=== PATIENT | female | born 1980 | race Caucasian/White ===

== ENCOUNTER → 2020-01-29 08:50 | Outpatient (BNVA) | payer MEDICAID, SELFPAY | PROVIDERS: PCP Internal Medicine; Visit Provider Physician Assistant | DX: Z76.89 Persons encountering health services in other specified circumstances (principal) ==

== ENCOUNTER → 2020-02-22 10:05 | Outpatient (BNVA) | payer MEDICAID, SELFPAY | PROVIDERS: Visit Provider Surgery | DX: E66.01 Morbid (severe) obesity due to excess calories (principal); Z68.42 Body mass index [BMI] 45.0-49.9, adult; E50.9 Vitamin A deficiency, unspecified; E55.9 Vitamin D deficiency, unspecified; Z71.3 Dietary counseling and surveillance | CPT/HCPCS: 99214 ==

== ENCOUNTER 2020-03-09 10:37 | Outpatient (REF) | payer MEDICAID, SELFPAY | END 2020-03-09 10:38 | disposition home or self-care (01) | LOC: HO.LAB 10:37 | PROVIDERS: PCP Internal Medicine; Referring Provider Internal Medicine; Visit Provider Obstetrics & Gynecology | DX: N87.1 Moderate cervical dysplasia (principal); B37.2 Candidiasis of skin and nail | CPT/HCPCS: 88142; 88305; 99212 ==

== ENCOUNTER → 2020-04-07 08:26 | Outpatient (BNVA) | payer MEDICAID, SELFPAY | PROVIDERS: PCP Internal Medicine; Visit Provider Physician Assistant | DX: Z76.89 Persons encountering health services in other specified circumstances (principal) ==

== ENCOUNTER 2020-04-18 14:58 | Outpatient (REF) | payer MEDICAID, SELFPAY | END 2020-04-18 14:59 | disposition home or self-care (01) | LOC: HO.LAB 14:58 | PROVIDERS: Visit Provider Internal Medicine | DX: Z20.828 Contact with and (suspected) exposure to other viral communicable diseases (principal) | CPT/HCPCS: C9803; U0003 ==

== ENCOUNTER 2020-05-06 16:06 | Emergency (ER) | payer MEDICAID, SELFPAY ==
[2020-05-06 17:27] VITALS: BP 113/84; PULSE 101; RESP 18; TEMP 37.7; O2SAT 100; BMI 32.3
[2020-05-06 20:04] VITALS: BP 127/92; PULSE 108; RESP 20; TEMP 36.7; O2SAT 100
--- NOTE | 2020-05-06 22:28 | ECG_ITS ---
Test Reason : SOB Blood Pressure : / mmHG Vent. Rate : 104 BPM Atrial Rate : 104 BPM P-R Int : 120 ms QRS Dur : 082 ms QT Int : 360 ms P-R-T Axes : 047 018 007 degrees QTc Int : 473 ms Sinus tachycardia Otherwise normal ECG When compared to the previous EKG of No significant changes seen Referred By: Sergo Angel Electronically Signed By:Mendel Cervantes
--- NOTE | 2020-05-06 22:28 | XR_ITS ---
EXAMINATION: XR CHEST CLINICAL INFORMATION: Chest pain. COMPARISON: None TECHNIQUE: Frontal portable view of the chest was obtained. 10:28 PM FINDINGS: No significant abnormality is noted involving the heart, lungs, mediastinum, bony thorax or soft tissues. XR/XR chest 1V IMPRESSION: Unremarkable examination.
[2020-05-06 23:01] LABS: Basophils Absolute Auto 0.1 X10*3/uL (0.0-0.2); Basophils Percent Auto 0.6 % (0-2); Eosinophils Absolute Auto 0.7 X10*3/uL (0.0-0.4); Eosinophils Percent Auto 5.5 % (0-4); Hematocrit 33.5 % (37-47); Hemoglobin 10.3 g/dl (12.0-16.0); Imm Gran Abs Auto 0.04 X10*3/uL (0.00-0.03); Imm Gran Pct Auto 0.3 % (0.0-0.4); Lymphocytes Absolute Auto 3.2 X10*3/uL (1.2-4.9); Lymphocytes Percent Auto 24.9 % (20-40); MANUAL DIFF FLAG NO; Mean Corpuscular HGB Conc 30.7 g/dl (31.0-35.0); Mean Corpuscular Hemoglobin 23.7 pg (27.0-33.0); Mean Corpuscular Volume 77.2 fL (80-98); Mean Platelet Volume 9.4 fL (9.4-12.3); Monocytes Absolute Auto 0.6 X10*3/uL (0.1-1.2); Monocytes Percent Auto 4.8 % (2-11); Neutrophils Absolute Auto 8.1 X10*3/uL (2.0-8.3); Neutrophils Percent Auto 63.9 % (45-73); Platelet Count 407 X10*3/uL (160-400); Red Blood Count 4.34 X10*6/uL (4.20-5.50); Red Cell Distribution Width 15.8 % (11.0-16.0); White Blood Count 12.7 X10*3/uL (4.8-10.8)
[2020-05-06 23:08] LABS: INTERNATIONAL NORM RATIO 1.2 (0.9-1.1); Prothrombin Time 13.7 SEC (10.8-13.0)
[2020-05-06 23:11] LABS: Partial Thromboplastin Time 31.3 SEC (24.1-38.0)
[2020-05-06 23:12] LABS: D Dimer < 200 NG/ML
[2020-05-06 23:34] LABS: Alanine Aminotransferase 10 U/L (0-31); Albumin Level 4.1 g/dL (3.5-5.0); Alkaline Phosphatase 76 U/L (39-117); Anion Gap 13 (12-20); Aspartate Amino Transferase 9 U/L (5-31); Bilirubin Total < 0.2 mg/dL (0.0-1.0); Blood Urea Nitrogen 9 mg/dL (9-16); Calcium 8.8 mg/dL (8.4-10.2); Carbon Dioxide 23 mmol/L (22-29); Chloride 105 mmol/L (96-108); Creatinine Clr Calc Pharmacy 117.8; Estimated Glomerular Filt Rate > 60; Glucose Random 100 mg/dL (60-115); Potassium 3.8 mmol/l (3.3-5.1); Sodium 137 mmol/L (135-145); Total Protein 7.2 g/dL (6.5-8.0)
[2020-05-06 23:37] LABS: Troponin-I High Sensitivity < 3.5 ng/L (<3.5-17.0)
[2020-05-06 23:39] VITALS: BP 133/82; PULSE 90; RESP 18; O2SAT 100
--- NOTE | 2020-05-07 00:50 | ED.URI ---
HPI - URI/Sore Throat General Chief Complaint: Upper Respiratory Symptoms Stated Complaint: SOB Time Seen by Provider: 05/06/20 22:27 Source: patient Mode of arrival: ambulatory Limitations: no limitations History of Present Illness HPI Narrative: Tested positive for COVID 3 weeks ago 04/18/2020. Looks side no symptoms of myalgias has resolved now just has a cough with associated chest wall pain and pain with deep inspiration. No fever or chills. States she called her primary care doctor who could not see her so she came to emergency room. Consistency: intermittent Severity: mild Able to tolerate fluids by mouth: Yes Exacerbating factors: nothing (Cough) and deep breaths Treatments prior to arrival: none Related Data Previous Rx's Medication Instructions Recorded clotrimazole-betamethasone 1 1 applic TOPICAL BID 5 Days #45 g 03/09/20 %-0.05 % topical cream albuterol sulfate 1 inh INHALATION Q4-6H PRN #1 ea 05/07/20 azithromycin [Zithromax Z-Woody] 250 mg PO DAILY 5 Days #6 tab 05/07/20 prednisone 40 mg PO DAILY 5 Days #10 tab 05/07/20 Allergies Allergy/AdvReac Type Severity Reaction Status Date / Time NKA Allergy Unknown NKA Uncoded 03/09/20 11:03 Review of Systems Review of Systems: Constitutional: No Weight loss, No Fever, No Chills, No Night Sweats, No Fatigue, No Malaise ENT/Mouth: No Hearing loss, No Ear Pain, No Nasal Congestion, No Sinus Pain, No Hoarseness, No sore throat, No Rhinorrhea, No Swallowing Difficulty Eyes: No Eye Pain, No Swelling, No Redness, No Foreign Body, No Discharge, No Vision Changes Cardiovascular: + Chest Pain, No SOB, No Dyspnea on Exertion, No Orthopnea, No Edema, No Palpitations Respiratory: + Cough, No Sputum, no Wheezing, No Smoke Exposure, No Dyspnea Gastrointestinal: No Nausea, No Vomiting, No Diarrhea, No Constipation, No abdominal Pain, No Hematochezia, No Melena Genitourinary: no irregular bleeding, No Dysuria, No Urinary Frequency, No Hematuria, No Urinary Incontinence, No Urgency Musculoskeletal: No joint pain, No Myalgias, No Joint Swelling Skin: No Skin Lesions, No rash Neuro: No Weakness, No Numbness, No Paresthesias, No Loss of Consciousness, No Dizziness, No Headache Psych: No Social Issues Heme/Lymph: No Bruising, No Bleeding,No Lymphadenopathy Endocrine: No Polyuria, No Polydipsia, No Temperature Intolerance Yes all other systems are reviewed and are negative [facility] Past Medical History Medical History Anemia Anxiety JUDE II (cervical intraepithelial neoplasia II) Kidney stones Morbid obesity with BMI of 45.0-49.9, adult Surgical History H/O lithotripsy History of cystoscopy Hx of tubal ligation Family History Family History Father Medical history unknown Mother Asthma Hypertension Thyroid disease Brother Thyroid disease Sister No problems noted. Sister No problems noted. Son No problems noted. Daughter No problems noted. Social History Social History Alcohol intake: current Alcohol intake frequency: holidays/special occasions only Smoking Status: Current every day smoker Tobacco Type: Cigarette Cigarettes Per Day: 10 Advance Directives: No Advance Directives Information Provided: No Physical Exam Vital Signs: Vital Signs: Last Vital Signs Temp 98.1 F 05/06/20 20:04 Pulse 90 05/06/20 23:39 Resp 18 05/06/20 23:39 BP 133/82 05/06/20 23:39 Pulse Ox 100 05/06/20 23:39 Body Mass Index 32.3 Reviewed Const: General: cooperative and healthy appearing; No acute distress or intoxicated appearing Nutritional Appearance: average body habitus Orientation/consciousness: patient oriented x3 HENMT: Head: Yes normal to inspection Ears: hearing grossly normal bilaterally Eyes: General: appearance normal, both eyes and all related structures Visual Giron: normal visual giron by confrontation Neck: Neck: Yes normal visual inspection, No positive Brudzinski's sign, No positive Kernig's sign and No tender Thyroid: Thyroid normal Chest: Chest palpation & inspection: normal inspection of the chest Resp: Effort & Inspection: normal respiratory effort Auscultation: clear to auscultation bilaterally Cardio: Jugular venous distension: no JVD Rhythm: regular rhythm Heart sounds: S1 normal heart sound present and S2 normal heart sound present GI: Inspection: Yes normal to inspection Percussion: Yes normal to percussion Auscultation: normal bowel sounds : General: Yes no CVA tenderness Back/Spine/Pelvis: Back: no CVA tenderness Skin: General skin exam: no rashes or lesions noted Neuro: General: patient oriented x3 Extrem: General: Yes normal to inspection Course Course Course Narrative: Well nontoxic appearing. Hemodynamics stable. D-dimer negative. Troponin negative. EKG nondiagnostic. Chest x-ray without acute distress. Cough status post COVID will try short course azithromycin, prednisone and inhaler will discharge with CBC/date guidelines, return follow-up instructions. Ambulatory status with gait without exertional dyspnea. Stable for discharge. MDM - URI/Sore Throat Medical Records Attestation: I reviewed the patient's medical records. Lab Data Attestation: I reviewed the patient's lab results. Result diagrams: 05/06/20 22:52 05/06/20 22:52 Labs: Lab Results 05/06/20 05/06/20 05/06/20 Range/Units 22:52 22:52 22:52 WBC 12.7 H (4.8-10.8) X10*3/uL RBC 4.34 (4.20-5.50) X10*6/uL Hgb 10.3 L (12.0-16.0) g/dl Hct 33.5 L (37-47) % MCV 77.2 L (80-98) fL MCH 23.7 L (27.0-33.0) pg MCHC 30.7 L (31.0-35.0) g/dl RDW 15.8 (11.0-16.0) % Plt Count 407 H (160-400) X10*3/uL MPV 9.4 (9.4-12.3) fL Immature Gran % (Auto) 0.3 (0.0-0.4) % Neut % (Auto) 63.9 (45-73) % Lymph % (Auto) 24.9 (20-40) % [place] % (Auto) 4.8 (2-11) % Eos % (Auto) 5.5 H (0-4) % Baso % (Auto) 0.6 (0-2) % Lymph # (Auto) 3.2 (1.2-4.9) X10*3/uL [place] # (Auto) 0.6 (0.1-1.2) X10*3/uL Eos # (Auto) 0.7 H (0.0-0.4) X10*3/uL Baso # (Auto) 0.1 (0.0-0.2) X10*3/uL Abs Immat Gran (auto) 0.04 H (0.00-0.03) X10*3/uL Absolute Neuts (auto) 8.1 (2.0-8.3) X10*3/uL Absolute Nucleated RBC 0.000 (0.0-0.012) X10*3/uL Nucleated RBC % (auto) 0.0 (0.0-0.2) /100WBC PT 13.7 H (10.8-13.0) SEC INR 1.2 H (0.9-1.1) APTT 31.3 (24.1-38.0) SEC D-Dimer < 200 NG/ML Sodium 137 (135-145) mmol/L Potassium 3.8 (3.3-5.1) mmol/l Chloride 105 (96-108) mmol/L Carbon Dioxide 23 (22-29) mmol/L Anion Gap 13 (12-20) BUN 9 (9-16) mg/dL Creatinine 0.82 (0.5-1.4) mg/dL Estim Creat Clear Calc 117.8 Estimated GFR > 60 Random Glucose 100 (60-115) mg/dL Calcium 8.8 (8.4-10.2) mg/dL Total Bilirubin < 0.2 (0.0-1.0) mg/dL AST 9 (5-31) U/L ALT 10 (0-31) U/L Alkaline Phosphatase 76 (39-117) U/L Troponin I High Sens (<3.5-17.0) ng/L Total Protein 7.2 (6.5-8.0) g/dL Albumin 4.1 (3.5-5.0) g/dL 05/06/20 Range/Units 22:52 WBC (4.8-10.8) X10*3/uL RBC (4.20-5.50) X10*6/uL Hgb (12.0-16.0) g/dl Hct (37-47) % MCV (80-98) fL MCH (27.0-33.0) pg MCHC (31.0-35.0) g/dl RDW (11.0-16.0) % Plt Count (160-400) X10*3/uL MPV (9.4-12.3) fL Immature Gran % (Auto) (0.0-0.4) % Neut % (Auto) (45-73) % Lymph % (Auto) (20-40) % [place] % (Auto) (2-11) % Eos % (Auto) (0-4) % Baso % (Auto) (0-2) % Lymph # (Auto) (1.2-4.9) X10*3/uL [place] # (Auto) (0.1-1.2) X10*3/uL Eos # (Auto) (0.0-0.4) X10*3/uL Baso # (Auto) (0.0-0.2) X10*3/uL Abs Immat Gran (auto) (0.00-0.03) X10*3/uL Absolute Neuts (auto) (2.0-8.3) X10*3/uL Absolute Nucleated RBC (0.0-0.012) X10*3/uL Nucleated RBC % (auto) (0.0-0.2) /100WBC PT (10.8-13.0) SEC INR (0.9-1.1) APTT (24.1-38.0) SEC D-Dimer NG/ML Sodium (135-145) mmol/L Potassium (3.3-5.1) mmol/l Chloride (96-108) mmol/L Carbon Dioxide (22-29) mmol/L Anion Gap (12-20) BUN (9-16) mg/dL Creatinine (0.5-1.4) mg/dL Estim Creat Clear Calc Estimated GFR Random Glucose (60-115) mg/dL Calcium (8.4-10.2) mg/dL Total Bilirubin (0.0-1.0) mg/dL AST (5-31) U/L ALT (0-31) U/L Alkaline Phosphatase (39-117) U/L Troponin I High Sens < 3.5 (<3.5-17.0) ng/L Total Protein (6.5-8.0) g/dL Albumin (3.5-5.0) g/dL Imaging Data Chest x-ray: Radiologist's impression: [address] [id number] XRay Report Signed Patient: Lorrie BernalMR#: [id number] : 1980Acct:[id number] Age/Sex: 39 / FADM Date: 05/06/20 Loc: HO.ED Attending Dr: Ordering Physician: Sergo Angel NP Date of Service: 05/06/20 Procedure(s): XR chest 1V Accession Number(s): [id number] cc: Sergo Angel [employer]~ EXAMINATION: XR CHEST CLINICAL INFORMATION: Chest pain. COMPARISON: None TECHNIQUE: Frontal portable view of the chest was obtained. 10:28 PM FINDINGS: No significant abnormality is noted involving the heart, lungs, mediastinum, bony thorax or soft tissues. XR/XR chest 1V IMPRESSION: Unremarkable examination. Dictated By:DAMIEN CERON MD Signed By:<Electronically signed by DAMIEN CERON MD in OV>05/06/202250 DD/ 27 ECG Data Interpretation: normal sinus rhythm Rate [address] segment changes No previous Discharge Plan Discharge Clinical Impression: Bronchitis, Chest pain Patient Disposition: Home, Self-Care Instructions: Chest Pain (ED), Acute Bronchitis (ED) Additional Instructions: Drink plenty of fluids Taking medications prescribed Supportive care discussed Return if any concerns worsening symptoms Self-isolation/social distancing at least until 3 days symptom-free Thank you Prescriptions: New azithromycin [Zithromax Z-Woody] 250 mg tablet 250 mg PO DAILY 5 Days Qty: 6 RF: 0 prednisone 20 mg tablet 40 mg PO DAILY 5 Days Qty: 10 RF: 0 albuterol sulfate 90 mcg/actuation aerosol powdr breath activated 1 inh inhalation Q4-6H PRN (Reason: shortness of breath or wheezing) Qty: 1 RF: 0 No Action clotrimazole-betamethasone 1-0.05 % cream 1 applic topical BID 5 Days Qty: 45 RF: 0 Referrals: Physician,Unknown [Primary Care Provider] - 1 week (Phone visit with her primary care doctor in 1 week)
== END 2020-05-07 01:18 | disposition home or self-care (01) ==
PROVIDERS: Nurse Practitioner Primary Care; Emergency Provider Emergency Medicine
DX: J40 Bronchitis, not specified as acute or chronic (principal); M79.10 Myalgia, unspecified site; R07.89 Other chest pain; Z79.899 Other long term (current) drug therapy; F17.210 Nicotine dependence, cigarettes, uncomplicated; Z71.6 Tobacco abuse counseling; Z20.828 Contact with and (suspected) exposure to other viral communicable diseases
CPT/HCPCS: 36415; 71045; 80053; 84484; 85025; 85379; 85610; 85730; 93005; 99283

== ENCOUNTER → 2020-05-11 12:51 | Outpatient (BNVA) | payer MEDICAID, SELFPAY | PROVIDERS: Visit Provider Obstetrics & Gynecology | DX: Z76.89 Persons encountering health services in other specified circumstances (principal) ==

== ENCOUNTER → 2020-05-27 08:17 | Outpatient (BNVA) | payer MEDICAID, SELFPAY | PROVIDERS: Visit Provider Dietitian, Registered ==

== ENCOUNTER → 2020-06-16 12:41 | Outpatient (BNVA) | payer MEDICAID, SELFPAY | PROVIDERS: Visit Provider Physician Assistant | DX: E66.01 Morbid (severe) obesity due to excess calories (principal) | CPT/HCPCS: 99212 ==

== ENCOUNTER → 2020-07-04 08:09 | Outpatient (BNVA) | payer MEDICAID, SELFPAY | PROVIDERS: Visit Provider Dietitian, Registered ==

== ENCOUNTER 2020-07-14 08:53 | Outpatient (REF) | payer MEDICAID, SELFPAY ==
[2020-07-14 11:36] LABS: Vitamin D 25-OH Total 13.1 ng/mL (>30)
[2020-07-18 13:21] LABS: Vitamin A 35 mcg/dL (38-98)
== END 2020-07-14 08:54 | disposition home or self-care (01) ==
LOC: HO.LAB 08:53
PROVIDERS: PCP Internal Medicine; Visit Provider Surgery
DX: Z01.818 Encounter for other preprocedural examination (principal); E66.01 Morbid (severe) obesity due to excess calories; E55.9 Vitamin D deficiency, unspecified; E50.9 Vitamin A deficiency, unspecified; F17.210 Nicotine dependence, cigarettes, uncomplicated; Z71.3 Dietary counseling and surveillance; Z68.42 Body mass index [BMI] 45.0-49.9, adult
CPT/HCPCS: 36415; 82306; 84590; 99212

== ENCOUNTER 2020-07-20 10:28 | Outpatient (REF) | payer MEDICAID, SELFPAY ==
--- NOTE | ~2020-07-20 | US_ITS ---
EXAMINATION: US THYROID CLINICAL INFORMATION: Nontoxic single thyroid nodule. COMPARISON: Ultrasound soft tissue head/neck thyroid dated 03/24/2019. TECHNIQUE: Linear transducer grayscale and color Doppler examination with attention to the region of the thyroid. FINDINGS: SIZE: Measurements of the thyroid lobes and nodules are given in sagittal, anteroposterior and transverse dimensions respectively. Right Thyroid Lobe: 4.3 x 1.5 x 1.5 cm, volume 5.3 mL. Previously 4.1 x 1.5 x 1.7 cm, volume 5.4 mL. Parenchyma: The gland echotexture is homogeneous. Thyroid vascularity is normal. Left Thyroid Lobe: 4.8 x 1.5 x 1.8 cm, volume 7.0 mL. Previously 3.9 x 1.5 x 1.9 cm, volume 5.8 mL. Parenchyma: The gland echotexture is homogeneous. Thyroid vascularity is normal. Isthmus: 0.5 cm in maximum AP dimension. Previously 0.5 cm. There was a solitary nodule seen on the previous exam in the right midpole. It is not visualized on the present exam. NODES: No lymphadenopathy is seen in the tissue surrounding the thyroid gland. US/US thyroid IMPRESSION: Unremarkable thyroid ultrasound. No nodules visualized at this time. ACR TI-RADS RECOMMENDATION REFERENCE: Ultrasound-guided fine-needle aspiration, followup ultrasound, no further follow up. * TR1 (0 point) and TR 2 (2 points): No FNA or follow up * TR3 (3 points): FNA if more than or equal to 2.5 cm in maximum dimension, followup ultrasound in 1, 3 and 5 years if 1.5 to 2.4 cm in maximum dimension. * TR4 (4-6 points): FNA if more than or equal to 1.5 cm in maximum dimension, followup ultrasound in 1, 2, 3 and 5 years if 1 to 1.4 cm in maximum dimension. * TR5 (more than or equal to 7 points): FNA if more than or equal to 1 cm in maximum dimension, followup ultrasound every year for 5 years if 0.5 to 0.9 cm in maximum dimension. * TR3, TR4 or TR5 nodules that are below the size threshold for follow up receive no follow up.
== END 2020-07-20 10:29 | disposition home or self-care (01) ==
LOC: HO.US 10:28
PROVIDERS: Visit Provider Internal Medicine
DX: E04.1 Nontoxic single thyroid nodule (principal)
CPT/HCPCS: 76536

== ENCOUNTER → 2020-09-02 08:39 | Outpatient (BNVA) | payer MEDICAID, SELFPAY | PROVIDERS: PCP Internal Medicine; Visit Provider Dietitian, Registered ==

== ENCOUNTER → 2020-09-05 08:27 | Outpatient (BNVA) | payer MEDICAID, SELFPAY | PROVIDERS: PCP Internal Medicine; Visit Provider Physician Assistant ==

== ENCOUNTER → 2020-09-06 10:17 | Outpatient (BNVA) | payer MEDICAID, SELFPAY | PROVIDERS: PCP Internal Medicine; Referring Provider Internal Medicine; Visit Provider Physician Assistant | DX: E66.01 Morbid (severe) obesity due to excess calories (principal); Z68.42 Body mass index [BMI] 45.0-49.9, adult | CPT/HCPCS: 99212 ==

== ENCOUNTER 2020-09-15 13:33 | Outpatient (REF) | payer MEDICAID, SELFPAY ==
--- NOTE | ~2020-09-15 | XR_ITS ---
EXAMINATION: XR LUMBAR SPINE XR KNEE, BILATERAL CLINICAL INFORMATION: Pain. COMPARISON: None TECHNIQUE: Lumbar spine 3 views. 3 views each knee. FINDINGS: LUMBAR SPINE: There is mild straightening of the lumbar lordosis. The vertebral heights, alignment and disc heights are normal. There is no visible acute fracture, dislocation or subluxation. There is no lytic or sclerotic process seen. The soft tissues are normal. RIGHT KNEE: The tricompartment joint space is maintained. No bony erosive changes, loose bodies or joint effusion seen. LEFT KNEE: There is no visible acute fracture, dislocation or subluxation. There is no abnormal joint effusion. The soft tissues are normal. XR/XR knee RT 3V IMPRESSION: Unremarkable lumbar spine exam. Unremarkable bilateral knee exam.
--- NOTE | ~2020-09-15 | XR_ITS ---
EXAMINATION: XR LUMBAR SPINE XR KNEE, BILATERAL CLINICAL INFORMATION: Pain. COMPARISON: None TECHNIQUE: Lumbar spine 3 views. 3 views each knee. FINDINGS: LUMBAR SPINE: There is mild straightening of the lumbar lordosis. The vertebral heights, alignment and disc heights are normal. There is no visible acute fracture, dislocation or subluxation. There is no lytic or sclerotic process seen. The soft tissues are normal. RIGHT KNEE: The tricompartment joint space is maintained. No bony erosive changes, loose bodies or joint effusion seen. LEFT KNEE: There is no visible acute fracture, dislocation or subluxation. There is no abnormal joint effusion. The soft tissues are normal. XR/XR knee LT 3V IMPRESSION: Unremarkable lumbar spine exam. Unremarkable bilateral knee exam.
--- NOTE | ~2020-09-15 | XR_ITS ---
EXAMINATION: XR LUMBAR SPINE XR KNEE, BILATERAL CLINICAL INFORMATION: Pain. COMPARISON: None TECHNIQUE: Lumbar spine 3 views. 3 views each knee. FINDINGS: LUMBAR SPINE: There is mild straightening of the lumbar lordosis. The vertebral heights, alignment and disc heights are normal. There is no visible acute fracture, dislocation or subluxation. There is no lytic or sclerotic process seen. The soft tissues are normal. RIGHT KNEE: The tricompartment joint space is maintained. No bony erosive changes, loose bodies or joint effusion seen. LEFT KNEE: There is no visible acute fracture, dislocation or subluxation. There is no abnormal joint effusion. The soft tissues are normal. XR/XR lumbar spine 2-3V IMPRESSION: Unremarkable lumbar spine exam. Unremarkable bilateral knee exam.
[2020-09-15 15:41] LABS: MANUAL DIFF FLAG NO
[2020-09-15 15:51] LABS: Basophils Absolute Auto 0.1 X10*3/uL (0.0-0.2); Basophils Percent Auto 0.5 % (0-2); Eosinophils Absolute Auto 0.3 X10*3/uL (0.0-0.4); Eosinophils Percent Auto 2.7 % (0-4); Hematocrit 31.4 % (37-47); Hemoglobin 9.7 g/dl (12.0-16.0); Imm Gran Abs Auto 0.04 X10*3/uL (0.00-0.03); Imm Gran Pct Auto 0.4 % (0.0-0.4); Lymphocytes Percent Auto 20.4 % (20-40); Mean Corpuscular HGB Conc 30.9 g/dl (31.0-35.0); Mean Corpuscular Hemoglobin 23.7 pg (27.0-33.0); Mean Corpuscular Volume 76.6 fL (80-98); Mean Platelet Volume 9.9 fL (9.4-12.3); Monocytes Absolute Auto 0.5 X10*3/uL (0.1-1.2); Monocytes Percent Auto 5.1 % (2-11); Neutrophils Absolute Auto 7.1 X10*3/uL (2.0-8.3); Neutrophils Percent Auto 70.9 % (45-73); Platelet Count 384 X10*3/uL (160-400); Red Cell Distribution Width 15.6 % (11.0-16.0)
[2020-09-15 15:57] LABS: Alanine Aminotransferase 10 U/L (0-31); Albumin Level 3.9 g/dL (3.5-5.0); Alkaline Phosphatase 61 U/L (39-117); Anion Gap 11 (12-20); Aspartate Amino Transferase 11 U/L (5-31); Bilirubin Total < 0.2 mg/dL (0.0-1.0); Blood Urea Nitrogen 13 mg/dL (9-16); C Reactive Protein 0.85 mg/dL (< or = 0.50); Calcium 9.6 mg/dL (8.4-10.2); Carbon Dioxide 24 mmol/L (22-29); Chloride 106 mmol/L (96-108); Estimated Glomerular Filt Rate > 60; Glucose Random 97 mg/dL (60-115); Potassium 4.4 mmol/L (3.3-5.1); Rheumatoid Factor < 15.0 IU/mL (<15.0); Sodium 137 mmol/L (135-145); Total Protein 6.7 g/dL (6.5-8.0)
[2020-09-15 17:29] LABS: Erythrocyte Sedimentation Rate 28 MM/HR (0-20)
[2020-09-19 15:11] LABS: Vitamin D 25-OH, D2 <4 ng/mL; Vitamin D 25-OH, D3 15 ng/mL; Vitamin D 25-OH, Total 15 ng/mL (30-100)
[2020-09-19 15:37] LABS: Anti Nuclear Antibody Pattern Nuclear, Homogeneous; Anti Nuclear Antibody Screen POSITIVE (NEGATIVE); Anti Nuclear Antibody Titer 1:40 titer
[2020-09-19 18:26] LABS: Cyclic Citrullinated Peptide <16 UNITS
== END 2020-09-15 13:34 | disposition home or self-care (01) ==
LOC: HO.XRAY 13:33
PROVIDERS: PCP Internal Medicine; Visit Provider Student in an Organized Health Care Education/Training Program
DX: M25.50 Pain in unspecified joint (principal)
CPT/HCPCS: 36415; 72100; 73562; 80053; 82306; 84443; 85025; 85652; 86038; 86039; 86140; 86200; 86431; 99202

== ENCOUNTER 2020-10-12 07:53 | Outpatient (REF) | payer MEDICAID, SELFPAY ==
[2020-10-12 10:02] LABS: Glucose Urine UA NEG (NEG); Leukocyte Esterase Urine NEG (NEG); Nitrite Urine NEG (NEG); Urine Blood 2+ (NEG); Urine Ketones NEG (NEG); Urine Protein NEG (NEG-TRACE)
[2020-10-12 10:08] LABS: Appearance Urine HAZY; Color Urine YELLOW
[2020-10-12 11:03] LABS: RBC Urine 0-2 /HPF (0); WBC Urine 0-2 /HPF (0-4)
[2020-10-12 11:04] LABS: Mucus Urine 2+ /LPF; Squamous Epithelial Cell Urine 2+ /LPF
[2020-10-13 10:36] LABS: Thyroglobulin Antibodies <1 IU/mL (< or = 1); Thyroid Peroxidase Antibodies 1 IU/mL (<9)
[2020-10-13 11:22] LABS: Complement C3 130 mg/dL (83-193)
[2020-10-14 14:36] LABS: Anti DNA DS Antibody 1 IU/mL; Antibody to SS-A Antigen <1.0 NEG AI (<1.0 NEG); Antibody to SS-B Antigen <1.0 NEG AI (<1.0 NEG); SM/Ribonucleoprotein Ab <1.0 NEG AI (<1.0 NEG); Smith Protein <1.0 NEG AI (<1.0 NEG)
== END 2020-10-12 07:54 | disposition home or self-care (01) ==
LOC: HO.LAB 07:53
PROVIDERS: PCP Internal Medicine; Visit Provider Student in an Organized Health Care Education/Training Program
DX: R76.8 Other specified abnormal immunological findings in serum (principal); M25.50 Pain in unspecified joint; D50.9 Iron deficiency anemia, unspecified; E55.9 Vitamin D deficiency, unspecified; Z79.899 Other long term (current) drug therapy
CPT/HCPCS: 36415; 81001; 86160; 86225; 86235; 86376; 86800; 99212

== ENCOUNTER → 2020-12-23 15:15 | Outpatient (BNVA) | payer MEDICAID, SELFPAY | PROVIDERS: PCP Internal Medicine; Visit Provider Physician Assistant | DX: E66.01 Morbid (severe) obesity due to excess calories (principal); M25.50 Pain in unspecified joint | CPT/HCPCS: 99212 ==

== ENCOUNTER → 2021-02-01 09:46 | Outpatient (BNVA) | payer MEDICAID, SELFPAY | PROVIDERS: PCP Internal Medicine; Referring Provider Internal Medicine; Visit Provider Physician Assistant | DX: E66.01 Morbid (severe) obesity due to excess calories (principal); Z68.43 Body mass index [BMI] 50.0-59.9, adult | CPT/HCPCS: 99212 ==

== ENCOUNTER → 2021-02-21 08:01 | Outpatient (BNVA) | payer MEDICAID, SELFPAY | PROVIDERS: PCP Internal Medicine; Visit Provider Dietitian, Registered | DX: E66.01 Morbid (severe) obesity due to excess calories (principal) | CPT/HCPCS: 97802 ==

== ENCOUNTER → 2021-03-28 08:08 | Outpatient (BNVA) | payer MEDICAID, SELFPAY | PROVIDERS: PCP Internal Medicine; Referring Provider Physician Assistant; Visit Provider Dietitian, Registered | DX: E66.01 Morbid (severe) obesity due to excess calories (principal); F41.9 Anxiety disorder, unspecified; F17.210 Nicotine dependence, cigarettes, uncomplicated; Z68.43 Body mass index [BMI] 50.0-59.9, adult; Z83.49 Family history of other endocrine, nutritional and metabolic diseases; Z82.5 Family history of asthma and other chronic lower respiratory diseases; Z82.49 Family history of ischemic heart disease and other diseases of the circulatory system; Z71.3 Dietary counseling and surveillance | CPT/HCPCS: 97803 ==

== ENCOUNTER 2021-06-27 09:00 | Outpatient (REF) | payer MEDICAID, SELFPAY ==
[2021-06-28 05:43] LABS: CT PCR NOT DETECTED (Not Detect.); NG PCR NOT DETECTED (Not Detect.)
[2021-06-28 09:26] LABS: BV Int Neg Control Negative (Negative); BV Int Pos Control Positive (Positive)
[2021-06-29 20:56] LABS: HPV mRNA E6/E7 rflx Not Detected (Not Detected)
== END 2021-06-27 09:01 | disposition home or self-care (01) ==
LOC: HO.LAB 09:00
PROVIDERS: Visit Provider Advanced Practice Midwife
DX: Z01.419 Encounter for gynecological examination (general) (routine) without abnormal findings (principal); Z11.51 Encounter for screening for human papillomavirus (HPV); Z20.2 Contact with and (suspected) exposure to infections with a predominantly sexual mode of transmission; E66.01 Morbid (severe) obesity due to excess calories; Z87.42 Personal history of other diseases of the female genital tract
CPT/HCPCS: 87480; 87491; 87510; 87591; 87624; 87660; 88142

== ENCOUNTER 2021-07-28 08:06 | Outpatient (REF) | payer MEDICAID, SELFPAY ==
--- NOTE | 2021-07-28 | PFT_ITS ---
Forced vital capacity 102%, FEV1 80%. FEV1/FVC ratio is 66, which is decreased. ACV80-15 is 38% and MVV 88%. Post bronchodilator therapy, there is small but significant improvement in FEV1 and rather marked improvement in LEA64-35. Total lung capacity 109%. Residual volume 129% indicating some air trapping. Diffusion capacity 71%. CONCLUSION: Mild obstructive airway disorder. Good response to bronchodilator therapy. This finding is consistent with bronchial asthma. Clinical correlation recommended. Compared to the results of 03/11/2018, the response to bronchodilator therapy is new. No other significant change. MD LEVI Demarco/RJAAN / [id number]
== END 2021-07-28 08:07 | disposition home or self-care (01) ==
LOC: HO.RESP 08:06
PROVIDERS: PCP Internal Medicine; Visit Provider Internal Medicine
DX: R05.3 Chronic cough (principal)
CPT/HCPCS: 94060; 94727; 94729

== ENCOUNTER → 2021-12-04 20:30 | Outpatient (REF) | payer MEDICAID, SELFPAY | LOC: HO.SL 20:30 | PROVIDERS: PCP Internal Medicine; Visit Provider Internal Medicine | DX: G47.33 Obstructive sleep apnea (adult) (pediatric) (principal); G47.61 Periodic limb movement disorder; R06.83 Snoring | CPT/HCPCS: 95810 ==

== ENCOUNTER 2023-01-23 11:31 | Outpatient (REF) | payer MEDICAID, SELFPAY ==
[2023-01-23 13:08] LABS: Anion Gap 12 (12-20); Blood Urea Nitrogen 8 mg/dL (9-16); Calcium 9.6 mg/dL (8.4-10.2); Carbon Dioxide 22 mmol/L (22-29); Chloride 109 mmol/L (96-108); Estimated Glomerular Filt Rate > 60; Glucose Random 118 mg/dL (60-115); Lactate Dehydrogenase 135 U/L (122-220); Potassium 3.8 mmol/L (3.3-5.1); Sodium 139 mmol/L (135-145)
[2023-01-24 20:58] LABS: Lutenizing Hormone 8.3 mIU/mL; Prolactin 30.7 ng/mL
== END 2023-01-23 11:32 | disposition home or self-care (01) ==
LOC: HO.LAB 11:31
PROVIDERS: PCP Internal Medicine; Visit Provider Psychiatry & Neurology Neurology
DX: G93.9 Disorder of brain, unspecified (principal)
CPT/HCPCS: 36415; 80048; 83002; 83615; 84146; 84307

== ENCOUNTER 2023-04-15 19:12 | Emergency (ER) | payer MEDICAID, SELFPAY ==
--- NOTE | ~2023-04-15 | CT_ITS ---
EXAMINATION: CT HEAD WITHOUT CONTRAST CLINICAL INFORMATION: Intractable headache COMPARISON: 01/26/2020 TECHNIQUE: Contiguous axial imaging was performed from the skull base to vertex without intravenous administration of contrast. This CT examination was performed using dose optimization techniques as appropriate, variously including the following: *Automated exposure control *Adjustment of mA and/or kV according to patient size (this includes techniques or standardized protocols for targeted exams where dose is matched to indication/reason for exam; i.e. extremities or head) *Use of iterative reconstruction technique DLP: 828 mGy-cm FINDINGS: There is no evidence of acute intracranial hemorrhage or territorial infarction. No abnormal mass effect or midline shift is seen. Nolen to white matter differentiation is well preserved. No extra-axial fluid collections are identified. No hydrocephalus. No significant volume loss. There is no abnormal attenuation within the brain parenchyma. There is a stable oval 1.3 cm CSF density structure in the sella turcica appears to splay the pituitary gland. No acute osseous or soft tissue abnormality. The mastoid air cells and visualized portions of the paranasal sinuses are well aerated. CT/CT head/brain wo IV con IMPRESSION: * No acute intracranial pathology. * Unchanged 1.3 cm CSF density structure in the sella turcica splaying the pituitary gland, incompletely assessed on the basis of CT. A Rathke cleft cyst could have this appearance.
--- NOTE | ~2023-04-15 | XR_ITS ---
EXAMINATION: XR CHEST CLINICAL INFORMATION: Chest pain. Shortness of breath. COMPARISON: 05/06/2020 TECHNIQUE: 2 views of the chest were obtained. FINDINGS: No significant abnormality is noted involving the heart, lungs, mediastinum, bony thorax or soft tissues. XR/XR chest 2V IMPRESSION: Unremarkable examination.
--- NOTE | ~2023-04-15 | CT_ITS ---
EXAMINATION: CT ANGIOGRAM OF THE CHEST WITH AND WITHOUT CONTRAST (CT PULMONARY ANGIOGRAM FOR PE) CLINICAL INFORMATION: Reason for Exam CP, SOB, elevated d-dimer COMPARISON: None available. TECHNIQUE: Prior to contrast administration, noncontrast localization images were obtained. Subsequently, multidetector volumetric imaging was performed from the thoracic inlet to below the diaphragms following the administration of 75 mL Omnipaque 350 intravenous contrast. No contrast reaction reported Sagittal, coronal, and MIP oblique sagittal reformatted images were obtained on the CT workstation, uploaded to PACS, and reviewed. This CT examination was performed using dose optimization techniques as appropriate, variously including the following: *Automated exposure control *Adjustment of mA and/or kV according to patient size (this includes techniques or standardized protocols for targeted exams where dose is matched to indication/reason for exam; i.e. extremities or head) *Use of iterative reconstruction technique Total exam dose-length product 554 mGy-cm FINDINGS: QUALITY OF STUDY/CONTRAST BOLUS: Satisfactory. PULMONARY ARTERIES: No pulmonary emboli. THORACIC AORTA: No aneurysm. LUNG: No focal consolidation, nodules or masses. PLEURA: No pleural effusion or pneumothorax. MEDIASTINUM: Normal heart size. No pericardial effusion. No hilar or mediastinal lymphadenopathy. No evidence of septal bowing or right heart strain. CORONARY ARTERY CALCIFICATION: None visualized on this study. CHEST WALL/AXILLA: No axillary or internal mammary lymphadenopathy. OSSEOUS STRUCTURES: No acute or suspicious osseous abnormality. UPPER ABDOMEN: Cholelithiasis. CT/CT angio chest PE protocol IMPRESSION: No pulmonary embolism. No acute pneumonic process. Cholelithiasis. VTE: negative
[2023-04-15 19:20] VITALS: BP 119/78; PULSE 110; O2SAT 97
[2023-04-15 19:24] VITALS: BP 106/56; PULSE 111; RESP 16; TEMP 36.6; O2SAT 98; BMI 56.0
--- NOTE | 2023-04-15 19:25 | ECG_ITS ---
Test Reason : CHEST PAIN Blood Pressure : / mmHG Vent. Rate : 100 BPM Atrial Rate : 100 BPM P-R Int : 128 ms QRS Dur : 068 ms QT Int : 342 ms P-R-T Axes : 052 012 -02 degrees QTc Int : 441 ms Normal sinus rhythm Nonspecific ST abnormality Abnormal ECG When compared with ECG of 06-MAY-2020 22:58, No significant change was found Referred By: Generic ED Physician Electronically Signed By:LISETH CAST MD
[2023-04-15 19:26] VITALS: BP 106/56; PULSE 111; RESP 20; TEMP 36.7; O2SAT 99
[2023-04-15 19:32] VITALS: PULSE 111
[2023-04-15 19:51] LABS: MANUAL DIFF FLAG NO
[2023-04-15 19:52] LABS: Basophils Absolute Auto 0.1 X10*3/uL (0.0-0.2); Basophils Percent Auto 0.8 % (0-2); Eosinophils Percent Auto 0.3 % (0-4); Hematocrit 26.1 % (37.0-47.0); Hemoglobin 7.4 g/dl (12.0-16.0); Imm Gran Abs Auto 0.05 X10*3/uL (0.00-0.03); Imm Gran Pct Auto 0.4 % (0.0-0.4); Lymphocytes Absolute Auto 2.3 X10*3/uL (1.2-4.9); Lymphocytes Percent Auto 18.8 % (20-40); Mean Corpuscular HGB Conc 28.4 g/dl (31.0-35.0); Mean Corpuscular Hemoglobin 18.9 pg (27.0-33.0); Mean Corpuscular Volume 66.6 fL (80.0-98.0); Mean Platelet Volume 9.4 fL (9.4-12.3); Monocytes Absolute Auto 0.4 X10*3/uL (0.1-1.2); Monocytes Percent Auto 3.6 % (2-11); Neutrophils Absolute Auto 9.1 x10*3/uL (2.0-8.3); Neutrophils Percent Auto 76.1 % (45-73); Platelet Count 439 X10*3/uL (160-400); Red Blood Count 3.92 X10*6/uL (4.20-5.50); Red Cell Distribution Width 18.6 % (11.0-16.0)
[2023-04-15 19:59] LABS: INTERNATIONAL NORM RATIO 1.1 (0.9-1.1); Prothrombin Time 12.8 SEC (11.1-13.3)
[2023-04-15 20:13] LABS: COVID-19 Test Negative (Negative); IDNOW Serial# 08D9AD1C; IDNOW Serial# BCCEAD1C; Influenza A Negative (Negative); Influenza B2 Negative (Negative)
[2023-04-15 20:18] LABS: HCG Quantitative < 2 mIU/mL
[2023-04-15 20:19] LABS: Troponin-I High Sensitivity < 2.7 ng/L (<3.5-17.0)
[2023-04-15 20:24] VITALS: BP 107/67; PULSE 96; RESP 15; TEMP 37.3; O2SAT 99
[2023-04-15 20:25] LABS: D Dimer High Sensitivity 231 NG/ML
[2023-04-15 20:28] LABS: Anion Gap 12 (12-20); Calcium 9.3 mg/dL (8.4-10.2); Chloride 109 mmol/L (96-108); Creatinine Clr Calc Pharmacy 170.7; Estimated Glomerular Filt Rate > 60; Glucose Random 93 mg/dL (60-115); Magnesium 1.9 mg/dL (1.6-2.6); Potassium 3.8 mmol/L (3.3-5.1); Sodium 135 mmol/L (135-145)
[2023-04-15 20:29] LABS: Alanine Aminotransferase 5 U/L (0-31); Albumin Level 3.8 g/dL (3.5-5.0); Alkaline Phosphatase 68 U/L (39-117); Aspartate Amino Transferase 14 U/L (5-31); Bilirubin Total 0.2 mg/dL (0.0-1.0); Blood Urea Nitrogen 7 mg/dL (9-16); Total Protein 7.3 g/dL (6.5-8.0)
[2023-04-15 20:31] LABS: Carbon Dioxide 18 mmol/L (22-29)
--- NOTE | 2023-04-15 20:34 | ED_ITS ---
HPI - Chest Pain General Chief Complaint: Chest Pain Stated Complaint: CHEST PAIN Time Seen by Provider: 04/15/23 19:26 Source: patient Mode of arrival: ambulatory Limitations: language barrier (Senegalese-speaking medical claims representative utilized) History of Present Illness HPI narrative: Patient is a 42-year-old female presents emergency department for evaluation of chest pain coming from walk-in clinic in [place]. Patient reports she is experiencing pain Localized the left upper anterior chest, she is able to point to the area with 4 fingers. It is described as stabbing pain with onset at 12:00 today suddenly, while at rest. It is intermittent in nature and lasting approximately 1-2 minutes before self-resolving. She also reports associated shortness of breath, dizziness, and a weird sensation to the left shoulder. Of note she also reports that this year she was diagnosed with a pituitary adenoma in January, advised that this is likely the etiology for her migraine headaches for which she is followed by Neurology, Dr. Mahoney. She typically takes topiramate for her migraines. However she has been experiencing a migraine for the past 5 days that has been unrelieved, she contacted her neurologist today who prescribed her sumatriptan which she has not yet taken, she does express that she was feeling anxious regarding taking this medication. EMS administered 324 mg of aspirin. Related Data Home Medications Medication Instructions Recorded Confirmed ibuprofen 200 mg tablet (Advil) 400 mg PO Q8H PRN 09/15/20 06/27/21 Previous Rx's Medication Instructions Recorded albuterol sulfate 90 mcg/actuation 1 inh inhalation Q4-6H PRN 05/07/20 breath activated powder inhaler shortness of breath or wheezing #1 ea cholecalciferol (vitamin D3) 1,250 1,250 mcg PO QWEEK #4 caps 07/15/20 mcg (50,000 unit) capsule vitamin A palmitate 3,000 mcg 20,000 unit PO DAILY 30 days #60 07/18/20 (10,000 unit) tablet tabs clotrimazole-betamethasone 1 1 appl topical BID 2 weeks #45 06/27/21 %-0.05 % topical cream grams metronidazole 500 mg tablet 500 mg PO BID 7 days #14 tabs 07/04/21 ferrous sulfate 325 mg (65 mg 325 mg PO DAILY #30 tabs 04/15/23 iron) tablet Allergies Allergy/AdvReac Type Severity Reaction Status Date / Time NKA Allergy Unknown NKA Uncoded 06/27/21 09:07 Review of Systems 2 Review of Systems: Yes all other systems are reviewed and are negative [facility] Past Medical History Attestation statement: The following information was validated with the patient. Source: old records reviewed Medical History JUDE II (cervical intraepithelial neoplasia II) Morbid obesity with BMI of 45.0-49.9, adult Kidney stones Anxiety Anemia Surgical History History of cystoscopy H/O lithotripsy Hx of tubal ligation Family History Family History Father Medical history unknown Mother Asthma Hypertension Thyroid disease Brother Thyroid disease Sister No problems noted. Sister No problems noted. Son No problems noted. Daughter No problems noted. Social History Social History Alcohol intake: never Patient Tobacco Use Status: Current everyday Tobacco user Tobacco use type: Cigarette Cigarettes Per Day: 20 Smoked in Last 30 Days: No e-Cigarette/Vaping Use: Never Used Use of substances other than those prescribed or required for medical reasons: No Advance Directives: No Advance Directives Information Provided: No Physical Exam 2 Vital Signs: Vital Signs: Last Vital Signs Temp 99.1 F 04/15/23 20:24 Pulse 94 04/15/23 22:58 Resp 16 04/15/23 22:58 BP 111/58 L 04/15/23 22:58 Pulse Ox 98 04/15/23 22:58 O2 Del Method Room Air 04/15/23 22:58 BMI result Body Mass Index 56.0 Course Reevaluation(s) Reevaluation #1: At this time do not have access to MRI imaging or neurology notes. Given intractable headache and reported intermittent blurred vision over the past [address] of the head for further evaluation. She is noted to have microcytic anemia with hemoglobin 7.4 hematocrit 26.1 which is decreased when compared to previous levels in August 2020 (9.7/31.4). She reports ending her menses 2 weeks ago, does state that it was heavy flow. Denies bloody or black stools. Currently without any concerns for active bleeding. Viewed with patient it is possible that her symptoms of dizziness, shortness of breath, pain may be attributed to her anemia, discussed with patient taking iron supplementation. At this time she does not meet transfusion criteria. D-dimer just barely elevated; 231, Wells score with low risk for VTE; with tachycardia. Will obtain CT angio of the chest to exclude pulmonary embolism. High sensitive troponin is below detectable limits, will obtain delta troponin , EKG reveals normal sinus rhythm with nonspecific ST abnormality, not consistent with STEMI, ventricular rate of 100, QTC 441. Chest x-ray is without acute cardiopulmonary process. CT of the head is pending. Time: 21:12 Reevaluation #2: Delta troponin flat, unlikely ACS. CT of the head revealing an unchanged 1.3 cm structure within pituitary gland, no acute intracranial pathology. CTA is without evidence of pulmonary embolism or acute pulmonary process. Time: 23:45 Medications Administered Discontinued Medications Generic Name Dose Route Start Last Admin Trade Name Freq PRN Reason Stop Dose Admin Iohexol 100 ml 04/15/23 22:58 04/15/23 22:58 Iohexol 350 Mg/Ml 100 Ml Infus..Btl IV 04/15/23 22:59 75 ml ONCE ONE Administration Medical Decision Making Medical Decision Making MDM Narrative: Patient is a 42-year-old female with past medical history of morbid obesity, anxiety, depression, microcytic anemia, polyarthralgia, asthma, Pituitary Adenoma, who presents emergency department for evaluation of chest pain, shortness of breath, and an intractable migraine for the past 5 days as per HPI. At the time of my examination she appears overall well, mildly tachycardic, she does become quite tearful during examination, expressing that she feels very anxious and concerned about her health status at this time. Will obtain CBC to evaluate for leukocytosis/ anemia, CMP to evaluate for abnormal electrolytes /abnormal renal function/ abnormal hepatic function, EKG and troponin to evaluate for ischemia/ACS. Chest x-ray to evaluate for consolidation/ infiltrate/ mass/ pulmonary congestion. Differential Diagnosis Differential Diagnoses: The differential diagnosis associated with the presentation includes (Pituitary mass, possibly migraine headache, less likely ICH. ACS, pulmonary embolism, muscular strain, anxiety) Admission/Observation Consideration of admission/observation: Escalation of care including admission/observation considered (See narrative above and course narrative for further detail) Lab Data MDM Lab Attestation statement: I reviewed the patient's lab results. (See course narrative for further detail) 04/15/23 19:46 04/15/23 19:46 Labs: Lab Results 04/15/23 04/15/23 04/15/23 Range/Units 19:46 20:13 22:56 WBC 12.0 H (4.8-10.8) X10*3/uL RBC 3.92 L (4.20-5.50) X10*6/uL Hgb 7.4 L (12.0-16.0) g/dl Hct 26.1 L (37.0-47.0) % MCV 66.6 L (80.0-98.0) fL MCH 18.9 L (27.0-33.0) pg MCHC 28.4 L (31.0-35.0) g/dl RDW 18.6 H (11.0-16.0) % Plt Count 439 H (160-400) X10*3/uL MPV 9.4 (9.4-12.3) fL Immature Gran % (Auto) 0.4 (0.0-0.4) % Neut % (Auto) 76.1 H (45-73) % Lymph % (Auto) 18.8 L (20-40) % Knox % (Auto) 3.6 (2-11) % Eos % (Auto) 0.3 (0-4) % Baso % (Auto) 0.8 (0-2) % Lymph # (Auto) 2.3 (1.2-4.9) X10*3/uL Knox # (Auto) 0.4 (0.1-1.2) X10*3/uL Eos # (Auto) 0.0 (0.0-0.4) X10*3/uL Baso # (Auto) 0.1 (0.0-0.2) X10*3/uL Abs Immat Gran (auto) 0.05 H (0.00-0.03) X10*3/uL Absolute Neuts (auto) 9.1 H (2.0-8.3) x10*3/uL Absolute Nucleated RBC 0.000 (0.0-0.012) X10*3/uL Nucleated RBC % (auto) 0.0 (0.0-0.2) /100WBC PT 12.8 (11.1-13.3) SEC INR 1.1 (0.9-1.1) D-Dimer High Sensitivty 231 NG/ML Sodium 135 (135-145) mmol/L Potassium 3.8 (3.3-5.1) mmol/L Chloride 109 H (96-108) mmol/L Carbon Dioxide 18 L (22-29) mmol/L Anion Gap 12 (12-20) BUN 7 L (9-16) mg/dL Creatinine 0.75 (0.5-1.4) mg/dL Estim Creat Clear Calc 170.7 Estimated GFR > 60 Random Glucose 93 (60-115) mg/dL Calcium 9.3 (8.4-10.2) mg/dL Magnesium 1.9 (1.6-2.6) mg/dL Total Bilirubin 0.2 (0.0-1.0) mg/dL AST 14 (5-31) U/L ALT 5 (0-31) U/L Alkaline Phosphatase 68 (39-117) U/L Troponin I High Sens < 2.7 < 2.7 (<3.5-17.0) ng/L Total Protein 7.3 (6.5-8.0) g/dL Albumin 3.8 (3.5-5.0) g/dL Lipase 11 (8-78) U/L Beta HCG, Quant < 2 mIU/mL COVID-19 (BARB) Negative (Negative) COVID-19 Clin Com See Note Influenza Type A (JAVAN) Negative (Negative) Influenza Type B (JAVAN) Negative (Negative) Influenza A & B Note See Note Independent Interpretation I performed an independent interpretation of an: EKG (See course narrative), Plain X-Ray (I personally interpreted chest x-ray and agree with radiologist impression.) and CT Scan Radiology Impression Discussion of test interpretation with radiology: I have reviewed the radiologist's reading. Radiologist Impression: XR/XR chest 2V IMPRESSION: Unremarkable examination. Independent Historian Clinical information obtained from an independent historian. History obtained from or confirmed by: Friend (Present who confirms history) External Record Review External record reviewed: Outpatient record Discharge Plan Discharge Clinical Impression: Atypical chest pain Patient Disposition: Home, Self-Care Instructions: Chest Pain (ED), Noncardiac Chest Pain (ED) Additional Instructions: Please contact your primary care provider and arrange for a follow-up visit within 1-3 days. Take all your medications as prescribed. You can take ibuprofen 200 mg, 3 tablets (600mg) every 6-8 hours as needed for pain, in addition to Tylenol 500 mg, 2 tablets (1,000mg) every 4-6 hours as needed for pain, but not to exceed 3 doses daily (3,000mg).? Iron supplementation with sent to your pharmacy for your anemia, please take this as prescribed and follow-up with your primary care provider for further evaluation. You may return back to emergency department any new or worsening symptoms or concerns. Prescriptions: New ferrous sulfate 325 mg (65 mg iron) tablet 325 mg PO DAILY Qty: 30 0RF No Action cholecalciferol (vitamin D3) 1,250 mcg (50,000 unit) capsule 1,250 mcg PO QWEEK Qty: 4 1RF vitamin A palmitate 10,000 unit tablet 20,000 unit PO DAILY 30 Days Qty: 60 0RF metronidazole 500 mg tablet 500 mg PO BID 7 Days Qty: 14 0RF albuterol sulfate 90 mcg/actuation aerosol powdr breath activated 1 inh inhalation Q4-6H PRN (Reason: shortness of breath or wheezing) Qty: 1 0RF ibuprofen [Advil] 200 mg tablet 400 mg PO Q8H PRN clotrimazole-betamethasone 1-0.05 % cream 1 appl topical BID 14 Days Qty: 45 1RF Referrals: Matheus Breen MD [Primary Care Provider] -
[2023-04-15 22:18] LABS: Lipase 11 U/L (8-78)
--- NOTE | 2023-04-15 22:31 | PC.NURSE ---
pt to ct scan at this time. nad speaking full clear sentences. nsr on monitor. resp even and unlabored.
--- NOTE | 2023-04-15 22:56 | PC.NURSE ---
pt return from ct scan. repeat trop drawn. nsr on monitor. pt reports cp resolved. family at bedside. call galindo within reach.
[2023-04-15 22:58] VITALS: BP 111/58; PULSE 94; RESP 16; O2SAT 98
[2023-04-15] MEDS: iohexoL 350 MG/ML 100 ML INFUS..BTL IV (22:58)
[2023-04-15 23:24] LABS: Troponin-I High Sensitivity < 2.7 ng/L (<3.5-17.0)
[2023-04-16 00:16] VITALS: PULSE 99; RESP 16; O2SAT 97
== END 2023-04-16 00:18 | disposition home or self-care (01) ==
PROVIDERS: Nurse Practitioner Family; Emergency Provider Internal Medicine; PCP Internal Medicine
DX: R07.89 Other chest pain (principal); R06.02 Shortness of breath; R51.9 Headache, unspecified; Z11.52 Encounter for screening for COVID-19; Z20.822 Contact with and (suspected) exposure to COVID-19; Z79.899 Other long term (current) drug therapy
CPT/HCPCS: 36415; 70450; 71046; 71275; 80053; 83690; 83735; 84484; 84702; 85025; 85379; 85610; 87502; 87635; 93005; 99284; 99285; Q9967

== ENCOUNTER → 2023-04-15 19:25 | Outpatient (BNV) | payer MEDICAID, SELFPAY | PROVIDERS: Emergency Provider Internal Medicine; PCP Internal Medicine; Visit Provider Internal Medicine Cardiovascular Disease | DX: R94.31 Abnormal electrocardiogram [ECG] [EKG] (principal) | CPT/HCPCS: 93010 ==

== ENCOUNTER 2023-04-26 13:17 | Emergency (ER) | payer MEDICAID, SELFPAY ==
--- NOTE | ~2023-04-26 | XR_ITS ---
EXAMINATION: XR CHEST CLINICAL INFORMATION: Ongoing symptoms COMPARISON: TECHNIQUE: 2 views of the chest were obtained. FINDINGS: No significant abnormality is noted involving the heart, lungs, mediastinum, bony thorax or soft tissues. XR/XR chest 2V IMPRESSION: Unremarkable examination.
[2023-04-26 13:23] VITALS: BP 141/74; PULSE 106; O2SAT 100
[2023-04-26 15:01] VITALS: BP 114/78; PULSE 98; RESP 18; TEMP 36.6; O2SAT 97; BMI 56.0
--- NOTE | 2023-04-26 15:10 | ECG_ITS ---
Test Reason : chest pain Blood Pressure : / mmHG Vent. Rate : 082 BPM Atrial Rate : 082 BPM P-R Int : 138 ms QRS Dur : 086 ms QT Int : 380 ms P-R-T Axes : 042 018 002 degrees QTc Int : 443 ms Normal sinus rhythm Normal ECG When compared with ECG of 15-APR-2023 19:28, No significant change was found Referred By: Generic ED Physician Electronically Signed By:JIMI HERNANDES
--- NOTE | 2023-04-26 15:20 | ED.GENADULT ---
HPI - General Adult General Chief complaint: General Medical Stated complaint: COVID+,COUGH,HEADACHE Time Seen by Provider: 04/26/23 17:20 Source: patient Mode of arrival: ambulatory Limitations: no limitations History of Present Illness HPI narrative: 42-year-old female positive microcytic anemia, CHEN, for COVID since 22 of April presents to ED for chest pressure headache, and dizziness. Patient states having symptoms even before COVID. Patient denies any vaginal bleeding or vaginal discharge. Patient denies any coughing, leg swelling, calf pain, or pleurisy. Patient denies any shortness of breath. Related Data Home Medications Medication Instructions Recorded Confirmed ibuprofen 200 mg tablet (Advil) 400 mg PO Q8H PRN 09/15/20 06/27/21 Previous Rx's Medication Instructions Recorded albuterol sulfate 90 mcg/actuation 1 inh inhalation Q4-6H PRN 05/07/20 breath activated powder inhaler shortness of breath or wheezing #1 ea cholecalciferol (vitamin D3) 1,250 1,250 mcg PO QWEEK #4 caps 07/15/20 mcg (50,000 unit) capsule vitamin A palmitate 3,000 mcg 20,000 unit PO DAILY 30 days #60 07/18/20 (10,000 unit) tablet tabs clotrimazole-betamethasone 1 1 appl topical BID 2 weeks #45 06/27/21 %-0.05 % topical cream grams metronidazole 500 mg tablet 500 mg PO BID 7 days #14 tabs 07/04/21 ferrous sulfate 325 mg (65 mg 325 mg PO DAILY #30 tabs 04/15/23 iron) tablet Allergies Allergy/AdvReac Type Severity Reaction Status Date / Time NKA Allergy Unknown NKA Uncoded 04/26/23 15:01 Review of Systems Review of Systems: chest pressure for weeks Yes all other systems are reviewed and are negative PMFSH Past Medical History Medical History JUDE II (cervical intraepithelial neoplasia II) Morbid obesity with BMI of 45.0-49.9, adult Kidney stones Anxiety Anemia Surgical History History of cystoscopy H/O lithotripsy Hx of tubal ligation Family History Family History Father Medical history unknown Mother Asthma Hypertension Thyroid disease Brother Thyroid disease Sister No problems noted. Sister No problems noted. Son No problems noted. Daughter No problems noted. Social History Social History Alcohol intake: never Patient Tobacco Use Status: Current everyday Tobacco user Tobacco use type: Cigarette Cigarettes Per Day: 20 e-Cigarette/Vaping Use: Never Used Advance Directives: No Advance Directives Information Provided: No Physical Exam ED Vital Signs: Vital Signs - 24 hr 04/26/23 15:01 04/26/23 16:44 Temperature 97.8 F 98.2 F Pulse Rate 98 96 Respiratory Rate 18 20 Blood Pressure 114/78 128/78 Pulse Oximetry 97 98 Oxygen Delivery Method Room Air Room Air BMI result Body Mass Index 56.0 Const General: cooperative, healthy appearing, comfortable, no acute distress, well developed, alert, awake and Physically active Orientation/consciousness: oriented to person, oriented to place, oriented to time and patient oriented x3 HENMT Head: Yes normal to inspection, Yes No palpable skull fracture present, Yes normocephalic and Yes atraumatic Ears: hearing grossly normal bilaterally, external ears normal, TM's normal bilaterally, TM normal on the right, TM normal on the left, EAC's normal, mastoids normal and no periauricular adenopathy Throat: Yes posterior oropharynx normal, Yes tonsils normal and Yes uvula midline Eyes General: appearance normal, both eyes and all related structures Neck Neck: Yes normal visual inspection, Yes full ROM, Yes no lymphadenopathy, Yes no meningeal signs, Yes trachea midline, Yes supple, No anterior neck swelling and No tender Chest Chest palpation & inspection: normal inspection of the chest and normal palpation of entire chest wall Resp Effort & Inspection: normal respiratory effort and able to speak in complete sentences Auscultation: clear to auscultation bilaterally Cardio Jugular venous distension: no JVD Heart sounds: S1 normal heart sound present and S2 normal heart sound present GI Inspection: Yes normal to inspection Palpation (GI): Soft to palpation, not firm, nontender, no guarding and not rigid General: Yes no CVA tenderness Back/Spine/Pelvis Back: no CVA tenderness and No back tenderness Skin General skin exam: no rashes or lesions noted, elasticity normal and turgor normal Neuro General: oriented to person, oriented to place, oriented to time, patient oriented x3, gait normal, tone normal, moves all extremities, Normal light touch and pain sensation, no meningeal signs, no focal motor deficits, CN's II-XI intact bilaterally and normal sensation to monofilament Extrem Other: Bilateral lower extremities negative for swelling, pitting edema, or calf tenderness. General: Yes normal to inspection, Yes full ROM and Yes capillary refill normal Psych Appearance: grossly normal, well kempt and not disheveled Course Course Course Narrative: This is a rapid medical exam: Additional HPI, ROS, PE not included below will be deferred to primary provider. Patient is a 42-year-old female who tested positive for Covid on 04/22 presenting to the ED with complaint of headache, body aches, chest pressure and dizziness. Has not taken and OTC Tylenol or ibuprofen at home for symptoms. Tolerating PO food and fluids. Plan: EKG, CXR Medical Decision Making Medical Decision Making [facility] Narrative: 42-year-old female positive COVID with past medical history of morbid obesity, microcytic anemia presents to ED for chest pressure dizziness, and headache for about 4 weeks. Patient denies any leg swelling, calf pain, coughing up blood, pleurisy, shortness of breath, recent long travel, recent surgery, or hormonal estrogen pills. 7:08pm troponin negative. Not suspecting PE. No need for D-dimer. Patient had normal CTA on the 15 of April and presented with similiar symptoms. Not suspecting CHF, pericariditis, or myocariditis. Cbc microcytic anemia chronic. No need for blood transfusion. negative for head CT scan. NIH 0. Negative for signs of stroke. Patient presently asymptomatic. Patient has no chest pain, dizziness, or any other concerning symptoms. Differential Diagnosis Differential Diagnoses: The differential diagnosis associated with the presentation includes Admission/Observation Consideration of admission/observation: Escalation of care including admission/observation considered Lab Data [facility] Lab Attestation statement: I reviewed the patient's lab results. 04/26/23 18:29 04/26/23 18:29 Labs: Lab Results 04/26/23 Range/Units 18:29 WBC 8.4 (4.8-10.8) X10*3/uL RBC 4.01 L (4.20-5.50) X10*6/uL Hgb 7.6 L (12.0-16.0) g/dl Hct 27.6 L (37.0-47.0) % MCV 68.8 L (80.0-98.0) fL MCH 19.0 L (27.0-33.0) pg MCHC 27.5 L (31.0-35.0) g/dl RDW 20.1 H (11.0-16.0) % Plt Count 421 H (160-400) X10*3/uL MPV 9.3 L (9.4-12.3) fL Immature Gran % (Auto) 0.4 (0.0-0.4) % Neut % (Auto) 70.5 (45-73) % Lymph % (Auto) 24.7 (20-40) % [place] % (Auto) 3.7 (2-11) % Eos % (Auto) 0.1 (0-4) % Baso % (Auto) 0.6 (0-2) % Lymph # (Auto) 2.1 (1.2-4.9) X10*3/uL [place] # (Auto) 0.3 (0.1-1.2) X10*3/uL Eos # (Auto) 0.0 (0.0-0.4) X10*3/uL Baso # (Auto) 0.1 (0.0-0.2) X10*3/uL Abs Immat Gran (auto) 0.03 (0.00-0.03) X10*3/uL Absolute Neuts (auto) 5.9 (2.0-8.3) x10*3/uL Absolute Nucleated RBC 0.000 (0.0-0.012) X10*3/uL Nucleated RBC % (auto) 0.0 (0.0-0.2) /100WBC PT 13.0 (11.1-13.3) SEC INR 1.1 (0.9-1.1) APTT 27.6 (26.0-36.4) SEC Hold Blue Top SEE NOTE Sodium 140 (135-145) mmol/L Potassium 3.6 (3.3-5.1) mmol/L Chloride 110 H (96-108) mmol/L Carbon Dioxide 22 (22-29) mmol/L Anion Gap 12 (12-20) BUN 5 L (9-16) mg/dL Creatinine 0.80 (0.5-1.4) mg/dL Estim Creat Clear Calc 160.1 Estimated GFR > 60 Random Glucose 95 (60-115) mg/dL Calcium 9.2 (8.4-10.2) mg/dL Total Bilirubin 0.2 (0.0-1.0) mg/dL AST 11 (5-31) U/L ALT 6 (0-31) U/L Alkaline Phosphatase 68 (39-117) U/L Troponin I High Sens < 2.7 (<3.5-17.0) ng/L B-Natriuretic Peptide 25 (<100) pg/mL Total Protein 7.2 (6.5-8.0) g/dL Albumin 3.9 (3.5-5.0) g/dL Independent Interpretation I performed an independent interpretation of an: EKG ( normal sinus rhythm. Normal EKG. Negative STEMI) External Record Review External record reviewed: Other ( prior visit) Prescription Management I considered prescription management with: Pain Medication Discharge Plan Discharge Clinical Impression: Chest pain, Anemia Patient Disposition: Home, Self-Care Instructions: Chest Pain (ED), Anemia (ED), COVID-19 (Coronavirus Disease 2019) (ED) Additional Instructions: Regrese al servicio de urgencias inmediatamente si presenta dolor en el pecho, dificultad para respirar, dolor en el pecho al inspirar, tos con ronit, hinchaz?n de las piernas, dolor en la pantorrilla, fotofobia, rigidez del filipe, desmayo, sangrado rectal, sangrado vaginal, mareos, dificultad para hablar, ca?da facial, par?lisis de las extremidades, p?rdida de visi?n o cualquier otro s?ntoma preocupante. Martina un seguimiento con el proveedor de atenci?n primaria. Return to the ED immediately for any chest pain, shortness of breath, chest pain inspiration, coughing up blood, leg swelling, calf pain, photophobia, neck stiffness, passing out, rectal bleeding, vaginal bleeding, dizziness, slurred speech, facial droop, paralysis of extremities, loss of vision, or any other concerning symptoms. Please follow-up with primary care provider. Prescriptions: No Action cholecalciferol (vitamin D3) 1,250 mcg (50,000 unit) capsule 1,250 mcg PO QWEEK Qty: 4 1RF vitamin A palmitate 10,000 unit tablet 20,000 unit PO DAILY 30 Days Qty: 60 0RF metronidazole 500 mg tablet 500 mg PO BID 7 Days Qty: 14 0RF albuterol sulfate 90 mcg/actuation aerosol powdr breath activated 1 inh inhalation Q4-6H PRN (Reason: shortness of breath or wheezing) Qty: 1 0RF ferrous sulfate 325 mg (65 mg iron) tablet 325 mg PO DAILY Qty: 30 0RF ibuprofen [Advil] 200 mg tablet 400 mg PO Q8H PRN clotrimazole-betamethasone 1-0.05 % cream 1 appl topical BID 14 Days Qty: 45 1RF Stand Alone Forms: Work/School Release Interventions: ED Discharge Assessment Last Done: 04/26/23 19:46 Discharge Date/Time: 04/26/23 19:49 Print Language: Frisian
[2023-04-26 16:44] VITALS: BP 128/78; PULSE 96; RESP 20; TEMP 36.8; O2SAT 98
[2023-04-26 18:34] LABS: MANUAL DIFF FLAG NO
[2023-04-26 18:38] LABS: Basophils Absolute Auto 0.1 X10*3/uL (0.0-0.2); Basophils Percent Auto 0.6 % (0-2); Eosinophils Percent Auto 0.1 % (0-4); Hematocrit 27.6 % (37.0-47.0); Hemoglobin 7.6 g/dl (12.0-16.0); Imm Gran Abs Auto 0.03 X10*3/uL (0.00-0.03); Imm Gran Pct Auto 0.4 % (0.0-0.4); Lymphocytes Absolute Auto 2.1 X10*3/uL (1.2-4.9); Lymphocytes Percent Auto 24.7 % (20-40); Mean Corpuscular HGB Conc 27.5 g/dl (31.0-35.0); Mean Corpuscular Volume 68.8 fL (80.0-98.0); Mean Platelet Volume 9.3 fL (9.4-12.3); Monocytes Absolute Auto 0.3 X10*3/uL (0.1-1.2); Monocytes Percent Auto 3.7 % (2-11); Neutrophils Absolute Auto 5.9 x10*3/uL (2.0-8.3); Neutrophils Percent Auto 70.5 % (45-73); Platelet Count 421 X10*3/uL (160-400); Red Blood Count 4.01 X10*6/uL (4.20-5.50); Red Cell Distribution Width 20.1 % (11.0-16.0); White Blood Count 8.4 X10*3/uL (4.8-10.8)
[2023-04-26 18:42] LABS: INTERNATIONAL NORM RATIO 1.1 (0.9-1.1)
[2023-04-26 18:45] LABS: Partial Thromboplastin Time 27.6 SEC (26.0-36.4)
[2023-04-26 18:57] LABS: Troponin-I High Sensitivity < 2.7 ng/L (<3.5-17.0)
[2023-04-26 19:15] LABS: Alanine Aminotransferase 6 U/L (0-31); Albumin Level 3.9 g/dL (3.5-5.0); Alkaline Phosphatase 68 U/L (39-117); Anion Gap 12 (12-20); Aspartate Amino Transferase 11 U/L (5-31); Bilirubin Total 0.2 mg/dL (0.0-1.0); Blood Urea Nitrogen 5 mg/dL (9-16); Calcium 9.2 mg/dL (8.4-10.2); Carbon Dioxide 22 mmol/L (22-29); Chloride 110 mmol/L (96-108); Creatinine Clr Calc Pharmacy 160.1; Estimated Glomerular Filt Rate > 60; Glucose Random 95 mg/dL (60-115); Potassium 3.6 mmol/L (3.3-5.1); Sodium 140 mmol/L (135-145); Total Protein 7.2 g/dL (6.5-8.0)
[2023-04-26 19:36] LABS: B Type Natriuretic Peptide 25 pg/mL (<100)
== END 2023-04-26 19:49 | disposition home or self-care (01) ==
PROVIDERS: Physician Assistant; Emergency Provider Emergency Medicine
DX: R07.9 Chest pain, unspecified (principal); D53.9 Nutritional anemia, unspecified; R51.9 Headache, unspecified; R42 Dizziness and giddiness
CPT/HCPCS: 36415; 71046; 80053; 83880; 84484; 85025; 85610; 85730; 93005; 99283

== ENCOUNTER → 2023-04-26 15:10 | Outpatient (BNV) | payer MEDICAID, SELFPAY | PROVIDERS: Emergency Provider Emergency Medicine; Visit Provider Internal Medicine | DX: R07.9 Chest pain, unspecified (principal) | CPT/HCPCS: 93010 ==

== ENCOUNTER 2023-05-03 18:57 | Emergency (ER) | payer MEDICAID, SELFPAY ==
[2023-05-03 19:02] VITALS: BP 135/80; PULSE 100; O2SAT 100
--- NOTE | 2023-05-03 19:21 | ED_ITS ---
HPI - General Adult General Chief complaint: Chest Pain Stated complaint: ANEMIC, CHECK HGB, CHEST DISCOMFORT Time Seen by Provider: 05/03/23 21:49 Source: patient Mode of arrival: ambulatory Limitations: no limitations History of Present Illness HPI narrative: patient comes to the emergency room complaining of several days of palpitations, chest discomfort, no pain. patient also complaining that she feels that she can not get a full breath of air. Fatigue, lightheadedness. The patient states that she is known to be anemic, patient had her menstrual period about 2 weeks ago and she tends to have very heavy menstrual periods. Patient has not been seen by a project management analyst but has an appointment pending to discuss The menorrhagia problem. patient denies any syncope or near syncopal episodes. Patient states that she takes iron for anemia, has never had a blood transfusion. Patient states that this is her 3rd visit in less than a month with similar symptoms. Related Data Home Medications Medication Instructions Recorded Confirmed ibuprofen 200 mg tablet (Advil) 400 mg PO Q8H PRN 09/15/20 06/27/21 Previous Rx's Medication Instructions Recorded albuterol sulfate 90 mcg/actuation 1 inh inhalation Q4-6H PRN 05/07/20 breath activated powder inhaler shortness of breath or wheezing #1 ea cholecalciferol (vitamin D3) 1,250 1,250 mcg PO QWEEK #4 caps 07/15/20 mcg (50,000 unit) capsule vitamin A palmitate 3,000 mcg 20,000 unit PO DAILY 30 days #60 07/18/20 (10,000 unit) tablet tabs clotrimazole-betamethasone 1 1 appl topical BID 2 weeks #45 06/27/21 %-0.05 % topical cream grams metronidazole 500 mg tablet 500 mg PO BID 7 days #14 tabs 07/04/21 ferrous sulfate 325 mg (65 mg 325 mg PO DAILY #30 tabs 04/15/23 iron) tablet Allergies Allergy/AdvReac Type Severity Reaction Status Date / Time NKA Allergy Unknown NKA Uncoded 04/26/23 15:01 Review of Systems 2 Review of Systems: Constitutional : No Weight loss, No Fever, No Chills, No Night Sweats, Complaining of fatigue, denies generalized malaise ENT/Mouth : No Hearing loss, No Ear Pain, No Nasal Congestion, No Sinus Pain, No Hoarseness, No sore throat, No Rhinorrhea, No Swallowing Difficulty Eyes: No Eye Pain, No Swelling, No Redness, No Foreign Body, No Discharge, No Vision Changes Cardiovascular : complaining of chest discomfortNo Chest Pain, No SOB, mild Dyspnea on Exertion, No Orthopnea, No Edema, , complaining of Palpitations, shortness of breath Respiratory : No Cough, No Sputum, No Wheezing, No Smoke Exposure, No Dyspnea Gastrointestinal : No Nausea, No Vomiting, No Diarrhea, No Constipation, No abdominal Pain, No Hematochezia, No Melena Genitourinary : no irregular bleeding, No Dysuria, No Urinary Frequency, No Hematuria, No Urinary Incontinence, No Urgency, No Flank Pain, No Urinary Flow Changes, No Hesitancy Musculoskeletal : No joint pain, No Myalgias, No Joint Swelling Skin : No Skin Lesions, No rash Neuro : No Weakness, No Numbness, No Paresthesias, No Loss of Consciousness, No Dizziness, No Headache Psych : No Anxiety/Panic, No Depression, No SI/HI/AH/VH, No Social Issues, Heme/Lymph: No Bruising, No Bleeding,No Lymphadenopathy Endocrine : No Polyuria, No Polydipsia, No Temperature Intolerance PMFSH Past Medical History Onset Date is defined in the Problem List Problems that require an onset date and time if occurred within 24 hrs of arrival to the ED Aortic Dissection and Rupture; Neurologic impairment; Cardiopulmonary Arrest; Endotracheal Intubation; Insertion or Replacement of Mechanical Circulatory Assist Device Medical History JUDE II (cervical intraepithelial neoplasia II) Morbid obesity with BMI of 45.0-49.9, adult Kidney stones Anxiety Anemia Surgical History History of cystoscopy H/O lithotripsy Hx of tubal ligation Family History Family History Father Medical history unknown Mother Asthma Hypertension Thyroid disease Brother Thyroid disease Sister No problems noted. Sister No problems noted. Son No problems noted. Daughter No problems noted. Social History Social History Alcohol intake: current Alcohol intake frequency: holidays/special occasions only Patient Tobacco Use Status: Current everyday Tobacco user Tobacco use type: Cigarette Cigarettes Per Day: 20 Smoked in Last 30 Days: Yes e-Cigarette/Vaping Use: Never Used Use of substances other than those prescribed or required for medical reasons: No Advance Directives: No Advance Directives Information Provided: No Patient : No Physical Exam ED Vital Signs: Vital Signs - 24 hr 05/03/23 19:37 05/03/23 22:30 05/03/23 22:56 Temperature 97.6 F 98.1 F Pulse Rate 91 85 83 Respiratory Rate 18 14 16 Blood Pressure 126/76 119/69 110/59 L Pulse Oximetry 96 98 Oxygen Delivery Method Room Air Room Air 05/03/23 23:11 05/04/23 01:45 05/04/23 02:22 Temperature 98.2 F 98.1 F 98.1 F Pulse Rate 82 81 79 Respiratory Rate 16 19 20 Blood Pressure 106/51 L 109/56 L 108/54 L Pulse Oximetry 98 Oxygen Delivery Method Room Air 05/04/23 02:40 05/04/23 02:57 Temperature 98.1 F 98.0 F Pulse Rate 82 77 Respiratory Rate 20 18 Blood Pressure 111/63 114/63 Pulse Oximetry Oxygen Delivery Method BMI result Body Mass Index 41.2 Const Other: Appearance: Alert. Oriented X3. No acute distress. Eyes: Pupils equal, round and reactive to light. ENT: Pharynx normal. Neck: Normal inspection. Neck supple. No lymph nodes noted. No crepitus CVS: Normal heart rate and rhythm. Pulses normal. Normal S1 and S2 Respiratory: No respiratory distress. Breath sounds normal. No Wheezing. No rales Abdomen: Soft and nontender. No rigidity. No distention. Skin: Skin warm and dry. Pale skin color. Normal skin turgor. Extremities: No lower extremity edema. No Lacerations. No Rash Neuro: Oriented X 3. No motor deficit. No sensory deficit. Moving all extremities. No slurred speech. CN 2 through 12 grossly intact Psych: calm, cooperative, normal affect Course Course Course Narrative: This is an RME: Additional HPI, ROS, PE not included below will be deferred to primary provider. 42-year-old female presents with substernal chest discomfort started after receiving a call that her hemoglobin was low, PCP, reports her hemoglobins in the 6 range. She is very nervous about this. Her menses ended last week. Other than that denies no bleeding. She reports very heavy periods. She reports fatigue and malaise. Plan labs, EKG, flu/COVID/RSV, troponin, type and screen. Medications Administered Discontinued Medications Generic Name Dose Route Start Last Admin Trade Name Donita PRN Reason Stop Dose Admin Sodium Chloride 100 mls @ 100 mls/hr 05/03/23 22:01 05/04/23 02:22 Ns IV 05/03/23 23:00 Infused ONCE ONE Infusion Sodium Chloride 100 mls @ 100 mls/hr 05/03/23 22:15 05/04/23 02:51 Ns IV 05/03/23 23:14 100 mls/hr ONCE ONE Administration Medical Decision Making Medical Decision Making [facility] Narrative: - my interpretation of labs: Hematology 8.2. Baseline 10.2. Troponin negative, LFT negative. - My interpretation of EKG: Normal sinus rhythm, heart rate 93, no ST segment depression or elevation, nonspecific T-wave inversion in lead 3, QTC 450 - patient complaining of lightheadedness, fatigue, chest discomfort, shortness of breath - I discussed with the patient that given her set of symptoms and her hemoglobin being low, she would likely benefit from a blood transfusion. Patient has never had blood transfusion, only takes iron. After reviewing the benefits versus risks of a blood transfusion, patient and her family at bedside agree that this is a best next step for her. - 2 units of blood have been ordered. Consent For blood transfusion has been signed. - I discussed with the patient that this is not the care for her, this is symptomatic treatment, to address the problem, she needs to follow-up with her project management analyst, she may need an IUD or other options to help control the metrorhagia -patient received 2 units of blood, patient feeling much better. Patient tolerated the transfusion well. Differential Diagnosis Differential Diagnoses: The differential diagnosis associated with the presentation includes (Menorrhagia, menometrorrhagia, iron deficiency, anemia) Admission/Observation Consideration of admission/observation: Escalation of care including admission/observation considered (Given patient's symptoms admission was considered) Lab Data [facility] Lab Attestation statement: I reviewed the patient's lab results. 05/03/23 19:35 05/03/23 19:35 Labs: Lab Results 05/03/23 05/03/23 Range/Units 19:35 19:45 WBC 7.7 (4.8-10.8) X10*3/uL RBC 4.24 (4.20-5.50) X10*6/uL Hgb 8.2 L (12.0-16.0) g/dl Hct 29.2 L (37.0-47.0) % MCV 68.9 L (80.0-98.0) fL MCH 19.3 L (27.0-33.0) pg MCHC 28.1 L (31.0-35.0) g/dl RDW 21.3 H (11.0-16.0) % Plt Count 435 H (160-400) X10*3/uL MPV 8.8 L (9.4-12.3) fL Immature Gran % (Auto) 0.5 H (0.0-0.4) % Neut % (Auto) 65.5 (45-73) % Lymph % (Auto) 28.0 (20-40) % [place] % (Auto) 4.8 (2-11) % Eos % (Auto) 0.5 (0-4) % Baso % (Auto) 0.7 (0-2) % Lymph # (Auto) 2.2 (1.2-4.9) X10*3/uL [place] # (Auto) 0.4 (0.1-1.2) X10*3/uL Eos # (Auto) 0.0 (0.0-0.4) X10*3/uL Baso # (Auto) 0.1 (0.0-0.2) X10*3/uL Abs Immat Gran (auto) 0.04 H (0.00-0.03) X10*3/uL Absolute Neuts (auto) 5.0 (2.0-8.3) x10*3/uL Absolute Nucleated RBC 0.000 (0.0-0.012) X10*3/uL Nucleated RBC % (auto) 0.0 (0.0-0.2) /100WBC Sodium 141 (135-145) mmol/L Potassium 3.5 (3.3-5.1) mmol/L Chloride 108 (96-108) mmol/L Carbon Dioxide 24 (22-29) mmol/L Anion Gap 13 (12-20) BUN 7 L (9-16) mg/dL Creatinine 0.82 (0.5-1.4) mg/dL Estim Creat Clear Calc 130.1 Estimated GFR > 60 Random Glucose 97 (60-115) mg/dL Calcium 9.4 (8.4-10.2) mg/dL Total Bilirubin 0.2 (0.0-1.0) mg/dL AST 10 (5-31) U/L ALT 7 (0-31) U/L Alkaline Phosphatase 65 (39-117) U/L Troponin I High Sens < 2.7 (<3.5-17.0) ng/L Total Protein 7.2 (6.5-8.0) g/dL Albumin 4.0 (3.5-5.0) g/dL Influenza Type A (PCR) NEGATIVE (Negative) Influenza Type B (PCR) NEGATIVE (Negative) RSV RNA Qual (PCR) NEGATIVE (Negative) SARS-CoV-2 RNA (RT-PCR) NEGATIVE (Negative) Blood Type O Positive Antibody Screen NEGATIVE Crossmatch See Detail Independent Interpretation I performed an independent interpretation of an: EKG Interpretation: My interpretation of EKG: Normal sinus rhythm, heart rate 93, no ST segment depression or elevation, nonspecific T-wave inversion in lead 3, QTC 450 Critical Care Time Critical Care Time Critical Care Time: Yes Total Critical Care Time: 75 Attestation: I have personally provided critical care time. Time includes review of lab data, radiology results, discussion with consultants, and monitoring for potential decompensation. Intervention performed as documented. Discharge Plan Discharge Clinical Impression: Symptomatic anemia Patient Disposition: Home, Self-Care Instructions: Anemia (ED) Additional Instructions: Please follow-up with your primary care physician or project management analyst to discuss options to control all the heavy menstrual bleeding since such as an IUD. Please follow-up with your primary care physician tomorrow. If you have any worsening or new symptoms, please return to the emergency room or call 911 Prescriptions: No Action cholecalciferol (vitamin D3) 1,250 mcg (50,000 unit) capsule 1,250 mcg PO QWEEK Qty: 4 1RF vitamin A palmitate 10,000 unit tablet 20,000 unit PO DAILY 30 Days Qty: 60 0RF metronidazole 500 mg tablet 500 mg PO BID 7 Days Qty: 14 0RF albuterol sulfate 90 mcg/actuation aerosol powdr breath activated 1 inh inhalation Q4-6H PRN (Reason: shortness of breath or wheezing) Qty: 1 0RF ferrous sulfate 325 mg (65 mg iron) tablet 325 mg PO DAILY Qty: 30 0RF ibuprofen [Advil] 200 mg tablet 400 mg PO Q8H PRN clotrimazole-betamethasone 1-0.05 % cream 1 appl topical BID 14 Days Qty: 45 1RF
[2023-05-03 19:37] VITALS: BP 126/76; PULSE 91; RESP 18; TEMP 36.4; O2SAT 96; BMI 41.2
[2023-05-03 19:55] LABS: Alanine Aminotransferase 7 U/L (0-31); Alkaline Phosphatase 65 U/L (39-117); Anion Gap 13 (12-20); Aspartate Amino Transferase 10 U/L (5-31); Bilirubin Total 0.2 mg/dL (0.0-1.0); Blood Urea Nitrogen 7 mg/dL (9-16); Calcium 9.4 mg/dL (8.4-10.2); Carbon Dioxide 24 mmol/L (22-29); Chloride 108 mmol/L (96-108); Creatinine Clr Calc Pharmacy 130.1; Estimated Glomerular Filt Rate > 60; Glucose Random 97 mg/dL (60-115); Potassium 3.5 mmol/L (3.3-5.1); Sodium 141 mmol/L (135-145); Total Protein 7.2 g/dL (6.5-8.0)
[2023-05-03 22:30] VITALS: BP 119/69; PULSE 85; RESP 14; O2SAT 98
[2023-05-03 22:56] VITALS: BP 110/59; PULSE 83; RESP 16; TEMP 36.7
--- NOTE | 2023-05-03 23:09 | PC.NURSE ---
Pt ambulated independently with steady gait to stretcher. Pt A&Ox3, reports 6/10 intermittent left sided CP starting this morning, Pt reports some dizziness earlier with SOB. SpO2 98% on RA, RR WNL, lung sounds clear. IV line established, first unit of blood started per TAR. Pt tolerating well, no adverse reaction reported. Pt updated with plan of care.
[2023-05-03 23:11] VITALS: BP 106/51; PULSE 82; RESP 16; TEMP 36.8
[2023-05-04 01:45] VITALS: BP 109/56; PULSE 81; RESP 19; TEMP 36.7; O2SAT 98
[2023-05-04 02:22] VITALS: BP 108/54; PULSE 79; RESP 20; TEMP 36.7
[2023-05-04 02:40] VITALS: BP 111/63; PULSE 82; RESP 20; TEMP 36.7
[2023-05-04 02:57] VITALS: BP 114/63; PULSE 77; RESP 18; TEMP 36.7
[2023-05-04 05:02] VITALS: BP 119/62; PULSE 87; RESP 17; TEMP 36.7
== END 2023-05-04 05:20 | disposition home or self-care (01) ==
PROVIDERS: Emergency Provider Emergency Medicine
DX: D64.9 Anemia, unspecified (principal); R00.2 Palpitations; R07.89 Other chest pain; R11.2 Nausea with vomiting, unspecified; Z20.828 Contact with and (suspected) exposure to other viral communicable diseases; Z20.822 Contact with and (suspected) exposure to COVID-19; Z79.899 Other long term (current) drug therapy
CPT/HCPCS: 0241U; 36430; 80053; 84484; 85025; 86850; 86900; 86901; 86923; 93005; 96360; 96361; 99285; P9016

== ENCOUNTER → 2023-05-03 19:28 | Outpatient (BNV) | payer MEDICAID, SELFPAY | PROVIDERS: Emergency Provider Emergency Medicine; Visit Provider Internal Medicine Cardiovascular Disease | DX: R07.9 Chest pain, unspecified (principal) | CPT/HCPCS: 93010 ==

== ENCOUNTER 2023-05-09 09:34 | Outpatient (AMB) | payer MEDICAID, SELFPAY ==
--- NOTE | 2023-05-09 09:34 | A.OFFVIS_ITS ---
Intake Intake Visit Reasons: amenic follow up Allergies NKA Allergy (Unknown, Uncoded 05/09/23 09:34) NKA Is last menstrual period known: Yes Last menstrual period: 04/22/23 Do you need a note to return to daycare/school/sports/work: No HPI amenic follow up HPI Details This is a tele visit that was apparently set up after patient's emergency room visit where she was found to be severely anemic and was transfused 2 units of blood. 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 Connelly for whom she received care for JUDE 2 and had a LEEP in 2019 and 2020. She was seen by me for an annual exam in 2021 and had a Pap smear that was deemed inadequate but for some reason was not seen again for the repeat Pap smear and it is unclear what happened with that appointment. The patient told me at that visit that her periods were normal and regular and she tells me today that for her they were normal because they have always been heavy and they were just as heavy as usual for her. She did not have any abrupt change in her menstrual flow in recent ti me. She is taking iron and she has an appointment with her primary care provider at the [facility] in the week or 2 that is coming up. Her last period was April 22 and it lasted its usual about 5 days. She is feeling somewhat better after the transfusion but continues to take her iron. So it during this visit we discussed what could be done to help alleviate her heavy periods which is what she believes is the cause of the heavy bleeding and her anemia. She has not had any ultrasounds and I discussed with her that as part of the workup evaluation it will probably would be best to have a pelvic ultrasound and also that she would need an endometrial biopsy and if there were no abnormalities found on biopsy that it may be recommended that she have a Mirena IU S to help lessen the blood flow of her periods I did explain whether the Mirena is and how it works and the more common side effects that women mention including loss of libido or lessening of it and she shared that that was okay because she experience that anyway. Because I am currently working in [facility] and systems are still being set up for full evaluations and function it probably would be the most expeditious for her to be seen and evaluated and have her repeat Pap smear and endometrial biopsy with Dr. Connelly with a plan for follow-up after that at the [facility] office I will place an ultrasoun d order for her and an appointment will be made for her when possible at the [facility] office with Dr. Connelly for Pap smear and endometrial biopsy and plan for menorrhagia. [facility] Medical History (Updated 05/09/23 @ 11:02 by Neena Sargent CNM) JUDE II (cervical intraepithelial neoplasia II) Morbid obesity with BMI of 45.0-49.9, adult Kidney stones Anxiety Anemia Surgical History History of cystoscopy H/O lithotripsy Hx of tubal ligation Family History Father Medical history unknown Mother Asthma Hypertension Thyroid disease Brother Thyroid disease Sister No problems noted. Sister No problems noted. Son No problems noted. Daughter No problems noted. Social History Alcohol intake: current Alcohol intake frequency: holidays/special occasions only Patient Tobacco Use Status: Current everyday Tobacco user Tobacco use type: Cigarette Cigarettes Per Day: 20 e-Cigarette/Vaping Use: Never Used Female Reproductive History Menstrual Age of Menarche: 14 Duration of menses: 3-5 days Date of last menstrual period: 04/22/23 control method: permanent sterilization Total pregnancies: 2 Date of last pap smear: 06/28/21 (unsatisfactory) History of abnormal pap smear: Yes (12/2018,abnormal, JUDE II ) Assessment & Plan Assessment & Plan (1) Morbid obesity: Code(s): E66.01 - Morbid (severe) obesity due to excess calories (2) Menorrhagia with regular cycle: Code(s): N92.0 - Excessive and frequent menstruation with regular cycle (3) Anemia: Code(s): D64.9 - Anemia, unspecified (4) JUDE II (cervical intraepithelial neoplasia II): Comment: s/p LEEP in 10/16 path JUDE I2 + margins, 4 months Pap/ECC= neg/neg. 06/27/2021 Pap equals unsatisfactory-scant cellularity-- to be repeated.; note appointment for repeat Pap apparently did not occur needs repeat Pap- 05/09/22.! Code(s): N87.1 - Moderate cervical dysplasia Plan This is a tele visit that was apparently set up after patient's emergency room visit where she was found to be severely anemic and was transfused 2 units of blood. 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 Connelly for whom she received care for JUDE 2 and had a LEEP in 2019 and 2020. She was seen by me for an annual exam in 2021 and had a Pap smear that was deemed inadequate but for some reason was not seen again for the repeat Pap smear and it is unclear what happened with that appointment. The patient told me at that visit that her periods were normal and regular and she tells me today that for her they were normal because they have always been heavy and they were just as heavy as usual for her. She did not have any abrupt change in her menstrual flow in recent time. She is taking iron and she has an appointment with her primary care provider at the [facility] in the week or 2 that is coming up. Her last period was April 22 and it lasted its usual about 5 days. She is feeling somewhat better after the transfusion but continues to take her iron. So it during this visit we discussed what could be done to help alleviate her heavy periods which is what she believes is the cause of the heavy bleeding and her anemia. She has not had any ultrasounds and I discussed with her that as part of the workup evaluation it will probably would be best to have a pelvic ultrasound and also that she would need an endometrial biopsy and if there were no abnormalities found on biopsy that it may be recommended that she have a Mirena IU S to help lessen the blood flow of her periods I did explain whether the Mirena is and how it works and the more common side effects that women mention including loss of libido or lessening of it and she shared that that was okay because she experience that anyway. Because I am currently working in [facility] office and systems are still being set up for full evaluations and function it probably would be the most expeditious for her to be seen and evaluated and have her repeat Pap smear and endometrial biopsy with Dr. Connelly with a plan for follow-up after that at the [facility] office I will place an ultrasound order for her and an appointment will be made for her when possible at the [facility] office with Dr. Connelly for Pap smear and endometrial biopsy and plan for menorrhagia. Orders: Orders 2 US pelvic and transvaginal Today D64.9 - Anemia, unspecified, E66.01 - Morbid (severe) obesity due to excess calories, N87.1 - Moderate cervical dysplasia, N92.0 - Excessive and frequent menstruation with regular cycle Coding Level of Care Code Tele Est Pt Level 3 (39839) Diagnoses Morbid obesity E66.01 Menorrhagia with regular cycle N92.0 Anemia D64.9 JUDE II (cervical intraepithelial neoplasia II) N87.1 Time Spent (min) 30 Comment 5 cr/19 video visit w pt, 6 charting=30
== END 2023-05-09 10:23 | disposition home or self-care (01) ==
LOC: HO.HWSM 09:34
PROVIDERS: Visit Provider Advanced Practice Midwife
DX: E66.01 Morbid (severe) obesity due to excess calories (principal); N92.0 Excessive and frequent menstruation with regular cycle; D64.9 Anemia, unspecified; N87.1 Moderate cervical dysplasia
CPT/HCPCS: 99213

== ENCOUNTER → 2023-05-09 09:34 | Outpatient (BNVA) | payer MEDICAID, SELFPAY | PROVIDERS: Visit Provider Advanced Practice Midwife ==

== ENCOUNTER 2023-05-15 08:05 | Outpatient (REF) | payer MEDICAID, SELFPAY ==
[2023-05-17 04:59] LABS: HPV mRNA E6/E7 rflx Not Detected (Not Detected)
== END 2023-05-15 08:06 | disposition home or self-care (01) ==
LOC: HO.LNP 08:05
PROVIDERS: Visit Provider Obstetrics & Gynecology
DX: N93.9 Abnormal uterine and vaginal bleeding, unspecified (principal); N87.1 Moderate cervical dysplasia; Z32.00 Encounter for pregnancy test, result unknown
CPT/HCPCS: 81025; 87624; 88142; 88305; 99212

== ENCOUNTER 2023-05-15 08:05 | Outpatient (AMB) | payer MEDICAID, SELFPAY ==
--- NOTE | 2023-05-15 08:10 | A.OFFVIS_ITS ---
Intake Vital Signs 05/15/23 08:15 Height 5 ft 9 in Weight 360 lb BMI 53.2 BP 110/80 Intake Visit Reasons: AUB Intake Note: c/o of heavy menses Gill Box Fixer Required: Yes Gill Box Fixer Language: Control Systems Designer Name: Nallely SO Information Interpreted: non-clinical & clinical It Program Engagement Director: It Program Engagement Director Present (Nallely SO) Accompanied by: Self / Same As Patient Allergies NKA Allergy (Unknown, Uncoded 05/15/23 08:16) NKA Is last menstrual period known: Yes Last menstrual period: 04/22/23 HPI HPI Comments History of Present Illness Details Presenting complaining of heavy vaginal bleeding associated with passage of blood clots and pelvic cramping. The patient developed symptomatic anemia 1 to the emergency room received 2 units of blood transfusion few weeks ago Last H&H done on 05/03 was 29.2/8.2. The patient had JUDE 2 status post LEEP with positive margins followed by 4 months colpo Pap which were negative in 08/16 Repeat Pap smear in 07/18 was unsatisfactory due to scant cellularity/HPV negative, the patient was lost to be followed up for repeat Pap test since then [facility] Medical History (Updated 05/15/23 @ 08:43 by Azam Connelly MD) KINGS positive JUDE II (cervical intraepithelial neoplasia II) Morbid obesity with BMI of 45.0-49.9, adult Kidney stones Anxiety Anemia Surgical History History of cystoscopy H/O lithotripsy Hx of tubal ligation Family History Father Medical history unknown Mother Asthma Hypertension Thyroid disease Brother Thyroid disease Sister No problems noted. Sister No problems noted. Son No problems noted. Daughter No problems noted. Social History Household Members: Children Housing: Apartment Alcohol intake: current Alcohol intake frequency: holidays/special occasions only Patient Tobacco Use Status: Current everyday Tobacco user Tobacco use type: Cigarette Cigarettes Per Day: 10 Years Smoked: 7 e-Cigarette/Vaping Use: Never Used Current occupational status: unemployed Sexual orientation: Straight/Heterosexual Gender identity: Female Female Reproductive History Menstrual Age of Menarche: 14 Date of last menstrual period: 04/22/23 control method: permanent sterilization Physical Exam Chest Chest palpation & inspection: normal inspection of the chest Breast/axilla inspection: normal inspection of the breasts, normal inspection of the axillae and abnormal inspection of the axilla External Female Exam: normal external appearance Speculum Exam - Vagina: normal appearance of the vagina and normal palpation Speculum Exam - Cervix: normal appearance of the cervix and normal palpation Bimanual exam- vagina & uterus: normal bimanual exam, normal palpation, normal palpation, non-tender and soft Bimanual Exam- Adnexa, other: normal adnexae Assessment & Plan Assessment & Plan (1) JUDE II (cervical intraepithelial neoplasia II): Comment: s/p LEEP in 10/16 path JUDE 2 + margins, 4 months Pap/ECC= neg/neg. 06/27/2021 Pap equals unsatisfactory-scant cellularity/HPV Code(s): N87.1 - Moderate cervical dysplasia Plan: Co testing done , explained to the patient the importance of co testing follow through and the risk of recurrence with previous JUDE 2, recommended co testing Q 1 year for 3 years then q 3 year for 25 years. All questions answered, the patient verbalized understanding (2) Abnormal uterine bleeding: Comment: With anemia status post 2 units of blood transfusion Code(s): N93.9 - Abnormal uterine and vaginal bleeding, unspecified Plan: Iron sulfate 325 mg p.o. t.i.d. Screening mammogram order, Co testing done, GC and chlamydia taken CBC, TSH, prolactin, HCG, and pelvic ultrasound ordered. Discussed with the patient the different causes of abnormal bleeding including thyroid disorders, uterine and ovarian pathology, endometrial hyperplasia, carcinoma and other potential causes. Discussed with the patient the work up including CBC (to r/o anemia), prolactin TSH, hCG, screening mammogram and pelvic Ultrasound, endometrial biopsy to r/o endometrial pathology. EMB done, see procedure note. All questions answered and the patient verbalized understanding. Instructed the patient to schedule a follow-up appointment within a few days to discuss the results of the workup and options of treatment. Orders: Orders TSH reflex Free T4 Today N93.9 - Abnormal uterine and vaginal bleeding, unspecified HCG Quantitative Today N93.9 - Abnormal uterine and vaginal bleeding, unspecified Prolactin Today N93.9 - Abnormal uterine and vaginal bleeding, unspecified Complete Blood Count no Diff Today N93.9 - Abnormal uterine and vaginal bleedi ng, unspecified US pelvic and transvaginal Today N93.9 - Abnormal uterine and vaginal bleeding, unspecified MM screening mammo BI Today Z12.31 - Encounter for screening mammogram for malignant neoplasm of breast Coding Level of Care Code Est Pt Level 3 (91192) Diagnoses JUDE II (cervical intraepithelial neoplasia II) N87.1 Abnormal uterine bleeding N93.9
[2023-05-15 08:15] VITALS: BP 110/80; BMI 53.2
== END 2023-05-15 09:08 | disposition home or self-care (01) ==
PROVIDERS: PCP Internal Medicine; Referring Provider Internal Medicine; Visit Provider Obstetrics & Gynecology
DX: N87.1 Moderate cervical dysplasia (principal); N93.9 Abnormal uterine and vaginal bleeding, unspecified; Z32.02 Encounter for pregnancy test, result negative
CPT/HCPCS: 99213

== ENCOUNTER 2023-05-15 09:29 | Outpatient (REF) | payer MEDICAID, SELFPAY ==
--- NOTE | ~2023-05-15 | US_ITS ---
EXAMINATION: US PELVIS CLINICAL INFORMATION: Abnormal uterine and vaginal bleeding COMPARISON: None available. TECHNIQUE: Ultrasound of the pelvis is performed using both transabdominal and transvaginal transducers along with Doppler. Transvaginal imaging is performed due to inadequate visualization transabdominally. FINDINGS: Uterus: The uterus is anteverted, anteflexed and measures 8.1 x 4.7 x 4.9 cm The double wall endometrial thickness is 7.0 mm. There are small hypoechoic areas within endometrial wall likely small cysts. They measure 0.5 cm The uterus is smooth in contour and has normal myometrial echogenicity. There is so well-visualized hypoechoic lesion in the fundus measuring 1.0 x 0.8 x 0.7 cm. It is likely small fibroid. Previously it measured 1.7 x 1.3 x 1.6 cm. Adnexa: Both ovaries are visualized. There is normal color flow to the adnexa. There is no ovarian torsion. There is no pelvic ascites or fluid collection. Right ovary measures 3.1 x 2.1 x 2.5 cm. 8.5 mL. There is anechoic cyst measuring 2.0 x 1.0 x 1.2 cm. Previously right ovary measured 2.9 x 2.4 x 2.9 cm. Left ovary measures 2.2 x 1.3 x 2.1 cm and volume 3.14 mL. Previously left ovary measured 1.9 x 2.0 x 2.0 cm. There is no free fluid in the pelvis. US/US pelvic and transvaginal IMPRESSION: 1. Simple cyst right ovary. 2. The left ovary is unremarkable. 3. There is no free fluid in the cul-de-sac. 4. There are small endometrial cyst suspected. Suboptimally visualized small uterine fibroid is suspected. It is smaller than previous study.
[2023-05-15 10:20] LABS: Hematocrit 36.7 % (37.0-47.0); Hemoglobin 10.7 g/dl (12.0-16.0); Mean Corpuscular HGB Conc 29.2 g/dl (31.0-35.0); Mean Corpuscular Hemoglobin 21.6 pg (27.0-33.0); Mean Corpuscular Volume 74.1 fL (80.0-98.0); Mean Platelet Volume 9.5 fL (9.4-12.3); Platelet Count 409 X10*3/uL (160-400); Red Blood Count 4.95 X10*6/uL (4.20-5.50); Red Cell Distribution Width 24.7 % (11.0-16.0); White Blood Count 8.6 X10*3/uL (4.8-10.8)
[2023-05-15 11:51] LABS: CT PCR NOT DETECTED (Not Detect.); NG PCR NOT DETECTED (Not Detect.)
[2023-05-15 11:52] LABS: HCG Quantitative < 2 mIU/mL; TSH reflex Free T4 0.84 uIU/mL (0.32-4.0)
[2023-05-16 06:54] LABS: Prolactin 31.7 ng/mL
== END 2023-05-15 09:30 | disposition home or self-care (01) ==
LOC: HO.US 09:29
PROVIDERS: Obstetrics & Gynecology; Psychiatry & Neurology Neurology; Visit Provider Advanced Practice Midwife
DX: N93.9 Abnormal uterine and vaginal bleeding, unspecified (principal); D35.2 Benign neoplasm of pituitary gland; E66.01 Morbid (severe) obesity due to excess calories; N92.0 Excessive and frequent menstruation with regular cycle; D64.9 Anemia, unspecified
CPT/HCPCS: 0353U; 36415; 76830; 76856; 84146; 84443; 84702; 85027

== ENCOUNTER 2023-05-20 10:40 | Outpatient (AMB) | payer MEDICAID, SELFPAY ==
--- NOTE | 2023-05-20 10:53 | A.OFFVIS_ITS ---
Intake Vital Signs 05/20/23 11:04 Height 5 ft 9 in Weight 359 lb 5.655 oz BMI 53.1 BP 110/74 Intake Visit Reasons: u/s results ? preop Curtain Feller Blindstitch Required: Yes Curtain Feller Blindstitch Language: Procurement Engineer Name: Nallely SO Information Interpreted: non-clinical & clinical Hog Confinement System Manager: Hog Confinement System Manager Present (Nallely SO) Accompanied by: Sister Allergies NKA Allergy (Unknown, Uncoded 05/20/23 11:03) NKA Is last menstrual period known: Yes Last menstrual period: 02/25/20 Post menopausal: No Patient : No Do you need a note to return to daycare/school/sports/work: Yes (for surgery on saturday) HPI HPI Comments History of Present Illness Details The patient is presenting for follow-up to discuss the results of her abnormal uterine bleeding workup and options of treatment. The following workup was done.: H&H= 10.7/36.7 Prolactin mind elevated at 31.7 TSH, hCG, GC and chlamydia were negative. Endometrial biopsy pathology showed the following: Benign dyssynchronous endometrium with proliferative and secretory features, and fragments of benign endometrial polyp; no atypia or carcinoma Co testing pending Mammogram not done in Pelvic ultrasound showed the following: Uterus: The uterus is anteverted, anteflexed and measures 8.1 x 4.7 x 4.9 cm The double wall endometrial thickness is 7.0 mm. There are small hypoechoic areas within endometrial wall likely small cysts. They measure 0.5 cm The uterus is smooth in contour and has normal myometrial echogenicity. There is so well-visualized hypoechoic lesion in the fundus measuring 1.0 x 0.8 x 0.7 cm. It is likely small fibroid. Previously it measured 1.7 x 1.3 x 1.6 cm. Adnexa: Both ovaries are visualized. There is normal color flow to the adnexa. There is no ovarian torsion. There is no pelvic ascites or fluid collection. Right ovary measures 3.1 x 2.1 x 2.5 cm. 8.5 mL. There is anechoic cyst measuring 2.0 x 1.0 x 1.2 cm. Previously right ovary measured 2.9 x 2.4 x 2.9 cm. Left ovary measures 2.2 x 1.3 x 2.1 cm and volume 3.14 mL. Previously left ovary measured 1.9 x 2.0 x 2.0 cm. There is no free fluid in the pelvis [facility] Medical History KINGS positive JUDE II (cervical intraepithelial neoplasia II) Morbid obesity with BMI of 45.0-49.9, adult Kidney stones Anxiety Anemia Surgical History History of cystoscopy H/O lithotripsy Hx of tubal ligation Family History Father Medical history unknown Mother Asthma Hypertension Thyroid disease Brother Thyroid disease Sister No problems noted. Sister No problems noted. Son No problems noted. Daughter No problems noted. Social History Household Members: Children Housing: Apartment Alcohol intake: current Alcohol intake frequency: holidays/special occasions only Patient Tobacco Use Status: Current everyday Tobacco user Tobacco use type: Cigarette Cigarettes Per Day: 10 Years Smoked: 7 e-Cigarette/Vaping Use: Never Used Current occupational status: unemployed Sexual orientation: Straight/Heterosexual Gender identity: Female Female Reproductive History Menstrual Age of Menarche: 14 Date of last menstrual period: 02/25/20 Total pregnancies: 2 Full term: 2 Review of Systems Card Reports as per HPI and Reports no additional complaints Resp Reports as per HPI and Reports no additional complaints GI Reports as per HPI and Reports no additional complaints Reports as per HPI Physical Exam Const General: cooperative, healthy appearing and comfortable Chest Chest palpation & inspection: normal inspection of the chest and normal palpation of entire chest wall Breast/axilla inspection: normal inspection of the breasts and normal inspection of the axillae Breast/axilla palpation: normal palpation of the breasts, normal palpation of the axillae and no axillary lymphadenopathy Resp Effort & Inspection: normal respiratory effort Auscultation: clear to auscultation bilaterally Percussion: percussion normal Cardio Palpation: normal PMI Rate: regular rate Rhythm: regular rhythm Heart sounds: no murmurs and no rubs Peripheral pulses: Peripheral pulses 2+ throughout GI Inspection: Yes normal to inspection Palpation (GI): Soft to palpation, nontender, no guarding, not rigid and No hepatosplenomegaly present Percussion: Yes normal to percussion Auscultation: normal bowel sounds Rectal Exam - Female: deferred Assessment & Plan Assessment & Plan (1) Abnormal uterine bleeding: Comment: With anemia status post 2 units of blood transfusion Code(s): N93.9 - Abnormal uterine and vaginal bleeding, unspecified Plan: Discussed with the patient the results of the work up done and options of treat ment including Lysteda, BCP's (both contraindicated with KINGS positive patient because of the risk of thrombosis), Mirena IUD, endometrial ablation and hysterectomy. All pros, cons, risks and benefits if each option was discussed with the patient and the patient decided to go ahead with endometrial ablation. so a more detailed discussion about the procedure was conducted including mechanism of action, effectiveness and its potential failure rate in the coming 3-5 years, its risks (initial or future failure of AUB control, uterine perforation, infection, injury to bladder, bowel, ureter, and blood vessels, possible need for blood transfusion, inability to access the uterine cavity in order to sample the endometrial cavity to rule out endometrial pathology including endometrial cancer and others), benefits ( hypomenorrhea, amenorrhea, ...) . The patient verbalized understanding and signed the consent. The patient was instructed to call day 1 of next cycle for scheduling Novasure endometrial ablation on day 1-10 of next cycle. In addition, the patient understands that although the endometrial ablation is not a method of control it will decrease markedly her chance of getting . The patient verbalized understanding and agreed with the plan. (2) Endometrial polyp: Comment: On EMB pathology Code(s): N84.0 - Polyp of corpus uteri Plan: Discussed with the patient the results the pathology showing fragments of endometrial polyp, recommended hysteroscopy D&C possible polypectomy. Discussed with the patient the procedure , all benefits and risks including but not limited to inability to complete the procedure , insufficient endometrial tissue for a complete evaluation of the endometrial cavity , bleeding, infection, possible need for blood transfusion with all its risk ( HIV,syphilis, Hepatitis, anaphylaxis shock, others..), injury to bladder, rectum, possible need for laparoscopy/laparotomy or hysterectomy. The patient verbalized understanding and signed the consent. Instructions given the patient to schedule a 2 week postoperative appointment (3) Uterine myoma: Code(s): D25.9 - Leiomyoma of uterus, unspecified Plan: Discussed with the patient the findings on pelvic ultrasound & the risk of myosarcoma; discussed with the patient the options of treatment including expectant management versus hysterectomy; the pros and cons, risks benefits of each approach were discussed with the patient including the fact that in cases of myosarcoma, surgical treatment can lead to early diagnosis and positively affects the prognosis; after further discussion, the patient decided to proceed with expectant management. Will repeat pelvic ultrasound periodically. Instructions given to patient to call in case any of the following occurs: pressure symptoms, abnormal uterine bleeding, pelvic pain; and to schedule a future office follow-up appointment for reassessment and to order a repeat ultrasound . All questions answered, the patient verbalized understanding and agreed with the plan . (4) Elevated prolactin level: Code(s): R79.89 - Other specified abnormal findings of blood chemistry Plan: Discussed with the patient the results the prolactin, instructions given the pa tient to repeat prolactin, fasting with 3 days of no breast manipulation Orders: Orders Prolactin Today R79.89 - Other specified abnormal findings of blood chemistry Coding Level of Care Code Est Pt Level 3 (50695) Diagnoses Abnormal uterine bleeding N93.9 Endometrial polyp N84.0 Uterine myoma D25.9 Elevated prolactin level R79.89
[2023-05-20 11:04] VITALS: BP 110/74; BMI 53.1
== END 2023-05-20 11:48 | disposition home or self-care (01) ==
LOC: HO.HWS 10:40
PROVIDERS: PCP Internal Medicine; Visit Provider Obstetrics & Gynecology
DX: N93.9 Abnormal uterine and vaginal bleeding, unspecified (principal); N84.0 Polyp of corpus uteri; D25.9 Leiomyoma of uterus, unspecified; R79.89 Other specified abnormal findings of blood chemistry
CPT/HCPCS: 99213

== ENCOUNTER → 2023-05-20 10:40 | Outpatient (BNVA) | payer MEDICAID, SELFPAY | PROVIDERS: Visit Provider Obstetrics & Gynecology | DX: N93.9 Abnormal uterine and vaginal bleeding, unspecified (principal); N84.0 Polyp of corpus uteri; D25.9 Leiomyoma of uterus, unspecified; R79.89 Other specified abnormal findings of blood chemistry | CPT/HCPCS: 99212 ==

== ENCOUNTER 2023-05-21 11:43 | Day surgery (SDC) | payer MEDICAID, SELFPAY ==
--- NOTE | 2023-05-20 09:42 | HO.ANESPROP2 ---
Documented by User: Billie Wan NP 05/20/23 09:43 HPI - Anesthesia Eval Consult details Narrative: 42yo F for Uterine Ablation s/p tubal PMFSH Active Problems Active Problems: All Active Problems (Updated 05/15/23 @ 08:43 by Azam Connelly MD) KINGS positive (Acute) Abnormal uterine bleeding (Acute) Anemia (Acute) Menorrhagia with regular cycle (Acute) Obesity, morbid, BMI 50 or higher (Acute) Well woman exam with routine gynecological exam (Acute) Potential exposure to STD (Acute) Binge eating disorder (Acute) CHEN (generalized anxiety disorder) (Acute) Severe episode of recurrent major depressive disorder (Acute) Microcytic anemia (Acute) Polyarthralgia (Acute) Morbid obesity (Acute) Body mass index (BMI) of 45.0-49.9 in adult (Acute) JUDE II (cervical intraepithelial neoplasia II) (Acute) Skin candidiasis (Acute) Vitamin D deficiency (Acute) Vitamin A deficiency (Acute) Morbid obesity with BMI of 45.0-49.9, adult (Acute) Past Medical History Medical History KINGS positive JUDE II (cervical intraepithelial neoplasia II) Morbid obesity with BMI of 45.0-49.9, adult Kidney stones Anxiety Anemia Family History Family History Father Medical history unknown Mother Asthma Hypertension Thyroid disease Brother Thyroid disease Sister No problems noted. Sister No problems noted. Son No problems noted. Daughter No problems noted. Surgical History Surgical History History of cystoscopy H/O lithotripsy Hx of tubal ligation Social History Social History Household Members: Children Housing: Apartment Alcohol intake: current Alcohol intake frequency: holidays/special occasions only Patient Tobacco Use Status: Current everyday Tobacco user Tobacco use type: Cigarette Cigarettes Per Day: 5 Years Smoked: 7 e-Cigarette/Vaping Use: Never Used Use of substances other than those prescribed or required for medical reasons: No Are you DNR?: No Advance Directives: No Advance Directives Information Provided: Yes Current occupational status: unemployed Sexual orientation: Straight/Heterosexual Gender identity: Female Meds Allergies Allergy/AdvReac Type Severity Reaction Status Date / Time NKA Allergy Unknown NKA Uncoded 05/20/23 11:03 Home Medications Medication Instructions Recorded Confirmed Last Taken Type ibuprofen 200 mg tablet (Advil) 400 mg PO Q8H PRN Pain 09/15/20 05/21/23 Unknown History Exam Pertinent Lab Results Pertinent Lab Results: Laboratory Tests 05/03/23 05/03/23 05/15/23 19:35 19:35 10:01 WBC 8.6 Hgb 10.7 L D Hct 36.7 L D Plt Count 409 H Sodium 141 Potassium 3.5 Chloride 108 Carbon Dioxide 24 BUN 7 L Creatinine 0.82 Assessment and Plan Assessment Anesthesia Assessment: Chart Reviewed Documented by User: Mare Pacheco MD 05/21/23 13:07 [facility] Past Medical History Medical History KINGS positive JUDE II (cervical intraepithelial neoplasia II) Morbid obesity with BMI of 45.0-49.9, adult Kidney stones Anxiety Anemia Family History Family History Father Medical history unknown Mother Asthma Hypertension Thyroid disease Brother Thyroid disease Sister No problems noted. Sister No problems noted. Son No problems noted. Daughter No problems noted. Family history of problems with anesthesia: No Surgical History Surgical History History of cystoscopy H/O lithotripsy Hx of tubal ligation History of Problems with Anesthesia: No Social History Social History Household Members: Children Housing: Apartment Alcohol intake: current Alcohol intake frequency: holidays/special occasions only Patient Tobacco Use Status: Current everyday Tobacco user Tobacco use type: Cigarette Cigarettes Per Day: 5 Years Smoked: 7 e-Cigarette/Vaping Use: Never Used Use of substances other than those prescribed or required for medical reasons: No Are you DNR?: No Advance Directives: No Advance Directives Information Provided: Yes Current occupational status: unemployed Sexual orientation: Straight/Heterosexual Gender identity: Female Meds Allergies Allergy/AdvReac Type Severity Reaction Status Date / Time NKA Allergy Unknown NKA Uncoded 05/20/23 11:03 Home Medications Medication Instructions Recorded Confirmed Last Taken Type ibuprofen 200 mg tablet (Advil) 400 mg PO Q8H PRN Pain 09/15/20 05/21/23 Unknown History Exam Airway Mallampati Class: II TM Dist: >3cm Neck ROM: Full Heart: rrr Lungs: cta Assessment and Plan Assessment Anesthesia Assessment: Anesthesia Plan Discussed Final Anesthetic Review Family History of Problems with Anesthesia: No History of Problems with Anesthesia: No NPO: Yes ASA Class: III (morbid obesity ) Final Preanesthetic Review: No Changes in Pt Med Stat, Meds/Allgs Chart Reviewed, Consent Obtained/Reviewed and Anes Risks/Benef Reviewed Patient Risk: Intermediate Procedure Risk: Low Anesthetic Plan Anesthetic Plan: GA Disposition: Standard PACU
[2023-05-21 12:43] VITALS: BMI 52.7
[2023-05-21 13:04] VITALS: BP 122/76; PULSE 97; RESP 16; TEMP 36; O2SAT 98
[2023-05-21] MEDS: Lactated Ringers 1,000 ML 100 ML IVCONT (13:05)
[2023-05-21 13:11] LABS: UPreg QC Valid YES; Urine Pregnancy NEGATIVE (NEGATIVE)
--- NOTE | 2023-05-21 13:19 | MHC.SHP ---
Pre-Procedural Eval Section A Date of Service: 05/21/23 The patient is an INPATIENT: No Changes since office visit: No Cold of Flu in the past 2 weeks, No New Medical Problems, No Changes in Medication and No Patient answered all questions The History & Physical has been completed within 30 days and I have reviewed it.: Yes Section B Chief Complaint: Abnormal uterine and vaginal bleeding, unspecified Allergies: Allergies Allergy/AdvReac Type Severity Reaction Status Date / Time NKA Allergy Unknown NKA Uncoded 05/20/23 11:03 Plan Diagnosis/Plan: Unchanged I have reviewed the history and physical and performed a pertinent physical examination on my patient. No changes have occurred unless specified. Time Spent With Patient Time: Total time managing care of this patient today ____ minutes.
--- NOTE | 2023-05-21 14:37 | P.BOP_ITS ---
Brief Operative Note Date of Service: 05/21/23 Pre-op diagnosis: Abnormal uterine bleeding, endometrial polyp on EMB pathology Post-op diagnosis: same (No evidence of endometrial polyp) Procedure: Hysteroscopy D&C NovaSure Endometrial Ablation Surgeon: Azam Connelly MD Anesthesia: GLMA Was an Insurance Risk Analyst used for this Procedure?: No Estimated blood loss (mL): 0 Pathology: none sent (Endometrial scraping) Condition: stable Disposition: PACU
--- NOTE | 2023-05-21 14:38 | P.OP_ITS ---
Operative Note Operative Note Date of Service: 05/21/23 Narrative: Preop Diagnosis: Abnormal uterine bleeding,?Endometrial polyp by EMB pathology Operation: Diagnostic Hysteroscopy, Dilataion & Curettage and Novasure Endometrial Ablation Post Op Diagnosis:? Normal endometrial cavity with No evidence of Endometrial pathology QBL: Minimal Anesthesia: GLMA Surgeon: Azam Connelly MD Tuckpointer: None Complication: None Pathology: Endometrial Scrapings Procedure: The patient was put in the dorsal lithotomy position, scrubbed, and draped in the usual manner. A sterile speculum was inserted in the patient's vagina. The anterior lip of the cervix was grasped with a single tooth tenaculum . The cervix was dilated up to 5 mm, then the scope was inserted in the patient's uterus. Inspection revealed normal endometrial cavity with no evidence of endometrial pathology. The scope was then taken out from the uterine cavity, sharp curetting was carried on with minimal to moderate amount of tissues retrieved. Taking care not to enter deep into the uterus, a sound was passed inside to shahbaz ure the length of the uterus and cervix. This length was found to be 8 cm. Next, Hegar dilator was inserted into the cervical os to measure the cervical length which was 3 cm. This yielded an endometrial cavity length of 6.5 cm. A series of Hegar dilators were then inserted sequentially into the cervical os up to a size of 5 mm. The Novasure device was then opened and tested; the fan deployed easi ly. The instrument was set to the correct cavity length and introduced into the uterine cavity. The fan was slowly deployed with gentle movements to ensure a snug fit within the cavity. The cavity width read 4.5 cm. The measurements were imported and a cavity check was done. The trumpet was then slid down to the cervix and the device was activated. The total burn time was 91 seconds. The fan was retracted and device removed. The fan was examined and revealed charred tissue. The tenaculum was removed and the cervix examined for hemostasis which was achieved using pressure. Finally the speculum was removed. The patient tolerated the procedure well and was brought to the recovery room in a stable condition. At the end of the procedure all sponges and instruments were counted and correct. The blood loss was minimal and there were no complications.
[2023-05-21 14:51] VITALS: BP 109/70; PULSE 76; RESP 14; TEMP 36.1; O2SAT 100
[2023-05-21 14:55] VITALS: BP 115/83; PULSE 82; RESP 18; O2SAT 99
[2023-05-21 15:00] VITALS: BP 115/86; PULSE 86; RESP 18; O2SAT 100
[2023-05-21 15:05] VITALS: BP 129/68; PULSE 77; RESP 18; O2SAT 98
[2023-05-21 15:20] VITALS: BP 103/63; PULSE 80; RESP 18; TEMP 36.1; O2SAT 98
== END 2023-05-21 15:50 | disposition home or self-care (01) ==
PROVIDERS: Visit Provider Obstetrics & Gynecology
PROC: (CPT 58563; principal; 2023-05-21 13:30)
PROC: 0UDB8ZZ Extraction of Endometrium, Via Natural or Artificial Opening Endoscopic (ICD-10-PCS; CPT 58558; 2023-05-21 13:30)
DX: N93.9 Abnormal uterine and vaginal bleeding, unspecified (principal); N84.0 Polyp of corpus uteri; D25.9 Leiomyoma of uterus, unspecified; R79.89 Other specified abnormal findings of blood chemistry; E66.01 Morbid (severe) obesity due to excess calories; Z68.43 Body mass index [BMI] 50.0-59.9, adult; Z98.51 Tubal ligation status; Z87.442 Personal history of urinary calculi; F17.210 Nicotine dependence, cigarettes, uncomplicated
CPT/HCPCS: 58563; 81025; 88305; J1100; J1885; J2405; J2704; J2765; J3010

== ENCOUNTER → 2023-05-21 11:43 | Outpatient (BNV) | payer MEDICAID, SELFPAY | PROVIDERS: Visit Provider Obstetrics & Gynecology | DX: N93.9 Abnormal uterine and vaginal bleeding, unspecified (principal) | CPT/HCPCS: 58563 ==

== ENCOUNTER 2023-06-20 08:54 | Outpatient (REF) | payer MEDICAID, SELFPAY ==
--- NOTE | ~2023-06-20 | MM_ITS ---
EXAMINATION: MM SCREENING DIGITAL BREAST TOMOSYNTHESIS, BILATERAL CLINICAL INFORMATION: Screening. Asymptomatic. COMPARISON: Mammography: This is a baseline mammogram. TECHNIQUE: Digital breast tomosynthesis is performed in both the craniocaudal and mediolateral oblique views along with computer-aided detection (CAD). Synthesized 2D images are generated from the tomosynthesis. FINDINGS: There are scattered areas of fibroglandular density (ACR BI-RADS breast composition Category b). There is a focal asymmetry in the upper outer quadrant of the left breast for which additional mammographic and targeted sonographic imaging is advised. In the right breast, there no are no significant masses, abnormal calcifications, or other abnormalities. MM/MM tomosynthesis screening BI IMPRESSION: Focal asymmetry of the left breast warrants additional mammographic and targeted sonographic imaging. No mammographic signs of malignancy right breast. ASSESSMENT: BI-RADS BI-RADS 0 - Incomplete: Needs additional Imaging. RECOMMENDATION: 1. Additional views of the left breast 2. Targeted ultrasound if warranted after review of the additional views. 3. Radiology department staff will contact the patient for additional imaging. Additional Imaging required This examination should not preclude the clinical evaluation of a suspicious palpable abnormality. This patient's information was entered into a reminder system with a target due date for their next mammogram.
== END 2023-06-20 08:55 | disposition home or self-care (01) ==
LOC: HO.MAMMO 08:54
PROVIDERS: Visit Provider Obstetrics & Gynecology
DX: Z12.31 Encounter for screening mammogram for malignant neoplasm of breast (principal)
CPT/HCPCS: 77063; 77067; 99212

== ENCOUNTER → 2023-06-20 09:15 | Outpatient (BNV) | payer MEDICAID, SELFPAY | PROVIDERS: Visit Provider Radiology Diagnostic Radiology | DX: Z12.31 Encounter for screening mammogram for malignant neoplasm of breast (principal) | CPT/HCPCS: 77063; 77067 ==

== ENCOUNTER 2023-06-20 09:32 | Outpatient (AMB) | payer MEDICAID, SELFPAY ==
--- NOTE | 2023-06-20 09:36 | MHC.OFFVIS ---
Intake Vital Signs 06/20/23 09:43 Height 5 ft 9 in Weight 344 lb BMI 50.8 BP 120/74 Intake Visit Reasons: post op Policy Loan Calculator Required: Yes Policy Loan Calculator Language: Diesel Dragline Operator Name: Nallely SO Allergies NKA Allergy (Unknown, Uncoded 05/20/23 11:03) NKA HPI HPI Comments History of Present Illness Details The patient is presenting post hysteroscopy D&C with NovaSure ablation no complaints minimal vaginal bleeding no feverishness chills or abdominal pain. The pathology showed the following: Endometrium, curettage: Fragments with features of polyp; mixed secretory and inactive endometrium with lytic changes; no atypia identified The following workup for AUB was done.: H&H= 10.7/36.7 TSH, hCG, GC and chlamydia were negative. Prolactin elevated at 31.7 Office Endometrial biopsy pathology showed no evidence of hyperplasia and/or malignancy. Co testing was done was negative. Mammogram recently done results still pending Pelvic ultrasound showed the following: IMPRESSION: 1. Simple cyst right ovary. 2. The left ovary is unremarkable. 3. There is no free fluid in the cul-de-sac. 4. There are small endometrial cyst suspected. Suboptimally visualized small uterine fibroid is suspected. It is smaller than previous study. [facility] Medical History KINGS positive JUDE II (cervical intraepithelial neoplasia II) Morbid obesity with BMI of 45.0-49.9, adult Kidney stones Anxiety Anemia Surgical History History of cystoscopy H/O lithotripsy Hx of tubal ligation Family History Father Medical history unknown Mother Asthma Hypertension Thyroid disease Brother Thyroid disease Sister No problems noted. Sister No problems noted. Son No problems noted. Daughter No problems noted. Social History Household Members: Children Housing: Apartment Alcohol intake: current Alcohol intake frequency: holidays/special occasions only Patient Tobacco Use Status: Current everyday Tobacco user Tobacco use type: Cigarette Cigarettes Per Day: 5 Years Smoked: 7 e-Cigarette/Vaping Use: Never Used Current occupational status: unemployed Sexual orientation: Straight/Heterosexual Gender identity: Female Female Reproductive History Menstrual Age of Menarche: 14 Review of Systems Const All systems reviewed & are unremarkable except as noted in HPI and below Reports as per HPI and Reports no additional complaints GI Reports no additional complaints Reports no additional complaints Physical Exam Vital Signs: Last Vital Signs BP 120/74 06/20/23 09:43 BMI result Body Mass Index 50.8 Assessment & Plan Assessment & Plan (1) Elevated prolactin level: Code(s): R79.89 - Other specified abnormal findings of blood chemistry Plan: Discussed with the patient the elevated prolactin refer to endocrinology for further management (2) Abnormal uterine bleeding: Comment: status post endometrial ablation Code(s): N93.9 - Abnormal uterine and vaginal bleeding, unspecified Plan: Discussed with the patient Novasure endometrial ablation intraoperative findings. In addition, discussed with the patient the expectations in the post operative period. Instruction given to patient to wait 2- 3 months and call if her menses are not satisfactory. All questions answered, the patient verbalized understanding and all questions answered . Orders: Referrals Endocrinology Referral R79.89 - Other specified abnormal findings of blood chemistry Coding Level of Care Code Est Pt Level 3 (33471) Diagnoses Elevated prolactin level R79.89 Abnormal uterine bleeding N93.9
[2023-06-20 09:43] VITALS: BP 120/74; BMI 50.8
== END 2023-06-20 09:58 | disposition home or self-care (01) ==
LOC: HO.HWS 09:32
PROVIDERS: Visit Provider Obstetrics & Gynecology
DX: R79.89 Other specified abnormal findings of blood chemistry (principal); N93.9 Abnormal uterine and vaginal bleeding, unspecified
CPT/HCPCS: 99213

== ENCOUNTER 2023-08-09 13:00 | Outpatient (REF) | payer MEDICAID, SELFPAY ==
--- NOTE | ~2023-08-09 | MM_ITS ---
EXAMINATION: MM DIAGNOSTIC DIGITAL BREAST TOMOSYNTHESIS, LEFT US BREAST LIMITED, LEFT MAMMOGRAPHY: CLINICAL INFORMATION: Diagnostic for evaluation of focal asymmetry on screening mammogram central slightly outer left breast. COMPARISON: Mammography: 06/20/2023 Baseline exam. TECHNIQUE: Digital breast tomosynthesis is performed in the following views: Full-field left 3-D mediolateral view, as well as 3-D spot compression left CC and MLO views. This was followed by targeted left breast ultrasound. FINDINGS: There are scattered areas of fibroglandular density (ACR BI-RADS breast composition Category b). Diagnostic views demonstrate essential dissipation of the focal asymmetry on the spot compression views within the upper slightly outer left breast, middle depth, findings consistent with superimposition artifact of normal overlapping breast tissues. On the full-field left ML view, the asymmetric density mildly persists, hence we will evaluate this with ultrasound for full characterization. No new suspicious findings in the left breast. ULTRASOUND: CLINICAL INFORMATION: Diagnostic for evaluation of focal asymmetry on screening mammogram central slightly outer left breast. COMPARISON: None TECHNIQUE: Targeted sonographic evaluation was performed using a high frequency linear transducer. Attention was focused on the central slightly lateral left breast in the region of mammographic concern. Selected archived documentation. FINDINGS: LEFT BREAST: There is a mixture of fatty and fibroglandular tissue. No suspicious mass is seen. There is no pathologic acoustic shadowing. There is no cystic abnormality. No correlate to the focal asymmetry in the central slightly lateral left breast. MM/MM tomosynthesis added views L IMPRESSION: -Diagnostic views demonstrate no persistent findings suspicious for malignancy. -Focal asymmetry in the central slightly lateral left breast shows no ultrasonographic correlate and effaces on diagnostic views, consistent with superimposition artifact of normal overlapping breast tissue. -Recommend the patient return to routine annual screening. OVERALL ASSESSMENT: Mammography: BI-RADS 1 - Negative Ultrasound: BI-RADS 1 - Negative RECOMMENDATION: 1 year F/U This patient's information was entered into a reminder system with a target due date for their next mammogram.
== END 2023-08-09 13:01 | disposition home or self-care (01) ==
LOC: HO.MAMMO 13:00
PROVIDERS: PCP Internal Medicine; Visit Provider Obstetrics & Gynecology
DX: N64.89 Other specified disorders of breast (principal)
CPT/HCPCS: 76642; 77061; 77065

== ENCOUNTER → 2023-08-09 13:00 | Outpatient (BNV) | payer MEDICAID, SELFPAY | PROVIDERS: PCP Internal Medicine; Visit Provider Radiology Diagnostic Radiology | DX: R92.8 Other abnormal and inconclusive findings on diagnostic imaging of breast (principal) | CPT/HCPCS: 76642; 77061; 77065 ==

== ENCOUNTER 2023-08-15 12:37 | Outpatient (AMB) | payer MEDICAID, SELFPAY ==
--- NOTE | 2023-08-15 12:51 | MHC.OFFVIS ---
Vital Signs 08/15/23 12:52 Height 5 ft 9 in Weight 343 lb 14.738 oz BMI 50.8 BP 124/86 Intake Visit Reasons: EMB/pap Automotive Glass Installer Required: Yes Automotive Glass Installer Language: Help Desk Engineer Name: Nallely SO Information Interpreted: non-clinical & clinical Electromedical Service Engineer: Electromedical Service Engineer Present (Nallely SO) Accompanied by: Self / Same As Patient Allergies NKA Allergy (Unknown, Uncoded 08/15/23 13:01) NKA Is last menstrual period known: No HPI Comments Details: Presenting for 3 month follow-up post endometrial ablation, doing well with no bleeding and no other concerns Last co testing in 05/22 was negative Last mammogram done in 07/20 was BI-RADS 1 The patient was refer to endocrinology for a with prolactin and was not called yet [facility] Medical History KINGS positive JUDE II (cervical intraepithelial neoplasia II) Morbid obesity with BMI of 45.0-49.9, adult Kidney stones Anxiety Anemia Surgical History History of cystoscopy H/O lithotripsy Hx of tubal ligation Family History Father Medical history unknown Mother Asthma Hypertension Thyroid disease Brother Thyroid disease Sister No problems noted. Sister No problems noted. Son No problems noted. Daughter No problems noted. Social History Household Members: Children Housing: Apartment Alcohol intake: current Alcohol intake frequency: holidays/special occasions only Patient Tobacco Use Status: Current everyday Tobacco user Tobacco use type: Cigarette Cigarettes Per Day: 5 Years Smoked: 7 e-Cigarette/Vaping Use: Never Used Current occupational status: unemployed Sexual orientation: Straight/Heterosexual Gender identity: Female Female Reproductive History Menstrual Age of Menarche: 14 Review of Systems Const All systems reviewed & are unremarkable except as noted in HPI and below Reports as per HPI and Reports no additional complaints GI Reports no additional complaints Reports no additional complaints Physical Exam Vital Signs: Last Vital Signs BP 124/86 08/15/23 12:52 BMI result Body Mass Index 50.8 Assessment & Plan Assessment & Plan (1) Abnormal uterine bleeding: Comment: status post endometrial ablation Code(s): N93.9 - Abnormal uterine and vaginal bleeding, unspecified Category: Medical Plan: Instructions given the patient to call in case of recurrence of vaginal bleeding otherwise follow-up in a year for repeat co testing given history of JUDE 3 status post LEEP. All questions answered, the patient verbalized understanding (2) Elevated prolactin level: Code(s): R79.89 - Other specified abnormal findings of blood chemistry Category: Medical Plan: Will refer back the patient endocrinology for further management Instructed the patient to call our office back in case a referral appointment is not scheduled, missed or canceled so that we will assist on rescheduling another appointment, the patient verbalized understanding agreed with the plan. Orders: Referrals Endocrinology Referral R79.89 - Other specified abnormal findings of blood chemistry
[2023-08-15 12:52] VITALS: BP 124/86; BMI 50.8
== END 2023-08-15 14:00 | disposition home or self-care (01) ==
PROVIDERS: PCP Internal Medicine; Visit Provider Obstetrics & Gynecology
DX: N93.9 Abnormal uterine and vaginal bleeding, unspecified (principal); R79.89 Other specified abnormal findings of blood chemistry
CPT/HCPCS: 99213

== ENCOUNTER 2023-08-15 12:37 | Outpatient (REF) | payer MEDICAID, SELFPAY ==
[2023-08-15 14:15] LABS: MANUAL DIFF FLAG NO
[2023-08-15 14:54] LABS: Basophils Absolute Auto 0.1 X10*3/uL (0.0-0.2); Basophils Percent Auto 0.8 % (0-2); Eosinophils Absolute Auto 0.1 X10*3/uL (0.0-0.4); Eosinophils Percent Auto 1.3 % (0-4); Hematocrit 38.2 % (37.0-47.0); Hemoglobin 12.1 g/dl (12.0-16.0); Imm Gran Abs Auto 0.02 X10*3/uL (0.00-0.03); Imm Gran Pct Auto 0.3 % (0.0-0.4); Lymphocytes Absolute Auto 1.9 X10*3/uL (1.2-4.9); Lymphocytes Percent Auto 23.4 % (20-40); Mean Corpuscular HGB Conc 31.7 g/dl (31.0-35.0); Mean Corpuscular Volume 78.9 fL (80.0-98.0); Mean Platelet Volume 9.8 fL (9.4-12.3); Monocytes Absolute Auto 0.4 X10*3/uL (0.1-1.2); Monocytes Percent Auto 4.6 % (2-11); Neutrophils Absolute Auto 5.6 x10*3/uL (2.0-8.3); Neutrophils Percent Auto 69.6 % (45-73); Platelet Count 340 X10*3/uL (160-400); Red Blood Count 4.84 X10*6/uL (4.20-5.50); Red Cell Distribution Width 15.5 % (11.0-16.0)
[2023-08-16 08:39] LABS: Prolactin 19.9 ng/mL
== END 2023-08-15 12:38 | disposition home or self-care (01) ==
LOC: HO.LAB 12:37
PROVIDERS: Absent Provider Psychiatry & Neurology Neurology; PCP Internal Medicine; Visit Provider Obstetrics & Gynecology
DX: D50.0 Iron deficiency anemia secondary to blood loss (chronic) (principal); D35.2 Benign neoplasm of pituitary gland; N93.9 Abnormal uterine and vaginal bleeding, unspecified; R79.89 Other specified abnormal findings of blood chemistry
CPT/HCPCS: 36415; 84146; 85025; 99212

== ENCOUNTER 2024-01-09 12:01 | Outpatient (AMB) | payer MEDICAID, SELFPAY ==
[2024-01-09 13:41] VITALS: BP 110/60; PULSE 76; BMI 46.0
--- NOTE | 2024-01-09 13:41 | MHC.OFFVIS ---
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 She is morbidly obese and weighs more than 300 lb. She is extremely tearful in the office. No previous cardiac history including coronary disease or myocardial infarction or cardiomyopathy. Essentially she describes a random sensation of abnormal feeling/possible discomfort in the chest. This is random and nonexertional. In fact, she states she lives on the 4th floor and she can go up that many flights of stairs and does not get any chest pains. Hence clearly nonexertional. More so at rest. Sometimes, she may feel as though her heart is skipping beats and that could be just ectopic beats. Some shortness of breath with activity, probably related to weight. [facility] Medical History KINGS positive JUDE II (cervical intraepithelial neoplasia II) Morbid obesity with BMI of 45.0-49.9, adult Kidney stones Anxiety Anemia Surgical History History of cystoscopy H/O lithotripsy Hx of tubal ligation Family History Father Medical history unknown Mother Asthma Hypertension Thyroid disease Brother Thyroid disease Sister No problems noted. Sister No problems noted. Son No problems noted. Daughter No problems noted. Social History Household Members: Children Housing: Apartment Alcohol intake: current Alcohol intake frequency: holidays/special occasions only Patient Tobacco Use Status: Current everyday Tobacco user Tobacco use type: Cigarette Cigarettes Per Day: 5 Years Smoked: 7 e-Cigarette/Vaping Use: Never Used Current occupational status: unemployed Sexual orientation: Straight/Heterosexual Gender identity: Female Female Reproductive History Menstrual Age of Menarche: 14 Review of Systems Const Denies chills, Denies daytime sleepiness, Denies fatigue, Denies fever(s), Denies poor appetite, Denies snoring, Denies stops breathing during sleep, Denies weakness, Denies weight gain and Denies weight loss Eyes Denies loss of vision ENT Denies dizziness and Denies hearing loss Card Reports chest pain, Denies irregular heart rhythm, Denies claudication, Denies leg edema, Denies lightheadedness, Reports palpitations, Reports dyspnea, Denies dyspnea on exertion and Denies orthopnea Resp Denies cough, Denies excessive phlegm production, Reports dyspnea, Denies dyspnea on exertion, Denies snoring and Denies wheezing GI Denies abdominal pain, Denies hematochezia, Denies change in bowel habits, Denies nausea and Denies vomiting Denies urinary frequency and Denies dysuria Musc Denies arthralgias, Denies muscle weakness, Denies numbness and Denies other Skin/Breast Denies nail changes and Denies rash Neuro Denies Abnormal speech present, Denies dizziness, Denies loss of vision, Denies memory loss, Denies numbness and Denies weakness Psych Denies depression and Denies memory loss Endo Denies fatigue and Reports palpitations Florentino/Lymph Denies easy bruising Aller/Immun Denies wheezing Physical Exam Vital Signs: Last Vital Signs Pulse 76 01/09/24 13:41 BP 110/60 01/09/24 13:41 BMI result Body Mass Index 46.0 Const General: comfortable and no acute distress Orientation/consciousness: patient oriented x3 HEENT Other: Unremarkable Head: Yes normal to inspection Neck Neck: Yes normal visual inspection Chest Chest palpation & inspection: normal inspection of the chest Resp Auscultation: clear to auscultation bilaterally Cardio Palpation: normal PMI Heart sounds: S1 normal heart sound present, S2 normal heart sound present, no gallops, no murmurs and no rubs GI Palpation (GI): Soft to palpation Back/Spine/Pelvis Other: unremarkable Skin General skin exam: no rashes or lesions noted Neuro General: patient oriented x3 Speech: No Abnormal speech present Extrem General: Yes normal to inspection Psych Mental Status: mental status grossly normal Assessment & Plan Assessment & Plan (1) Precordial chest pain: Code(s): R07.2 - Precordial pain Category: Medical Plan Baseline EKG with underlying sinus rhythm at 93/Min; no significant ST-T changes and otherwise unremarkable. Normal OR and corrected QT. Random chest pains but not happening during climbing 4 flights of stairs regularly and hence do not suspect angina. Skipping beats could be just ectopy. Doubt any other significant arrhythmias. Overall, symptoms probably all related to her obesity. We can check an echocardiogram. If any significant structural findings, then will need further assessment. Otherwise, mainly reassurance. She was very tearful in the clinic and tried to reassure her as much. Orders: Orders CA echo transthoracic complete Today R07.2 - Precordial pain Coding Level of Care Code New Pt Level 3 (68720) Diagnoses Precordial chest pain R07.2
== END 2024-01-09 14:10 | disposition home or self-care (01) ==
PROVIDERS: PCP Internal Medicine; Visit Provider Internal Medicine
DX: R07.2 Precordial pain (principal)
CPT/HCPCS: 99213

== ENCOUNTER → 2024-01-09 12:01 | Outpatient (BNVA) | payer MEDICAID, SELFPAY | PROVIDERS: PCP Internal Medicine; Visit Provider Internal Medicine | DX: R07.2 Precordial pain (principal) | CPT/HCPCS: 99212 ==

== ENCOUNTER → 2024-02-04 08:43 | Outpatient (REF) | payer MEDICAID, SELFPAY ==
--- NOTE | 2024-02-04 08:47 | CA_ITS ---
Transthoracic Echocardiogram Patient (Last, First, Middle): Lorrie Bernal, Gender: Female Date of : 1980 Age: 43 Procedure Date: 02/04/2024 Procedure Type: Transthoracic Echocardiogram Location: OP Height: 175.26 cm Weight: 158.76 kg BSA: 2.62 m2 Heart Rate: bpm BP: 110 / 80 mmHg Top Waddy: TO Referring MD: Elmer Holcomb MD Intranet Support: Angus Hunter MD Symptoms: R07.2 - Precordial pain Study Quality: Adequate w contrast ECG Rhythm: Sinus Conclusions: - 1. Mildly reduced LV ejection fraction 45-50% 2. Normal cardiac valvular Doppler 3. Normal RV systolic pressure 4. No gross pericardial effusion Findings Procedure Information Contrast agent, definity, is being given per protocol without apparent complications. Left Ventricle Normal left ventricular cavity size. There is normal left ventricular wall thickness. The left ventricular systolic function is mildly decreased. The visually estimated ejection fraction is between 45-50%. There is mild global hypokinesis. Spectral Doppler is indicative of a normal filling pattern. Right Ventricle Normal right ventricular cavity size and systolic function. Atria The left atrium is normal in size. There is no evidence of interatrial shunt. The right atrium is normal in size. Aortic Valve Normal aortic valve structure and function. There is no aortic valve stenosis. There is no aortic valve regurgitation. Mitral Valve Normal mitral valve structure and function. There is trace mitral valve regurgitation. There is no mitral valve stenosis. Pulmonic Valve The pulmonic valve is likely normal. Tricuspid Valve Normal tricuspid valve structure. There is trace tricuspid valve regurgitation. The right ventricular systolic pressure is normal. The right ventricular systolic pressure is 28 mmHg. Normal right atrial pressure. There is no evidence of pulmonary hypertension. Great Vessels All visible segments of the aorta are normal in size. The pulmonary artery was not well visualized. Venous The inferior vena cava is normal in size and collapses greater than 50% with inspiration. Pericardium/Pleural There is no evidence of pericardial effusion. Prior Study Comparison No prior study available for comparison. Measurements 2D Linear Measurements IVSd: 0.89 0.6-0.9/0.6-1.0 cm LVIDd: 5.43 3.9-5.3/4.2-5.9 cm LVIDd Index: 2.07 2.4-3.2/2.2-3.1 cm/m2 LVIDs: 3.68 2.0-3.6 cm LVPWd: 0.78 0.7-1.1 cm LA Diam: 3.80 2.7-3.8/3.0-4.0 cm LAIDs Index: 1.45 1.5-2.3 cm/m2 LV Mass: 205.88 67-162/88-224 g LV Mass Index: 78.58 43-95/49-115 g/m2 LVOT Diam: 2.40 3.0+(-)1.3 cm 2D Systolic Function EF 4C: 49.10 >55% EF 2C: 49.00 >55% EF BiP: 48.90 >55% Mitral Valve MV Pk E: 0.80 MV PK A: 0.34 MV Decel Time: 205.00 E/A: 2.40 E'Lateral: 11.30 E'Medial: 9.25 E/E' Med: 8.70 E/E' Lat: 7.10 PHT: 60.00 MVA PHT: 3.67 Decel [place]: 3.91 Aortic Valve AoV Pk Masood: 1.42 AoV Mn Masood: 0.95 AoV VTI: 0.31 AoV Pk Grad: 8.00 Aov Mn Grad: 4.00 RK Cont.VTI: 2.66 LVOT LVOT Pk Masood: 0.86 LVOT Mn Masood: 0.58 LVOT VTI: 0.18 LVOT Pk Grad: 3.00 LVOT Mn Grad: 2.00 LVOT Diam: 2.40 LVOT Area: 4.52 Diastolic Function MV Pk E: 0.80 MV Pk A: 0.34 E/A: 2.40 E'Medial: 9.25 E/E' Med: 8.70 E' Laterial: 11.30 E/E' Lat: 7.10 Right Ventricle TAPSE (mm): 23.00 TVS' Masood: 10.60 Tricuspid Valve TR Pk Masood: 2.22 TR Pk Grad: 20.00 RA Press: 8.00 RVSP: 28.00 Great Vessels Aorta Sinus of Valsalva: 3.25 2.0-3.[address] Ridge: 2.50 1.7-3.4 cm Ao Asc: 2.70 2.1-3.4 cm Updated in Other Vendor System with Status of Final Angus Hunter MD electronically signed on 02/05/2024 1:37:58 PM with status of Final
== END ==
LOC: HO.CARD 08:43
PROVIDERS: PCP Internal Medicine; Visit Provider Internal Medicine
DX: R07.2 Precordial pain (principal)
CPT/HCPCS: 93306; Q9957

== ENCOUNTER → 2024-02-04 08:47 | Outpatient (BNV) | payer MEDICAID, SELFPAY | PROVIDERS: PCP Internal Medicine; Visit Provider Internal Medicine Cardiovascular Disease | DX: R07.2 Precordial pain (principal) | CPT/HCPCS: 93306 ==

== ENCOUNTER 2024-02-27 11:22 | Outpatient (REF) | payer MEDICAID, SELFPAY ==
[2024-02-27 14:18] LABS: Cholesterol 179 mg/dL (<200); HDL Cholesterol 40 mg/dL (>40); LDL Cholesterol Calculated 122 mg/dL (<100); Triglycerides 85 mg/dL (<150)
== END 2024-02-27 11:23 | disposition home or self-care (01) ==
LOC: HO.HHCL 11:22
PROVIDERS: Visit Provider Internal Medicine
DX: E66.01 Morbid (severe) obesity due to excess calories (principal); Z68.43 Body mass index [BMI] 50.0-59.9, adult
CPT/HCPCS: 36415; 80061

== ENCOUNTER 2024-04-14 11:02 | Outpatient (REF) | payer MEDICAID, SELFPAY ==
[2024-04-14 13:16] LABS: MANUAL DIFF FLAG NO
[2024-04-14 13:27] LABS: Basophils Absolute Auto 0.1 X10*3/uL (0.0-0.2); Eosinophils Absolute Auto 0.1 X10*3/uL (0.0-0.4); Eosinophils Percent Auto 1.2 % (0-4); Hematocrit 37.1 % (37.0-47.0); Imm Gran Abs Auto 0.03 X10*3/uL (0.00-0.03); Imm Gran Pct Auto 0.4 % (0.0-0.4); Lymphocytes Absolute Auto 2.3 X10*3/uL (1.2-4.9); Mean Corpuscular HGB Conc 32.3 g/dl (31.0-35.0); Mean Corpuscular Volume 80.5 fL (80.0-98.0); Mean Platelet Volume 10.2 fL (9.4-12.3); Monocytes Absolute Auto 0.3 X10*3/uL (0.1-1.2); Neutrophils Absolute Auto 5.4 x10*3/uL (2.0-8.3); Neutrophils Percent Auto 65.4 % (45-73); Platelet Count 350 X10*3/uL (160-400); Red Blood Count 4.61 X10*6/uL (4.20-5.50); Red Cell Distribution Width 13.9 % (11.0-16.0); White Blood Count 8.2 X10*3/uL (4.8-10.8)
[2024-04-14 13:59] LABS: Albumin Level 3.9 g/dL (3.5-5.0); Alkaline Phosphatase 63 U/L (39-117); Anion Gap 10 (12-20); Aspartate Amino Transferase 18 U/L (5-31); Bilirubin Total 0.3 mg/dL (0.0-1.0); Blood Urea Nitrogen 6 mg/dL (9-16); Calcium 9.1 mg/dL (8.4-10.2); Carbon Dioxide 26 mmol/L (22-29); Chloride 105 mmol/L (96-108); Estimated Glomerular Filt Rate > 60; Glucose Random 88 mg/dL (60-115); Potassium 4.2 mmol/L (3.3-5.1); Sodium 137 mmol/L (135-145); Total Protein 7.2 g/dL (6.5-8.0)
[2024-04-14 14:20] LABS: Alanine Aminotransferase 7 U/L (0-31)
[2024-04-15 08:29] LABS: Prolactin 19.9 ng/mL
== END 2024-04-14 11:03 | disposition home or self-care (01) ==
LOC: HO.HHCL 11:02
PROVIDERS: Obstetrics & Gynecology; Visit Provider Internal Medicine
DX: E23.6 Other disorders of pituitary gland (principal); R79.89 Other specified abnormal findings of blood chemistry
CPT/HCPCS: 36415; 80053; 84146; 85025

== ENCOUNTER → 2024-06-19 08:03 | Outpatient (REF) | payer MEDICAID, SELFPAY ==
--- OUTSIDE RECORDS SUMMARY | 2024-06-19 08:06 | XMS_ITS | Encounter Summary ---
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 Name Role Phone Matheus Quijano MD Primary Care Provide r Encounter Details Date Type Department Care Team (Late Contact Info) Description 01/22/2023 Orders Only [facility] MED[facility]INE [address] [place] [id number] ProviderBimal MD Social History Tobacco Use Types Packs/Day Years Used Date Smoking Tobacco: Every Day Cigarettes Passive Smoke Exposure: Current Smokeless Tobacco: Never Depression Answer Date Recorded Patient Health Questionnaire-9 Score 16 08/23/2022 Depression Answer Date Recorded Patient Health Questionnaire-2 Score 4 08/23/2022 Comments Unknown Sex and Gender Information Value Date Recorded Sex Assigned at Female 02/26/2022 10:32 AM EDT Legal Sex Female 10:32 AM EDT Gender Identity Female 02/26/2022 10:32 AM EDT Sexual Orientation Straight 05/23/2022 8: 45 AM EST documented as of this encounter Plan of Treatment Upcoming Encounters Date Type Department Care Team (Late Contact Info) Description 08/18/2024 10:00 AM EDT Office Visit [facility] [address] [place] [phone] Matheus Quijano MD [address] [place] [address] 09/24/2024 10:00 AM EDT Office Visit [facility] ADULT DENTAL [address] [place], [place] [phone] Corrine Neri 11/06/2024 10:00 AM EDT Office Visit [facility] OPTOMETRY [address] [place] [address] Darcie Zuñiga, ARAIDNE [address] [place] [address] documented as of this encounter Procedures Procedure Name Priority Date/Time Associated Diagnosis Comments PAP/HPV Routine 06/27/2021 PAP/HPV Routine 03/09/2020 documented in this encounter Results * Pap Smear (06/27/2021) Historical Provider HEALTH MAINTENANCE Final Result * Pap Smear (03/09/2020) Historical Provider HEALTH MAINTENANCE Final Result documented in this encounter Visit Diagnoses Not on filedocumented in this encounter Additional Health Concerns Assessment Noted Time PHQ-9 Depression Total Score: 16 08/23/ 023 10:18 AM EDT documented as of this encounter Care Teams Acoustical Tile Drill Press Operator Relationship Specialty Start Date End Date Matheus Quijano MD [address] [place] [address] PCP - General Internal Medicine 11/24/18 documented as of this encounter
--- OUTSIDE RECORDS SUMMARY | 2024-06-19 08:06 | XMS_ITS | Clinical Summary ---
Author Organization [employer] Address [address] [place] [address] Care Team Providers Care Pharmacy Aide Name Role Phone Matheus Quijano MD Primary Care Provide r Allergies No known active allergies Medications Albuterol Sulfate (ProAir RespiClick) 108 (90 Base) MCG/ACT aerosol powder Inhale 2 puffs. 2 Active ferrous sulfate 325 (65 Fe) MG tablet Take 1 tablet by mouth every 12 (twelve) hours. 0 Active Cyanocobalamin ER 1000 MCG tablet controlled-releas e Take 1 tablet by mouth in the morning. 0 Active cholecalciferol (Vitamin D-3) 50 MCG (2000 UT) capsule Take 1 capsule by mouth in the morning. 0 Active ascorbic acid (Vitamin C) 250 MG chewable tablet Take with ferrous sulfate tablet 3 times a week 8 Active docusate sodium (Colace) 100 MG capsule Take 1 capsule by mouth every 12 (twelve) hours. 9 Active ketoconazole (Nizoral) 2 % shampooIndication s:Seborrheic dermatitis Apply topically 2 (two) times a week. 120 mL 1 3 Active desonide (DesOwen) 0.05 % creamIndications: Seborrheic dermatitis Apply topically at bedtime. 15 g 2 3 Active cetirizine (ZyrTEC) 10 MG tabletIndications :Seasonal allergies Take 1 tablet (10 mg) by mouth Once per day. 90 tablet 3 4 Active nabumetone (Relafen) 500 MG tabletIndications :Fibromyalgia TAKE 1 TABLET BY MOUTH TWICE DAILY 60 tablet 3 4 Active topiramate 50 MG tablet Take 1 tablet by mouth 2 times daily. 4 Active SUMAtriptan (Imitrex) 50 MG tablet TAKE 1 TABLET BY MOUTH ONCE DAILY DIRECTED 3 Active bromocriptine (Parlodel) 2.5 MG tablet Take 2.5 mg by mouth Once per day. 4 Active Sodium Fluoride (PreviDent 5000 Plus) 1.1 % cream Apply 1 mg to teeth 3 times daily. 1 g 3 4 Active Ventolin HFA 108 (90 Base) MCG/ACT inhaler INHALE 2 PUFFS BY MOUTH EVERY 6 HOURS NEEDED FOR WHEEZING 18 g 3 4 Active pregabalin (Lyrica) 150 MG capsuleIndication s:Fibromyalgia TAKE 1 CAPSULE BY MOUTH EVERY TWELVE HOURS 60 capsule 5 4 Active Arnuity Ellipta 100 MCG/ACT inhalerIndication s:Mild intermittent asthma without complication INHALE 1 PUFF BY MOUTH EVERY DAY AT THE SAME TIME 30 each 5 4 Active Active Problems Problem Noted Date Diagnosed Date Chest pressure 06/21/2023 Assessment & Plan (04/14/2024 10:41 AM EST): Patient with previous c/o of on and off chest pressure associated with palpitations EKG back then showed, NSR, HR [address] t changes Given risk factors last visit she was referred to cardiology for outpatient stress test and Holter monitor. She was finally seen 01/09/2024. He recommended an ECHO and only if any structural abnormalities, he would then recommend anything else. Pt tells me she was contacted and asked to have a repeat in May, records requested Of note she had a CTA back 04/15/2023 for c/o chest pain that showed: No pulmonary embolism. No acute pneumonic process. Cholelithiasis. Assessment & Plan (09/24/2023 1:30 PM EDT): Patient with previous c/o of on and off chest pressure associated with palpitations EKG today shows, NSR, HR [address] t changes Given risk factors last visit she was referred to cardiology for outpatient stress test and Holter monitor. Appointment scheduled for 10/09/2023 Assessment & Plan (06/21/2023 2:03 PM EST): Patient with c/o of on and off chest pressure associated with palpitations EKG today shows, NSR, HR [address] t changes Given risk factors will refer to cardiology for outpatient stress test and Holter monitor Cyst of pituitary gland 04/30/2023 Assessment & Plan (04/14/2024 10:44 AM EST): Pt under the care of Neurology, last seen by Dr Mahoney 07/2023, has a follow up with him for a repeat MRI As part of her work up for headaches she underwent an MRI Brain 01/07/2023 11 mm cystic intrasellar lesion. Radiologist recommended pituitary protocol with and without contrast and endocrine assessment MRI of brain with contrast done 01/31/2023 showed a 1.2 x 1.0 x 0.9 cyst in the right pituitary gland. Diferential include a cystic pituitary adenoma or a Rathke? s cleft cyst . endocrine work up recommended and continued surveillance. Pt tells me she was seen 09/12/2023, and once again more recently, records requested. Also has an appointment with [facility] Endocrinology Assessment & Plan (09/24/2023 1:35 PM EDT): Pt under the care of Neurology, last seen by Dr Mahoney 07/2023 As part of her work up for headaches she underwent an MRI Brain 01/07/2023 11 mm cystic intrasellar lesion. Radiologist recommended pituitary protocol with and without contrast and endocrine assessment MRI of brain with contrast done 01/31/2023 showed a 1.2 x 1.0 x 0.9 cyst in the right pituitary gland. Diferential include a cystic pituitary adenoma or a Rathke? s cleft cyst . endocrine work up recommended and continued surveillance. Pt tells me she was seen 09/12/2023 Also has an appointment with [facility] Endocrinology Assessment & Plan (06/21/2023 1:54 PM EST): Pt under the care of Neurology As part of her work up for headaches she underwent an MRI Brain 01/07/2023 11 mm cystic intrasellar lesion. Radiologist recommended pituitary protocol with and without contrast and endocrine assessment MRI of brain with contrast done 01/31/2023 showed a 1.2 x 1.0 x 0.9 cyst in the right pituitary gland. Diferential include a cystic pituitary adenoma or a Rathke? s cleft cyst . endocrine work up recommended and continued surveillance. Pt tells me he had a follow up on 05/06/2023 Assessment & Plan (04/30/2023 9:15 AM EST): Pt under the care of Neurology As part of her work up for headaches she underwent an MRI Brain 01/07/2023 11 mm cystic intrasellar lesion. Radiologist recommended pituitary protocol with and without contrast and endocrine assessment MRI of brain with contrast done 01/31/2023 showed a 1.2 x 1.0 x 0.9 cyst in the right pituitary gland. Diferential include a cystic pituitary adenoma or a Rathke? s cleft cyst . endocrine work up recommended and continued surveillance. Pt tells me he has a follow up on 05/06/2023 Dermatitis of face 08/23/2022 Assessment & Plan (08/23/2022 10:29 AM EDT): Pt with c/o new onset of persistent dermatitis nasolabial folds Etiology ? Seborrheic dermatosis Plan: Derm clinic Fibromyalgia 06/03/2022 Assessment & Plan (08/22/2022 2:39 PM EDT): Patient is here for a follow up Her symptoms include feeling fatigued, anxious, having generalized pain, mainly on all of her joints but also on her back and chest, intermittent headaches as well. No fever or any other symptoms Initial diagnostic work up included a CBC, ESR, CRP, KINGS, Lyme titers, RPR. Pts CRP was elevated thought to be due to her obesity , and her ESR was mildly elevated which Rheumatology thought it was secondary to her anemia the rest of the work up was unremarkable She has multiple tender points on her back, chest, wrists and knees Pt evaluated by Rheumatology, last note on record from 10/12/2020, Patient Financial Specialist work up showed a positive KINGS but further labs were not indicative on any autoimmune inflamatory disorder. Patient Financial Specialist thought her symptoms are suggestive of Fibromyalgia and recommended she followed with us. Did not tolerate Gabapentin. pt reported that after she started taking the Gabapentin started feeling disoriented and when she stopped it the symptoms went away, so she discontinued taking it Pt was also referred to Acupuncture. She is on a regimen of Lyrica to 150 mg po BID and Nabumetone 500 mg po BID She was also referred to PT f/u 4 months Assessment & Plan (06/05/2022 1:13 PM EST): Televisit Pt's Fibromyalgia acting up Previously she reported improvement with the higher dose of Lyrica Her symptoms include feeling fatigued, anxious, having generalized pain, mainly on all of her joints but also on her back and chest, intermittent headaches as well. No fever or any other symptoms Initial diagnostic work up included a CBC, ESR, CRP, KINGS, Lyme titers, RPR. Pts CRP was elevated thought to be due to her obesity , and her ESR was mildly elevated which Rheumatology thought it was secondary to her anemia the rest of the work up was unremarkable She has multiple tender points on her back, chest, wrists and knees Pt evaluated by Rheumatology, last note on record from 10/12/2020, Patient Financial Specialist work up showed a positive KINGS but further labs were not indicative on any autoimmune inflamatory disorder. Patient Financial Specialist thought her symptoms are suggestive of Fibromyalgia and recommended she followed with us. Did not tolerate Gabapentin. pt reported that after she started taking the Gabapentin started feeling disoriented and when she stopped it the symptoms went away, so she discontinued taking it Pt was also referred to Acupuncture. Today will refer to PT She is on a regimen of Lyrica to 150 mg po BID Today I have added Nabumetone 500 mg po BID f/u 3 months Mild intermittent asthma 06/03/2022 Assessment & Plan (06/03/2022 4:47 PM EST): Pt with previous c/o persistent dry cough ever since she had Covid-19 PFTS 07/28/2021 showed Mild obstructive airway disorder with good response with bronchodilator therapy, compared with results from 03/11/2018 the response to bronchodilator therapy was new counseled and educated about tobacco cessation as well She is on Flovent BID and Pro-Air prn Kidney stone 06/03/2022 Assessment & Plan (06/03/2022 4:55 PM EST): Pt with previous c/o back pain, UA positive for blood CT of abdomen and pelvis indicative of Nephrolithiasis Referred to Urology s/p Lithotripsy, last renal U/S 12/01/2019 showed 5 mm non obstructing calculus Tinnitus of right ear 06/03/2022 Assessment & Plan (04/30/2023 9:18 AM EST): Pt with c/o this on her right ear, thinks causes her to experience headaches as a result previously she was referred to ENT but she missed the appointment once again. Pt today she tells me is gone. Assessment & Plan (09/18/2022 9:06 AM EDT): Pt with c/o this on her right ear, thinks causes her to experience headaches as a result previously she was referred to ENT but she missed the appointment , Last visit she was referred back, She tells me she was contacted to let her know that we need to place another referral Assessment & Plan (06/03/2022 4:46 PM EST): Pt with c/o this on her right ear, thinks causes her to experience headaches as a result previously she was referred to ENT but she missed the appointment , Last visit she was referred back AMINTA (obstructive sleep apnea) 06/03/2022 Assessment & Plan (04/30/2023 9:19 AM EST): Pt had sleep study 11/2021 that showed mild AMINTA, recommendation was to have an In facility test since the previous one was at home. Pt missed the appointment. Assessment & Plan (06/03/2022 4:50 PM EST): Pt had sleep study 11/2021 that showed mild AMINTA, recommendation was to have an In facility test since the previous one was at home Depressive disorder 06/03/2022 Assessment & Plan (04/14/2024 10:38 AM EST): Patient under the care of [facility] Deloris Rabago . She has been assigned a preliminary diagnosis of depression and anxiety Assessment & Plan (06/03/2022 4:51 PM EST): Patient under the care of [facility] Deloris Rabago . She has been assigned a preliminary diagnosis of depression and anxiety Class 3 severe obesity due t o excess calories with serious comorbidity and body mass index (BMI) of 50.0 to 59.9 in adult 06/03/2022 Assessment & Plan (06/21/2023 2:06 PM EST): Pt lost 30 lbs Patient has been counseled and educated about diet and exercise by the Weight management Program Patient has comorbidity of: Asthma Previously she wanted to be referred to [facility] Bariatric surgery program. She is now at [facility] with Dr. Michael She was interested in trying Semaglutide. This was denied by her insurance Assessment & Plan (09/18/2022 9:09 AM EDT): No longer under the care of the Weight management program. Patient has been counseled and educated about diet and exercise by the Weight management Program Patient has comorbidity of: Asthma She would like to be referred to [facility] Bariatric surgery program. Referral placed She is also interested in trying Semaglutide. Given her BMI of 59 I think this is reasonable in addition to diet and exercise as well as guidance from the Bariatric Program. Will likely need a PA Assessment & Plan (08/23/2022 10:24 AM EDT): No longer under the care of the Weight management program. Patient has been counseled and educated about diet and exercise by the Weight management Program Patient has comorbidity of: Asthma Assessment & Plan (06/05/2022 1:16 PM EST): Under the care of the Weight management program. Patient has been counseled and educated about diet and exercise by the Weight management Program Patient has comorbidity of: Asthma Pap smear abnormality of cervix with ASCUS favor ing benign 06/03/2022 Assessment & Plan (06/03/2022 4:59 PM EST): Pt is under the care of [facility] Hx ASCUS HPV + PAP from 01/14/19. Pt had LEEP 10/22/2019 results were JUDE 2. Note from Dr Ahuja from 04/2020 states Pap was normal and recommended 1 year f/u for testing again She had a repeat Pap done by Neena Sargent 06/2021 that was read as unsatisfactory but HPV neg Continuous dependence on cigarette smoking 02/20 Assessment & Plan (04/14/2024 10:36 AM EST): Still smoking Assessment & Plan (06/05/2022 1:14 PM EST): Still smoking Menometrorrhagia 02/20/2018 Assessment & Plan (06/21/2023 2:04 PM EST): S/p Novasure endometrial ablation Unilateral headache 09/27/2017 Assessment & Plan (06/05/2022 1:08 PM EST): Back in 01/2022 pt with c/o persistent hemicrania, previous work up included a CT of her brain 2020 that was unremarkable Pt was referred to Neurology, Pt missed the appointment ( February 2022 ). Pt tells me she will call to re-schedule Vitamin D deficiency 09/27/2017 Assessment & Plan (06/05/2022 1:14 PM EST): Very low level On supplementation Iron deficiency anemia 09/27/2017 Assessment & Plan (04/30/2023 9:22 AM EST): She has a Hx of anemia due to menometrorrhagia Hgb 7.6 in the ER Down from 9.7 ( 09/15/2020) Pt c/o of Heavy periods likely the cause. She is on Iron FeSO4 325 mg with vitamin C Under the care of COUPLES THERAPIST CBC ordered today Assessment & Plan (06/05/2022 1:14 PM EST): She has a Hx of anemia due to menometrorrhagia Hgb 9.7 ( 09/15/2020) Pt c/o of Heavy periods likely the cause. She is on iron. Plan: Continue FeSO4 325 mg with vitamin C Under the care of COUPLES THERAPIST CBC ordered Cobalamin deficiency 09/27/2017 Assessment & Plan (06/05/2022 1:15 PM EST): IF negative. On vitamin b12 daily Backache 03/08/2017 Encounters Date Type Department Care Team Description 06/08/2024 Telephone [facility] MEDICINE [address] [place] [address] Matheus Quijano MD Nurse Triage 04/16/2024 Refill [facility] MEDICINE [address] [place] [address] Matheus Quijano MD Fibromyalgia; Mild intermittent asthma without complication 04/14/2024 10:15 AM EST Office Visit [facility] MEDICINE [address] [place] [address] Matheus Quijano MD Chest pressure (Primary Dx); Continuous dependence on cigarette smoking; Depressive disorder; Cyst of pituitary gland ([facility]) 04/14/2024 Orders Only GENERIC EXTERNAL DATA DEPARTMENT Provider, Generic External Data 04/14/2024 Travel 04/08/2024 Telephone [facility] MEDICINE [address] [place] [address] Matheus Quijano MD Chart Prep 03/24/2024 10:00 AM EST Office Visit [facility] ADULT DENTAL [address] [place] [address] Tona Mojica Dental plaque (Primary Dx); Dental calculus from Last 3 Months Immunizations Name Administration Dates Next Due Influenza injectable quadriv alent IIV4 with preservative 02/20/2018 Influenza injectable quadrivalent preservative f ree 03/17/2019,02/15/2017 Tdap 03/17/2019 Social History Tobacco Use Types Packs/Day Years Used Date Smoking Tobacco: Some Days Cigarettes Passive Smoke Exposure: Current Smokeless Tobacco: Never Tobacco Cessation:Ready to Q uit: Not Asked; Counseling Given: Not Answered Alcohol Use Standard Drinks/Week Comments Never 0 (1 standard drink = 0.6 oz pur e alcohol) Depression Answer Date Recorded Patient Health Questionnaire-9 Score 7 04/14/2024 Patient Health Questionnaire-9 Score 7 04/14/2024 Last PHQ-9: Questionnaire Data Not on file 1 06/15/2023 Housing Stability Answer Date Recorded What is your housing situation today? I have shahnaz garcia 09/24/[address] you li ve. Do you have problems with any of the following? None of the above 09/24/2023 Food Insecurity Answer Date Recorded Within the past 12 months, y ou worried that your food would run out before you got money to buy more: Never True 09/24/2023 Within the past 12 months,th e food you bought just didn't last and you didn't have enough money to get more: Never True Transportation Answer Date Recorded In the past 12 months, has l ack of transportation kept you from medical appts, meetings, work or from getting things needed for daily living? No 09/24/2023 Utilities Answer Date Recorded In the past 12 months, has t he electric, gas, oil or water company threatened to shut off services in your home? No 09/24/2023 Depression Answer Date Recorded Patient Health Questionnaire-2 Score 2 04/14/2024 Comments No Sex and Gender Information Value Date Recorded Sex Assigned at Female 02/26/2022 10:32 AM EDT Legal Sex Female 10:32 AM EDT Gender Identity Female 02/26/2022 10:32 AM EDT Sexual Orientation Straight 05/23/2022 8: 45 AM EST Last Filed Vital Signs Vital Sign Reading Time Taken Comments Blood Pressure 136/83 04/14/2024 10:23 AM EST Pulse 92 04/14/2024 10:23 AM EST Temperature 36.6 ??C (97.9 ??F) 04/14/2024 10:[address] Respiratory Rate 20 04/14/2024 10:23 AM EST Oxygen Saturation 98% 04/14/2024 10:23 AM EST Inhaled Oxygen Concentration - - Weight 140 kg (308 lb) 04/14/2024 10:23 AM EST Height 175.3 cm (5' 9 ) 04/14/2024 10:23 AM EST Body Mass Index 45.48 04/14/2024 10:23 AM EST Plan of Treatment Upcoming Encounters Date Type Department Care Team (Late st Contact Info) Description 08/18/2024 10:00 AM EDT Office Visit [facility] MEDICINE [address] [place] [address] Matheus Quijano MD [address] [place] [address] 09/24/2024 10:00 AM EDT Office Visit [facility] ADULT DENTAL [address] [place], [place] [phone] Corrine Neri 11/06/2024 10:00 AM EDT Office Visit [facility] OPTOMETRY [address], [place] [phone] Yogesh, Darcie, OD [address] [place], [place] [phone] Health Maintenance Due Date Last Done Comments Dental Oral Exam 1982 HIV Screening 1982 Family Planning (PISQ) 1997 Hepatitis C Screening 2000 Hepatitis A Vaccines (1 of 2 - Risk 2-dose series) 2001 Hepatitis B Vaccines (1 of 3 - 19+ 3-dose series) 2001 Pneumococcal Vaccine: Pediatrics (0 to 5 Years) and At-Risk Patients (6 to 49) Years) (1 of 2 - PCV) 2001 Cervical Cancer Screening 12/28/2021 Pap Smear 12/28/2021 06/27/2021, 03/09/2020 COVID-19 Vaccine (3 - 2023-2 5 season) 2023 01/27/2021, 01/06/2021 Influenza Vaccine (#1) 2023 9, 02/20/2018, 02/15/2017 Dental Prophylaxis 09/22/2024 03/24/2024 SDOH Screening 09/23/2024 09/24/2023 Dental X-Ray: Bitewings 03/25/2025 03/24/20 24, 01/24/2024 Alcohol/Substance Use Screening 04/14/2025 04/14/2024 Depression Screening 04/14/2025 04/14/2024, 04/14/2024 Tobacco Screening 04/14/2025 04/14/2024 Mammogram 08/08/2025 08/09/2023 HPV/Cotest 06/27/2026 06/27/2021, 06/27/2021, 01/14/2019 Dental X-Ray: Full Mouth 03/25/2027 03/24/2024 Lipid Panel 02/26/2029 02/27/2024 DTaP/Tdap/Td Vaccines (2 - T d or Tdap) 03/17/2029 03/17/2019 Zoster Vaccines (1 of 2) 2032 RSV Patients and Patients Aged 60 years or older (1 - 1-dose 75+ series) 2057 HIB Vaccines Aged Out No longer eligi ble based on patient's age to complete this topic HPV Vaccines Aged Out No longer eligi ble based on patient's age to complete this topic IPV Vaccines Aged Out No longer eligi ble based on patient's age to complete this topic Meningococcal Vaccine Aged Out No triny delta eligible based on patient's age to complete this topic RSV under 20 months Aged Out No longe r eligible based on patient's age to complete this topic Rotavirus Vaccines Aged Out No longer eligible based on patient's age to complete this topic Procedures Procedure Name Priority Date/Time Associated Diagnosis Comments PROLACTIN Routine 04/14/2024 11:06 AM EST CBC WITH AUTO DIFFERENTIAL Routine 04/14/2024 11:06 AM EST Cyst of pituitary gland (CMS/HCC) COMPREHENSIVE METABOLIC PANEL Routine 04/14/2024 11:06 AM EST Cyst of pituitary gland (CMS/HCC) ORAL HYGIENE INSTRUCTIONS Routine 03/24/2024 10:00 AM EST Dental plaque Dental calculus INTRAORAL - COMPLETE SERIES OF RADIOGRAPHIC IMAGES Routine 03/24/2024 10:00 AM EST CASE PRESENTATION, DETAILED AND EXTENSIVE TREATMENT PLANNING Routine 03/24/2024 10:00 AM EST PROPHYLAXIS - ADULT Routine 03/24/2024 1 0:00 AM EST Dental plaque Dental calculus 15 O AMALGAM FILLING Routine 03/24/2024 12:00 AM EST 14 LO AMALGAM FILLING Routine 03/24/2024 12:00 AM EST 13 MO AMALGAM FILLING Routine 03/24/2024 12:00 AM EST 12 DO AMALGAM FILLING Routine 03/24/2024 12:00 AM EST 5 DO AMALGAM FILLING Routine 03/24/2024 12:00 AM EST 4 MO AMALGAM FILLING Routine 03/24/2024 12:00 AM EST 3 LO AMALGAM FILLING Routine 03/24/2024 12:00 AM EST 2 O AMALGAM FILLING Routine 03/24/2024 1 2:00 AM EST 31 RAKESH AMALGAM FILLING Routine 03/24/2024 12:00 AM EST 30 O AMALGAM FILLING Routine 03/24/2024 12:00 AM EST 29 O AMALGAM FILLING Routine 03/24/2024 12:00 AM EST 28 O AMALGAM FILLING Routine 03/24/2024 12:00 AM EST 21 O AMALGAM FILLING Routine 03/24/2024 12:00 AM EST 20 O AMALGAM FILLING Routine 03/24/2024 12:00 AM EST 19 O AMALGAM FILLING Routine 03/24/2024 12:00 AM EST 18 O AMALGAM FILLING Routine 03/24/2024 12:00 AM EST LIPID PANEL, STANDARD Routine 02/27/2024 11:22 AM EDT Class 3 severe obesity due to excess calories with serious comorbidity and body mass index (BMI) of 50.0 to 59.9 in adult (CMS/HCC) BI US BREAST LIMITED LEFT Routine 08/09/2023 2:06 PM EDT ZZZ HISTORICAL HPV E6/E7 RFLX HAI 16 18/45 Routine 06/27/2021 9:05 AM EST HM PAP/HPV Routine 06/27/2021 from Last 3 Months or Most Recently Relevant to Health Maintenance Results * (ABNORMAL) CBC auto differential (04/14/2024 11:06 AM EST) White Blood Count 8.2 4.8 - 10.8 X10*3/uL [facility] Red Blood Count 4.61 4.20 - 5.50 X10*6/uL [facility] Hemoglobin 12.0 12.0 - 16.0 g/dl [facility] Hematocrit 37.1 37.0 - 47.0 % [facility] Mean Corpuscular Volume 80.5 80.0 - 98.0 fL [facility] Mean Corpuscular Hemoglobin 26.0(L) 27.0 - 33.0 pg [facility] Mean Corpuscular HGB Conc 32.3 31.0 - 35.0 g/dl [facility] Red Cell Distribution Width 13.9 11.0 - 16.0 % [facility] Platelet Count 350 160 - 400 X10*3/uL [facility] Mean Platelet Volume 10.2 9.4 - 12.3 fL [facility] Neutrophils Percent Auto 65.4 45 - 73 % [facility] Imm Gran Pct Auto 0.4 0.0 - 0.4 % [facility] Lymphocytes Percent Auto 28.0 20 - 40 % [facility] Monocytes Percent Auto 4.0 2 - 11 % [facility] Eosinophils Percent Auto 1.2 0 - 4 % [facility] Basophils Percent Auto 1.0 0 - 2 % [facility] NRBC Pct Auto 0.0 0.0 - 0.2 /100WBC [facility] Neutrophils Absolute Auto 5.4 2.0 - 8.3 x10*3/uL [facility] Imm Gran Abs Auto 0.03 0.00 - 0.03 X10*3/uL [facility] Lymphocytes Absolute Auto 2.3 1.2 - 4.9 X10*3/uL [facility] Monocytes Absolute Auto 0.3 0.1 - 1.2 X10*3/uL [facility] Eosinophils Absolute Auto 0.1 0.0 - 0.4 X10*3/uL [facility] Basophils Absolute Auto 0.1 0.0 - 0.2 X10*3/uL [facility] NRBC Abs Auto 0.000 0.0 - 0.012 X10*3/uL [facility] Blood Venous blood specimen / Unknown 04/14/2024 11:06 AM EST 04/14/2024 12:59 PM EST us Matheus Pressley MD LAB BLOOD ORDERABLES Final Result Performing Organization Address [facility] Co de Phone Number [facility] [address] [place] [address] [phone] * Prolactin (04/14/2024 11:06 AM EST) Pathologist [facility] Prolactin 19.9 ng/mL [facility] Comment:Reference Range Fema les Non- 3.0-30.0 10.0-209.0 Postmenopausal 2.0-20.0THIS TEST WAS PERFORMED AT:[facility] [place] [id number] WILKINS MD 04/14/2024 11:0 6 AM EST 04/14/2024 12:59 PM EST us Generic External Data Provider LAB BLOOD ORDERAB LES Final Result Performing Organization Address [facility] de Phone Number [facility] [address] [place] [address] [phone] * (ABNORMAL) Comprehensive Metabolic Panel (04/14/2024 11:06 AM EST) Pathologist [facility] Sodium 137 135 - 145 mmol/L [facility] Potassium 4.2 3.3 - 5.1 mmol/L [facility] Chloride 105 96 - 108 mmol/L [facility] Carbon Dioxide 26 22 - 29 mmol/L [facility] Anion Gap 10(L) 12 - 20 [facility] Urea Nitrogen (BUN) 6(L) 9 - 16 mg/dL [facility] Creatinine, Serum 0.66 0.5 - 1.4 mg/dL [facility] Estimated Glomerular Filt Rate >60 [facility] Comment:Chronic Kidney Disea se: Estimated GFR < 60 mL/min/1.85q7Phvumv Kidney Disease: Estimated GFR < 15 mL/min/1.73m2 Glucose 88 60 - 115 mg/dL [facility] Calcium 9.1 8.4 - 10.2 mg/dL [facility] Bilirubin, Total 0.3 0.0 - 1.0 mg/dL [facility] Aspartate Amino Transferase 18 5 - 31 U/L [facility] Alanine Aminotransferase 7 0 - 31 U/L [facility] Total Protein 7.2 6.5 - 8.0 g/dL [facility] Albumin Level 3.9 3.5 - 5.0 g/dL [facility] Alkaline Phosphatase 63 39 - 117 U/L [facility] Blood Venous blood specimen / Unknown 04/14/2024 11:06 AM EST 04/14/2024 12:59 PM EST us Matheus Pressley MD LAB BLOOD ORDERABLES Final Result [facility] [address] [place] [address] [phone] * (ABNORMAL) Lipid Panel, Standard (02/27/2024 11:22 AM EDT) Triglycerides 85 <150 mg/dL [facility] Comment:Desirable Triglyceri de: less than 150 mg/dLBorderline High Triglyceride 150-199 mg/dLHigh Triglyceride: 200-499 mg/dLVery High Triglyceride: greater than or equal to 5OO mg/dL Cholesterol 179 <200 mg/dL [facility] Comment:Desirable Cholestero l: less than 200 mg/dLBorderline High Cholesterol: 200-239 mg/dLHigh Cholesterol: greater than 239 mg/dL LDL Cholesterol Calculated 122(H) <100 mg/dL [facility] Comment:Desirable LDL: less than 100 mg/dLNear Optimal/Above Optimal LDL: 110- 129 mg/dLBorderline High LDL: 130-159 mg/dLHigh LDL: 160-189 mg/dLVery High LDL: greater than or equal to 190 mg/dL HDL Cholesterol 40(L) >40 mg/dL [facility] Comment:Desirable HDL: great er than 40 mg/dL Note: This HDL assay may give artificially low results in patients with liver disease. Blood Venous blood specimen / Unknown 02/27/2024 11:22 AM EDT 02/27/2024 1:17 PM EDT us Matheus Pressley MD LAB BLOOD ORDERABLES Final Result [facility] [address] [place] [address] [phone] * BI US Breast Limited Left (08/09/2023 2:06 PM EDT) Anatomical Region Laterality Modality Breast Left Ultrasound 08/09/2023 2:06 PM EDT Narrative 08/09/2023 2:16 PM EDT ? [facility] [place] ? [address] ?[place] [address] ? Ultrasound Report ? Signed ? Patient: Adames Solomon,Lorrie ?MR#: ?? [id number] ? : 1980 ?Acct:[id number] ? Age/Sex: 42 / F ?ADM Date: 08/09/23 ? Loc: HO.MAMMO ? Attending Dr: Azam Connelly MD ? Ordering Physician: Azam Connelly MD ?? Date of Service: 08/09/23 ?? Procedure(s): US breast LT limited mamm only ?? Accession Number(s): [id number] ? cc: Matheus Breen MD; Azam Connelly MD ? EXAMINATION: ?? MM DIAGNOSTIC DIGITAL BREAST TOMOSYNTHESIS, LEFT ?? US BREAST LIMITED, LEFT ? MAMMOGRAPHY: ?? CLINICAL INFORMATION: ? Diagnostic for evaluation of focal asymmetry on screening mammogram ?? central slightly outer left breast. ? COMPARISON: ?? Mammography: 06/20/2023 Baseline exam. ? TECHNIQUE: ?? Digital breast tomosynthesis is performed in the following views: ?? Full-field left 3-D mediolateral view, as well as 3-D spot compression ?? left CC and MLO views. This was followed by targeted left breast ?? ultrasound. ? FINDINGS: ?? There are scattered areas of fibroglandular density (ACR BI-RADS breast ?? composition Category b). ? Diagnostic views demonstrate essential dissipation of the focal ?? asymmetry on the spot compression views within the upper slightly outer ?? left breast, middle depth, findings consistent with superimposition ?? artifact of normal overlapping breast tissues. On the full-field left ?? ML view, the asymmetric density mildly persists, hence we will evaluate ?? this with ultrasound for full characterization. ? No new suspicious findings in the left breast. ? ULTRASOUND: ?? CLINICAL INFORMATION: ?? Diagnostic for evaluation of focal asymmetry on screening mammogram ?? central slightly outer left breast. ? COMPARISON: ?? None ? TECHNIQUE: ?? Targeted sonographic evaluation was performed using a high frequency ?? linear transducer. Attention was focused on the central slightly ?? lateral left breast in the region of mammographic concern. Selected ?? archived documentation. ? FINDINGS: ? LEFT BREAST: There is a mixture of fatty and fibroglandular tissue. ??No ?? suspicious mass is seen. ??There is no pathologic acoustic shadowing. ?? There is no cystic abnormality. No correlate to the focal asymmetry in ?? the central slightly lateral left breast. ? US/US breast LT limited mamm only ?? IMPRESSION: ?? -Diagnostic views demonstrate no persistent findings suspicious for ?? malignancy. ? -Focal asymmetry in the central slightly lateral left breast shows no ?? ultrasonographic correlate and effaces on diagnostic views, consistent ?? with superimposition artifact of normal overlapping breast tissue. ? -Recommend the patient return to routine annual screening. ? OVERALL ASSESSMENT: ?? Mammography: BI-RADS 1 - Negative ?? Ultrasound: BI-RADS 1 - Negative ? RECOMMENDATION: ?? 1 year F/U ? This patient's information was entered into a reminder system with a ?? target due date for their next mammogram. ? Dictated By: ?Chang Arriaga MD ? Signed By: ?<Electronically signed by Chang Arriaga MD in OV> ?08/09/23 1412 ? DD/ 1406 ? TD/TT: ? Windows Desktop Engineer: ? Procedure Note Bridgette, Image - 08/09/2023 [facility] [address] [place] [address] Ultrasound Report Signed Patient: Rosangela SolomonLorrie#: [id number] : 1980Acct:[id number] Age/Sex: 42 / FADM Date: 08/09/23 Loc: HO.MAMMO Attending Dr: Azam Connelly MD Ordering Physician: Azam Connelly MD Date of Service: 08/09/23 Procedure(s): US breast LT limited mamm only Accession Number(s): [id number] cc: Matheus Breen MD; Azam Connelly MD EXAMINATION: MM DIAGNOSTIC DIGITAL BREAST TOMOSYNTHESIS, LEFT US BREAST LIMITED, LEFT MAMMOGRAPHY: CLINICAL INFORMATION: Diagnostic for evaluation of focal asymmetry on screening mammogram central slightly outer left breast. COMPARISON: Mammography: 06/20/2023 Baseline exam. TECHNIQUE: Digital breast tomosynthesis is performed in the following views: Full-field left 3-D mediolateral view, as well as 3-D spot compression left CC and MLO views. This was followed by targeted left breast ultrasound. FINDINGS: There are scattered areas of fibroglandular density (ACR BI-RADS breast composition Category b). Diagnostic views demonstrate essential dissipation of the focal asymmetry on the spot compression views within the upper slightly outer left breast, middle depth, findings consistent with superimposition artifact of normal overlapping breast tissues. On the full-field left ML view, the asymmetric density mildly persists, hence we will evaluate this with ultrasound for full characterization. No new suspicious findings in the left breast. ULTRASOUND: CLINICAL INFORMATION: Diagnostic for evaluation of focal asymmetry on screening mammogram central slightly outer left breast. COMPARISON: None TECHNIQUE: Targeted sonographic evaluation was performed using a high frequency linear transducer. Attention was focused on the central slightly lateral left breast in the region of mammographic concern. Selected archived documentation. FINDINGS: LEFT BREAST: There is a mixture of fatty and fibroglandular tissue. No suspicious mass is seen. There is no pathologic acoustic shadowing. There is no cystic abnormality. No correlate to the focal asymmetry in the central slightly lateral left breast. US/US breast LT limited mamm only IMPRESSION: -Diagnostic views demonstrate no persistent findings suspicious for malignancy. -Focal asymmetry in the central slightly lateral left breast shows no ultrasonographic correlate and effaces on diagnostic views, consistent with superimposition artifact of normal overlapping breast tissue. -Recommend the patient return to routine annual screening. OVERALL ASSESSMENT: Mammography: BI-RADS 1 - Negative Ultrasound: BI-RADS 1 - Negative RECOMMENDATION: 1 year F/U This patient's information was entered into a reminder system with a target due date for their next mammogram. Dictated By: Chang Arriaga MD Signed By: <Electronically signed by Chang Arriaga MD in OV> 08/09/23 1412 DD/ 1406 TD/TT: Windows Desktop Engineer: [facility] External Provider IMG US PROCEDURES Final Result * HPV E6/E7 RFLX HAI 16 18/45 (06/27/2021 9:05 AM EST) HPV 16 RNA [facility] HPV 18/45 RNA [facility] HPV E6 E7 ADD [facility] HPV mRNA E6/E7 rflx Not Detected Not Detected [facility] Comment: Methodology: Rn Outpatient Surgery-Mediated Amplification This assay detects E6/E7 viral messenger RNA (mRNA) from 14 high-risk HPV types (16,18,31,33,35,39,45,51,52,56,58,59,66,68). The analytical performance characteristics of this assay have been determined by [employer]. The modifications have not been cleared or approved by the FDA. This assay has been validated pursuant to the CLIA regulations and is used for clinical purposes. For additional information, please refer to http://education.Social & Beyond/faq/OWB459x3 (This link if provided for information/ educational purposes only.) THIS TEST WAS PERFORMED AT: [facility] [address] [place] [address] FLO[address] [place], [place] ??[phone] GALE WILKNIS MD 06/27/2021 9:05 AM EST Neena Sargent HISTORICAL/NON ORDERABLE LABS Fi nal Result [facility] [address] * Hm Pap Smear (06/27/2021) Historical Provider HEALTH MAINTENANCE Final Result from Last 3 Months or Most Recently Relevant to Health Maintenance Insurance [facility] STANDARD DENTAL-[facility] MEDICAID STAND ADULT Care Teams Pharmacy Aide Relationship Specialty Start Date End Date Matheus Quijano MD [address] [place] [address] PCP - General Internal Medicine 11/24/18
--- OUTSIDE RECORDS SUMMARY | 2024-06-19 08:06 | XMS_ITS | Encounter Summary ---
Author Organization [employer] Address [address] [facility] 7[address] [place] [address] Care Team Providers Care Supervisor Laboratory Name Role Phone Matheus Quijano MD Primary Care Provide r Reason for Visit * Reason Onset Date Comments Nurse Triage 06/08/2024 Encounter Details Date Type Department Care Team ([facility] st Contact Info) Description 06/08/2024 Telephone [facility] MEDICINE [address] [place] [address] Matheus Quijano MD [address] [place] [address] Nurse Triage Social History Tobacco Use Types Packs/Day Years Used Date Smoking Tobacco: Some Days Cigarettes Passive Smoke Exposure: Current Smokeless Tobacco: Never Alcohol Use Standard Drinks/Week Comments Never 0 [...] AM EST documented as of this encounter Miscellaneous Notes * Telephone Encounter - Nancy Cohen RN - 06/08/2024 10:16 AM EST Images from the original note were not included. Call returned to Lorrie Carbajal to triage below. No accounts manager needed as this repairer typewriter speaks Yi. Sx onset on Saturday afternoon. Pt denies any CP, SOB or wheezing. Per patient had negative home kit for COVID-19. Pt wants flu testing, pt agrees to sick on site with [facility] provider. Reviewed home care advise, ER precautions and reasons to call back. Protocol Used: COVID-19 - Diagnosed or Suspected (Adult) Protocol-Based Disposition: Discuss with PCP and Callback by Nurse Today Future Appointments Date Time Provider Department Center 06/08/2024 11:30 AM KAREN Guzmán MEDICINE [facility] 08/18/2024 10:00 AM Matheus Pressley MD MEDICINE [facility] 09/24/2024 10:00 AM Corrine ADAMS [facility] Insurance verified as active per Real Time Eligibility in [facility]. Video visit offer not recorded Positive Triage Question: * COVID-19 infection suspected and mild symptoms (cough, fever, or others) with negative COVID-19 rapid test * All higher-acuity triage questions were negative Care Advice Discussed: * Cough Medicines * Coughing Spells * Pain and Fever Medicines * Reasons To Call Back - Fever over 103 F (39.4 C) - Chest pain or difficulty breathing occurs - You become worse Setswana Translation: Good morning, is there a way I can get tested for COVID, influenza, and whatever? I have a cough, headache, mucus, chills, my temperature is between 99-102 and from coughing so much the area under my breasts hurts, I sneeze a lot, and it seems I have something sticky because mydaughter has already started coughing. But I don't want to go to the emergency room. I feel exhausted too Osmin Emile routed conversation to [place] Triage Nurse1 hour ago (8:37 AM) Lorrie Carbajal [facility] Clinical Support (supporting Matheus Pressley MD)2 hours ago (7:58 AM) Tambi??n me siento agotada Lorrie Carbajal [facility] Clinical Support (supporting Matheus Pressley MD)2 hours ago (7:58 AM) Buen lisbeth,hay manera de que me ashley prueba de COVID,influenza y lo que sea? Tengo tos,dolor de mary,mucosidad,escalofr??o,la temperatura est?? entre 99-102 y de tanto toser me duele el ??leatha de abajo de los senos ,muchos estornudos y al parecer tengo algo que se pega porque ya mi hija comenz?? a toser Delmer no quiero ir a emergencia documented in this encounter Plan of Treatment Upcoming Encounters Date Type Department Care Team (Late st Contact Info) Description 08/18/2024 10:00 AM EDT Office Visit [facility] MEDICINE [address] [facility] [place] [phone] Matheus Quijano MD [address] [place] [address] 09/24/2024 10:00 AM EDT Office Visit [facility] ADULT DENTAL [address] [place], [place] [phone] Corrine Neri 11/06/2024 10:00 AM EDT Office Visit [facility] OPTOMETRY [address] [place], [place] [phone] Darcie Zuñiga, ARIADNE [address] [place] [address] documented as of this encounter Visit Diagnoses Not on filedocumented in this encounter Additional Health Concerns Assessment Noted Time PHQ-9 Depression Total Score: 7 04/14/20 24 10:31 AM EST documented as of this encounter Care Teams Supervisor Laboratory Relationship Specialty Start Date End Date Matheus Quijano MD [address] [place] [address] PCP - General Internal Medicine 11/24/18 documented as of this encounter
--- OUTSIDE RECORDS SUMMARY | 2024-06-19 08:06 | XMS_ITS | Encounter Summary ---
Author Organization [employer] Address [address] [facility] 7 [place] [address] Care Team Providers Care Pcas Name Role Phone Matheus Quijano MD Primary Care Provide r Reason for Visit * Reason Onset Date Comments Med Refill 09/24/2023 Encounter Details Date Type Department Care Team ([facility] st Contact Info) Description 09/24/2023 Refill [facility] CHC MED & PEDS [address] [place] [address] Leana Yanez MD [address] [place] [address] Social History Tobacco Use Types Packs/Day Years Used Date Smoking Tobacco: Some Days Cigarettes Passive Smoke Exposure: Current Smokeless Tobacco: Never Depression Answer Date Recorded Patient Health Questionnaire-9 Score 19 06/21/2023 Patient Health Questionnaire-9 Score 19 06/21/2023 Last PHQ-9: Questionnaire Data Not on file 0 06/21/2023 Housing Stability Answer Date Recorded What is [...] Answer Date Recorded Patient Health Questionnaire-2 Score 3 06/21/2023 Comments No Sex and Gender Information Value [...] Description 08/18/2024 10:00 AM EDT Office Visit [facility] MEDICINE [address] [place] [address] Matheus Quijano MD [address] [place] [address] 09/24/2024 10:00 AM EDT Office Visit [facility] ADULT DENTAL [address] [place] [address] Corrine Neri 11/06/2024 10:00 AM EDT Office Visit [facility] OPTOMETRY [address] [place] [address] Yogesh, Darcie, OD [address] [place] [address] documented as of this encounter Visit Diagnoses Not on filedocumented in this encounter Additional Health Concerns Assessment Noted Time PHQ-9 Depression Total Score: 19 024 1:37 PM EST documented as of this encounter Care Teams Pcas Relationship Specialty Start Date End Date Matheus Quijano MD [address] [place] [address] PCP - General Internal Medicine 11/24/18 documented as of this encounter
--- OUTSIDE RECORDS SUMMARY | 2024-06-19 08:06 | XMS_ITS | Encounter Summary ---
Author Organization [employer] Address [address] [facility] [address] [place] [address] Care Team Providers Care Sap Hana Developer Name Role Phone Matheus Quijano MD Primary Care Provide r Reason for Visit * Reason Onset Date Comments Prior Authorization 10/09/2022 Encounter Details Date Type Department Care Team ([facility] st Contact Info) Description 10/09/2022 Telephone [facility] MEDICINE [address] [place] [address] Matheus Quijano MD [address] [place] [address] Prior Authorization Social History Tobacco Use Types Packs/Day Years [...] Patient Health Questionnaire-2 Score 2 04/14/2024 Comments Unknown Sex and Gender Information Value Date Recorded Sex Assigned at Female 02/26/2022 10:32 AM EDT Legal Sex Female 10:32 AM EDT Gender Identity Female 02/26/2022 10:32 AM EDT Sexual Orientation Straight 05/23/2022 8: 45 AM EST COVID-19 Exposure Response Date Recorded In the last 10 days, have yo u been in contact with someone who was confirmed or suspected to have Coronavirus/COVID-19? No / Unsure 09/28/2022 9:38 AM EDT documented as of this encounter Miscellaneous Notes * Telephone Encounter - Maritza Pratt LPN - 10/18/2022 3:49 PM EDT Pa WAS PREVIOUSLY generated 6. and faxed to pcp for signature . Please review * Telephone Encounter - Tom Lucio RN - 10/11/2022 3:44 PM EDT Ozempic PA denied, Pregabalin also requires a PA would you like to initiate? * Telephone Encounter - Don Malave - 10/09/2022 8:49 AM EDT Tc from pt stating needs a PA for pregabalin 150 mg & Ozepmic 0.25 . Manager Electronic confirmed with pharmacy. documented in this encounter Plan of Treatment Upcoming Encounters Date Type Department Care Team (Late st Contact Info) Description 08/18/2024 10:00 AM EDT Office Visit [facility] MEDICINE [address] [place] [address] Matheus Quijano MD [address] [place] [address] 09/24/2024 10:00 AM EDT Office Visit [facility] ADULT DENTAL [address] [place] [address] Corrine Neri 11/06/2024 10:00 AM EDT Office Visit [facility] OPTOMETRY [address] [place], [place] [phone] Yogesh, Darcie, OD [address] [place] [address] documented as of this encounter Visit Diagnoses Not on filedocumented in this encounter Additional Health Concerns Assessment Noted Time PHQ-9 Depression Total Score: 16 08/23/ 023 10:18 AM EDT documented as of this encounter Care Teams Sap Hana Developer Relationship Specialty Start Date End Date Matheus Quijano MD [address] [place], [place] [phone] PCP - General Internal Medicine 11/24/18 documented as of this encounter
--- OUTSIDE RECORDS SUMMARY | 2024-06-19 08:06 | XMS_ITS | Encounter Summary ---
Author Organization [employer] Address [address] [facility] 7 [place] [address] Care Team Providers Care Field Staff Manager Name Role Phone Matheus Quijano MD Primary Care Provide r Reason for Visit * Reason Onset Date Comments Med Refill 08/07/2023 Encounter Details Date Type Department Care Team ([facility] st Contact Info) Description 08/07/2023 Refill [facility] CHC MED & PEDS [address] [place] [address] Leana Yanez MD [address] [place] [address] Social History Tobacco Use Types Packs/Day Years Used Date Smoking Tobacco: Every Day Cigarettes Passive Smoke Exposure: Current Smokeless Tobacco: Never Depression Answer Date Recorded Patient Health Questionnaire-9 Score 19 06/21/2023 Patient Health Questionnaire-9 Score 19 06/21/2023 Last PHQ-9: Questionnaire Data Not on file 0 06/21/2023 Housing Stability Answer Date Recorded What is your housing situation today? I have shahnaz garcia 02/15/[address] you li ve. Do you have problems with any of the following? None of the above 02/15/2023 Food Insecurity Answer Date Recorded Within the past 12 months, y ou worried that your food would run out before you got money to buy more: Never True 02/15/2023 Within the past 12 months,th e food you bought just didn't last and you didn't have enough money to get more: Never True Transportation Answer Date Recorded In the past 12 months, has l ack of transportation kept you from medical appts, meetings, work or from getting things needed for daily living? No 02/15/2023 Utilities Answer Date Recorded In the past 12 months, has t he electric, gas, oil or water company threatened to shut off services in your home? No 02/15/2023 Depression Answer Date Recorded Patient Health Questionnaire-2 [...] Description 08/18/2024 10:00 AM EDT Office Visit [facility] MEDICINE [address] [place] [address] Matheus Quijano MD [address] [place] [address] 09/24/2024 10:00 AM EDT Office Visit [facility] ADULT DENTAL [address] [place] [address] Corrine Neri 11/06/2024 10:00 AM EDT Office Visit [facility] OPTOMETRY [address] [place] [address] Yogesh, Darcie, OD [address] [place] [address] documented as of this encounter Visit Diagnoses Not on filedocumented in this encounter Additional Health Concerns Assessment Noted Time PHQ-9 Depression Total Score: 19 024 1:37 PM EST documented as of this encounter Care Teams Field Staff Manager Relationship Specialty Start Date End Date Matheus Quijano MD [address] [place] [address] PCP - General Internal Medicine 11/24/18 documented as of this encounter
--- OUTSIDE RECORDS SUMMARY | 2024-06-19 08:06 | XMS_ITS | Encounter Summary ---
Author Organization [employer] Address [address] [facility] [address] [place] [address] Care Team Providers Care Resident Doctor Name Role Phone Matheus Quijano MD Primary Care Provide r Reason for Visit * Reason Onset Date Comments Med Refill 03/15/2023 Encounter Details Date Type Department Care Team ([facility] st Contact Info) Description 03/15/2023 Refill [facility] MEDICINE [address] [place] [address] Krystin Saenz MD [address] [place] [address] Class 3 severe obesity due to excess calories with serious comorbidity and body mass index (BMI) of 50.0 to 59.9 in adult (CMS/HCC) Social History Tobacco Use Types Packs/Day Years Used Date Smoking Tobacco: Every Day Cigarettes Passive Smoke Exposure: Current Smokeless Tobacco: Never Depression Answer Date Recorded Patient Health Questionnaire-9 Score 16 08/23/2022 Housing Stability Answer Date Recorded What is [...] encounter Miscellaneous Notes * Telephone Encounter - Vivien Ford RN - 03/18/2023 11:55 AM EST Images from the original note were not included. Triage call with [email or web address] Sheet Folder ID [id number] Pt contacts through Pt portal regarding exposure to Covid + person on 03/15/23. Pt has developed symptoms of headache, sore throat, cough, neg for fever. Pt has tested for Covid, last test this morning and neg result. Pt reports some shortness of breath at times and some chest tightness due to mildasthma and inhaler isn't helping that much. Pt is advised to increase liquids 6-8 glasses daily, warm liquids are best. 1-2 tsp of honey for cough, humidifier or hot steamy shower for cough. Tylenol/motrin for discomfort. Pt agrees with disposition and home care advised. Pt will test for Covid withhome test in the morning. If Pt is + will call back but, if neg Pt will come to [facility] to be seen for asthma like symptoms, declined to come to [facility] today. Protocol Used: COVID-19 - Diagnosed or Suspected (Adult) Protocol-Based Disposition: Home Care Positive Triage Question: * COVID-19 infection suspected by caller or triager and mild symptoms (cough, fever, or others) andhas not gotten tested yet * All higher-acuity triage questions were negative Care Advice Discussed: * Reassurance and Education - Suspected COVID-19 and Testing Needed * General Care Advice for COVID-19 Symptoms * Cough Medicines * Cough Syrup With Dextromethorphan * Cough Syrup With Dextromethorphan - Extra Notes and Warnings * Humidifier * Coughing Spells * Pain and Fever Medicines * Reasons To Call Back - Fever over 103 F (39.4 C) - Fever lasts over 3 days - Fever returns after being gone for 24 hours - Chest pain or difficulty breathing occurs - You become worse Pt portal request: [facility] Clinical Support (supporting Matheus Pressley MD) 3 days ago [place] Mi katy?? nella positivo y tenemos contacto diario,me gustar??a que me recete los medicamentos para COVID y me los env??e a la farmacia cvs por favor para tenerlos en simran de roxanna positivo en el fin de semana documented in this encounter Plan of Treatment Upcoming Encounters Date Type Department Care Team ([facility] st Contact Info) Description 08/18/2024 10:00 AM EDT Office Visit [facility] MEDICINE [address] [place], [place] [phone] Matheus Quijano MD [address] [place], [place] [phone] 09/24/2024 10:00 AM EDT Office Visit [facility] ADULT DENTAL [address] [place], [place] [phone] Corrine Neri 11/06/2024 10:00 AM EDT Office Visit [facility] OPTOMETRY [address] [place], [place] [phone] Darcie Zuñiga, OD [address] [place] [address] documented as of this encounter Visit Diagnoses Diagnosis Class 3 severe obesity due to excess calories with serious comorbidity and body mass index (BMI) of 50.0 to 59.9 in adult (CMS/[facility]) documented in this encounter Additional Health Concerns Assessment Noted Time PHQ-9 Depression Total Score: 16 023 10:18 AM EDT documented as of this encounter Care Teams Resident Doctor Relationship Specialty Start Date End Date Matheus Quijano MD [address] [place] [address] PCP - General Internal Medicine 11/24/18 documented as of this encounter
--- OUTSIDE RECORDS SUMMARY | 2024-06-19 08:06 | XMS_ITS | Encounter Summary ---
Author Organization [employer] Address [address] [facility] 7t [place] [address] Care Team Providers Care Complaint Coordinator Name Role Phone Matheus Quijano MD Primary Care Provide r Encounter Details Date Type Department Care Team (Late Contact Info) Description 10/17/2022 Abstract [facility] MEDICINE [address] [place] [phone] Matheus Quijano MD [address] [place] [address] Social History Tobacco Use Types Packs/Day Years [...] AM EDT documented as of this encounter Plan of Treatment Upcoming Encounters Date Type Department Care Team (Late Contact Info) Description 08/18/2024 10:00 AM EDT Office Visit [facility] MEDICINE [address] [place], [place] [phone] Matheus Quijano MD [address] [place] [address] 09/24/2024 10:00 AM EDT Office Visit [facility] ADULT DENTAL [address] [place], [place] [phone] Corrine Neri 11/06/2024 10:00 AM EDT Office Visit [facility] OPTOMETRY [address] [place], [place] [phone] YogeshKyler izquierdon, OD [address] [place] [address] documented as of this encounter Visit Diagnoses Not on filedocumented in this encounter Additional Health Concerns Assessment Noted Time PHQ-9 Depression Total Score: 16 08/23/ 023 10:18 AM EDT documented as of this encounter Care Teams Complaint Coordinator Relationship Specialty Start Date End Date Matheus Quijano MD [address] [place], [place] [phone] PCP - General Internal Medicine 11/24/18 documented as of this encounter
--- OUTSIDE RECORDS SUMMARY | 2024-06-19 08:06 | XMS_ITS | Encounter Summary ---
Author Organization [employer] Address [address] [place] [address] Care Team Providers Care Maintenance Shop Laborer Name Role Phone Matheus Quijano MD Primary Care Provide r Reason for Visit * Reason Onset Date Comments Appointment Request 01/28/2024 Encounter Details Date Type Department Care Team ([facility] Contact Info) Description 01/28/2024 Telephone [facility] MEDICINE [address] [place] [address] Matheus Quijano MD [address] [place] [address] Appointment Request Social History Tobacco Use Types Packs/Day Years [...] encounter Miscellaneous Notes * Telephone Encounter - Kike Pressley - 01/28/2024 8:33 AM EDT Tc from patient calling to cancel appt for 01/27 and underwriter mortgage loan did attempt to reschedule appt however there is nothing available at this time documented in this encounter Plan of Treatment Upcoming Encounters Date Type Department Care Team (Late st Contact Info) Description 08/18/2024 10:00 AM EDT Office Visit [facility] MEDICINE [address] [place] [address] Matheus Quijano MD [address] [place] [address] 09/24/2024 10:00 AM EDT Office Visit [facility] ADULT DENTAL [address] [place] [address] Corrine Neri 11/06/2024 10:00 AM EDT Office Visit [facility] OPTOMETRY [address] [place] [address] Darcie Zuñiga OD [address] [place] [address] documented as of this encounter Visit Diagnoses Not on filedocumented in this encounter Additional Health Concerns Assessment Noted Time PHQ-9 Depression Total Score: 19 024 1:37 PM EST documented as of this encounter Care Teams Maintenance Shop Laborer Relationship Specialty Start Date End Date Matheus Quijano MD [address] [place] [address] PCP - General Internal Medicine 11/24/18 documented as of this encounter
--- NOTE | 2024-06-19 08:07 | CA_ITS ---
Transthoracic Echocardiogram Patient (Last, First, Middle): Lorrie Bernal, Gender: Female Date of : 1980 Age: 43 Procedure Date: 06/19/2024 Procedure Type: Transthoracic Echocardiogram Location: OP Height: 175. cm Weight: 147.73 kg BSA: 2.54 m2 Heart Rate: bpm BP: 132 / 80 mmHg Set Off Press Operator: Referring MD: Elmer Holcomb MD Symptoms: I42.9 - Cardiomyopathy, unspecified Study Quality: Good ECG Rhythm: Sinus Conclusions: - The left ventricular systolic function is low normal. The visually estimated ejection fraction is between 50-55%. - In some views, possible inferior septal hypokinesis. Findings Left Ventricle Normal left ventricular cavity size. The left ventricular systolic function is low normal. The visually estimated ejection fraction is between 50-55%. In some views, possible inferior septal hypokinesis. Prior Study Comparison No significant change compared to prior study dated: 02/04/2024. Measurements 2D Linear Measurements IVSd: 1.02 0.6-0.9/0.6-1.0 cm LVIDd: 4.73 3.9-5.3/4.2-5.9 cm LVIDd Index: 1.86 2.4-3.2/2.2-3.1 cm/m2 LVIDs: 3.03 2.0-3.6 cm LVPWd: 0.95 0.7-1.1 cm LV Mass: 203.02 67-162/88-224 g LV Mass Index: 79.93 43-95/49-115 g/m2 LVOT Diam: 2.20 3.0+(-)1.3 cm 2D Systolic Function EF 4C: 47.90 >55% EF 2C: 54.10 >55% EF BiP: 50.40 >55% LVOT LVOT Pk Masood: 0.88 LVOT Mn Masood: 0.59 LVOT VTI: 0.19 LVOT Pk Grad: 3.00 LVOT Mn Grad: 2.00 LVOT Diam: 2.20 LVOT Area: 3.80 Updated in Other Vendor System with Status of Final Elmer Holcomb MD electronically signed on 06/20/2024 3:08:43 PM with status of Final
== END ==
LOC: HO.CARD 08:03
PROVIDERS: PCP Internal Medicine; Visit Provider Internal Medicine
DX: I42.9 Cardiomyopathy, unspecified (principal)
CPT/HCPCS: 93308

== ENCOUNTER → 2024-06-19 08:07 | Outpatient (BNV) | payer MEDICAID, SELFPAY | PROVIDERS: PCP Internal Medicine; Visit Provider Internal Medicine | DX: I42.8 Other cardiomyopathies (principal) | CPT/HCPCS: 93308 ==

== ENCOUNTER 2024-07-01 10:27 | Outpatient (AMB) | payer MEDICAID, SELFPAY ==
--- NOTE | 2024-07-01 10:28 | A.OFFVIS_ITS ---
Vital Signs 07/01/24 10:30 Height 5 ft 9 in Weight 311 lb BMI 45.9 Intake Visit Reasons: vaginal discharge Telegraph Service Clerk Required: Yes Telegraph Service Clerk Language: Registered Route Associate Services: Telegraph Service Clerk Present (in person) Telegraph Service Clerk Name: Nallely SO Information Interpreted: non-clinical & clinical Motorized Squad Captain: Motorized Squad Captain Present (Nallely SO) Accompanied by: Self / Same As Patient Allergies NKA Allergy (Unknown, Uncoded 07/01/24 10:31) NKA HPI Comments Details: Presenting complaining of vulvovaginal itching with no vaginal odor and other symptoms in addition the patient has been complaining of leakage of urine upon coughing sneezing or lifting heavy object and pelvic pain few days prior to menstrual cycle test improves afterwards. [facility] Medical History KINGS positive JUDE II (cervical intraepithelial neoplasia II) Morbid obesity with BMI of 45.0-49.9, adult Kidney stones Anxiety Anemia Surgical History History of cystoscopy H/O lithotripsy Hx of tubal ligation Family History Father Medical history unknown Mother Asthma Hypertension Thyroid disease Brother Thyroid disease Sister No problems noted. Sister No problems noted. Son No problems noted. Daughter No problems noted. Social History Household Members: Children Housing: Apartment Alcohol intake: current Alcohol intake frequency: holidays/special occasions only Patient Tobacco Use Status: Current everyday Tobacco user Tobacco use type: Cigarette Cigarettes Per Day: 5 Years Smoked: 7 e-Cigarette/Vaping Use: Never Used Current occupational status: unemployed Sexual orientation: Straight/Heterosexual Gender identity: Female Female Reproductive History Menstrual Age of Menarche: 14 Review of Systems Const All systems reviewed & are unremarkable except as noted in HPI and below Physical Exam Vital Signs: BMI result Body Mass Index 45.9 General: Yes no CVA tenderness External Female Exam: normal external appearance and normal appearance of the urethra Speculum Exam - Vagina: normal appearance of the vagina, normal palpation, no lesions and no masses Speculum Exam - Cervix: normal appearance of the cervix, normal palpation, no lesions, no masses and nontender Bimanual exam- vagina & uterus: normal bimanual exam, normal palpation, uterine size normal, normal palpation, uterine shape normal, No Cervical tenderness present and non-tender Bimanual Exam- Adnexa, other: normal adnexae Back/Spine/Pelvis Back: no CVA tenderness Assessment & Plan Assessment & Plan (1) Pelvic pain: Code(s): R10.2 - Pelvic and perineal pain Category: Medical Plan: Urine test done in the office was negative. GC and chlamydia taken and pelvic ultrasound ordered. Discussed with the patient the differential diagnosis of pelvic pain including but not limited to adnexal, uterine masses, pelvic infections (PID), GI the (Irritable bowel syndrome, diverticulitis, others), musculoskeletal, myofascial pain abdominal wall , adhesions, endometriosis, psychological and others causes. Will check results and treat accordingly. All questions answered, the patient verbalized understanding. Instructed the patient to schedule an ultrasound and a follow-up appointment in 2 weeks. All questions answered, the patient verbalized understanding and agreed with the plan. (2) Urine incontinence: Code(s): R32 - Unspecified urinary incontinence Category: Medical Plan: Discussed with the patient the different types of Urine incontinence, stress urinary incontinence, intrinsic sphincter deficiency, overactive bladder and its work up. We will refer to Urology. All questions answered, the patient verbalized understanding. (3) Vulvovaginitis: Code(s): N76.0 - Acute vaginitis Category: Medical Plan: GC/CT, Bacterial Vaginosis panel taken, Terazol 0.8% q.h.s. for 3 days with Lotrisone cream b.i.d. for 5 days were sent to the patient's pharmacy. The patient was instructed to call if symptoms don't improve in 48 hours. (4) Microscopic hematuria: Code(s): R31.29 - Other microscopic hematuria Category: Medical Plan: Urine dip showed microscopic hematuria, urine culture sent. Will repeat urine dip in 2 weeks. Discussed with the patient the possible causes of microscopic hematuria including but not limited to: interstitial cystitis, polyps, stones, masses, urethral inflammatory processes and others. If Urine Culture is negative and repeat urine dip in 2 weeks shows persistent microscopic hematuria, will proceed with CT abdomen/pelvis and urology referral. Instructions given the patient to schedule a 2 week urine dip follow-up appointment. All questions answered and the patient verbalized understanding. Orders: Orders US pelvic and transvaginal Today R10.2 - Pelvic and perineal pain CT NG by PCR Today R10.2 - Pelvic and perineal pain AMB Urinalysis Dipstick Today R10.2 - Pelvic and perineal pain Bacterial Vaginosis Panel Today R10.2 - Pelvic and perineal pain Referrals Urology Referral R31.29 - Other microscopic hematuria, R32 - Unspecified urinary incontinence Medications: New terconazole 0.8% 1 appful vaginal BEDTIME 3 days 20 grams 0RF clotrimazole-betamethasone 1-0.05 % 1 appl topical BID 5 days 45 grams 0RF Coding Level of Care Code Est Pt Level 3 (68598) Diagnoses Pelvic pain R10.2 Urine incontinence R32 Vulvovaginitis N76.0 Microscopic hematuria R31.29
[2024-07-01 10:30] VITALS: BMI 45.9
== END 2024-07-01 10:57 | disposition home or self-care (01) ==
LOC: HO.HWS 10:27
PROVIDERS: PCP Internal Medicine; Visit Provider Obstetrics & Gynecology
DX: R10.2 Pelvic and perineal pain (principal); R32 Unspecified urinary incontinence; N76.0 Acute vaginitis; R31.29 Other microscopic hematuria; Z32.02 Encounter for pregnancy test, result negative
CPT/HCPCS: 99213

== ENCOUNTER 2024-07-01 10:27 | Outpatient (REF) | payer MEDICAID, SELFPAY ==
--- OUTSIDE RECORDS SUMMARY | 2024-07-01 12:45 | XMS_ITS | Encounter Summary ---
Author Organization [employer] Address [address] [facility] 7 [place] [address] Care Team Providers Care Machine Packaging Technician Name Role Phone Matheus Quijano MD Primary Care Provide r Reason for Visit * Reason Onset Date Comments Med Refill 08/07/2023 Encounter Details Date Type Department Care Team ([facility] st Contact Info) Description 08/07/2023 Refill [facility] MED & PEDS [address] [place] [address] Leana Yanez MD [address] [place] [address] Social History Tobacco Use Types Packs/Day Years [...] 10:00 AM EDT Office Visit [facility] MEDICINE [address] [place] [address] Matheus Quijano MD [address] [place] [address] 09/24/2024 10:00 AM EDT Office Visit [facility] ADULT DENTAL [address] [place] [address] Corrine Neri 11/06/2024 10:00 AM EDT Office Visit [facility] OPTOMETRY [address] [place] [address] Yogesh, Darcie, OD [address] [place] [address] documented as of this encounter Visit Diagnoses Not on filedocumented in this encounter Additional Health Concerns Assessment Noted Time PHQ-9 Depression Total Score: 19 024 1:37 PM EST documented as of this encounter Care Teams Machine Packaging Technician Relationship Specialty Start Date End Date Matheus Quijano MD [address] [place] [address] PCP - General Internal Medicine 11/24/18 documented as of this encounter
--- OUTSIDE RECORDS SUMMARY | 2024-07-01 12:45 | XMS_ITS | Encounter Summary ---
Author Organization [employer] Address [address] [facility] [address] 7[address] [place] [address] Care Team Providers Care Technical System Analyst Name Role Phone Matheus Quijano MD Primary Care Provide r Reason for Visit * Reason Onset Date Comments Appointment Request 01/28/2024 Encounter Details Date Type Department Care Team ([facility] Contact Info) Description 01/28/2024 Telephone [facility] MEDICINE [address] [place] [address] Matheus Quijano MD [address] [place] [address] Appointment Request Social History Tobacco Use Types [...] calling to cancel appt for 01/27 and comic book writer did attempt to reschedule appt however there is nothing available at this time documented in this encounter Plan of Treatment Upcoming Encounters Date Type Department Care Team (Late st Contact Info) Description 08/18/2024 10:00 AM EDT Office Visit [facility] MEDICINE [address] [place] [address] Matheus Quijano MD [address] [place] [address] 09/24/2024 10:00 AM EDT Office Visit [facility] ADULT DENTAL [address] [place] [address] Corrine Neri 11/06/2024 10:00 AM EDT Office Visit [facility] OPTOMETRY [address] [place] [address] Darcie Zuñiga OD [address] [place] [address] documented as of this encounter Visit Diagnoses Not on filedocumented in this encounter Additional Health Concerns Assessment Noted Time PHQ-9 Depression Total Score: 19 024 1:37 PM EST documented as of this encounter Care Teams Technical System Analyst Relationship Specialty Start Date End Date Matheus Quijano MD [address] [place] [address] PCP - General Internal Medicine 11/24/18 documented as of this encounter
--- OUTSIDE RECORDS SUMMARY | 2024-07-01 12:45 | XMS_ITS | Encounter Summary ---
Author Organization [employer] Address [address] [facility] 7t [place] [address] Care Team Providers Care Hand Thermal Cutter Name Role Phone Matheus Quijano MD Primary Care Provide r Encounter Details Date Type Department Care Team (Late st Contact Info) Description 10/17/2022 Abstract [facility] MEDICINE [address] [place] [address] Matheus Quijano MD [address] [place] [address] Social History Tobacco Use Types Packs/Day Years [...] Description 08/18/2024 10:00 AM EDT Office Visit [facility] MEDICINE [address] [place], [place] [phone] Matheus Quijano MD [address] [place] [address] 09/24/2024 10:00 AM EDT Office Visit [facility] ADULT DENTAL [address] [place], [place] [phone] Corrine Neri 11/06/2024 10:00 AM EDT Office Visit [facility] OPTOMETRY [address] [place], [place] [phone] YogeshKyler izquierdon, OD [address] [place] [address] documented as of this encounter Visit Diagnoses Not on filedocumented in this encounter Additional Health Concerns Assessment Noted Time PHQ-9 Depression Total Score: 16 08/23/ 023 10:18 AM EDT documented as of this encounter Care Teams Hand Thermal Cutter Relationship Specialty Start Date End Date Matheus Quijano MD [address] [place], [place] [phone] PCP - General Internal Medicine 11/24/18 documented as of this encounter
--- OUTSIDE RECORDS SUMMARY | 2024-07-01 12:45 | XMS_ITS | Encounter Summary ---
Author Organization [employer] Address [address] [facility] [address] [address] [place] [address] Care Team Providers Care Land Surveying Party Chief Name Role Phone Matheus Quijano MD Primary Care Provide r Reason for Visit * Reason Onset Date Comments Med Refill 03/15/2023 Encounter Details Date Type Department Care Team ([facility] st Contact Info) Description 03/15/2023 Refill [facility] [address] [place] [address] Krystin Saenz MD [address] [place] [address] Class 3 severe obesity due to excess [...] note were not included. Triage call with [employer] Die Cast Supervisor ID [id number] Pt contacts through Pt portal regarding exposure [...] but, if neg Pt will come to [facility] to be seen for asthma like symptoms, declined to come to [facility] today. Protocol Used: COVID-19 - Diagnosed or [...] become worse Pt portal request: [facility] Clinical Support (supporting Matheus Pressley MD) 3 days ago [place] Mi katy?? nella positivo y tenemos contacto diario,me gustar??a que me recete los medicamentos para COVID y me los env??e a la farmacia [facility]vs por favor para tenerlos en simran de roxanna positivo en el fin de semana documented in this encounter Plan of Treatment Upcoming Encounters Date Type Department Care Team ([facility] st Contact Info) Description 08/18/2024 10:00 AM EDT Office Visit [facility] [address] [place], [place] [phone] Matheus Quijano MD [address] [place], [place] [phone] 09/24/2024 10:00 AM EDT Office Visit [facility] ADULT DENTAL [address] [place], [place] [phone] Corrine Neri 11/06/2024 10:00 AM EDT Office Visit [facility] OPTOMETRY [address] [place], [place] [phone] Darcie Zuñiga, OD [address] [place] [address] documented as of this encounter Visit Diagnoses Diagnosis Class 3 severe obesity due to excess calories with serious comorbidity and body mass index (BMI) of 50.0 to 59.9 in adult (CMS/[facility]) documented in this encounter Additional Health Concerns Assessment Noted Time PHQ-9 Depression Total Score: 16 023 10:18 AM EDT documented as of this encounter Care Teams Land Surveying Party Chief Relationship Specialty Start Date End Date Matheus Quijano MD [address] [place] [address] PCP - General Internal Medicine 11/24/18 documented as of this encounter
--- OUTSIDE RECORDS SUMMARY | 2024-07-01 12:45 | XMS_ITS | Encounter Summary ---
Author Organization [employer] Address [address] [facility] 7t [place] [address] Care Team Providers Care Electrical Panel Builder Name Role Phone Matheus Quijano MD Primary Care Provide r Encounter Details Date Type Department Care Team (Late Contact Info) Description 01/22/2023 Orders Only [facility] MEDICINE [address] [place] [address] ProviderBimal MD Social History Tobacco Use Types [...] 10:00 AM EDT Office Visit [facility] MEDICINE [address] [place] [address] Matheus Quijano MD [address] [place] [address] 09/24/2024 10:00 AM EDT Office Visit [facility] ADULT DENTAL [address] [place], [place] [phone] Corrine Neri 11/06/2024 10:00 AM EDT Office Visit [facility] OPTOMETRY [address] [place] [address] Darcie Zuñiga, ARIADNE [address] [place] [address] documented as of this encounter Procedures Procedure [...] documented as of this encounter Care Teams Electrical Panel Builder Relationship Specialty Start Date End Date Matheus Quijano MD [address] [place] [address] PCP - General Internal Medicine 11/24/18 documented as of this encounter
--- OUTSIDE RECORDS SUMMARY | 2024-07-01 12:45 | XMS_ITS | Encounter Summary ---
Author Organization [employer] Address [address] [facility] 7 [place] [address] Care Team Providers Care Gold Letterer Name Role Phone Matheus Quijano MD Primary Care Provide r Reason for Visit * Reason Onset Date Comments Med Refill 09/24/2023 Encounter Details Date Type Department Care Team ([facility] st Contact Info) Description 09/24/2023 Refill [facility] CHC MED & PEDS [address] [place] [address] Leana Yanez MD [address] [place] [address] Social History Tobacco Use Types Packs/Day Years [...] Description 08/18/2024 10:00 AM EDT Office Visit [facility] MEDICINE [address] [place] [address] Matheus Quijano MD [address] [place] [address] 09/24/2024 10:00 AM EDT Office Visit [facility] ADULT DENTAL [address] [place] [address] Corrine Neri 11/06/2024 10:00 AM EDT Office Visit [facility] OPTOMETRY [address] [place] [address] Yogesh, Darcie, OD [address] [place] [address] documented as of this encounter Visit Diagnoses Not on filedocumented in this encounter Additional Health Concerns Assessment Noted Time PHQ-9 Depression Total Score: 19 024 1:37 PM EST documented as of this encounter Care Teams Gold Letterer Relationship Specialty Start Date End Date Matheus Quijano MD [address] [place] [address] PCP - General Internal Medicine 11/24/18 documented as of this encounter
--- OUTSIDE RECORDS SUMMARY | 2024-07-01 12:45 | XMS_ITS | Encounter Summary ---
Author Organization [employer] Address [address] [facility] 7t [place] [address] Care Team Providers Care Chip Mixer Name Role Phone Matheus Quijano MD Primary Care Provide r Reason for Visit * Reason Onset Date Comments Nurse Triage 06/08/2024 Encounter Details Date Type Department Care Team ([facility] st Contact Info) Description 06/08/2024 Telephone [facility] MEDICINE [address] [place] [address] Matheus Quijano MD [address] [place] [address] Nurse Triage Social History Tobacco Use Types [...] to Lorrie Carbajal to triage below. No sonographer needed as this data analyst report writer speaks [place]. Sx onset on Saturday afternoon. Pt denies any CP, SOB or wheezing. Per patient had negative home kit for COVID-19. Pt wants flu testing, pt agrees to sick on site with [facility] provider. Reviewed home care advise, ER precautions and reasons to call back. Protocol Used: COVID-19 - Diagnosed or Suspected (Adult) Protocol-Based Disposition: Discuss with PCP and Callback by Nurse Today Future Appointments Date Time Provider Department Center 06/08/2024 11:30 AM KAREN Guzmán MEDICINE [facility] 08/18/2024 10:00 AM Matheus Pressley MD MEDICINE [facility] 09/24/2024 10:00 AM Corrine ADAMS [facility] Insurance verified as active per [facility]. Video visit offer not recorded Positive Triage [...] difficulty breathing occurs - You become worse Albanian Translation: Good morning, is there a way [...] exhausted too Osmin Emile routed conversation to [place] Triage Nurse1 hour ago (8:37 AM) Lorrie Carbajal [facility] Clinical Support (supporting Matheus Pressley MD)2 hours ago (7:58 AM) Tambi??n me siento agotada Lorrie Carbajal [facility] Clinical Support (supporting Matheus Pressley MD)2 hours [...] 10:00 AM EDT Office Visit [facility] MEDICINE [address] [facility] [place] [phone] Matheus Quijano MD [address] [place] [address] 09/24/2024 10:00 AM EDT Office Visit [facility] ADULT DENTAL [address] [place], [place] [phone] Corrine Neri 11/06/2024 10:00 AM EDT Office Visit [facility] OPTOMETRY [address] [place], [place] [phone] Darcie Zuñiga, ARIADNE [address] [place] [address] documented as of this encounter Visit Diagnoses Not on filedocumented in this encounter Additional Health Concerns Assessment Noted Time PHQ-9 Depression Total Score: 7 04/14/20 24 10:31 AM EST documented as of this encounter Care Teams Chip Mixer Relationship Specialty Start Date End Date Matheus Quijano MD [address] [place] [address] PCP - General Internal Medicine 11/24/18 documented as of this encounter
--- OUTSIDE RECORDS SUMMARY | 2024-07-01 12:45 | XMS_ITS | Clinical Summary ---
Author Organization [employer] Address [address] [facility] 7t [place] [address] Care Team Providers Care Plaster Form Maker Name Role Phone Matheus Quijano MD Primary [...] records requested. Also has an appointment with [facility]ocr[facility] Assessment & Plan (09/24/2023 1:35 PM [...] seen 09/12/2023 Also has an appointment with [facility] Assessment & Plan (06/21/2023 1:54 PM [...] Rheumatology, last note on record from 10/12/2020, T[employer] Printing Machine Operator work up showed a positive KINGS but further labs were not indicative on any autoimmune inflamatory disorder. T[employer] Rules Printing Machine Operator thought her symptoms are suggestive of Fibromyalgia [...] Rheumatology, last note on record from 10/12/2020, [employer] Print[employer] Machine Operator work up showed a positive KINGS but further labs were not indicative on any autoimmune inflamatory disorder. [employer] Printing Machine Operator thought her symptoms are suggestive of Fibromyalgia [...] AM EST): Patient under the care of [facility] Deloris Rabago . She has been assigned a preliminary diagnosis of depression and anxiety Assessment & Plan (06/03/2022 4:51 PM EST): Patient under the care of [facility] Deloris Rabago . She has [...] Previously she wanted to be referred to [facility] Bariatric surgery program. She is now at [facility] with Dr. Michael She was interested in trying Semaglutide. This was denied by her insurance Assessment & Plan (09/18/2022 9:09 AM EDT): No longer under the care of the Weight management program. Patient has been counseled and educated about diet and exercise by the Weight management Program Patient has comorbidity of: Asthma She would like to be referred to [facility] Bariatric surgery program. Referral placed She is [...] EST): Pt is under the care of [facility] Hx ASCUS HPV + PAP from 01/14/19. [...] with vitamin C Under the care of [facility] CBC ordered today Assessment & Plan (06/05/2022 1:14 PM EST): She has a Hx of anemia due to menometrorrhagia Hgb 9.7 ( 09/15/2020) Pt c/o of Heavy periods likely the cause. She is on iron. Plan: Continue FeSO4 325 mg with vitamin C Under the care of [facility] CBC ordered Cobalamin deficiency 09/27/2017 Assessment & Plan (06/05/2022 1:15 PM EST): IF negative. On vitamin b12 daily Backache 03/08/2017 Encounters Date Type Department Care Team Description 06/08/2024 Telephone [facility] MEDICINE [address] [place] [address] Matheus Quijano MD Nurse Triage 04/16/2024 Refill [facility] MEDICINE [address] [place] [address] Matheus Quijano MD Fibromyalgia; Mild intermittent asthma without complication 04/14/2024 10:15 AM EST Office Visit [facility] MEDICINE [address] [place] [address] Matheus Quijano MD Chest pressure (Primary Dx); Continuous dependence on cigarette smoking; Depressive disorder; Cyst of pituitary gland ([facility] 04/14/2024 Orders Only GENERIC EXTERNAL DATA DEPARTMENT Provider, Generic External Data 04/14/2024 Travel 04/08/2024 Telephone [facility] MEDICINE [address] [place] [address] Matheus Quijano MD Chart Prep from Last 3 Months Immunizations Name Administration [...] Description 08/18/2024 10:00 AM EDT Office Visit [facility] MEDICINE [address] [place], [place] [phone] Matheus Quijano MD [address] [place] [address] 09/24/2024 10:00 AM EDT Office Visit [facility] ADULT DENTAL [address] [place] [address] HalleTelmasa 11/06/2024 10:00 AM EDT Office Visit [facility] OPTOMETRY [address] [place] [address] Darcie Zuñiga, OD [address] [place] [address] Health Maintenance Due Date Last Done Comments [...] Pap Smear 12/28/2021 06/27/2021, 03/09/2020 COVID-19 Vaccine (2023-2 5 season) 2023 01/27/2021, 01/06/2021 Influenza Vaccine [...] AM EST Cyst of pituitary gland (CMS/HCC) PROPHYLAXIS - ADULT Routine 03/24/2024 1 0:00 AM EST Dental plaque Dental calculus INTRAORAL - COMPLETE SERIES OF RADIOGRAPHIC IMAGES Routine 03/24/2024 10:00 AM EST LIPID PANEL, STANDARD Routine 02/27/2024 [...] Blood Count 8.2 4.8 - 10.8 X10*3/uL [facility] Red Blood Count 4.61 4.20 - 5.50 X10*6/uL [facility] Hemoglobin 12.0 12.0 - 16.0 g/dl [facility] Hematocrit 37.1 37.0 - 47.0 % [facility] Mean Corpuscular Volume 80.5 80.0 - 98.0 fL [facility] Mean Corpuscular Hemoglobin 26.0(L) 27.0 - 33.0 pg [facility] Mean Corpuscular HGB Conc 32.3 31.0 - 35.0 g/dl [facility] Red Cell Distribution Width 13.9 11.0 - 16.0 % [facility] Platelet Count 350 160 - 400 X10*3/uL [facility] Mean Platelet Volume 10.2 9.4 - 12.3 fL [facility] Neutrophils Percent Auto 65.4 45 - 73 % [facility] Imm Gran Pct Auto 0.4 0.0 - 0.4 % [facility] Lymphocytes Percent Auto 28.0 20 - 40 % [facility] Monocytes Percent Auto 4.0 2 - 11 % [facility] Eosinophils Percent Auto 1.2 0 - 4 % [facility] Basophils Percent Auto 1.0 0 - 2 % [facility] NRBC Pct Auto 0.0 0.0 - 0.2 /100WBC [facility] Neutrophils Absolute Auto 5.4 2.0 - 8.3 x10*3/uL [facility] Imm Gran Abs Auto 0.03 0.00 - 0.03 X10*3/uL [facility] Lymphocytes Absolute Auto 2.3 1.2 - 4.9 X10*3/uL [facility] Monocytes Absolute Auto 0.3 0.1 - 1.2 X10*3/uL [facility] Eosinophils Absolute Auto 0.1 0.0 - 0.4 X10*3/uL [facility] Basophils Absolute Auto 0.1 0.0 - 0.2 X10*3/uL [facility] NRBC Abs Auto 0.000 0.0 - 0.012 X10*3/uL [facility] Blood Venous blood specimen / Unknown 04/14/2024 11:06 AM EST 04/14/2024 12:59 PM EST us Matheus Pressley MD LAB BLOOD ORDERABLES Final Result Performing Organization Address City/[facility]/ZIP Co de Phone Number [facility] [address] [place] [phone] * Prolactin (04/14/2024 11:06 AM EST) Pathologist [facility] Prolactin 19.9 ng/mL [facility] Comment:Reference Range Fema les Non- 3.0-30.0 10.0-209.0 Postmenopausal 2.0-20.0THIS TEST WAS PERFORMED AT:[facility] [place] [id number] WILKINS MD 04/14/2024 11:0 6 AM EST 04/14/2024 12:59 PM EST us Generic External Data Provider LAB BLOOD ORDERAB LES Final Result Performing Organization Address [facility]/ZIP Co de Phone Number [facility] [address] [place] [phone] * (ABNORMAL) Comprehensive Metabolic Panel (04/14/2024 11:06 AM EST) Sodium 137 135 - 145 mmol/L [facility] Potassium 4.2 3.3 - 5.1 mmol/L [facility] Chloride 105 96 - 108 mmol/L [facility] Carbon Dioxide 26 22 - 29 mmol/L [facility] Anion Gap 10(L) 12 - 20 [facility] Urea Nitrogen (BUN) 6(L) 9 - 16 mg/dL [facility] Creatinine, Serum 0.66 0.5 - 1.4 mg/dL [facility] Estimated Glomerular Filt Rate >60 [facility] Comment:Chronic Kidney Disea se: Estimated GFR < 60 mL/min/1.83x8Gjojex Kidney Disease: Estimated GFR < 15 mL/min/1.73m2 Glucose 88 60 - 115 mg/dL [facility] Calcium 9.1 8.4 - 10.2 mg/dL [facility] Bilirubin, Total 0.3 0.0 - 1.0 mg/dL [facility] Aspartate Amino Transferase 18 5 - 31 U/L [facility] Alanine Aminotransferase 7 0 - 31 U/L [facility] Total Protein 7.2 6.5 - 8.0 g/dL [facility] Albumin Level 3.9 3.5 - 5.0 g/dL [facility] Alkaline Phosphatase 63 39 - 117 U/L [facility] Blood Venous blood specimen / Unknown 04/14/2024 11:06 AM EST 04/14/2024 12:59 PM EST us Matheus Pressley MD LAB BLOOD ORDERABLES Final Result [facility] [address] [place] [phone] * (ABNORMAL) Lipid Panel, Standard (02/27/2024 11:22 AM EDT) Triglycerides 85 <150 mg/dL [facility] Comment:Desirable Triglyceri de: less than 150 mg/dLBorderline High Triglyceride 150-199 mg/dLHigh Triglyceride: 200-499 mg/dLVery High Triglyceride: greater than or equal to 5OO mg/dL Cholesterol 179 <200 mg/dL [facility] Comment:Desirable Cholestero l: less than 200 mg/dLBorderline High Cholesterol: 200-239 mg/dLHigh Cholesterol: greater than 239 mg/dL LDL Cholesterol Calculated 122(H) <100 mg/dL [facility] Comment:Desirable LDL: less than 100 mg/dLNear Optimal/Above Optimal LDL: 110- 129 mg/dLBorderline High LDL: 130-159 mg/dLHigh LDL: 160-189 mg/dLVery High LDL: greater than or equal to 190 mg/dL HDL Cholesterol 40(L) >40 mg/dL [facility] Comment:Desirable HDL: great er than 40 mg/dL Note: This HDL assay may give artificially low results in patients with liver disease. Blood Venous blood specimen / Unknown 02/27/2024 11:22 AM EDT 02/27/2024 1:17 PM EDT us Matheus Pressley MD LAB BLOOD ORDERABLES Final Result [facility] [address] [place] [phone] * BI US Breast Limited Left (08/09/2023 2:06 PM EDT) Anatomical Region Laterality Modality Breast Left Ultrasound 08/09/2023 2:06 PM EDT Narrative 08/09/2023 2:16 PM EDT ? [facility] [place] ? [address] ?[place] [address] ? Ultrasound Report ? Signed ? Patient: Lorrie Bernal ?MR#: ?? [id number] ? : 1980 ?Acct:[id number] ? Age/Sex: 42 / F ?ADM Date: 08/09/23 ? Loc: HO.MAMMO ? Attending Dr: Azam Connelly MD ? Ordering Physician: Azam Connelly MD ?? Date of Service: 08/09/23 ?? Procedure(s): US breast LT limited mamm only ?? Accession Number(s): [id number] ? cc: Matheus Breen MD; Azam Connelly [...] 1412 ? DD/ 1406 ? TD/TT: ? Surgical Lead: ? Procedure Note Donottacointerpreter, Image - 08/09/2023 J[facility] [address] [place] [address] Ultrasound Report Signed Patient: Lorrie BernalMR#: [id number] : 1980Acct:[id number] Age/Sex: 42 / FADM Date: 08/09/23 Loc: HO.MAMMO Attending Dr: Azam Connelly MD Ordering Physician: Azam Connelly MD Date of Service: 08/09/23 Procedure(s): US breast LT limited mamm only Accession Number(s): [id number] cc: Matheus Breen MD; Azam Connelly MD [...] in OV> 08/09/23 1412 DD/ 1406 TD/TT: Surgical Lead: us [facility] External Provider IMG US PROCEDURES Final Result * HPV E6/E7 RFLX HAI 16 18/45 (06/27/2021 9:05 AM EST) HPV 16 RNA [facility]NP [facility] HPV 18/45 RNA [facility] HPV E6 E7 ADD [facility]NP [facility] HPV mRNA E6/E7 rflx Not Detected Not Detected [facility] Comment: Methodology: Bread Packer-Mediated Amplification This assay detects E6/E7 viral messenger RNA (mRNA) from 14 high-risk HPV types (16,18,31,33,35,39,45,51,52,56,58,59,66,68). The analytical performance characteristics of this assay have been determined by [employer]. The modifications have not been cleared or approved by the FDA. This assay has been validated pursuant to the CLIA regulations and is used for clinical purposes. For additional information, please refer to http://education.[employer]/faq/DLD138x0 (This link if provided for information/ educational purposes only.) THIS TEST WAS PERFORMED AT: [facility] [address] [place] [address],[address] [place], [place] ??[phone] GALE WILKINS MD 06/27/2021 9:05 AM EST Neena Hooper HISTORICAL/NON ORDERABLE LABS Fi nal Result [facility] [address] * Hm Pap Smear (06/27/2021) Historical Provider HEALTH MAINTENANCE Final Result from Last 3 Months or Most Recently Relevant to Health Maintenance Insurance [facility] STANDARD DENTAL-[facility] MEDICAID STAND ADULT Care Teams Plaster Form Maker Relationship Specialty Start Date End Date Matheus Quijano MD [address] [place] [phone] PCP - General Internal Medicine 11/24/18
[2024-07-02 13:44] LABS: CT PCR NOT DETECTED (Not Detect.); NG PCR NOT DETECTED (Not Detect.)
[2024-07-02 17:19] LABS: Bacterial Vaginosis PCR NEGATIVE (Negative); Candida Group PCR NOT DETECTED (Not Detect); Candida glab krusei PCR NOT DETECTED (Not Detect); Trichomonas vaginalis PCR NOT DETECTED (Not Detect)
== END 2024-07-01 10:28 | disposition home or self-care (01) ==
LOC: HO.LAB 10:27
PROVIDERS: PCP Internal Medicine; Visit Provider Obstetrics & Gynecology
DX: R10.2 Pelvic and perineal pain (principal); R32 Unspecified urinary incontinence; N76.0 Acute vaginitis; R31.29 Other microscopic hematuria
CPT/HCPCS: 81025; 81515; 87086; 87491; 87591; 99212

== ENCOUNTER 2024-07-01 10:55 | Outpatient (REF) | payer MEDICAID, SELFPAY ==
--- OUTSIDE RECORDS SUMMARY | 2024-07-01 13:15 | XMS_ITS | Clinical Summary ---
Author Organization [employer] Address [address] [facility] 7t [place] [address] Care Team Providers Care Binder Cutter Name Role Phone Matheus Quijano MD [...] records requested. Also has an appointment with [facility] Endocrinology Assessment & Plan (09/24/2023 1:35 PM [...] seen 09/12/2023 Also has an appointment with [facility] Endocrinology Assessment & Plan (06/21/2023 1:54 PM [...] Rheumatology, last note on record from 10/12/2020, Flight Surgeon work up showed a positive KINGS but further labs were not indicative on any autoimmune inflamatory disorder. Flight Surgeon thought her symptoms are suggestive of Fibromyalgia [...] Rheumatology, last note on record from 10/12/2020, Flight Surgeon work up showed a positive KINGS but further labs were not indicative on any autoimmune inflamatory disorder. Flight Surgeon thought her symptoms are suggestive of Fibromyalgia [...] AM EST): Patient under the care of [facility] Deloris Rabago . She has been assigned a preliminary diagnosis of depression and anxiety Assessment & Plan (06/03/2022 4:51 PM EST): Patient under the care of [facility] Deloris Rabago . She has been assigned [...] Previously she wanted to be referred to [facility] Bariatric surgery program. She is now at [facility] with Dr. Michael She was interested in trying Semaglutide. This was denied by her insurance Assessment & Plan (09/18/2022 9:09 AM EDT): No longer under the care of the Weight management program. Patient has been counseled and educated about diet and exercise by the Weight management Program Patient has comorbidity of: Asthma She would like to be referred to [facility] Bariatric surgery program. Referral placed She is [...] EST): Pt is under the care of [facility] MACHINE OPERATOR Hx ASCUS HPV + PAP from 01/14/19. [...] with vitamin C Under the care of [facility]ACHINE OPERATOR CBC ordered today Assessment & Plan (06/05/2022 1:14 PM EST): She has a Hx of anemia due to menometrorrhagia Hgb 9.7 ( 09/15/2020) Pt c/o of Heavy periods likely the cause. She is on iron. Plan: Continue FeSO4 325 mg with vitamin C Under the care of [facility] MACHINE OPERATOR CBC ordered Cobalamin deficiency 09/27/2017 Assessment & Plan (06/05/2022 1:15 PM EST): IF negative. On vitamin b12 daily Backache 03/08/2017 Encounters Date Type Department Care Team Description 06/08/2024 Telephone [facility] MEDICINE [address] [place] [address] Matheus Quijano MD Nurse Triage 04/16/2024 Refill [facility] [address] [place] [address] Matheus Quijano MD Fibromyalgia; Mild intermittent asthma without complication 04/14/2024 10:15 AM EST Office Visit [facility] [address] [place] [address] Matheus Quijano MD Chest pressure (Primary Dx); Continuous dependence on cigarette smoking; Depressive disorder; Cyst of pituitary gland ([facility]) 04/14/2024 Orders Only GENERIC EXTERNAL DATA DEPARTMENT Provider, Generic External Data 04/14/2024 Travel 04/08/2024 Telephone [facility] [address] [place] [address] Matheus Quijano MD Chart Prep from Last [...] Description 08/18/2024 10:00 AM EDT Office Visit [facility] MEDICINE [address] [place], [place] [phone] Matheus Quijano MD [address] [place] [address] 09/24/2024 10:00 AM EDT Office Visit [facility] ADULT DENTAL [address] [place] [address] HalleTelmasa 11/06/2024 10:00 AM EDT Office Visit [facility] OPTOMETRY [address] [place] [address] Darcie Zuñiga, OD [address] [place] [address] Health Maintenance Due Date Last Done Comments [...] Blood Count 8.2 4.8 - 10.8 X10*3/uL [facility] Red Blood Count 4.61 4.20 - 5.50 X10*6/uL [facility] Hemoglobin 12.0 12.0 - 16.0 g/dl [facility] Hematocrit 37.1 37.0 - 47.0 % [facility] Mean Corpuscular Volume 80.5 80.0 - 98.0 fL [facility] Mean Corpuscular Hemoglobin 26.0(L) 27.0 - 33.0 pg [facility] Mean Corpuscular HGB Conc 32.3 31.0 - 35.0 g/dl [facility] Red Cell Distribution Width 13.9 11.0 - 16.0 % [facility] Platelet Count 350 160 - 400 X10*3/uL [facility] Mean Platelet Volume 10.2 9.4 - 12.3 fL [facility] Neutrophils Percent Auto 65.4 45 - 73 % [facility] Imm Gran Pct Auto 0.4 0.0 - 0.4 % [facility] Lymphocytes Percent Auto 28.0 20 - 40 % [facility] Monocytes Percent Auto 4.0 2 - 11 % [facility] Eosinophils Percent Auto 1.2 0 - 4 % [facility] Basophils Percent Auto 1.0 0 - 2 % [facility] NRBC Pct Auto 0.0 0.0 - 0.2 /100WBC [facility] Neutrophils Absolute Auto 5.4 2.0 - 8.3 x10*3/uL [facility] Imm Gran Abs Auto 0.03 0.00 - 0.03 X10*3/uL [facility] Lymphocytes Absolute Auto 2.3 1.2 - 4.9 X10*3/uL [facility] Monocytes Absolute Auto 0.3 0.1 - 1.2 X10*3/uL [facility] Eosinophils Absolute Auto 0.1 0.0 - 0.4 X10*3/uL [facility] Basophils Absolute Auto 0.1 0.0 - 0.2 X10*3/uL [facility] NRBC Abs Auto 0.000 0.0 - 0.012 X10*3/uL [facility] Blood Venous blood specimen / Unknown 04/14/2024 11:06 AM EST 04/14/2024 12:59 PM EST us Matheus Pressley MD LAB BLOOD ORDERABLES Final Result Performing Organization Address City/[facility]/ZIP Co de Phone Number [facility] [address] [place] [phone] * Prolactin (04/14/2024 11:06 AM EST) Pathologist [facility] Prolactin 19.9 ng/mL [facility] Comment:Reference Range Fema les Non- 3.0-30.0 10.0-209.0 Postmenopausal 2.0-20.0THIS TEST WAS PERFORMED AT:[facility] [place] [id number] WILKINS MD 04/14/2024 11:0 6 AM EST 04/14/2024 12:59 PM EST us Generic External Data Provider LAB BLOOD ORDERAB LES Final Result Performing Organization Address [facility]/ZIP Co de Phone Number [facility] [address] [place] [phone] * (ABNORMAL) Comprehensive Metabolic Panel (04/14/2024 11:06 AM EST) Sodium 137 135 - 145 mmol/L [facility] Potassium 4.2 3.3 - 5.1 mmol/L [facility] Chloride 105 96 - 108 mmol/L [facility] Carbon Dioxide 26 22 - 29 mmol/L [facility] Anion Gap 10(L) 12 - 20 [facility] Urea Nitrogen (BUN) 6(L) 9 - 16 mg/dL [facility] Creatinine, Serum 0.66 0.5 - 1.4 mg/dL [facility] Estimated Glomerular Filt Rate >60 [facility] Comment:Chronic Kidney Disea se: Estimated GFR < 60 mL/min/1.62m8Xesyei Kidney Disease: Estimated GFR < 15 mL/min/1.73m2 Glucose 88 60 - 115 mg/dL [facility] Calcium 9.1 8.4 - 10.2 mg/dL [facility] Bilirubin, Total 0.3 0.0 - 1.0 mg/dL [facility] Aspartate Amino Transferase 18 5 - 31 U/L [facility] Alanine Aminotransferase 7 0 - 31 U/L [facility] Total Protein 7.2 6.5 - 8.0 g/dL [facility] Albumin Level 3.9 3.5 - 5.0 g/dL [facility] Alkaline Phosphatase 63 39 - 117 U/L [facility] Blood Venous blood specimen / Unknown 04/14/2024 11:06 AM EST 04/14/2024 12:59 PM EST us Matheus Pressley MD LAB BLOOD ORDERABLES Final Result [facility] [address] [place] [phone] * (ABNORMAL) Lipid Panel, Standard (02/27/2024 11:22 AM EDT) Triglycerides 85 <150 mg/dL [facility] Comment:Desirable Triglyceri de: less than 150 mg/dLBorderline High Triglyceride 150-199 mg/dLHigh Triglyceride: 200-499 mg/dLVery High Triglyceride: greater than or equal to 5OO mg/dL Cholesterol 179 <200 mg/dL [facility] Comment:Desirable Cholestero l: less than 200 mg/dLBorderline High Cholesterol: 200-239 mg/dLHigh Cholesterol: greater than 239 mg/dL LDL Cholesterol Calculated 122(H) <100 mg/dL [facility] Comment:Desirable LDL: less than 100 mg/dLNear Optimal/Above Optimal LDL: 110- 129 mg/dLBorderline High LDL: 130-159 mg/dLHigh LDL: 160-189 mg/dLVery High LDL: greater than or equal to 190 mg/dL HDL Cholesterol 40(L) >40 mg/dL [facility] Comment:Desirable HDL: great er than 40 mg/dL Note: This HDL assay may give artificially low results in patients with liver disease. Blood Venous blood specimen / Unknown 02/27/2024 11:22 AM EDT 02/27/2024 1:17 PM EDT us Matheus Pressley MD LAB BLOOD ORDERABLES Final Result [facility] [address] [place] [phone] * BI US Breast Limited Left (08/09/2023 2:06 PM EDT) Anatomical Region Laterality Modality Breast Left Ultrasound 08/09/2023 2:06 PM EDT Narrative 08/09/2023 2:16 PM EDT ? [facility] ? [address] ?[place] [address] ? Ultrasound Report ? Signed ? Patient: Lorrie Bernal ?MR#: ?? [id number] ? : 1980 ?Acct:[id number] ? Age/Sex: 42 / F ?ADM Date: 08/09/23 ? Loc: HO.MAMMO ? Attending Dr: Azam Connelly MD ? Ordering Physician: Azam Connelly MD ?? Date of Service: 08/09/23 ?? Procedure(s): US breast LT limited mamm only ?? Accession Number(s): [id number] ? cc: Matheus Breen MD; Azam Connelly [...] 1412 ? DD/ 1406 ? TD/TT: ? Paraprofessional Aide Teacher: ? Procedure Note Donottacointerpreter, Image - 08/09/2023 J[facility] [address] [place] [address] Ultrasound Report Signed Patient: Lorrie BernalMR#: [id number] : 1980Acct:[id number] Age/Sex: 42 / FADM Date: 08/09/23 Loc: HO.MAMMO Attending Dr: Azam Connelly MD Ordering Physician: Azam Connelly MD Date of Service: 08/09/23 Procedure(s): US breast LT limited mamm only Accession Number(s): [id number] cc: Matheus Breen MD; Azam Connelly MD [...] in OV> 08/09/23 1412 DD/ 1406 TD/TT: Paraprofessional Aide Teacher: us [facility] External Provider IMG US PROCEDURES Final Result * HPV E6/E7 RFLX HAI 16 18/45 (06/27/2021 9:05 AM EST) HPV 16 RNA [facility]NP [facility] HPV 18/45 RNA [facility] HPV E6 E7 ADD [facility]NP [facility] HPV mRNA E6/E7 rflx Not Detected Not Detected [facility] Comment: Methodology: Forensic Manager-Mediated Amplification This assay detects E6/E7 viral messenger RNA (mRNA) from 14 high-risk HPV types (16,18,31,33,35,39,45,51,52,56,58,59,66,68). The analytical performance characteristics of this assay have been determined by [employer]. The modifications have not been cleared or approved by the FDA. This assay has been validated pursuant to the CLIA regulations and is used for clinical purposes. For additional information, please refer to http://education.[employer]/faq/IZP182c9 (This link if provided for information/ educational purposes only.) THIS TEST WAS PERFORMED AT: [facility] [address] [place] [address],[address] [place], [place] ??[phone] GALE WILKINS MD 06/27/2021 9:05 AM EST [place] [place] HISTORICAL/NON ORDERABLE LABS Fi nal Result [facility] [address] * Hm Pap Smear (06/27/2021) Historical Provider HEALTH MAINTENANCE Final Result from Last 3 Months or Most Recently Relevant to Health Maintenance Insurance [facility] STANDARD DENTAL-[facility] MEDICAID STAND ADULT Care Teams Binder Cutter Relationship Specialty Start Date End Date Matheus Quijano MD [address] [place] [phone] PCP - General Internal Medicine 11/24/18
--- OUTSIDE RECORDS SUMMARY | 2024-07-01 13:15 | XMS_ITS | Encounter Summary ---
Author Organization [employer] Address [address] [facility] 7 [place] [address] Care Team Providers Care Director Writing Name Role Phone Matheus Quijano MD Primary Care Provide r Reason for Visit * Reason Onset Date Comments Med Refill 09/24/2023 Encounter Details Date Type Department Care Team ([facility] st Contact Info) Description 09/24/2023 Refill [facility] MED & PEDS [address] [place] [address] Leana Yanez MD [address] [place] [address] Social History Tobacco Use Types Packs/Day Years [...] Description 08/18/2024 10:00 AM EDT Office Visit [facility] MEDICINE [address] [place] [address] Matheus Quijano MD [address] [place] [address] 09/24/2024 10:00 AM EDT Office Visit [facility] ADULT DENTAL [address] [place] [address] Corrine Neri 11/06/2024 10:00 AM EDT Office Visit [facility] OPTOMETRY [address] [place] [address] Yogesh, Darcie, OD [address] [place] [address] documented as of this encounter Visit Diagnoses Not on filedocumented in this encounter Additional Health Concerns Assessment Noted Time PHQ-9 Depression Total Score: 19 024 1:37 PM EST documented as of this encounter Care Teams Director Writing Relationship Specialty Start Date End Date Matheus Quijano MD [address] [place] [address] PCP - General Internal Medicine 11/24/18 documented as of this encounter
--- OUTSIDE RECORDS SUMMARY | 2024-07-01 13:15 | XMS_ITS | Encounter Summary ---
Author Organization [employer] Address [address] [facility] 7t [place] [address] Care Team Providers Care Marketing Communications Specialist Name Role Phone Matheus Quijano MD Primary Care Provide r Encounter Details Date Type Department Care Team (Late Contact Info) Description 01/22/2023 Orders Only [facility] MEDICINE [address] [place] [phone] ProviderBimal MD Social History Tobacco Use Types [...] Description 08/18/2024 10:00 AM EDT Office Visit [facility] MEDICINE [address] [place] [address] Matheus Quijano MD [address] [place] [address] 09/24/2024 10:00 AM EDT Office Visit [facility] ADULT DENTAL [address] [place], [place] [phone] Corrine Neri 11/06/2024 10:00 AM EDT Office Visit [facility] OPTOMETRY [address] [place] [address] Darcie Zuñiga, ARIADNE [address] [place] [address] documented as of this encounter Procedures Procedure [...] documented as of this encounter Care Teams Marketing Communications Specialist Relationship Specialty Start Date End Date Matheus Quijano MD [address] [place] [address] PCP - General Internal Medicine 11/24/18 documented as of this encounter
--- OUTSIDE RECORDS SUMMARY | 2024-07-01 13:15 | XMS_ITS | Encounter Summary ---
Author Organization [employer] Address [address] [facility] 7t [place] [address] Care Team Providers Care Manager Battery Name Role Phone Matheus Quijano MD Primary Care Provide r Reason for Visit * Reason Onset Date Comments Nurse Triage 06/08/2024 Encounter Details Date Type Department Care Team ([facility] st Contact Info) Description 06/08/[address] [facility] MEDICINE [address] [place] [address] Matheus Quijano MD [address] [place] [address] Nurse Triage Social History Tobacco Use Types [...] to Lorrie Carbajal to triage below. No dope sprayer needed as this documentation writer speaks Togolese. Sx onset on Saturday afternoon. Pt denies any CP, SOB or wheezing. Per patient had negative home kit for COVID-19. Pt wants flu testing, pt agrees to sick on site with [facility] provider. Reviewed home care advise, ER precautions and reasons to call back. Protocol Used: COVID-19 - Diagnosed or Suspected (Adult) Protocol-Based Disposition: Discuss with PCP and Callback by Nurse Today Future Appointments Date Time Provider Department Center 06/08/2024 11:30 AM KAREN Guzmán MEDICINE [facility] 08/18/2024 10:00 AM Matheus Pressley MD MEDICINE [facility] 09/24/2024 10:[address] [facility] Insurance verified as active per Real Time Eligibility in [facility]. Video visit offer not recorded Positive Triage [...] difficulty breathing occurs - You become worse South African Translation: Good morning, is there a way [...] exhausted too Osmin Emile routed conversation to [place] Triage Nurse1 hour ago (8:37 AM) Lorrie Carbajal [facility] Clinical Support (supporting Matheus Pressley MD)2 hours ago (7:58 AM) Tambi??n me siento agotada Lorrie Carbajal [facility] Clinical Support (supporting Matheus Pressley MD)2 [...] Description 08/18/2024 10:00 AM EDT Office Visit [facility] MEDICINE 230 [facility] [place] [phone] Matheus Quijano MD [address] [place] [address] 09/24/2024 10:00 AM EDT Office Visit [facility] ADULT DENTAL [address] [place], [place] [phone] Corrine Neri 11/06/2024 10:00 AM EDT Office Visit [facility] OPTOMETRY [address] [place], [place] [phone] Darcie Zuñiga, ARIADNE [address] [place] [address] documented as of this encounter Visit Diagnoses Not on filedocumented in this encounter Additional Health Concerns Assessment Noted Time PHQ-9 Depression Total Score: 7 04/14/20 24 10:31 AM EST documented as of this encounter Care Teams Manager Battery Relationship Specialty Start Date End Date Matheus Quijano MD [address] [place] [address] PCP - General Internal Medicine 11/24/18 documented as of this encounter
--- OUTSIDE RECORDS SUMMARY | 2024-07-01 13:15 | XMS_ITS | Encounter Summary ---
Author Organization [employer] Address [address] [facility] 7 [place] [address] Care Team Providers Care Contracts Officer Name Role Phone Matheus Quijano MD Primary Care Provide r Reason for Visit * Reason Onset Date Comments Med Refill 08/07/2023 Encounter Details Date Type Department Care Team ([facility] st Contact Info) Description 08/07/2023 Refill [facility] CHC MED & PEDS [address] [place] [address] Leana Yanez MD [address] [place] [address] Social History Tobacco Use Types Packs/Day Years Used Date Smoking Tobacco: Every Day Cigarettes Passive Smoke Exposure: Current Smokeless Tobacco: Never Depression Answer Date Recorded Patient Health Questionnaire-9 Score 19 06/21/2023 Patient Health Questionnaire-9 Score 19 06/21/2023 Last PHQ-9: Questionnaire Data Not on file 0 06/21/2023 Housing Stability Answer Date Recorded What is your housing situation today? I have hsahnaz garcia 02/15/[address] you [...] 10:00 AM EDT Office Visit [facility] MEDICINE [address] [place] [address] Matheus Quijano MD [address] [place] [address] 09/24/2024 10:00 AM EDT Office Visit [facility] ADULT DENTAL [address] [place] [address] Corrine Neri 11/06/2024 10:00 AM EDT Office Visit [facility] OPTOMETRY [address] [place] [address] Yogesh, Darcie, OD [address] [place] [address] documented as of this encounter Visit Diagnoses Not on filedocumented in this encounter Additional Health Concerns Assessment Noted Time PHQ-9 Depression Total Score: 19 024 1:37 PM EST documented as of this encounter Care Teams Contracts Officer Relationship Specialty Start Date End Date Matheus Quijano MD [address] [place] [address] PCP - General Internal Medicine 11/24/18 documented as of this encounter
--- OUTSIDE RECORDS SUMMARY | 2024-07-01 13:15 | XMS_ITS | Encounter Summary ---
Author Organization [employer] Address [address] [facility] [address] 7[address] [place] [address] Care Team Providers Care Parts Casting Machine Operator Name Role Phone Matheus Quijano MD Primary Care Provide r Reason for Visit * Reason Onset Date Comments Med Refill 03/15/2023 Encounter Details Date Type Department Care Team ([facility] st Contact Info) Description 03/15/2023 Refill [facility] MEDICINE [address] [place] [address] Krystin Saenz MD [address] [place] [address] Class 3 severe obesity due to excess [...] note were not included. Triage call with [employer] Teacher [place] [id number] Pt contacts through Pt portal regarding exposure [...] but, if neg Pt will come to [facility] to be seen for asthma like symptoms, declined to come to [facility] today. Protocol Used: COVID-19 - Diagnosed [...] become worse Pt portal request: Lorrie [facility] Clinical Support (supporting Matheus Pressley MD) 3 days ago [place] Mi katy?? nella positivo y tenemos contacto diario,me gustar??a que me recete los medicamentos para COVID y me los env??e a la farmacia [facility] por favor para tenerlos en simran de roxanna positivo en el fin de semana documented in this encounter Plan of Treatment Upcoming Encounters Date Type Department Care Team ([facility] st Contact Info) Description 08/18/2024 10:00 AM EDT Office Visit [facility] MEDICINE [address] [place], [place] [phone] Matheus Quijano MD [address] [place], [place] [phone] 09/24/2024 10:00 AM EDT Office Visit [facility] ADULT DENTAL [address] [place], [place] [phone] Corrine Neri 11/06/2024 10:00 AM EDT Office Visit [facility] OPTOMETRY [address] [place], [place] [phone] Darcie Zuñiga, OD [address] [place] [address] documented as of this encounter Visit Diagnoses Diagnosis Class 3 severe obesity due to excess calories with serious comorbidity and body mass index (BMI) of 50.0 to 59.9 in adult ([facility]) documented in this encounter Additional Health Concerns Assessment Noted Time PHQ-9 Depression Total Score: 16 023 10:18 AM EDT documented as of this encounter Care Teams Parts Casting Machine Operator Relationship Specialty Start Date End Date Matheus Quijano MD [address] [place] [address] PCP - General Internal Medicine 11/24/18 documented as of this encounter
--- OUTSIDE RECORDS SUMMARY | 2024-07-01 13:15 | XMS_ITS | Encounter Summary ---
Author Organization [employer] Address [address] [facility] [address] [place] [address] Care Team Providers Care Meat Soaker Name Role Phone Matheus Quijano MD Primary Care Provide r Reason for Visit * Reason Onset Date Comments Appointment Request 01/28/2024 Encounter Details Date Type Department Care Team ([facility] Contact Info) Description 01/28/2024 Telephone [facility] MEDICINE [address] [place] [address] Matheus Quijano MD [address] [place] [address] Appointment Request Social History Tobacco Use Types [...] calling to cancel appt for 01/27 and verse writer did attempt to reschedule appt however there is nothing available at this time documented in this encounter Plan of Treatment Upcoming Encounters Date Type Department Care Team (Late st Contact Info) Description 08/18/2024 10:00 AM EDT Office Visit [facility] MEDICINE [address] [place] [address] Matheus Quijano MD [address] [place] [address] 09/24/2024 10:00 AM EDT Office Visit [facility] ADULT DENTAL [address] [place] [address] Corrine Neri 11/06/2024 10:00 AM EDT Office Visit [facility] OPTOMETRY [address] [place] [address] Darcie Zuñiga OD [address] [place] [address] documented as of this encounter Visit Diagnoses Not on filedocumented in this encounter Additional Health Concerns Assessment Noted Time PHQ-9 Depression Total Score: 19 024 1:37 PM EST documented as of this encounter Care Teams Meat Soaker Relationship Specialty Start Date End Date Matheus Quijano MD [address] [place] [address] PCP - General Internal Medicine 11/24/18 documented as of this encounter
--- OUTSIDE RECORDS SUMMARY | 2024-07-01 13:15 | XMS_ITS | Encounter Summary ---
Author Organization [employer] Address [address] [facility] 7t [place] [address] Care Team Providers Care Tamping Machine Operator Name Role Phone Matheus Quijano MD Primary Care Provide r Encounter Details Date Type Department Care Team (Late st Contact Info) Description 10/17/2022 Abstract [facility] MEDICINE [address] [place] [phone] Matheus Quijano MD [address] [place] [address] Social History Tobacco Use Types Packs/Day Years [...] Description 08/18/2024 10:00 AM EDT Office Visit [facility] MEDICINE [address] [place], [place] [phone] Matheus Quijano MD [address] [place] [address] 09/24/2024 10:00 AM EDT Office Visit [facility] ADULT DENTAL [address] [place], [place] [phone] Corrine Neri 11/06/2024 10:00 AM EDT Office Visit [facility] OPTOMETRY [address] [place], [place] [phone] YogeshKyler izquierdon, OD 230 [place] [address] documented as of this encounter Visit Diagnoses Not on filedocumented in this encounter Additional Health Concerns Assessment Noted Time PHQ-9 Depression Total Score: 16 08/23/ 023 10:18 AM EDT documented as of this encounter Care Teams Tamping Machine Operator Relationship Specialty Start Date End Date Matheus Quijano MD [address] [place], [place] [phone] PCP - General Internal Medicine 11/24/18 documented as of this encounter
== END 2024-07-01 10:56 | disposition home or self-care (01) ==
LOC: HO.LNP 10:55
PROVIDERS: Visit Provider Obstetrics & Gynecology
DX: Z13.89 Encounter for screening for other disorder (principal)

== ENCOUNTER 2024-07-23 13:05 | Outpatient (REF) | payer MEDICAID, SELFPAY ==
--- NOTE | ~2024-07-23 | US_ITS ---
EXAMINATION: US PELVIS TRANSABDOMINAL AND TRANSVAGINAL HISTORY: R10.2 - Pelvic and perineal pain COMPARISON: Comparison is made with the prior examination dated 05/15/2023. TECHNIQUE: Transabdominal and endovaginal real-time 2D sawyer-scale ultrasound was performed. FINDINGS: Uterus: The uterus is normal in size, measuring 8.8 x 4.5 x 4.7 cm. Myometrium has a normal echotexture. There is a 1.1 x 0.9 x 1.6 cm calcified left fundal fibroid. There is a 0.8 x 0.6 x 1.1 cm cyst on the left. Endometrium: The endometrial stripe measures 5 mm in thickness. There is a small amount of fluid in the endometrial canal. Right ovary: The right ovary measures 1.5 x 3.3 x 1.5 cm. The right ovary is normal in size and echotexture. Left ovary: The left ovary measures 1.4 x 1.8 x 1.5 cm. The left ovary is normal in size and echotexture. Pelvic fluid: none. US/US pelvic and transvaginal IMPRESSION: 1.1 x 0.9 x 1.6 cm calcified left fundal fibroid. Small amount of fluid in the endometrial canal. Electronically signed by: Ruiz Dumont MD 07/23/2024 02:06 PM EDT
--- OUTSIDE RECORDS SUMMARY | 2024-07-23 16:11 | XMS_ITS | Encounter Summary ---
Author Organization [employer] Address [address] [facility] [address] 7t [place] [address] Care Team Providers Care Wing Commander Name Role Phone Matheus Quijano MD Primary Care Provide r Encounter Details Date Type Department Care Team ([facility] st Contact Info) Description 07/01/2024 Orders Only GENERIC EXTERNAL DATA DEPARTMENT Provider, Generic External Data Social History Tobacco Use Types Packs/Day Years [...] your housing situation today? I have shahnaz radha 09/24/[address] you li [...] t he electric, gas, oil or water [employer] threatened to shut off services in your [...] Description 08/18/2024 10:00 AM EDT Office Visit [facility] MEDICINE [address] [place] [address] Matheus Quijano MD [address] [place] [address] 09/24/2024 10:00 AM EDT Office Visit [facility] ADULT DENTAL [address] [place] [address] Corrine Neri 11/06/2024 10:00 AM EDT Office Visit [facility] OPTOMETRY [address] [place] [address] YogeshDarcie, OD [address] [place] [address] documented as of this encounter Procedures Procedure Name Priority Date/Time Associated Diagnosis Comments US PELVIS TRANSVAGINAL Routine 07/23/2024 1:28 PM EDT BACTERIAL VAGINOSIS PANEL Routine 07/01/2024 10:27 AM EST CHLAMYDIA/N. GONORRHOEAE RNA, TMA, UROGENITAL Routine 07/01/2024 10:27 AM EST CULTURE, URINE, ROUTINE Routine 07/01/2024 10:27 AM EST documented in this encounter Results * US Pelvis Transvaginal (07/23/2024 1:28 PM EDT) Anatomical Region Laterality Modality Pelvis Ultrasound 07/23/2024 1:28 PM EDT Narrative 07/23/2024 2:09 PM EDT ? [facility] ?[address] ?[place], [place] [address] ? Ultrasound Report ? Signed ? Patient: Adames Solomon,Lorrie ?MR#: ?? [id number] ? : 1980 ?Acct:[id number] ? Age/Sex: 43 / F ?ADM Date: 07/23/24 ? Loc: HO.US ? Attending Dr: Azam Connelly MD ? Ordering Physician: Azam Connelly MD ?? Date of Service: 07/23/24 ?? Procedure(s): US pelvic and transvaginal ?? Accession Number(s): [id number] ? cc: Matheus Breen MD; Azam Connelly MD ? EXAMINATION: ??US PELVIS TRANSABDOMINAL AND TRANSVAGINAL ? HISTORY: R10.2 - Pelvic and perineal pain ? COMPARISON: Comparison is made with the prior examination dated ?? 05/15/2023. ? TECHNIQUE: ? Transabdominal and endovaginal real-time 2D sawyer-scale ultrasound was ?? performed. ? FINDINGS: ? Uterus: ??The uterus is normal in size, measuring 8.8 x 4.5 x 4.7 cm. ? Myometrium has a normal echotexture. ??There is a 1.1 x 0.9 x 1.6 cm ?? calcified left fundal fibroid. There is a 0.8 x 0.6 x 1.1 cm cyst on ?? the left. ? Endometrium: ??The endometrial stripe measures 5 mm in thickness. There ?? is a small amount of fluid in the endometrial canal. ? Right ovary: ??The right ovary measures 1.5 x 3.3 x 1.5 cm. ??The right ?? ovary is normal in size and echotexture. ? Left ovary: ?? The left ovary measures 1.4 x 1.8 x 1.5 cm. ??The left ?? ovary is normal in size and echotexture. ? Pelvic fluid: none. ? US/US pelvic and transvaginal ?? IMPRESSION: ?? 1.1 x 0.9 x 1.6 cm calcified left fundal fibroid. Small amount of fluid ?? in the endometrial canal. ? Electronically signed by: ??Ruiz Dumont MD ??07/23/2024 02:06 PM EDT ?? RP ? Dictated By: ?Ruiz Dumont MD ? Signed By: ?<Electronically signed by Ruiz Dumont MD in OV> ?07/23/ 1406 ? DD/ 1328 ? TD/TT: 07/23/24 1345 ? Supervisor Intelligence Analyst: ? Procedure Note Donrenanter, Image - 07/23/2024 [place] [address] Ultrasound Report Signed Patient: Lorrie BernalMR#: [id number] : 1980Acct:[id number] Age/Sex: 43 / FADM Date: 07/23/24 Loc: HO.US Attending Dr: Azam Connelly MD Ordering Physician: Azam Connelly MD Date of Service: 07/23/24 Procedure(s): US pelvic and transvaginal Accession Number(s): [id number] cc: Matheus Breen MD; Azam Connelly MD EXAMINATION: US PELVIS TRANSABDOMINAL AND TRANSVAGINAL HISTORY: R10.2 - Pelvic and perineal pain COMPARISON: Comparison is made with the prior examination dated 05/15/2023. TECHNIQUE: Transabdominal and endovaginal real-time 2D sawyer-scale ultrasound was performed. FINDINGS: Uterus: The uterus is normal in size, measuring 8.8 x 4.5 x 4.7 cm. Myometrium has a normal echotexture. There is a 1.1 x 0.9 x 1.6 cm calcified left fundal fibroid. There is a 0.8 x 0.6 x 1.1 cm cyst on the left. Endometrium: The endometrial stripe measures 5 mm in thickness. There is a small amount of fluid in the endometrial canal. Right ovary: The right ovary measures 1.5 x 3.3 x 1.5 cm. The right ovary is normal in size and echotexture. Left ovary: The left ovary measures 1.4 x 1.8 x 1.5 cm. The left ovary is normal in size and echotexture. Pelvic fluid: none. US/US pelvic and transvaginal IMPRESSION: 1.1 x 0.9 x 1.6 cm calcified left fundal fibroid. Small amount of fluid in the endometrial canal. Electronically signed by: Ruiz Dumont MD 07/23/2024 02:06 PM EDT Dictated By: Ruiz Dumont MD Signed By: <Electronically signed by Ruiz Dumont MD in OV> 07/23/24 1406 DD/ 1328 TD/TT: 07/23/24 1345 Supervisor Intelligence Analyst: [facility] External Provider IMG US PROCEDURES Final Result * Bacterial Vaginosis (07/01/2024 10:27 AM EST) TRICHOMONAS VAGINALIS DETECTION BY PCR NOT DETECTED Not Detect [facility] BACTERIAL VAGINOSIS DETECTION BY PCR NEGATIVE Negative [facility] Comment:The BV organism targ ets of the Xpert Xpress MVP test can becommensal in women; Xpert Xpress MVP positive results forbacterial vaginosis should be considered in conjunction withother clinical and patient information to determine thedisease status. Organisms that are not detected by the XpertXpress MVP test have also been reported to be associatedwith BV and aerobic vaginitis.The Xpert Xpress MVP test performance has not been evaluatedin patients under the age of 14. XIOMARA GROUP DETECTION BY PCR NOT DETECTED Not Detect [facility] Xiomara glab krusei PCR NOT DETECTED Not Detect [facility] 07/01/2024 10:2 7 AM EST 07/01/2024 3:03 PM EST us Generic External Data Provider LAB MICROBIOLOGY - GENERAL ORDERABLES Final Result [facility] [address] [place] [phone] * Chlamydia/N. Gonorrhoeae RNA, TMA, Urogenitial (07/01/2024 10:27 AM EST) CT PCR NOT DETECTED Not Detect. [facility] Comment:A not detected test result does not exclude the possibilityof infection because test results can be affected byimproper specimen collection, concurrent antibiotic therapy,or the number of organisms in the specimen which may bebelow the sensitivity of the test. As with many diagnostictests, results from the Xpert CT/NG assay should beinterpreted in conjunction with other laboratory andclinical data available to the clinician.Xpert CT/NG performance has not been evaluated in patientsless than 14 years of age. The assay should not be used forthe evaluationof suspected sexual abuse or for other medico-legalindications. Additional testing is recommended in anycircumstance when false positive or false negative resultscould lead to adverse medical, social or psychologicalconsequences. NG PCR NOT DETECTED Not Detect. [facility] Comment:A not detected test result does not exclude the possibilityof infection because test results can be affected byimproper specimen collection, concurrent antibiotic therapy,or the number of organisms in the specimen which may bebelow the sensitivity of the test. As with many diagnostictests, results from the Xpert CT/NG assay should beinterpreted in conjunction with other laboratory andclinical data available to the clinician.Xpert CT/NG performance has not been evaluated in patientsless than 14 years of age. The assay should not be used forthe evaluationof suspected sexual abuse or for other medico-legalindications. Additional testing is recommended in anycircumstance when false positive or false negative resultscould lead to adverse medical, social or psychologicalconsequences. 07/01/2024 10:2 7 AM EST 07/01/2024 3:03 PM EST Narrative [facility] - 07/02/2024 1:44 PM EST Vaginal us Generic External Data Provider LAB MICROBIOLOGY - GENERAL ORDERABLES Final Result Performing Organization Address City/[facility]/ZIP Co de Phone Number [facility] [address] [place] [address] [phone] * Culture, Urine, Routine (07/01/2024 10:27 AM EST) Urine Urine specimen obtained by clean catch procedure / Unknown 07/01/2024 10:27 AM EST 07/01/2024 3:03 PM EST Comment:[facility] - 07/03/2024 12:08 PM EST Urine Culture No growth. Specimen Source: Urine clean catch Generic External Data Provider LAB MICROBIOLOGY - GENERAL ORDERABLES Final Result Performing Organization Address [facility] Co de Phone Number [facility] [address] [place] [phone] documented in this encounter Visit Diagnoses Not on filedocumented in this encounter Additional Health Concerns Assessment Noted Time PHQ-9 Depression Total Score: 7 04/14/20 24 10:31 AM EST documented as of this encounter Care Teams Wing Commander Relationship Specialty Start Date End Date Matheus Quijano MD [address] [place] [phone] PCP - General Internal Medicine 11/24/18 documented as of this encounter
--- OUTSIDE RECORDS SUMMARY | 2024-07-23 16:11 | XMS_ITS | Encounter Summary ---
Author Organization [employer] Address [address] [facility] 7 [place] [address] Care Team Providers Care Auto Former Machine Operator Name Role Phone Matheus Quijano MD Primary Care Provide r Reason for Visit * Reason Onset Date Comments Med Refill 08/07/2023 Encounter Details Date Type Department Care Team ([facility] st Contact Info) Description 08/07/[address] [facility] CHC MED & PEDS [address] [place] [address] Leana Yanez MD 230 [place] [address] Social History Tobacco Use Types Packs/Day Years [...] 10:00 AM EDT Office Visit [facility] MEDICINE [address] [place] [address] Matheus Quijano MD [address] [place] [address] 09/24/2024 10:00 AM EDT Office Visit [facility] ADULT DENTAL [address] [place] [address] Corrine Neri 11/06/2024 10:00 AM EDT Office Visit [facility] OPTOMETRY [address] [place] [address] Yogesh, Darcie, OD [address] [place] [address] documented as of this encounter Visit Diagnoses Not on filedocumented in this encounter Additional Health Concerns Assessment Noted Time PHQ-9 Depression Total Score: 19 024 1:37 PM EST documented as of this encounter Care Teams Auto Former Machine Operator Relationship Specialty Start Date End Date Matheus Quijano MD [address] [place] [address] PCP - General Internal Medicine 11/24/18 documented as of this encounter
--- OUTSIDE RECORDS SUMMARY | 2024-07-23 16:11 | XMS_ITS | Encounter Summary ---
Author Organization [employer] Address [address] [facility] 7 [place] [address] Care Team Providers Care Fiberglass Pipe Covering Supervisor Name Role Phone Matheus Quijano MD Primary Care Provide r Reason for Visit * Reason Onset Date Comments Med Refill 09/24/2023 Encounter Details Date Type Department Care Team ([facility] st Contact Info) Description 09/24/2023 Refill [facility] MED & PEDS [address] [place] [address] Leana Yanez MD [address] [place] [address] Social History Tobacco Use Types Packs/Day Years [...] Description 08/18/2024 10:00 AM EDT Office Visit [facility] MEDIC[facility] [address] [place] [address] Matheus Quijano MD [address] [place] [address] 09/24/2024 10:00 AM EDT Office Visit [facility] ADULT DENTAL [address] [place] [address] Corrine Neri 11/06/2024 10:00 AM EDT Office Visit [facility] OPTOMETRY [address] [place] [address] Yogesh, Darcie, OD [address] [place] [address] documented as of this encounter Visit Diagnoses Not on filedocumented in this encounter Additional Health Concerns Assessment Noted Time PHQ-9 Depression Total Score: 19 024 1:37 PM EST documented as of this encounter Care Teams Fiberglass Pipe Covering Supervisor Relationship Specialty Start Date End Date Matheus Quijano MD [address] [place] [address] PCP - General Internal Medicine 11/24/18 documented as of this encounter
--- OUTSIDE RECORDS SUMMARY | 2024-07-23 16:11 | XMS_ITS | Encounter Summary ---
Author Organization [employer] Address 75 [facility] 7t [place] [address] Care Team Providers Care Sand And Gravel Plant Operator Name Role Phone Matheus Quijano MD Primary Care Provide r Encounter Details Date Type Department Care Team (Late st Contact Info) Description 10/17/2022 Abstract [facility] MEDICINE [address] [place] [phone] Matheus Quijano MD [address] [place] [address] Social History Tobacco Use Types Packs/Day Years [...] 10:00 AM EDT Office Visit [facility] MEDICINE [address] [place], [place] [phone] Matheus Quijano MD [address] [place] [address] 09/24/2024 10:00 AM EDT Office Visit [facility] ADULT DENTAL [address] [place], [place] [phone] Corrine Neri 11/06/2024 10:00 AM EDT Office Visit [facility] OPTOMETRY [address] [place], [place] [phone] YogeshKyler izquierdon, OD [address] [place] [address] documented as of this encounter Visit Diagnoses Not on filedocumented in this encounter Additional Health Concerns Assessment Noted Time PHQ-9 Depression Total Score: 16 08/23/ 023 10:18 AM EDT documented as of this encounter Care Teams Sand And Gravel Plant Operator Relationship Specialty Start Date End Date Matheus Quijano MD [address] [place], [place] [phone] PCP - General Internal Medicine 11/24/18 documented as of this encounter
--- OUTSIDE RECORDS SUMMARY | 2024-07-23 16:11 | XMS_ITS | Encounter Summary ---
Author Organization [employer] Address [address] [facility] 7t [place] [address] Care Team Providers Care Pinion And Wheel Truer Name Role Phone Matheus Quijano MD Primary Care Provide r Encounter Details Date Type Department Care Team ([facility] st Contact Info) Description 07/10/2024 Population Health Risk Score [facility] (C[facility] Department [address] [facility] [address] [place] [phone] Provider, Population Health Generic Social History Tobacco Use Types Packs/Day Years [...] Description 08/18/2024 10:00 AM EDT Office Visit [facility] MEDICINE [address] [place] [address] Matheus Quijano MD [address] [place] [address] 09/24/2024 10:00 AM EDT Office Visit [facility] ADULT DENTAL [address] [place] [address] Corrine Neri 11/06/2024 10:00 AM EDT Office Visit [facility] OPTOMETRY [address] [place] [address] Yogesh, Darcie, OD [address] [place] [address] documented as of this encounter Visit Diagnoses Not on filedocumented in this encounter Additional Health Concerns Assessment Noted Time PHQ-9 Depression Total Score: 7 04/14/20 24 10:31 AM EST documented as of this encounter Care Teams Pinion And Wheel Truer Relationship Specialty Start Date End Date Matheus Quijano MD [address] [place] [address] PCP - General Internal Medicine 11/24/18 documented as of this encounter
--- OUTSIDE RECORDS SUMMARY | 2024-07-23 16:12 | XMS_ITS | Encounter Summary ---
Author Organization [employer] Address 75 [facility] 7t [place] [address] Care Team Providers Care Muffler Hand Name Role Phone Matheus Quijano MD Primary Care Provide r Encounter Details Date Type Department Care Team (Late Contact Info) Description 01/22/2023 Orders Only [facility] MEDICINE [address] [place] [address] ProviderBimal MD Social History Tobacco Use Types [...] 08/18/2024 10:00 AM EDT Office Visit [facility] MEDICINE [address] [place] [phone] Matheus Quijano MD [address] [place] [address] 09/24/2024 10:00 AM EDT Office Visit [facility] ADULT DENTAL [address] [place], [place] [phone] Corrine Neri 11/06/2024 10:00 AM EDT Office Visit [facility] OPTOMETRY [address] [place] [address] Darcie Zuñiga, ARIADNE [address] [place] [address] documented as of this encounter Procedures Procedure [...] documented as of this encounter Care Teams Muffler Hand Relationship Specialty Start Date End Date Matheus Quijano MD [address] [place] [address] PCP - General Internal Medicine 11/24/18 documented as of this encounter
--- OUTSIDE RECORDS SUMMARY | 2024-07-23 16:12 | XMS_ITS | Clinical Summary ---
Author Organization [employer] Address [address] [facility] 7[address] [place] [address] Care Team Providers Care Vocational Examiner Name Role Phone Matheus Quijano MD Primary [...] records requested. Also has an appointment with [facility] Endocr[facility]ology Assessment & Plan (09/24/2023 1:35 PM [...] seen 09/12/2023 Also has an appointment with [facility] Endocrinology Assessment & Plan (06/21/2023 1:54 PM [...] Rheumatology, last note on record from 10/12/2020, Waterfront Director work up showed a positive KINGS but further labs were not indicative on any autoimmune inflamatory disorder. Waterfront Director thought her symptoms are suggestive of Fibromyalgia [...] Rheumatology, last note on record from 10/12/2020, Waterfront Director work up showed a positive KINGS but further labs were not indicative on any autoimmune inflamatory disorder. Waterfront Director thought her symptoms are suggestive of Fibromyalgia [...] AM EST): Patient under the care of [facility] Deloris Rabago . She has been assigned a preliminary diagnosis of depression and anxiety Assessment & Plan (06/03/2022 4:51 PM EST): Patient under the care of [facility] Deloris Rabago . She has been [...] Previously she wanted to be referred to [facility] Bariatric surgery program. She is now at [facility] with Dr. Michael She was interested in trying Semaglutide. This was denied by her insurance Assessment & Plan (09/18/2022 9:09 AM EDT): No longer under the care of the Weight management program. Patient has been counseled and educated about diet and exercise by the Weight management Program Patient has comorbidity of: Asthma She would like to be referred to [facility] Bariatric surgery program. Referral placed She is [...] EST): Pt is under the care of [facility] Hx ASCUS HPV + PAP from 01/14/19. [...] with vitamin C Under the care of [facility] CBC ordered today Assessment & Plan (06/05/2022 1:14 PM EST): She has a Hx of anemia due to menometrorrhagia Hgb 9.7 ( 09/15/2020) Pt c/o of Heavy periods likely the cause. She is on iron. Plan: Continue FeSO4 325 mg with vitamin C Under the care of [facility] CBC ordered Cobalamin deficiency 09/27/2017 Assessment & Plan (06/05/2022 1:15 PM EST): IF negative. On vitamin b12 daily Backache 03/08/2017 Encounters Date Type Department Care Team Description 07/10/2024 Population Health Risk Score [facility] (C3) Department [address] [facility] [address] [place] [address] Provider, Population Health Generic 07/01/2024 Orders Only GENERIC EXTERNAL DATA DEPARTMENT Provider, Generic External Data 06/08/2024 Telephone [facility] MEDICINE [address] [place] [address] Matheus Quijano MD Nurse Triage from Last 3 Months Immunizations Name Administration [...] Office Visit [facility] MEDICINE [address] [place] [address] Matheus Quijano MD [address] [place] [address] 09/24/2024 10:00 AM EDT Office Visit [facility] ADULT DENTAL [address] [place] [address] Corrine Neri 11/06/2024 10:00 AM EDT Office Visit [facility] OPTOMETRY [address] [place] [address] Darcie Zuñiga, OD [address] [place] [address] Health Maintenance Due Date Last Done Comments Dental Oral Exam 1982 HIV Screening 1982 Family Planning (PISQ) 1997 Hepatitis C Screening 2000 Hepatitis B Vaccines (1 of 3 - [...] on patient's age to complete this topic Hepatitis A Vaccines Aged Out No long er eligible based on patient's age to complete [...] URINE, ROUTINE Routine 07/01/2024 10:27 AM EST PROPHYLAXIS - ADULT Routine 03/24/2024 [...] Recently Relevant to Health Maintenance Results * US Pelvis Transvaginal (07/23/2024 1:28 PM EDT) Anatomical Region Laterality Modality Pelvis Ultrasound 07/23/2024 1:28 PM EDT Narrative 07/23/2024 2:09 PM EDT ? [facility] ?[address] ?[place] [address] ? Ultrasound Report ? Signed ? Patient: Adames Solomon,Lorrie ?MR#: ?? [id number] ? : 1980 ?Acct:[id number] ? Age/Sex: 43 / F ?ADM Date: 07/23/24 ? Loc: HO.US ? Attending Dr: Azam Connelly MD ? Ordering Physician: Azam Connelly MD ?? Date of Service: 07/23/24 ?? Procedure(s): US pelvic and transvaginal ?? Accession Number(s): [id number] ? cc: Matheus Breen MD; Azam Connelly [...] ??Ruiz Dumont MD ??07/23/2024 02:06 PM EDT ? Dictated By: ?Ruiz Dumont MD ? Signed By: ?<Electronically signed by Ruiz Dumont MD in OV> ?07/23/24 1406 ? DD/ 1328 ? TD/TT: 07/23/24 1345 ? Damage Assessor: ? Procedure Note Donrenanter, Image - 07/23/[address] [address] Ultrasound Report Signed Patient: Lorrie BernalMR#: [id number] : 1980Acct:[id number] Age/Sex: 43 / FADM Date: 07/23/24 Loc: HO.US Attending Dr: Azam Connelly MD Ordering Physician: Azam Connelly MD Date of Service: 07/23/24 Procedure(s): US pelvic and transvaginal Accession Number(s): [id number] cc: Matheus Breen MD; Azam Connelly MD [...] 07/23/24 1406 DD/ 1328 TD/TT: 07/23/24 1345 Damage Assessor: [facility] External Provider IMG US PROCEDURES Final Result * Bacterial Vaginosis (07/01/2024 10:27 AM EST) TRICHOMONAS VAGINALIS DETECTION BY PCR NOT DETECTED Not Detect [facility] BACTERIAL VAGINOSIS DETECTION BY PCR NEGATIVE Negative [facility] Comment:The BV organism targ ets [...] DETECTION BY PCR NOT DETECTED Not Detect [facility] Xiomara glab krusei PCR NOT DETECTED Not Detect [facility] 07/01/2024 10:2 7 AM EST 07/01/2024 3:03 PM EST Generic External Data Provider LAB MICROBIOLOGY - GENERAL ORDERABLES Final Result [facility] [address] [place] [phone] * Chlamydia/N. Gonorrhoeae RNA, TMA, Urogenitial (07/01/2024 10:27 AM EST) CT PCR NOT DETECTED Not Detect. [facility] Comment:A not detected test result [...] psychologicalconsequences. NG PCR NOT DETECTED Not Detect. [facility] Comment:A not detected test result [...] AM EST 07/01/2024 3:03 PM EST Narrative [facility] - 07/02/2024 1:44 PM EST Vaginal us Generic External Data Provider LAB MICROBIOLOGY - GENERAL ORDERABLES Final Result [facility] [address] [place] [phone] * Culture, Urine, Routine (07/01/2024 10:27 AM EST) Urine Urine specimen obtained by clean catch procedure / Unknown 07/01/2024 10:27 AM EST 07/01/2024 3:03 PM EST Comment:UACC Narrative [facility] - 07/03/2024 12:08 PM EST Urine Culture No growth. Specimen Source: Urine clean catch us Generic External Data Provider LAB MICROBIOLOGY - GENERAL ORDERABLES Final Result [facility] [address] [place] [address] [phone] * (ABNORMAL) Lipid Panel, Standard (02/27/2024 11:22 AM EDT) Triglycerides 85 <150 mg/dL [facility] Comment:Desirable Triglyceri de: less than 150 mg/dLBorderline High Triglyceride 150-199 mg/dLHigh Triglyceride: 200-499 mg/dLVery High Triglyceride: greater than or equal to 5OO mg/dL Cholesterol 179 <200 mg/dL [facility] Comment:Desirable Cholestero l: less than 200 mg/dLBorderline High Cholesterol: 200-239 mg/dLHigh Cholesterol: greater than 239 mg/dL LDL Cholesterol Calculated 122(H) <100 mg/dL [facility] Comment:Desirable LDL: less than 100 mg/dLNear Optimal/Above Optimal LDL: 110- 129 mg/dLBorderline High LDL: 130-159 mg/dLHigh LDL: 160-189 mg/dLVery High LDL: greater than or equal to 190 mg/dL HDL Cholesterol 40(L) >40 mg/dL [facility] Comment:Desirable HDL: great er than 40 mg/dL Note: This HDL assay may give artificially low results in patients with liver disease. Blood Venous blood specimen / Unknown 02/27/2024 11:22 AM EDT 02/27/2024 1:17 PM EDT us Matheus Pressley MD LAB BLOOD ORDERABLES Final Result [facility] [address] [place] [address] [phone] * BI US Breast Limited Left (08/09/2023 2:06 PM EDT) Anatomical Region Laterality Modality Breast Left Ultrasound 08/09/2023 2:06 PM EDT Narrative 08/09/2023 2:16 PM EDT ? [facility] ? [address] ?[place] [address] ? Ultrasound Report ? Signed ? Patient: Adames Solomon,Lorrie ?MR#: ?? [id number] ? : 1980 ?Acct:[id number] ? Age/Sex: 42 / F ?ADM Date: 08/09/23 ? Loc: HO.MAMMO ? Attending Dr: Azam Connelly MD ? Ordering Physician: Azam Connelly MD ?? Date of Service: 08/09/23 ?? Procedure(s): US breast LT limited mamm only ?? Accession Number(s): [id number] ? cc: Matheus Breen MD; Azam Connelly [...] 1412 ? DD/ 1406 ? TD/TT: ? Damage Assessor: ? Procedure Note Bree Angeles - 08/09/2023 [facility] [address] [place] [address] [place] [address] Ultrasound Report Signed Patient: Lorrie BernalMR#: [id number] : 1980Acct:[id number] Age/Sex: 42 / FADM Date: 08/09/23 Loc: HO.MAMMO Attending Dr: Azam Connelly MD Ordering Physician: Azam Connelly MD Date of Service: 08/09/23 Procedure(s): US breast LT limited mamm only Accession Number(s): [id number] cc: Matheus Breen MD; Azam Connelly MD [...] in OV> 08/09/23 1412 DD/ 1406 TD/TT: Damage Assessor: [facility] External Provider IMG US PROCEDURES Final Result * HPV E6/E7 RFLX HAI 16 18/45 (06/27/2021 9:05 AM EST) HPV 16 RNA [facility] HPV 18/45 RNA [facility] HPV E6 E7 ADD [facility] HPV mRNA E6/E7 rflx Not Detected Not Detected [facility] Comment: Methodology: Research Chef-Mediated Amplification This assay detects E6/E7 viral messenger RNA (mRNA) from 14 high-risk HPV types (16,18,31,33,35,39,45,51,52,56,58,59,66,68). The analytical performance characteristics of this assay have been determined by [facility]. The modifications have not been cleared or approved by the FDA. This assay has been validated pursuant to the CLIA regulations and is used for clinical purposes. For additional information, please refer to http://education.[address]/faq/WNY971w0 (This link if provided for information/ educational purposes only.) THIS TEST WAS PERFORMED AT: [facility] [address] [place] [address],[address] [place], [place] ??[phone] GALE WILKINS MD 06/27/2021 9:05 AM EST [place] HISTORICAL/NON ORDERABLE LABS Fi nal Result [facility] [address] * Hm Pap Smear (06/27/2021) Historical Provider HEALTH MAINTENANCE Final Result from Last 3 Months or Most Recently Relevant to Health Maintenance Insurance [facility] STANDARD DENTAL-[facility] MEDICAID STAND ADULT Care Teams Vocational Examiner Relationship Specialty Start Date End Date Matheus Quijano MD [address] [place] [phone] PCP - General Internal Medicine 11/24/18
--- OUTSIDE RECORDS SUMMARY | 2024-07-23 16:12 | XMS_ITS | Encounter Summary ---
Author Organization [employer] Address [address] [place] [address] Care Team Providers Care Measurement Superintendent Name Role Phone Matheus Quijano MD Primary Care Provide r Reason for Visit * Reason Onset Date Comments Appointment Request 01/28/2024 Encounter Details Date Type Department Care Team ([facility] Contact Info) Description 01/28/2024 Telephone [facility] MEDICINE [address] [place] [address] Matheus Quijano MD [address] [place] [address] Appointment Request Social History Tobacco Use Types [...] calling to cancel appt for 01/27 and radio news writer did attempt to reschedule appt however there is nothing available at this time documented in this encounter Plan of Treatment Upcoming Encounters Date Type Department Care Team (Late st Contact Info) Description 08/18/2024 10:00 AM EDT Office Visit [facility] MEDICINE [address] [place] [address] Matheus Quijano MD [address] [place] [address] 09/24/2024 10:00 AM EDT Office Visit [facility] ADULT DENTAL [address] [place] [address] Corrine Neri 11/06/2024 10:00 AM EDT Office Visit [facility] OPTOMETRY [address] [place] [address] Darcie Zuñiga OD [address] [place] [address] documented as of this encounter Visit Diagnoses Not on filedocumented in this encounter Additional Health Concerns Assessment Noted Time PHQ-9 Depression Total Score: 19 024 1:37 PM EST documented as of this encounter Care Teams Measurement Superintendent Relationship Specialty Start Date End Date Matheus Quijano MD [address] [place] [address] PCP - General Internal Medicine 11/24/18 documented as of this encounter
--- OUTSIDE RECORDS SUMMARY | 2024-07-23 16:12 | XMS_ITS | Encounter Summary ---
Author Organization [employer] Address [address] [facility] [address] [facility] [facility] [address] [place] [address] Care Team Providers Care Compensation Director Name Role Phone Matheus Quijano MD Primary Care Provide r Reason for Visit * Reason Onset Date Comments Med Refill 03/15/2023 Encounter Details Date Type Department Care Team ([facility] st Contact Info) Description 03/15/2023 Refill [facility] MEDICINE [address] [place] [address] Krystin Saenz MD [address] [place] [address] Class 3 severe obesity due to excess [...] note were not included. Triage call with [employer] [id number] Pt contacts through Pt portal regarding exposure [...] care advised. Pt will test for Covid with home test in the morning. If Pt is + will call back but, if neg Pt will come to [facility] to be seen forasthma like symptoms, declined to come to [facility] today. Protocol Used: COVID-19 - Diagnosed [...] become worse Pt portal request: Lorrie [facility] Clinical Support (supporting Matheus Pressley MD) 3 days ago MN Mi katy?? nella positivo y tenemos contacto diario,me gustar??a que me recete los medicamentos para COVID y me los env??e a la farmacia [facility] por favor para tenerlos en simran de roxanna positivo en el fin de semana documented in this encounter Plan of Treatment Upcoming Encounters Date Type Department Care Team ([facility] st Contact Info) Description 08/18/2024 10:00 AM EDT Office Visit [facility] MEDICINE [address] [place], [place] [phone] Matheus Quijano MD [address] [place], [place] [phone] 09/24/2024 10:00 AM EDT Office Visit [facility] ADULT DENTAL [address] [place], [place] [phone] Corrine Neri 11/06/2024 10:00 AM EDT Office Visit [facility] OPTOMETRY [address] [place], [place] [phone] Darcie Zuñiga, OD [address] [place] [address] documented as of this encounter Visit Diagnoses Diagnosis Class 3 severe obesity due to excess calories with serious comorbidity and body mass index (BMI) of 50.0 to 59.9 in adult (CMS/[facility]) documented in this encounter Additional Health Concerns Assessment Noted Time PHQ-9 Depression Total Score: 16 023 10:18 AM EDT documented as of this encounter Care Teams Compensation Director Relationship Specialty Start Date End Date Matheus Quijano MD [address] [place] [address] PCP - General Internal Medicine 11/24/18 documented as of this encounter
== END 2024-07-23 13:06 | disposition home or self-care (01) ==
LOC: HO.US 13:05
PROVIDERS: PCP Internal Medicine; Visit Provider Obstetrics & Gynecology
DX: R10.2 Pelvic and perineal pain (principal)
CPT/HCPCS: 76830; 76856

== ENCOUNTER → 2024-07-23 13:07 | Outpatient (BNV) | payer MEDICAID, SELFPAY | PROVIDERS: PCP Internal Medicine; Visit Provider Radiology Diagnostic Radiology | DX: R10.2 Pelvic and perineal pain (principal) | CPT/HCPCS: 76830; 76856 ==

== ENCOUNTER 2024-08-12 08:48 | Outpatient (AMB) | payer MEDICAID, SELFPAY ==
--- NOTE | 2024-08-12 09:13 | A.OFFVIS_ITS ---
Vital Signs 08/12/24 09:17 Height 5 ft 9 in Weight 311 lb BMI 45.9 Intake Visit Reasons: Ultrasound follow up/urine dip Pumper Helper Required: Yes Pumper Helper Language: Vietnamese Information Interpreted: non-clinical & clinical Customer Support Advisor: Customer Support Advisor Present (Nallely SO) Accompanied by: Self / Same As Patient Allergies NKA Allergy (Unknown, Uncoded 08/12/24 09:18) NKA HPI Comments Details: Presenting for follow-up regarding her pelvic pain. The patient is doing well. The following workup was done so far: GC/CT negative. Last visit urine test was negative. Last visit urine dip showed microscopic hematuria, urine culture was negative. Pelvic ultrasound showed the following: Uterus: The uterus is normal in size, measuring 8.8 x 4.5 x 4.7 cm. Myometrium has a normal echotexture. There is a 1.1 x 0.9 x 1.6 cm calcified left fundal fibroid. There is a 0.8 x 0.6 x 1.1 cm cyst on the left. Endometrium: The endometrial stripe measures 5 mm in thickness. There is a small amount of fluid in the endometrial canal. Right ovary: The right ovary measures 1.5 x 3.3 x 1.5 cm. The right ovary is normal in size and echotexture. Left ovary: The left ovary measures 1.4 x 1.8 x 1.5 cm. The left ovary is normal in size and echotexture. Pelvic fluid: none. [facility] Medical History KINGS positive JUDE II (cervical intraepithelial neoplasia II) Morbid obesity with BMI of 45.0-49.9, adult Kidney stones Anxiety Anemia Surgical History History of cystoscopy H/O lithotripsy Hx of tubal ligation Family History Father Medical history unknown Mother Asthma Hypertension Thyroid disease Brother Thyroid disease Sister No problems noted. Sister No problems noted. Son No problems noted. Daughter No problems noted. Social History Household Members: Children Housing: Apartment Alcohol intake: current Alcohol intake frequency: holidays/special occasions only Patient Tobacco Use Status: Current everyday Tobacco user Tobacco use type: Cigarette Cigarettes Per Day: 5 Years Smoked: 7 e-Cigarette/Vaping Use: Never Used Current occupational status: unemployed Sexual orientation: Straight/Heterosexual Gender identity: Female Female Reproductive History Menstrual Age of Menarche: 14 Review of Systems Const All systems reviewed & are unremarkable except as noted in HPI and below Reports as per HPI and Reports no additional complaints GI Reports no additional complaints Reports no additional complaints Physical Exam Vital Signs: BMI result Body Mass Index 45.9 Results AMB Urinalysis Dipstick UR Leukocytes Negative Last Edit by Nallely Mackay [facility] on 08/12/24 09:38 UR Nitrite Negative Last Edit by Nallely Mackay, [employer]PER[employer] on 08/12/24 09:38 UR Urobilinogen Normal Last Edit by Nallely Mackay, [facility] on 08/12/24 09:38 UR Protein Negative Last Edit by Nallely Mackay, [employer] M[employer] OPERATOR on 08/12/24 09:38 UR Ph 6.0 Last Edit by Nallely Mackay, [employer] M[employer] OPERATOR on 08/12/24 09:38 UR Blood Moderate Last Edit by Nallely Mackay, [facility] on 08/12/24 09:38 UR Specific [place] 1.020 Last Edit by Nallely Mackay, [employer] M[employer] OPERATOR on 08/12/24 09:38 UR Ketone Negative Last Edit by Nallely Mackay, [facility] on 08/12/24 09:38 UR Bilirubin Negative Last Edit by Nallely Mackay, [facility] on 08/12/24 09:38 UR Glucose Negative Last Edit by Nallely Mackay, [facility] on 08/12/24 09:38 Results Reviewed Results Reviewed: Laboratory Last Values Urine pH (Clinic) 6.0 08/12/24 09:36 Specific [place] (Clinic) 1.020 08/12/24 09:36 Ur Protein (Clinic) Negative 08/12/24 09:36 Ur Ketones (Clinic) Negative 08/12/24 09:36 Urine Blood (Clinic) Moderate 08/12/24 09:36 Urine Nitrite Negative 08/12/24 09:36 Urine Bilirubin (Clinic) Negative 08/12/24 09:36 Urobilinogen (Clinic) Normal 08/12/24 09:36 Leukocyte Esterase (Clinic) Negative 08/12/24 09:36 Urine Glucose (Clinic) Negative 08/12/24 09:36 Assessment & Plan Assessment & Plan (1) Microscopic hematuria: Code(s): R31.29 - Other microscopic hematuria Category: Medical Plan: Repeat urine dip showed microscopic hematuria. CT scan of abdomen and pelvis ordered, Urology referral scheduled next week. All questions answered, the patient verbalized understanding (2) Uterine myoma: Code(s): D25.9 - Leiomyoma of uterus, unspecified Category: Medical Plan: Discussed with the patient the findings on pelvic ultrasound & the risk of myosarcoma; in addition reviewed with the patient that malignancy and pre malignancy cannot be ruled out without hysterectomy for pathological evaluation ; furthermore, explained to the patient the limitation of pelvic ultrasound and endometrial biopsy in the setting. Discussed with the patient the options of treatment including expectant management versus hysterectomy; the pros and cons, risks benefits of each approach were discussed with the patient including the fact that in cases of myosarcoma, surgical treatment can lead to early diagnosis and positively affects the prognosis; after further discussion, the patient decided to proceed with expectant management. Will repeat pelvic ultrasound periodically. Instructions given to patient to call in case any of the following occurs: pressure symptoms, abnormal uterine bleeding, pelvic pain; and to schedule a 12- months pelvic ultrasound (order placed) and a follow-up appointment . All questions answered, the patient verbalized understanding and agreed with the plan . (3) Pelvic pain: Code(s): R10.2 - Pelvic and perineal pain Category: Medical Plan: Discussed with the patient the results of the workup done including negative GC/chlamydia, urine test and pelvic ultrasound. 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 Recommended for the patient to see urology as a workup for microscopic hematuria and her PCP for further workup for non air drier machine operator causes; if the all the results are negative and the patient's pelvic pain is persistent, instructions given to patient to call back for further testing. Meanwhile, instructions were given the patient to go to emergency room or call in case of fever above 100.4, heavy vaginal bleeding, persistence or worsening of her pelvic pain. All questions answered, the patient verbalized understanding. Orders: Orders CT abdomen pelvis wo/w IV con Today R31.29 - Other microscopic hematuria AMB Urinalysis Dipstick Today R31.29 - Other microscopic hematuria US pelvic and transvaginal 12 Months D25.9 - Leiomyoma of uterus, unspecified Coding Level of Care Code Est Pt Level 3 (86964) Diagnoses Microscopic hematuria R31.29 Uterine myoma D25.9 Pelvic pain R10.2
--- OUTSIDE RECORDS SUMMARY | 2024-08-12 09:15 | XMS_ITS | Clinical Summary ---
Author Organization [employer] Address [address] [facility] 7t [place] [address] Care Team Providers Care Animal Anatomy Teacher Name Role Phone Matheus Quijano MD Primary [...] records requested. Also has an appointment with [facility] Endocrinology Assessment & Plan (09/24/2023 1:35 PM [...] seen 09/12/2023 Also has an appointment with [facility] Endocrinology Assessment & Plan (06/21/2023 1:54 PM [...] Rheumatology, last note on record from 10/12/2020, Abrasive Grinder work up showed a positive KINGS but further labs were not indicative on any autoimmune inflamatory disorder. Abrasive Grinder thought her symptoms are suggestive of Fibromyalgia [...] Rheumatology, last note on record from 10/12/2020, Abrasive Grinder work up showed a positive KINGS but further labs were not indicative on any autoimmune inflamatory disorder. Abrasive Grinder thought her symptoms are suggestive of Fibromyalgia [...] AM EST): Patient under the care of [facility] Deloris Rabago . She has been assigned a preliminary diagnosis of depression and anxiety Assessment & Plan (06/03/2022 4:51 PM EST): Patient under the care of [facility] Deloris Rabago . She has been [...] Previously she wanted to be referred to [facility] Bariatric surgery program. She is now at [facility] with Dr. Michael She was interested in trying Semaglutide. This was denied by her insurance Assessment & Plan (09/18/2022 9:09 AM EDT): No longer under the care of the Weight management program. Patient has been counseled and educated about diet and exercise by the Weight management Program Patient has comorbidity of: Asthma She would like to be referred to [facility] Bariatric surgery program. Referral placed She is [...] EST): Pt is under the care of [facility] Hx ASCUS HPV + PAP from 01/14/19. 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 She is on iron. Plan: Continue FeSO4 325 mg with vitamin C Under the care of [facility] CBC ordered Cobalamin deficiency 09/27/2017 Assessment & Plan (06/05/2022 1:15 PM EST): IF negative. On vitamin b12 daily Backache 03/08/2017 Encounters Date Type Department Care Team Description 08/10/2024 Patient Outreach [facility] CHC MED & PEDS [address] [place] [address] Matheus Quijano MD Pre-visit Planning (SDOH unable to reach LVM) 07/28/2024 Telephone [facility] MEDICINE [address] [place] [address] Aleida Rubin MD 07/28/2024 Telephone [facility] MEDICINE [address] [place] [address] Matheus Quijano MD Chart Prep 07/27/2024 Telephone [facility] MEDICINE [address] [place] [address] Matheus Quijano MD 07/10/2024 Population Health Risk Score [facility] (C3) Department [address] [phone] Provider, Population Health Generic 07/01/2024 Orders Only GENERIC EXTERNAL DATA DEPARTMENT Provider, Generic External Data 06/08/2024 Telephone [facility] MEDICINE [address] [place] [address] Matheus Quijano MD Nurse Triage from Last [...] Description 08/18/2024 10:00 AM EDT Office Visit [facility] MEDICINE [address] [place] [address] Matheus Quijano MD 230 [place] [address] 09/24/2024 10:00 AM EDT Office Visit [facility] ADULT DENTAL [address] [place], [place] [phone] Corrine Neri 11/06/2024 10:00 AM EDT Office Visit [facility] OPTOMETRY [address] [place], [place] [phone] Yogesh, Darcie, OD [address] [place], [place] [phone] Health Maintenance Due Date Last Done Comments [...] Pap Smear 12/28/2021 06/27/2021, 03/09/2020 COVID-19 Vaccine ( - 2023-2 5 season) 2023 01/27/2021, 01/06/2021 [...] (BMI) of 50.0 to 59.9 in adult ([facility]) BI US BREAST LIMITED LEFT Routine 08/09/2023 2:06 PM EDT [facility] HISTORICAL HPV E6/E7 RFLX HAI 16 18/45 Routine 06/27/2021 9:05 AM EST HM PAP/HPV Routine 06/27/2021 from Last 3 Months or Most Recently Relevant to Health Maintenance Results * US Pelvis Transvaginal (07/23/2024 1:28 PM EDT) Anatomical Region Laterality Modality Pelvis Ultrasound 07/23/2024 1:28 PM EDT Narrative 07/23/2024 2:09 PM EDT ? [facility] ?[address] ?[place] [address] ? Ultrasound Report ? Signed ? Patient: Lorrie Bernal ?MR#: ?? [id number] ? : 1980 ?Acct:[id number] ? Age/Sex: 43 / F ?ADM Date: 07/23/24 ? Loc: HO.US ? Attending Dr: Azam Connelly MD ? Ordering Physician: Azam Connelly MD ?? Date of Service: 07/23/24 ?? Procedure(s): US pelvic and transvaginal ?? Accession Number(s): [id number] ? cc: Matheus Breen MD; Azam Connelly [...] and echotexture. ? Pelvic fluid: none. ? US/ pelvic and transvaginal ?? IMPRESSION: ?? 1.1 x 0.9 x 1.6 cm calcified left fundal fibroid. Small amount of fluid ?? in the endometrial canal. ? Electronically signed by: ??Ruiz Dumont MD ??07/23/2024 02:06 PM EDT ? Dictated By: ?Ruiz Dumont MD ? Signed By: ?<Electronically signed by Ruiz Dumont MD in OV> ?07/23/24 1406 ? DD/ 1328 ? TD/TT: 07/23/24 1345 ? Central Supply Clerk: ? Procedure Note Bridgette, Image - 07/23/2024 [place] [address] Ultrasound Report Signed Patient: Lorrie BernalMR#: [id number] : 1980Acct:[id number] Age/Sex: 43 / FADM Date: 07/23/24 Loc: HO.US Attending Dr: Azam Connelly MD Ordering Physician: Azam Connelly MD Date of Service: 07/23/24 Procedure(s): US pelvic and transvaginal Accession Number(s): [id number] cc: Matheus Breen MD; Azam Connelly MD [...] 07/23/24 1406 DD/ 1328 TD/TT: 07/23/24 1345 Central Supply Clerk: [facility] External Provider IMG US PROCEDURES Final Result * Bacterial Vaginosis (07/01/2024 10:27 AM EST) TRICHOMONAS VAGINALIS DETECTION BY PCR NOT DETECTED Not Detect [facility] BACTERIAL VAGINOSIS DETECTION BY PCR NEGATIVE Negative [facility] Comment:The BV organism targ ets [...] DETECTION BY PCR NOT DETECTED Not Detect [facility] Xiomara glab krusei PCR NOT DETECTED Not Detect [facility] 07/01/2024 10:2 7 AM EST 07/01/2024 3:03 PM EST us Generic External Data Provider LAB MICROBIOLOGY - GENERAL ORDERABLES Final Result [facility] [address] [place] [address] [phone] * Chlamydia/N. Gonorrhoeae RNA, TMA, Urogenitial (07/01/2024 10:27 AM EST) CT PCR NOT DETECTED Not Detect. [facility] Comment:A not detected test result [...] psychologicalconsequences. NG PCR NOT DETECTED Not Detect. [facility] Comment:A not detected test result [...] 7 AM EST 07/01/2024 3:03 PM EST [facility] - 07/02/2024 1:44 PM EST Vaginal Generic External Data Provider LAB MICROBIOLOGY - GENERAL ORDERABLES Final Result Performing Organization Address City/[facility]/ZIP Co de Phone Number [facility] [address] [place] [phone] * Culture, Urine, Routine (07/01/2024 10:27 AM EST) Urine Urine specimen obtained by clean catch procedure / Unknown 07/01/2024 10:27 AM EST 07/01/2024 3:03 PM EST Comment:[facility] - 07/03/2024 12:08 PM EST Urine Culture No growth. Specimen Source: Urine clean catch Generic External Data Provider LAB MICROBIOLOGY - GENERAL ORDERABLES Final Result Performing Organization Address City/[facility]/ZIP Co de Phone Number [facility] [address] [place] [phone] * (ABNORMAL) Lipid Panel, Standard (02/27/2024 11:22 AM EDT) Triglycerides 85 <150 mg/dL [facility] Comment:Desirable Triglyceri de: less than 150 mg/dLBorderline High Triglyceride 150-199 mg/dLHigh Triglyceride: 200-499 mg/dLVery High Triglyceride: greater than or equal to 5OO mg/dL Cholesterol 179 <200 mg/dL [facility] Comment:Desirable Cholestero l: less than 200 mg/dLBorderline High Cholesterol: 200-239 mg/dLHigh Cholesterol: greater than 239 mg/dL LDL Cholesterol Calculated 122(H) <100 mg/dL [facility] Comment:Desirable LDL: less than 100 mg/dLNear Optimal/Above Optimal LDL: 110- 129 mg/dLBorderline High LDL: 130-159 mg/dLHigh LDL: 160-189 mg/dLVery High LDL: greater than or equal to 190 mg/dL HDL Cholesterol 40(L) >40 mg/dL [facility] Comment:Desirable HDL: great er than 40 mg/dL Note: This HDL assay may give artificially low results in patients with liver disease. Blood Venous blood specimen / Unknown 02/27/2024 11:22 AM EDT 02/27/2024 1:17 PM EDT us Matheus Pressley MD LAB BLOOD ORDERABLES Final Result Performing Organization Address City/State/[facility] Co de Phone Number [facility] [address] [place] [address] [phone] * BI US Breast Limited Left (08/09/2023 2:06 PM EDT) Anatomical Region Laterality Modality Breast Left Ultrasound 08/09/2023 2:06 PM EDT Narrative 08/09/2023 2:16 PM EDT ? [facility] [place] ? [address] ?[place] [address] ? Ultrasound Report ? Signed ? Patient: Adames Solomon,Lorrie ?MR#: ?? [id number] ? : 1980 ?Acct:[id number] ? Age/Sex: 42 / F ?ADM Date: 08/09/23 ? Loc: HO.MAMMO ? Attending Dr: Azam Connelly MD ? Ordering Physician: Azam Connelly MD ?? Date of Service: 08/09/23 ?? Procedure(s): US breast LT limited mamm only ?? Accession Number(s): [id number] ? cc: Matheus Breen MD; Azam Connelly [...] 1412 ? DD/ 1406 ? TD/TT: ? Central Supply Clerk: ? Procedure Note Donotuseinterpreter, Image - 08/09/2023 [place] [facility] [address] [place] [address] Ultrasound Report Signed Patient: Lorrie BernalMR#: [id number] : 1980Acct:[id number] Age/Sex: 42 / FADM Date: 08/09/23 Loc: HO.MAMMO Attending Dr: Azam Connelly MD Ordering Physician: Azam Connelly MD Date of Service: 08/09/23 Procedure(s): US breast LT limited mamm only Accession Number(s): [id number] cc: Matheus Breen MD; Azam Connelly MD [...] in OV> 08/09/23 1412 DD/ 1406 TD/TT: Central Supply Clerk: us [facility] External Provider IMG US PROCEDURES Final Result * HPV E6/E7 RFLX HAI 16 18/45 (06/27/2021 9:05 AM EST) HPV 16 RNA [facility] HPV 18/45 RNA [facility] HPV E6 E7 ADD [facility] HPV mRNA E6/E7 rflx Not Detected Not Detected [facility] Comment: Methodology: Ap Operator-Mediated Amplification This assay detects E6/E7 viral messenger RNA (mRNA) from 14 high-risk HPV types (16,18,31,33,35,39,45,51,52,56,58,59,66,68). The analytical performance characteristics of this assay have been determined by Employee Benefit Plans. The modifications have not been cleared or approved by the FDA. This assay has been validated pursuant to the CLIA regulations and is used for clinical purposes. For additional information, please refer to http://education.[employer]/faq/GLO499o2 (This link if provided for information/ educational purposes only.) THIS TEST WAS PERFORMED AT: [facility] [address] [place] [address],[address] [place], [place] ??[phone] GALE WILKINS MD 06/27/2021 9:05 AM EST [facility] [place] HISTORICAL/NON ORDERABLE LABS Fi nal Result [facility] [address] * Pap Smear (06/27/2021) Historical Provider HEALTH MAINTENANCE Final Result from Last 3 Months or Most Recently Relevant to Health Maintenance Insurance [facility] STANDARD DENTAL-[facility] [place] [address] , [place] [address] Care Teams Animal Anatomy Teacher Relationship Specialty Start Date End Date Matheus Quijano MD [address] [place] [phone] PCP - General Internal Medicine 11/24/18
--- OUTSIDE RECORDS SUMMARY | 2024-08-12 09:15 | XMS_ITS | Encounter Summary ---
Author Organization [employer] Address [address] [facility] 7 [place] [address] Care Team Providers Care Rice Farmer Name Role Phone Matheus Quijano MD Primary Care Provide r Reason for Visit * Reason Onset Date Comments Med Refill 09/24/2023 Encounter Details Date Type Department Care Team ([facility] st Contact Info) Description 09/24/2023 Refill [facility] CHC MED & PEDS [address] [place] [address] Leana Yanez MD [address] [place] [address] Social History Tobacco Use Types Packs/Day Years [...] 10:00 AM EDT Office Visit [facility] MEDICINE [address] [place] [address] Matheus Quijano MD [address] [place] [address] 09/24/2024 10:00 AM EDT Office Visit [facility] ADULT DENTAL [address] [place] [address] Corrine Neri 11/06/2024 10:00 AM EDT Office Visit [facility] OPTOMETRY [address] [place] [address] Yogesh, Darcie, OD [address] [place] [address] documented as of this encounter Visit Diagnoses Not on filedocumented in this encounter Additional Health Concerns Assessment Noted Time PHQ-9 Depression Total Score: 19 024 1:37 PM EST documented as of this encounter Care Teams Rice Farmer Relationship Specialty Start Date End Date Matheus Quijano MD [address] [place] [address] PCP - General Internal Medicine 11/24/18 documented as of this encounter
--- OUTSIDE RECORDS SUMMARY | 2024-08-12 09:15 | XMS_ITS | Encounter Summary ---
Author Organization [employer] Address 75 [facility] 7t [place] [address] Care Team Providers Care Secretarial Stenographer Name Role Phone Matheus Quijano MD Primary Care Provide r Encounter Details Date Type Department Care Team (Late Contact Info) Description 01/22/2023 Orders Only [facility] MEDICINE [address] [place] [phone] ProviderBimal MD Social History Tobacco Use Types [...] 10:00 AM EDT Office Visit [facility] MEDICINE [address] [place] [address] Matheus Quijano MD [address] [place] [address] 09/24/2024 10:00 AM EDT Office Visit [facility] ADULT DENTAL [address] [place], [place] [phone] Corrine Neri 11/06/2024 10:00 AM EDT Office Visit [facility] OPTOMETRY [address] [place] [address] Darcie Zuñiga, ARIADNE [address] [place] [address] documented as of this encounter Procedures Procedure [...] documented as of this encounter Care Teams Secretarial Stenographer Relationship Specialty Start Date End Date Matheus Quijano MD [address] [place] [address] PCP - General Internal Medicine 11/24/18 documented as of this encounter
--- OUTSIDE RECORDS SUMMARY | 2024-08-12 09:15 | XMS_ITS | Encounter Summary ---
Author Organization [employer] Address [address] [facility] [address] 7t [place] [address] Care Team Providers Care Television Producer Name Role Phone Matheus Quijano MD Primary Care Provide r Reason for Visit * Reason Comments Pre-visit Planning SDOH unable to reach LVM Encounter Details Date Type Department Care Team ([facility] st Contact Info) Description 08/10/2024 Patient Outreach [facility] CHC MED & PEDS [address] [place] [address] Matheus Quijano MD [address] [place] [address] Pre-visit Planning (SDOH unable to reach LVM) Social History Tobacco Use Types Packs/Day Years [...] AM EST documented as of this encounter Progress Notes * Aracelis Paiz - 08/10/2024 9:14 AM EDT LOIS Porter placed outbound call to patient to complete pre-visit planning. No answer at this time. Patient name and were not confirmed. CC left voicemail requesting return call. Direct contactinformation provided. documented in this encounter Plan of Treatment Upcoming Encounters Date Type Department Care Team ([facility] Contact Info) Description 08/18/2024 10:00 AM EDT Office Visit [facility] MEDICINE [address] [place] [address] Matheus Quijano MD [address] [place] [address] 09/24/2024 10:00 AM EDT Office Visit [facility] ADULT DENTAL [address] [place] [address] Corrine Neri 11/06/2024 10:00 AM EDT Office Visit [facility] OPTOMETRY [address] [place] [address] Darcie Zuñiga, OD [address] [place] [address] documented as of this encounter Visit Diagnoses Not on filedocumented in this encounter Additional Health Concerns Assessment Noted Time PHQ-9 Depression Total Score: 7 04/14/20 24 10:31 AM EST documented as of this encounter Care Teams Television Producer Relationship Specialty Start Date End Date Matheus Quijano MD [address] [place] [address] PCP - General Internal Medicine 11/24/18 documented as of this encounter
--- OUTSIDE RECORDS SUMMARY | 2024-08-12 09:15 | XMS_ITS | Encounter Summary ---
Author Organization [employer] Address 75 [facility] 7 [place] [address] Care Team Providers Care Gynecology Teacher Name Role Phone Matheus Quijano MD Primary Care Provide r Reason for Visit * Reason Onset Date Comments Med Refill 08/07/2023 Encounter Details Date Type Department Care Team ([facility] st Contact Info) Description 08/07/2023 Refill [facility] CHC MED & PEDS [address] [place] [address] Leana Yanez MD [address] [place] [address] Social History Tobacco Use Types Packs/Day Years [...] Visit [facility] MEDICINE [address] [place] [address] Matheus Quijano MD [address] [place] [address] 09/24/2024 10:00 AM EDT Office Visit [facility] ADULT DENTAL [address] [place] [address] Corrine Neri 11/06/2024 10:00 AM EDT Office Visit [facility] OPTOMETRY [address] [place] [address] Yogesh, Darcie, OD [address] [place] [address] documented as of this encounter Visit Diagnoses Not on filedocumented in this encounter Additional Health Concerns Assessment Noted Time PHQ-9 Depression Total Score: 19 024 1:37 PM EST documented as of this encounter Care Teams Gynecology Teacher Relationship Specialty Start Date End Date Matheus Quijano MD [address] [place] [address] PCP - General Internal Medicine 11/24/18 documented as of this encounter
--- OUTSIDE RECORDS SUMMARY | 2024-08-12 09:15 | XMS_ITS | Encounter Summary ---
Author Organization [employer] Address [address] [facility] [address]t [place] [address] Care Team Providers Care Semiconductor Equipment Technician Name Role Phone Matheus Quijano MD Primary Care Provide r Reason for Visit * Reason Onset Date Comments Med Refill 03/15/2023 Encounter Details Date Type Department Care Team ([facility] st Contact Info) Description 03/15/2023 Refill [facility] MEDICINE [address] [place] [address] Krystin Saenz MD [address] [place] [address] Class 3 severe obesity due to excess [...] note were not included. Triage call with [employer] [place] [place] [id number] Pt contacts through Pt portal regarding exposure [...] but, if neg Pt will come to [facility] to be seen for asthma like symptoms, declined to come to [facility] today. Protocol Used: COVID-19 - [...] become worse Pt portal request: [facility] Clinical Support (supporting Matheus Pressley MD) 3 days ago [place] Mi katy?? nella positivo y tenemos contacto diario,me gustar??a que me recete los medicamentos para COVID y me los env??e a la farmacia [facility] por favor para tenerlos en simran de roxanna positivo en el fin de semana documented in this encounter Plan of Treatment Upcoming Encounters Date Type Department Care Team ([facility] st Contact Info) Description 08/18/2024 10:00 AM EDT Office Visit [facility] MEDICINE [address] [place], [place] [phone] Matheus Quijano MD [address] [place], [place] [phone] 09/24/2024 10:00 AM EDT Office Visit [facility] ADULT DENTAL [address] [place], [place] [phone] Corrine Neri 11/06/2024 10:00 AM EDT Office Visit [facility] OPTOMETRY [address] [place], [place] [phone] Darcie Zuñiga, OD [address] [place] [address] documented as of this encounter Visit Diagnoses Diagnosis Class 3 severe obesity due to excess calories with serious comorbidity and body mass index (BMI) of 50.0 to 59.9 in adult documented in this encounter Additional Health Concerns Assessment Noted Time PHQ-9 Depression Total Score: 16 08/23/ 023 10:18 AM EDT documented as of this encounter Care Teams Semiconductor Equipment Technician Relationship Specialty Start Date End Date Matheus Quijano MD [address] [place] [address] PCP - General Internal Medicine 11/24/18 documented as of this encounter
--- OUTSIDE RECORDS SUMMARY | 2024-08-12 09:15 | XMS_ITS | Encounter Summary ---
Author Organization [employer] Address 75 [facility] 7t [place] [address] Care Team Providers Care Toolroom Checker Name Role Phone Matheus Quijano MD Primary Care Provide r Encounter Details Date Type Department Care Team (Late st Contact Info) Description 10/17/2022 Abstract [facility] MEDICINE [address] [place] [address] Matheus Quijano MD [address] [place] [address] Social History Tobacco Use Types Packs/Day Years [...] Visit [facility] MEDICINE [address] [place], [place] [phone] Matheus Quijano MD [address] [place] [address] 09/24/2024 10:00 AM EDT Office Visit [facility] ADULT DENTAL [address] [place], [place] [phone] Corrine Neri 11/06/2024 10:00 AM EDT Office Visit [facility] OPTOMETRY [address] [place], [place] [phone] YogeshKyler izquierdon, OD [address] [place] [address] documented as of this encounter Visit Diagnoses Not on filedocumented in this encounter Additional Health Concerns Assessment Noted Time PHQ-9 Depression Total Score: 16 08/23/ 023 10:18 AM EDT documented as of this encounter Care Teams Toolroom Checker Relationship Specialty Start Date End Date Matheus Quijano MD [address] [place], [place] [phone] PCP - General Internal Medicine 11/24/18 documented as of this encounter
--- OUTSIDE RECORDS SUMMARY | 2024-08-12 09:15 | XMS_ITS | Encounter Summary ---
Author Organization [employer] Address [address] [facility] [address] [place] [address] Care Team Providers Care Contact Lens Edge Buffer Name Role Phone Matheus Quijano MD Primary Care Provide r Reason for Visit * Reason Onset Date Comments Appointment Request 01/28/2024 Encounter Details Date Type Department Care Team ([facility] Contact Info) Description 01/28/2024 Telephone [facility] MEDICINE [address] [place] [address] Matheus Quijano MD [address] [place] [address] Appointment Request Social History Tobacco Use Types [...] calling to cancel appt for 01/27 and ticket writer did attempt to reschedule appt however there is nothing available at this time documented in this encounter Plan of Treatment Upcoming Encounters Date Type Department Care Team (Late st Contact Info) Description 08/18/2024 10:00 AM EDT Office Visit [facility] MEDICINE [address] [place] [address] Matheus Quijano MD [address] [place] [address] 09/24/2024 10:00 AM EDT Office Visit [facility] ADULT DENTAL [address] [place] [address] Corrine Neri 11/06/2024 10:00 AM EDT Office Visit [facility] OPTOMETRY [address] [place] [address] Darcie Zuñiga OD [address] [place] [address] documented as of this encounter Visit Diagnoses Not on filedocumented in this encounter Additional Health Concerns Assessment Noted Time PHQ-9 Depression Total Score: 19 024 1:37 PM EST documented as of this encounter Care Teams Contact Lens Edge Buffer Relationship Specialty Start Date End Date Matheus Quijano MD [address] [place] [address] PCP - General Internal Medicine 11/24/18 documented as of this encounter
[2024-08-12 09:17] VITALS: BMI 45.9
== END 2024-08-12 09:56 | disposition home or self-care (01) ==
LOC: HO.HWS 08:48
PROVIDERS: PCP Internal Medicine; Visit Provider Obstetrics & Gynecology
DX: R31.29 Other microscopic hematuria (principal); D25.9 Leiomyoma of uterus, unspecified; R10.2 Pelvic and perineal pain
CPT/HCPCS: 99213

== ENCOUNTER 2024-08-12 08:48 | Outpatient (REF) | payer MEDICAID, SELFPAY ==
[2024-08-12 11:04] LABS: Blood Urea Nitrogen 7 mg/dL (9-16); Estimated Glomerular Filt Rate > 60
--- OUTSIDE RECORDS SUMMARY | 2024-08-12 11:38 | XMS_ITS | Encounter Summary ---
Author Organization [employer] Address 75 [facility] 7t [place] [address] Care Team Providers Care Environmental Compliance Manager Name Role Phone Matheus Quijano MD Primary Care Provide r Encounter Details Date Type Department Care Team (Late st Contact Info) Description 10/17/[address] [facility] [address] [place] [phone] Matheus Quijano MD 230 [place] [address] Social History Tobacco Use Types Packs/Day Years [...] Description 08/18/2024 10:00 AM EDT Office Visit [facility] [address] [place], [place] [phone] Matheus Quijano MD 230 [place] [address] 09/24/2024 10:00 AM EDT Office Visit [facility] ADULT DENTAL [address] [place], [place] [phone] Corrine Neri 11/06/2024 10:00 AM EDT Office Visit [facility] OPTOMETRY [address] [place], [place] [phone] YogeshKyler izquierdon, OD 230 [place] [address] documented as of this encounter Visit Diagnoses Not on filedocumented in this encounter Additional Health Concerns Assessment Noted Time PHQ-9 Depression Total Score: 16 08/23/ 023 10:18 AM EDT documented as of this encounter Care Teams Environmental Compliance Manager Relationship Specialty Start Date End Date Matheus Quijano MD 230 [place], [place] [phone] PCP - General Internal Medicine 11/24/18 documented as of this encounter
--- OUTSIDE RECORDS SUMMARY | 2024-08-12 11:38 | XMS_ITS | Clinical Summary ---
Author Organization [employer] Address 75 [facility] 7t [place] [address] Care Team Providers Care Receivable Executive Name Role Phone Matheus Quijano MD Primary [...] records requested. Also has an appointment with [facility] Assessment & Plan (09/24/2023 1:35 PM [...] seen 09/12/2023 Also has an appointment with [facility] Assessment & Plan (06/21/2023 1:54 PM [...] Rheumatology, last note on record from 10/12/2020, Rnfa work up showed a positive KINGS but further labs were not indicative on any autoimmune inflamatory disorder. Rnfa thought her symptoms are suggestive of Fibromyalgia [...] Rheumatology, last note on record from 10/12/2020, Rnfa work up showed a positive KINGS but further labs were not indicative on any autoimmune inflamatory disorder. Rnfa thought her symptoms are suggestive of Fibromyalgia [...] AM EST): Patient under the care of [facility] Deloris Rabago . She has been assigned a preliminary diagnosis of depression and anxiety Assessment & Plan (06/03/2022 4:51 PM EST): Patient under the care of [facility] Deloris Rabago . She has been [...] Previously she wanted to be referred to [facility] Bariatric surgery program. She is now at [facility] with Dr. Michael She was interested in trying Semaglutide. This was denied by her insurance Assessment & Plan (09/18/2022 9:09 AM EDT): No longer under the care of the Weight management program. Patient has been counseled and educated about diet and exercise by the Weight management Program Patient has comorbidity of: Asthma She would like to be referred to [facility] Bariatric surgery program. Referral placed She is [...] EST): Pt is under the care of S[facility] SCIENT[facility] Hx ASCUS HPV + PAP from 01/14/19. 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 She is on iron. Plan: Continue FeSO4 325 mg with vitamin C Under the care of SENIOR SCIENTIST CBC ordered Cobalamin deficiency 09/27/2017 Assessment & Plan (06/05/2022 1:15 PM EST): IF negative. On vitamin b12 daily Backache 03/08/2017 Encounters Date Type Department Care Team Description 08/12/2024 Orders Only GENERIC EXTERNAL DATA DEPARTMENT Provider, Generic External Data 08/10/[address] [facility] & PEDS [address] [place] [address] Matheus Quijano MD Pre-visit Planning ([facility]OH unable to reach [facility]) 07/28/[address] [facility] [address] [place] [address] Aleida Rubin MD 07/28/[address] [facility] [address] [place] [address] Matheus Quijano MD Chart Prep 07/27/[address] [facility] [address] [place] [address] Matheus Quijano MD 07/10/2024 Population Health Risk Score Community [facility] (C[facility]) Department [address] [phone] Provider, Population Health Generic 07/01/2024 Orders Only GENERIC EXTERNAL DATA DEPARTMENT Provider, Generic External Data 06/08/[address] [facility] [address] [place] [address] Matheus Quijano MD Nurse Triage from Last [...] 08/18/2024 10:00 AM EDT Office Visit [facility] [address] [place] [address] Matheus Quijano MD 230 [place] [address] 09/24/2024 10:00 AM EDT Office Visit [facility] ADULT DENTAL [address] [place] [address] Corrine Neri 11/06/2024 10:00 AM EDT Office Visit [facility] OPTOMETRY [address] [place], [place] [phone] Darcie Zuñiga, OD 230 [place] [address] Health Maintenance Due Date Last Done Comments [...] Procedure Name Priority Date/Time Associated Diagnosis Comments CREATININE, SERUM Routine 08/12/2024 10: 20 AM EDT UREA NITROGEN (BUN) Routine 08/12/2024 1 0:20 AM EDT US PELVIS TRANSVAGINAL Routine 07/23/2024 1:28 PM [...] (BMI) of 50.0 to 59.9 in adult ([facility]) BI US BREAST LIMITED LEFT Routine 08/09/2023 2:06 PM EDT ZZZ HISTORICAL HPV E6/E7 RFLX HAI 16 18/45 Routine 06/27/2021 9:05 AM EST HM PAP/HPV Routine 06/27/2021 from Last 3 Months or Most Recently Relevant to Health Maintenance Results * Creatinine, Serum (08/12/2024 10:20 AM EDT) Creatinine, Serum 0.68 0.5 - 1.4 mg/dL [facility] Estimated Glomerular Filt Rate >60 [facility] Comment:Chronic Kidney Disea se: Estimated GFR < 60 mL/min/1.22o6Yjemmr Kidney Disease: Estimated GFR < 15 mL/min/1.73m2 08/12/2024 10:2 0 AM EDT 08/12/2024 10:20 AM EDT Generic External Data Provider LAB BLOOD ORDERAB LES Final Result Performing Organization Address City/[facility]/ZIP Co de Phone Number [facility] [address] [place] [phone] * (ABNORMAL) BUN (Blood Urea Nitrogen) (08/12/2024 10:20 AM EDT) Urea Nitrogen (BUN) 7(L) 9 - 16 mg/dL [facility] 08/12/2024 10:2 0 AM EDT 08/12/2024 10:20 AM EDT Generic External Data Provider LAB BLOOD ORDERAB LES Final Result Performing Organization Address City/[facility]/ZIP Co de Phone Number [facility] [address] [place] [phone] * US Pelvis Transvaginal (07/23/2024 1:28 PM EDT) Anatomical Region Laterality Modality Pelvis Ultrasound 07/23/2024 1:28 PM EDT Narrative 07/23/2024 2:09 PM EDT ? [facility] ?[address] ?[place] [address] ? Ultrasound Report ? Signed ? Patient: Adames Solomon,Lorrie ?MR#: ?? [id number] ? : 1980 ?Acct:[id number] ? Age/Sex: 43 / F ?ADM Date: 07/23/24 ? Loc: HO.US ? Attending Dr: Azam Connelly MD ? Ordering Physician: Azam Connelly MD ?? Date of Service: 07/23/24 ?? Procedure(s): US pelvic and transvaginal ?? Accession Number(s): [id number] ? cc: Matheus Breen MD; Azam Connelly [...] DD/ 1328 ? TD/TT: 07/23/24 1345 ? Business Management Intern: ? Procedure Note Bridgette, Bree - 07/23/2024 [place] [address] Ultrasound Report Signed Patient: Lorrie BernalMR#: [id number] : 1980Acct:[id number] Age/Sex: 43 / FADM Date: 07/23/24 Loc: HO.US Attending Dr: Azam Connelly MD Ordering Physician: Azam Connelly MD Date of Service: 07/23/24 Procedure(s): US pelvic and transvaginal Accession Number(s): [id number] cc: Matheus Breen MD; Azam Connelly MD [...] 07/23/24 1406 DD/ 1328 TD/TT: 07/23/24 1345 Business Management Intern: [facility] External Provider IMG US PROCEDURES Final Result * Bacterial Vaginosis (07/01/2024 10:27 AM EST) TRICHOMONAS VAGINALIS DETECTION BY PCR NOT DETECTED Not Detect [facility] BACTERIAL VAGINOSIS DETECTION BY PCR NEGATIVE Negative [facility] Comment:The BV organism targ ets [...] DETECTION BY PCR NOT DETECTED Not Detect [facility] Xiomara glab krusei PCR NOT DETECTED Not Detect [facility] 07/01/2024 10:2 7 AM EST 07/01/2024 3:03 PM EST us Generic External Data Provider LAB MICROBIOLOGY - GENERAL ORDERABLES Final Result [facility] [address] [place] [phone] * Chlamydia/N. Gonorrhoeae RNA, TMA, Urogenitial (07/01/2024 10:27 AM EST) CT PCR NOT DETECTED Not Detect. [facility] Comment:A not detected test result [...] psychologicalconsequences. NG PCR NOT DETECTED Not Detect. [facility] Comment:A not detected test result [...] 7 AM EST 07/01/2024 3:03 PM EST [facility] - 07/02/2024 1:44 PM EST Vaginal Generic External Data Provider LAB MICROBIOLOGY - GENERAL ORDERABLES Final Result Performing Organization Address [facility] [place] [facility] Co de Phone Number [facility] [address] [place] [phone] * Culture, Urine, Routine (07/01/2024 10:27 AM EST) Urine Urine specimen obtained by clean catch procedure / Unknown 07/01/2024 10:27 AM EST 07/01/2024 3:03 PM EST Comment:UACC [facility] - 07/03/2024 12:08 PM EST Urine Culture No growth. Specimen Source: Urine clean catch Generic External Data Provider LAB MICROBIOLOGY - GENERAL ORDERABLES Final Result Performing Organization Address [facility] [place] [facility] Co de Phone Number [facility] [address] [place] [phone] * (ABNORMAL) Lipid Panel, Standard (02/27/2024 11:22 AM EDT) Triglycerides 85 <150 mg/dL [facility] Comment:Desirable Triglyceri de: less than 150 mg/dLBorderline High Triglyceride 150-199 mg/dLHigh Triglyceride: 200-499 mg/dLVery High Triglyceride: greater than or equal to 5OO mg/dL Cholesterol 179 <200 mg/dL [facility] Comment:Desirable Cholestero l: less than 200 mg/dLBorderline High Cholesterol: 200-239 mg/dLHigh Cholesterol: greater than 239 mg/dL LDL Cholesterol Calculated 122(H) <100 mg/dL [facility] Comment:Desirable LDL: less than 100 mg/dLNear Optimal/Above Optimal LDL: 110- 129 mg/dLBorderline High LDL: 130-159 mg/dLHigh LDL: 160-189 mg/dLVery High LDL: greater than or equal to 190 mg/dL HDL Cholesterol 40(L) >40 mg/dL [facility] Comment:Desirable HDL: great er than 40 mg/dL Note: This HDL assay may give artificially low results in patients with liver disease. Blood Venous blood specimen / Unknown 02/27/2024 11:22 AM EDT 02/27/2024 1:17 PM EDT Matheus Pressley MD LAB BLOOD ORDERABLES Final Result [facility] [address] [place] [address] [phone] * BI US Breast Limited Left (08/09/2023 2:06 PM EDT) Anatomical Region Laterality Modality Breast Left Ultrasound 08/09/2023 2:06 PM EDT Narrative 08/09/2023 2:16 PM EDT ? [facility] ? [address] ?[place] [address] ? Ultrasound Report ? Signed ? Patient: Adames Solomon,Lorrie ?MR#: ?? [id number] ? : 1980 ?Acct:[id number] ? Age/Sex: 42 / F ?ADM Date: 08/09/23 ? Loc: HO.MAMMO ? Attending Dr: Azam Connelly MD ? Ordering Physician: Azam Connelly MD ?? Date of Service: 08/09/23 ?? Procedure(s): US breast LT limited mamm only ?? Accession Number(s): [id number] ? cc: Matheus Breen MD; Azam Connelly [...] signed by Chang Arriaga MD in OV> ?04/12/24 1412 ? DD/ 1406 ? TD/TT: ? Business Management Intern: ? Procedure Note Donotuseinterpreter, Image - 08/09/2023 [facility] [address] [place] [address] Ultrasound Report Signed Patient: Lorrie BernalMR#: [id number] : 1980Acct:[id number] Age/Sex: 42 / FADM Date: 08/09/23 Loc: HO.MAMMO Attending Dr: Azam Connelly MD Ordering Physician: Azam Connelly MD Date of Service: 08/09/23 Procedure(s): US breast LT limited mamm only Accession Number(s): [id number] cc: Matheus Breen MD; Azam Connelly MD [...] in OV> 08/09/23 1412 DD/ 1406 TD/TT: Business Management Intern: [facility] External Provider IMG US PROCEDURES Final Result * HPV E6/E7 RFLX HAI 16 18/45 (06/27/2021 9:05 AM EST) HPV 16 RNA [facility]NP [facility] HPV 18/45 RNA [facility] HPV E6 E7 ADD [facility]NP [facility] HPV mRNA E6/E7 rflx Not Detected Not Detected [facility] Comment: Methodology: Feed Mill Manager-Mediated Amplification This assay detects E6/E7 viral messenger RNA (mRNA) from 14 high-risk HPV types (16,18,31,33,35,39,45,51,52,56,58,59,66,68). The analytical performance characteristics of this assay have been determined by [employer]. The modifications have not been cleared or approved by the FDA. This assay has been validated pursuant to the CLIA regulations and is used for clinical purposes. For additional information, please refer to http://education.[employer]/faq/UVD874k7 (This link if provided for information/ educational purposes only.) THIS TEST WAS PERFORMED AT: [facility] [address] [place] [address],[address] [place], [place] ??[phone] GALE WILKINS MD 06/27/2021 9:05 AM EST Neena Sargent HISTORICAL/NON ORDERABLE LABS Fi nal Result [facility] [address] * Hm Pap Smear (06/27/2021) us Historical Provider HEALTH MAINTENANCE Final Result from Last 3 Months or Most Recently Relevant to Health Maintenance Insurance [facility] MEDICA[facility] STAND ADULT Care Teams Receivable Executive Relationship Specialty Start Date End Date Matheus Quijano MD [address] [place] [phone] PCP - General Internal Medicine 11/24/18
--- OUTSIDE RECORDS SUMMARY | 2024-08-12 11:38 | XMS_ITS | Encounter Summary ---
Author Organization [employer] Address 75 [facility] 7 [place] [address] Care Team Providers Care Rug Renovator Name Role Phone Matheus Quijano MD Primary Care Provide r Reason for Visit * Reason Onset Date Comments Med Refill 08/07/2023 Encounter Details Date Type Department Care Team ([facility] st Contact Info) Description 08/07/2023 Refill [facility]S [address] [place] [address] Leana Yanez MD 230 [place] [address] Social History Tobacco Use Types Packs/Day Years [...] EDT Office Visit [facility] [address] [place] [address] Matheus Quijano MD 230 [place] [address] 09/24/2024 10:00 AM EDT Office Visit [facility] ADULT DENTAL [address] [place] [address] Corrine Neri 11/06/2024 10:00 AM EDT Office Visit [facility] OPTOMETRY [address] [place] [address] Yogesh, Darcie, OD 230 [place] [address] documented as of this encounter Visit Diagnoses Not on filedocumented in this encounter Additional Health Concerns Assessment Noted Time PHQ-9 Depression Total Score: 19 024 1:37 PM EST documented as of this encounter Care Teams Rug Renovator Relationship Specialty Start Date End Date Matheus Quijano MD [address] [place] [address] PCP - General Internal Medicine 11/24/18 documented as of this encounter
--- OUTSIDE RECORDS SUMMARY | 2024-08-12 11:38 | XMS_ITS | Encounter Summary ---
Author Organization [employer] Address 75 [facility] 7 [place] [address] Care Team Providers Care Polytechnic Registrar Name Role Phone Matheus Quijano MD Primary Care Provide r Reason for Visit * Reason Onset Date Comments Med Refill 09/24/2023 Encounter Details Date Type Department Care Team ([facility] st Contact Info) Description 09/24/2023 Refill [facility] MED & PEDS [address] [place] [address] Leana Yanez MD 230 [place] [address] Social History Tobacco Use Types Packs/Day Years [...] Description 08/18/2024 10:00 AM EDT Office Visit [facility] MEDICINE 230 [place] [address] Matheus Quijano MD 230 [place] [address] 09/24/2024 10:00 AM EDT Office Visit [facility] ADULT DENTAL [address] [place] [address] Corrine Neri 11/06/2024 10:00 AM EDT Office Visit [facility] OPTOMETRY [address] [place] [address] Yogesh, Darcie, OD 230 [place] [address] documented as of this encounter Visit Diagnoses Not on filedocumented in this encounter Additional Health Concerns Assessment Noted Time PHQ-9 Depression Total Score: 19 024 1:37 PM EST documented as of this encounter Care Teams Polytechnic Registrar Relationship Specialty Start Date End Date Matheus Quijano MD [address] [place] [address] PCP - General Internal Medicine 11/24/18 documented as of this encounter
--- OUTSIDE RECORDS SUMMARY | 2024-08-12 11:38 | XMS_ITS | Encounter Summary ---
Author Organization [employer] Address [address] [facility] [address] 7[address] [place] [address] Care Team Providers Care Storeperson Name Role Phone Matheus Quijano MD Primary Care Provide r Encounter Details Date Type Department Care Team ([facility] st Contact Info) Description 08/12/2024 Orders Only GENERIC EXTERNAL DATA [...] t he electric, gas, oil or water [employer] threatened to shut off services in your [...] 08/18/2024 10:00 AM EDT Office Visit [facility] MED[facility] [address] [place] [address] Matheus Quijano MD 230 [place] [address] 09/24/2024 10:00 AM EDT Office Visit [facility] ADULT DENTAL [address] [place] [address] Corrine Neri 11/06/2024 10:00 AM EDT Office Visit [facility] OPTOMETRY [address] [place] [address] YogeshDarcie, OD 230 [place] [address] documented as of this encounter Procedures Procedure Name Priority Date/Time Associated Diagnosis Comments CREATININE, SERUM Routine 08/12/2024 10: 20 AM EDT UREA NITROGEN (BUN) Routine 08/12/2024 1 0:20 AM EDT documented in this encounter Results * Creatinine, Serum (08/12/2024 10:20 AM EDT) Creatinine, Serum 0.68 0.5 - 1.4 mg/dL [facility] Estimated Glomerular Filt Rate >60 [facility] Comment:Chronic Kidney Disea se: Estimated GFR < 60 mL/min/1.52i0Koiohh Kidney Disease: Estimated GFR < 15 mL/min/1.73m2 08/12/2024 10:2 0 AM EDT 08/12/2024 10:20 AM EDT us Generic External Data Provider LAB BLOOD ORDERAB LES Final Result Performing Organization Address [facility]/ZIP Co de Phone Number [facility] [address] [place] [phone] * (ABNORMAL) BUN (Blood Urea Nitrogen) (08/12/2024 10:20 AM EDT) Urea Nitrogen (BUN) 7(L) 9 - 16 mg/dL [facility] 08/12/2024 10:2 0 AM EDT 08/12/2024 10:20 AM EDT us Generic External Data Provider LAB BLOOD ORDERAB LES Final Result Performing Organization Address [facility] de Phone Number [facility] [address] [place] [phone] documented in this encounter Visit Diagnoses Not on filedocumented in this encounter Additional Health Concerns Assessment Noted Time PHQ-9 Depression Total Score: 7 04/14/20 24 10:31 AM EST documented as of this encounter Care Teams Storeperson Relationship Specialty Start Date End Date Matheus Quijano MD [address] [place] [address] PCP - General Internal Medicine 11/24/18 documented as of this encounter
--- OUTSIDE RECORDS SUMMARY | 2024-08-12 11:38 | XMS_ITS | Encounter Summary ---
Author Organization [employer] Address [address] [facility] [address] [place] [address] Care Team Providers Care Button Cutter Name Role Phone Matheus Quijano MD Primary Care Provide r Reason for Visit * Reason Onset Date Comments Appointment Request 01/28/2024 Encounter Details Date Type Department Care Team ([facility] Contact Info) Description 01/28/2024 Telephone [facility] MED[facility] [address] [place] [address] Matheus Quijano MD [address] [place] [address] Appointment Request Social History Tobacco Use Types [...] calling to cancel appt for 01/27 and commercial underwriter did attempt to reschedule appt however there is nothing available at this time documented in this encounter Plan of Treatment Upcoming Encounters Date Type Department Care Team (Late st Contact Info) Description 08/18/2024 10:00 AM EDT Office Visit [facility] MED[facility] [address] [place] [address] Matheus Quijano MD [address] [place] [address] 09/24/2024 10:00 AM EDT Office Visit [facility] ADULT DENTAL [address] [place] [address] Corrine Neri 11/06/2024 10:00 AM EDT Office Visit [facility] OPTOMETRY [address] [place] [address] Darcie Zuñiga OD [address] [place] [address] documented as of this encounter Visit Diagnoses Not on filedocumented in this encounter Additional Health Concerns Assessment Noted Time PHQ-9 Depression Total Score: 19 024 1:37 PM EST documented as of this encounter Care Teams Button Cutter Relationship Specialty Start Date End Date Matheus Quijano MD [address] [place] [address] PCP - General Internal Medicine 11/24/18 documented as of this encounter
--- OUTSIDE RECORDS SUMMARY | 2024-08-12 11:38 | XMS_ITS | Encounter Summary ---
Author Organization [employer] Address [address] [facility] [address] 7[address] [place] [address] Care Team Providers Care Improvement Leader Name Role Phone Matheus Quijano MD Primary Care Provide r Reason for Visit * Reason Onset Date Comments Med Refill 03/15/2023 Encounter Details Date Type Department Care Team ([facility] st Contact Info) Description 03/15/[address] [facility] MEDICINE [address] [place] [address] Krystin Saenz MD [address] [place] [address] Class 3 severe obesity due to excess [...] note were not included. Triage call with [employer] [place] [id number] Pt contacts through Pt portal regarding exposure [...] but, if neg Pt will come to [facility] to be seen for asthma like symptoms, declined to come to [facility] today. Protocol Used: COVID-19 - Diagnosed or [...] You become worse Pt portal request: [facility] [place] [facility] Clinical Support (supporting Matheus Pressley MD) [...] [facility] [address] [place], [place] [phone] Matheus Quijano MD [address] [place], [place] [phone] 09/24/2024 10:00 AM EDT Office Visit [facility] ADULT DENTAL 230 [place], [place] [phone] Corrine Neri 11/06/2024 10:00 AM EDT Office Visit [facility] OPTOMETRY [address] [place], [place] [phone] Darcie Zuñiga, OD 230 [place] [address] documented as of this encounter Visit Diagnoses Diagnosis Class 3 severe obesity due to excess calories with serious comorbidity and body mass index (BMI) of 50.0 to 59.9 in adult documented in this encounter Additional Health Concerns Assessment Noted Time PHQ-9 Depression Total Score: 16 08/23/ 023 10:18 AM EDT documented as of this encounter Care Teams Improvement Leader Relationship Specialty Start Date End Date Matheus Quijano MD [address] [place] [address] PCP - General Internal Medicine 11/24/18 documented as of this encounter
--- OUTSIDE RECORDS SUMMARY | 2024-08-12 11:38 | XMS_ITS | Encounter Summary ---
Author Organization [employer] Address [address] [facility] 7t [place] [address] Care Team Providers Care Laundromat Manager Name Role Phone Matheus Quijano MD Primary Care Provide r Encounter Details Date Type Department Care Team (Late Contact Info) Description 01/22/2023 Orders Only [facility] MEDICINE [address] [place] [address] ProviderBimal MD Social History Tobacco Use Types [...] 10:00 AM EDT Office Visit [facility] MEDICINE [address] [place] [address] Matheus Quijano MD [address] [place] [address] 09/24/2024 10:00 AM EDT Office Visit [facility] ADULT DENTAL [address] [place], [place] [phone] Corrine Neri 11/06/2024 10:00 AM EDT Office Visit [facility] OPTOMETRY [address] [place] [address] Darcie Zuñiga, ARIADNE 230 [place] [address] documented as of this encounter Procedures Procedure [...] documented as of this encounter Care Teams Laundromat Manager Relationship Specialty Start Date End Date Matheus Quijano MD [address] [place] [address] PCP - General Internal Medicine 11/24/18 documented as of this encounter
--- OUTSIDE RECORDS SUMMARY | 2024-08-12 11:38 | XMS_ITS | Encounter Summary ---
Author Organization [employer] Address [address] [facility] [address] 7[address] [place] [address] Care Team Providers Care Die Repairer Forging Name Role Phone Matheus Quijano MD Primary Care Provide r Reason for Visit * Reason Comments Pre-visit Planning SDOH unable to reach LVM Encounter Details Date Type Department Care Team ([facility] st Contact Info) Description 08/10/2024 Patient Outreach [facility] CHC MED & PEDS [address] [place] [address] Matheus Quijano MD [address] [place] [address] Pre-visit Planning (SDOH unable to reach LVM) [...] Upcoming Encounters Date Type Department Care Team ([facility] Contact Info) Description 08/18/2024 10:00 AM EDT Office Visit [facility] MEDICINE [address] [place] [address] Matheus Quijano MD [address] [place] [address] 09/24/2024 10:00 AM EDT Office Visit [facility] ADULT DENTAL [address] [place] [address] Corrine Neri 11/06/2024 10:00 AM EDT Office Visit [facility] OPTOMETRY [address] [place] [address] Darcie Zuñiga, OD 230 [place] [address] documented as of this encounter Visit Diagnoses Not on filedocumented in this encounter Additional Health Concerns Assessment Noted Time PHQ-9 Depression Total Score: 7 04/14/20 24 10:31 AM EST documented as of this encounter Care Teams Die Repairer Forging Relationship Specialty Start Date End Date Matheus Quijano MD [address] [place] [address] PCP - General Internal Medicine 11/24/18 documented as of this encounter
== END 2024-08-12 08:49 | disposition home or self-care (01) ==
LOC: HO.LAB 08:48
PROVIDERS: PCP Internal Medicine; Visit Provider Obstetrics & Gynecology
DX: R31.29 Other microscopic hematuria (principal); D25.9 Leiomyoma of uterus, unspecified; R10.2 Pelvic and perineal pain
CPT/HCPCS: 36415; 81002; 82565; 84520; 99212

== ENCOUNTER 2024-08-13 15:03 | Emergency (ER) | payer MEDICAID, SELFPAY ==
--- NOTE | ~2024-08-13 | CT_ITS ---
CLINICAL HISTORY: right pelvic pain, hematuria CT abdomen and pelvis without contrast Comparison: None Findings: The lung bases are clear. Unremarkable abdominal organs. No calculus or hydronephrosis. Multiple gallstones within the gallbladder. No bowel obstruction, pneumoperitoneum, or pneumatosis. Pelvic contents unremarkable. Normal appendix. No acute fracture. IMPRESSION: 1. Cholelithiasis. 2. No findings to explain the patient's hematuria. This document has been electronically signed by: Annel Clements MD on 08/13/2024 17:40:52
[2024-08-13 15:26] VITALS: BP 120/67; PULSE 94; RESP 16; TEMP 36.6; O2SAT 95; BMI 43.1
--- NOTE | 2024-08-13 15:30 | ED.GENADULT ---
HPI - General Adult General Chief complaint: Urogenital-Female Stated complaint: abd pain Time Seen by Provider: 08/13/24 15:49 Source: patient Mode of arrival: ambulatory Limitations: no limitations History of Present Illness ED Provider: Naz Ann PA-C HPI narrative: 43 yo female with history of depression, anxiety, obesity, anemia, uterine fibroids who presents to the ER for evaluation of pelvic pain and microscopic hematuria that have been present for the last couple of months, but worse in the last 4 days. She was seen in the office by Dr. Connelly yesterday where they reviewed her recent pelvic U/S. Urology referral made for next week for her microscopic hematuria. She has an appointment on 08/26 with plan for an outpatient CT scan. Patient went to Urgent Care today for evaluation of worsening right sided pelvic pain for the last 4 days. She had positive blood in the urine and was sent here to r/o kidney stone. She had normal KUB there. She reports she is not taking any medication for the pain, only using ice which helps. laying down makes the pain worse. no associated vaginal bleeding, vaginal discharge, N/V/D, fever, chills or urinary symptoms. She has not had her menstrual cycle since last May before her uterine ablation procedure. She is not sexually active and denies chance of . MD complaint: pelvic pain Onset (ago): month(s) (2) Location: pelvis Radiation: non-radiation Severity: moderate Quality: aching Pain Consistency: intermittent Relieving factors: other (ice) Exacerbating factors: other (supine positioning) Associated symptoms: denies other symptoms Treatments prior to arrival: none Related Data Home Medications ?Medication ?Instructions ?Recorded ?Confirmed ibuprofen 200 mg tablet (Advil) 400 mg PO Q8H PRN Pain 09/15/20 01/09/24 pregabalin 300 mg capsule (Lyrica) See Rx Instructions PO DAILY 01/09/24 01/09/24 Previous Rx's ?Medication ?Instructions ?Recorded albuterol sulfate 90 mcg/actuation 1 inh inhalation Q4-6H PRN 05/07/20 breath activated powder inhaler shortness of breath or wheezing #1 ea vitamin A palmitate 3,000 mcg 20,000 unit PO DAILY 30 days #60 07/18/20 (10,000 unit) tablet tabs clotrimazole-betamethasone 1 1 appl topical BID 5 days #45 grams 07/01/24 %-0.05 % topical cream terconazole 0.8 % vaginal cream 1 appful vaginal BEDTIME 3 days 07/01/24 #20 grams acetaminophen 500 mg tablet 1,000 mg (2 x 500 mg) PO Q6H PRN 08/13/24 (Tylenol Extra Strength) pain #20 tabs ibuprofen 600 mg tablet 600 mg PO Q8H PRN pain #14 tabs 08/13/24 Allergies Allergy/AdvReac Type Severity Reaction Status Date / Time NKA Allergy Unknown NKA Uncoded 08/13/24 15:32 Review of Systems Review of Systems: Yes all other systems are reviewed and are negative [facility] Past Medical History Medical History KINGS positive JUDE II (cervical intraepithelial neoplasia II) Morbid obesity with BMI of 45.0-49.9, adult Kidney stones Anxiety Anemia Surgical History History of cystoscopy H/O lithotripsy Hx of tubal ligation Family History Family History Father Medical history unknown Mother Asthma Hypertension Thyroid disease Brother Thyroid disease Sister No problems noted. Sister No problems noted. Son No problems noted. Daughter No problems noted. Social History Social History Household Members: Children Housing: Apartment Alcohol intake: current Alcohol intake frequency: holidays/special occasions only Patient Tobacco Use Status: Current everyday Tobacco user Tobacco use type: Cigarette Cigarettes Per Day: 5 Years Smoked: 7 Smoked in Last 30 Days: Yes e-Cigarette/Vaping Use: Never Used Use of substances other than those prescribed or required for medical reasons: No Advance Directives: No Advance Directives Information Provided: No Patient : No Current occupational status: unemployed Sexual orientation: Straight/Heterosexual Gender identity: Female Physical Exam ED Vital Signs: Vital Signs - 24 hr 08/13/24 15:26 08/13/24 17:19 Temperature 97.9 F 98.6 F Pulse Rate 94 88 Respiratory Rate 16 20 Blood Pressure 120/67 113/66 Pulse Oximetry 95 98 Oxygen Delivery Method Room Air Room Air BMI result Body Mass Index 43.1 Appearance: Alert. Oriented X3. No acute distress. Head: normocephalic, atraumatic. Eyes: Pupils equal, round and reactive to light. ENT: Pharynx normal. No tonsillar swelling or exudate. Neck: Normal inspection. Neck supple. CVS: Normal heart rate and rhythm. Pulses normal. Respiratory: No respiratory distress. Breath sounds normal. Abdomen: Obese, Soft with mild tenderness to deep palpation of the right pelvic/suprapubic area, no rebound or guarding. normal active. +BS x4 Skin: Skin warm and dry. Normal skin color. Normal skin turgor. No rashes. Extremities: No lower extremity edema. No joint swelling. Neuro/psych: Oriented X 3. No motor deficit. No sensory deficit. CN II-XII intact. Normal speech and cognition. Course Course Course Narrative: This is a rapid medical exam performed by Clarissa Pinto NP: Additional HPI, ROS, PE not included below will be deferred to primary provider. Patient is a 43-year-old female presenting from urgent care to rule out kidney stone. Complains of RLQ pain x 2 mos, worse over the past week. Noted to have hematuria at . Has had full workup with PC TECHNICIAN. Plan: Labs, UA Medications Administered Discontinued Medications Generic Name Dose Route Start Last Admin Trade Name Freq PRN Reason Stop Dose Admin Ketorolac Tromethamine 30 mg 08/13/24 16:37 08/13/24 17:09 Ketorolac Tromethamine 30 Mg/Ml Vial IM 08/13/24 16:38 30 mg ONCE ONE Administration Medical Decision Making Medical Decision Making [facility] Narrative: 43 yo female presenting for evaluation of right sided pelvic pain for the last 2 months, acutely worse the last 4 days. No urinary symptoms, no vaginal discharge. Not sexually active. Chart reviewed. Her microscopic hematuria dates back to 2018 and is chronic. She has never seen a urologist, has an appointment 08/26. Recent pelvic U/S showing left fundal fibroid which is not likely to be causing patient's pain. She just had pelvic exam w/ Dr. Connelly so this was deferred today CT scan abd/pelvis done. IM toradol given for pain CT scan normal. stable for d/c home without patient follow up. hotel staff member used to discuss results and return precautions Differential Diagnosis Differential Diagnoses: The differential diagnosis associated with the presentation includes ureteral stone, bladder lesion, cystitis, myosarcoma, constipation, appendicitis, UTI Admission/Observation Consideration of admission/observation: Escalation of care including admission/observation considered Lab Data MDM Lab Attestation statement: I reviewed the patient's lab results. stable anemia, normal renal function, no UTI on UA 08/13/24 16:05 08/13/24 16:05 Labs: Lab Results 08/13/24 08/13/24 Range/Units 16:04 16:05 WBC 10.3 (4.8-10.8) X10*3/uL RBC 4.46 (4.20-5.50) X10*6/uL Hgb 12.1 (12.0-16.0) g/dl Hct 35.9 L (37.0-47.0) % MCV 80.5 (80.0-98.0) fL MCH 27.1 (27.0-33.0) pg MCHC 33.7 (31.0-35.0) g/dl RDW 14.4 (11.0-16.0) % Plt Count 367 (160-400) X10*3/uL MPV 9.5 (9.4-12.3) fL Immature Gran % (Auto) 0.3 (0.0-0.4) % Neut % (Auto) 65.7 (45-73) % Lymph % (Auto) 27.9 (20-40) % [place] % (Auto) 4.1 (2-11) % Eos % (Auto) 1.2 (0-4) % Baso % (Auto) 0.8 (0-2) % Lymph # (Auto) 2.9 (1.2-4.9) X10*3/uL [place] # (Auto) 0.4 (0.1-1.2) X10*3/uL Eos # (Auto) 0.1 (0.0-0.4) X10*3/uL Baso # (Auto) 0.1 (0.0-0.2) X10*3/uL Abs Immat Gran (auto) 0.03 (0.00-0.03) X10*3/uL Absolute Neuts (auto) 6.8 (2.0-8.3) x10*3/uL Absolute Nucleated RBC 0.000 (0.0-0.012) X10*3/uL Nucleated RBC % (auto) 0.0 (0.0-0.2) /100WBC Sodium 139 (135-145) mmol/L Potassium 4.1 (3.3-5.1) mmol/L Chloride 109 H (96-108) mmol/L Carbon Dioxide 23 (22-29) mmol/L Anion Gap 11 L (12-20) BUN 11 (9-16) mg/dL Creatinine 0.71 (0.5-1.4) mg/dL Estim Creat Clear Calc 152.6 Estimated GFR > 60 Random Glucose 105 (60-115) mg/dL Calcium 9.2 (8.4-10.2) mg/dL Total Bilirubin 0.2 (0.0-1.0) mg/dL AST 14 (5-31) U/L ALT 6 (0-31) U/L Alkaline Phosphatase 63 (39-117) U/L Total Protein 7.2 (6.5-8.0) g/dL Albumin 4.0 (3.5-5.0) g/dL Beta HCG, Quant < 2 mIU/mL Urine Color Dark Yellow Urine Appearance Clear Urine pH 5.5 (5.0-9.0) Ur Specific [place] >= 1.030 H (1.005-1.025) Urine Protein Trace (Neg-Trace) mg/dL Urine Glucose (UA) Negative (Negative) mg/dL Urine Ketones Trace (Negative) mg/dL Urine Blood Small (1+) H (Negative) Urine Nitrite Negative (Negative) Ur Leukocyte Esterase Negative (Negative) Urine RBC 11-20 H (0-2) /HPF Urine WBC 0-5 (0-5) /HPF Ur Squamous Epith Cells 0-2 (0-2) /HPF Urine Bacteria None Seen (None Seen) Hyaline Casts 0-2 (0-2) /LPF Independent Interpretation I performed an independent interpretation of an: CT Scan Interpretation: no right sided hydronephrosis or ureteral stone appreciated Critical Care Time Critical Care Time Critical Care Time: No Discharge Plan Discharge Clinical Impression: Pelvic pain Patient Disposition: Home, Self-Care Instructions: Pelvic Pain in Women (ED) Additional Instructions: your lab workup today was unremarkable Your CT scan was normal your urine test showed trace amounts of blood which have been present since 2018 - follow up with Urology 08/26 as scheduled for further evaluation of this recommend trial of both ibuprofen and acetaminophen for pain to see if this helps - this was sent to the pharmacy If you develop new or worsening symptoms call 911 or come back to the ER for further evaluation. Prescriptions: New ibuprofen 600 mg tablet 600 mg PO Q8H PRN (Reason: pain) Qty: 14 0RF acetaminophen [Tylenol Extra Strength] 500 mg tablet 1,000 mg PO Q6H PRN (Reason: pain) Qty: 20 0RF No Action vitamin A palmitate 10,000 unit tablet 20,000 unit PO DAILY 30 Days Qty: 60 0RF albuterol sulfate 90 mcg/actuation aerosol powdr breath activated 1 inh inhalation Q4-6H PRN (Reason: shortness of breath or wheezing) Qty: 1 0RF ibuprofen [Advil] 200 mg tablet 400 mg PO Q8H PRN (Reason: Pain) pregabalin [Lyrica] 300 mg capsule See Rx Instructions PO DAILY Rx Instructions: unknown dose orally daily; terconazole 0.8 % cream 1 appful vaginal BEDTIME 3 Days Qty: 20 0RF clotrimazole-betamethasone 1-0.05 % cream 1 appl topical BID 5 Days Qty: 45 0RF Referrals: Matheus Breen MD [Primary Care Provider] - Print Language: Bolivian
[2024-08-13 16:08] LABS: MANUAL DIFF FLAG NO
[2024-08-13 16:10] LABS: Appearance Urine Clear; Color Urine Dark Yellow; Glucose Urine UA Negative (Negative); Leukocyte Esterase Urine Negative (Negative); Nitrite Urine Negative (Negative); PH 5.5 (5.0-9.0); Specific Gravity - Urine >= 1.030 (1.005-1.025); UMIC TRIGGER UACC YES; Urine Blood Small (1+) (Negative); Urine Ketones Trace mg/dL (Negative); Urine Protein Trace mg/dL (Neg-Trace)
[2024-08-13 16:13] LABS: Bacteria Urine None Seen (None Seen); Hyaline Casts Urine 0-2 /LPF (0-2); Squamous Epithelial Cell Urine 0-2 /HPF (0-2); WBC Urine 0-5 /HPF (0-5)
[2024-08-13 16:14] LABS: Basophils Absolute Auto 0.1 X10*3/uL (0.0-0.2); Basophils Percent Auto 0.8 % (0-2); Eosinophils Absolute Auto 0.1 X10*3/uL (0.0-0.4); Eosinophils Percent Auto 1.2 % (0-4); Hematocrit 35.9 % (37.0-47.0); Hemoglobin 12.1 g/dl (12.0-16.0); Imm Gran Abs Auto 0.03 X10*3/uL (0.00-0.03); Imm Gran Pct Auto 0.3 % (0.0-0.4); Lymphocytes Absolute Auto 2.9 X10*3/uL (1.2-4.9); Lymphocytes Percent Auto 27.9 % (20-40); Mean Corpuscular HGB Conc 33.7 g/dl (31.0-35.0); Mean Corpuscular Hemoglobin 27.1 pg (27.0-33.0); Mean Corpuscular Volume 80.5 fL (80.0-98.0); Mean Platelet Volume 9.5 fL (9.4-12.3); Monocytes Absolute Auto 0.4 X10*3/uL (0.1-1.2); Monocytes Percent Auto 4.1 % (2-11); Neutrophils Absolute Auto 6.8 x10*3/uL (2.0-8.3); Neutrophils Percent Auto 65.7 % (45-73); Platelet Count 367 X10*3/uL (160-400); Red Blood Count 4.46 X10*6/uL (4.20-5.50); Red Cell Distribution Width 14.4 % (11.0-16.0); White Blood Count 10.3 X10*3/uL (4.8-10.8)
[2024-08-13 16:33] LABS: Alanine Aminotransferase 6 U/L (0-31); Anion Gap 11 (12-20); Aspartate Amino Transferase 14 U/L (5-31); Bilirubin Total 0.2 mg/dL (0.0-1.0); Blood Urea Nitrogen 11 mg/dL (9-16); Calcium 9.2 mg/dL (8.4-10.2); Carbon Dioxide 23 mmol/L (22-29); Chloride 109 mmol/L (96-108); Creatinine Clr Calc Pharmacy 152.6; Estimated Glomerular Filt Rate > 60; Glucose Random 105 mg/dL (60-115); Potassium 4.1 mmol/L (3.3-5.1); Sodium 139 mmol/L (135-145); Total Protein 7.2 g/dL (6.5-8.0)
[2024-08-13 16:37] LABS: Alkaline Phosphatase 63 U/L (39-117); HCG Quantitative < 2 mIU/mL
[2024-08-13] MEDS: Ketorolac Tromethamine 30 MG/ML VIAL IM (17:09)
[2024-08-13 17:19] VITALS: BP 113/66; PULSE 88; RESP 20; TEMP 37; O2SAT 98
[2024-08-13 18:04] VITALS: BP 113/66; PULSE 88; RESP 20; TEMP 37; O2SAT 98
--- OUTSIDE RECORDS SUMMARY | 2024-08-13 18:16 | XMS_ITS | Encounter Summary ---
Author Organization [employer] Address [address] [facility] 7 [place] [address] Care Team Providers Care Petroleum Plant Operator Name Role Phone Matheus Quijano MD Primary Care Provide r Reason for Visit * Reason Onset Date Comments Med Refill 09/24/2023 Encounter Details Date Type Department Care Team ([facility] st Contact Info) Description 09/24/2023 Refill [facility] CHC MED & PEDS [address] [place] [address] Leana Yanez MD [address] [place] [address] Social History Tobacco Use Types Packs/Day Years [...] Description 08/18/2024 10:00 AM EDT Office Visit [facility] MEDICINE [address] [place] [address] Matheus Quijano MD [address] [place] [address] 09/24/2024 10:00 AM EDT Office Visit [facility] ADULT DENTAL [address] [place] [address] Corrnie Neri 11/06/2024 10:00 AM EDT Office Visit [facility] OPTOMETRY [address] [place] [address] Yogesh, Darcie, OD [address] [place] [address] documented as of this encounter Visit Diagnoses Not on filedocumented in this encounter Additional Health Concerns Assessment Noted Time PHQ-9 Depression Total Score: 19 024 1:37 PM EST documented as of this encounter Care Teams Petroleum Plant Operator Relationship Specialty Start Date End Date Matheus Quiajno MD [address] [place] [address] PCP - General Internal Medicine 11/24/18 documented as of this encounter
--- OUTSIDE RECORDS SUMMARY | 2024-08-13 18:16 | XMS_ITS | Encounter Summary ---
Author Organization [employer] Address [address] [facility] [place] [address] Care Team Providers Care Digital Content Coordinator Name Role Phone Matheus Quijano MD Primary Care Provide r Reason for Visit * Reason Comments Pre-visit Planning SDOH unable to reach LVM Encounter Details Date Type Department Care Team ([facility] st Contact Info) Description 08/10/2024 Patient Outreach [facility] CHC MED & PEDS [address] [place] [address] Matheus Quijano MD [address] [place] [address] Pre-visit Planning (SDOH unable to reach LVM) [...] Upcoming Encounters Date Type Department Care Team ([facility] Contact Info) Description 08/18/2024 10:00 AM EDT Office Visit [facility] MEDICINE [address] [place] [address] Matheus Quijano MD [address] [place] [address] 09/24/2024 10:00 AM EDT Office Visit [facility] ADULT DENTAL [address] [place] [address] Corrine Neri 11/06/2024 10:00 AM EDT Office Visit [facility] OPTOMETRY [address] [place] [address] Darcie Zuñiga, OD [address] [place] [address] documented as of this encounter Visit Diagnoses Not on filedocumented in this encounter Additional Health Concerns Assessment Noted Time PHQ-9 Depression Total Score: 7 04/14/20 24 10:31 AM EST documented as of this encounter Care Teams Digital Content Coordinator Relationship Specialty Start Date End Date Matheus Quijano MD [address] [place] [address] PCP - General Internal Medicine 11/24/18 documented as of this encounter
--- OUTSIDE RECORDS SUMMARY | 2024-08-13 18:16 | XMS_ITS | Encounter Summary ---
Author Organization [employer] Address [address] [facility] [address] [place] [address] Care Team Providers Care Senior Web Developer Name Role Phone Matheus Quijano MD Primary Care Provide r Reason for Visit * Reason Onset Date Comments Med Refill 03/15/2023 Encounter Details Date Type Department Care Team ([facility] st Contact Info) Description 03/15/2023 Refill [facility] MEDICINE [address] [place] [address] Krystin Saenz MD [address] [place] [address] Class 3 severe obesity due to excess [...] note were not included. Triage call with [employer] [facility] [place] [id number] Pt contacts through Pt portal regarding exposure [...] but, if neg Pt will come to [facility] to be seen for asthma like symptoms, declined to come to [facility] today. Protocol Used: COVID-19 - Diagnosed or [...] become worse Pt portal request: [facility] Clinical Support (supporting Matheus Pressley MD) 3 days ago [place] Mi katy?? nella positivo y tenemos contacto diario,me gustar??a que me recete los medicamentos para COVID y me los env??e a la farmacia [facility] por favor para tenerlos en simran de roxanna positivo en el fin de semana documented in this encounter Plan of Treatment Upcoming Encounters Date Type Department Care Team ([facility] st Contact Info) Description 08/18/2024 10:00 AM EDT Office Visit [facility] MEDICINE [address] [place], [place] [phone] Matheus Quijano MD [address] [place], [place] [phone] 09/24/2024 10:00 AM EDT Office Visit [facility] ADULT DENTAL [address] [place], [place] [phone] Corrine Neri 11/06/2024 10:00 AM EDT Office Visit [facility] OPTOMETRY [address] [place], [place] [phone] Darcie Zuñiga, OD [address] [place] [address] documented as of this encounter Visit Diagnoses Diagnosis Class 3 severe obesity due to excess calories with serious comorbidity and body mass index (BMI) of 50.0 to 59.9 in adult documented in this encounter Additional Health Concerns Assessment Noted Time PHQ-9 Depression Total Score: 16 08/23/ 023 10:18 AM EDT documented as of this encounter Care Teams Senior Web Developer Relationship Specialty Start Date End Date Matheus Quijano MD [address] [place] [address] PCP - General Internal Medicine 11/24/18 documented as of this encounter
--- OUTSIDE RECORDS SUMMARY | 2024-08-13 18:16 | XMS_ITS | Encounter Summary ---
Author Organization [employer] Address [address] [facility] [address]t [place] [address] Care Team Providers Care Hospice Fellow Name Role Phone Matheus Quijano MD Primary Care Provide r Encounter Details Date Type Department Care Team (Late Contact Info) Description 01/22/2023 Orders Only [facility] MEDICINE [address] [place] [phone] ProviderBimal MD Social History Tobacco Use Types [...] Description 08/18/2024 10:00 AM EDT Office Visit [facility] MEDICINE [address] [place] [address] Matheus Quijano MD [address] [place] [address] 09/24/2024 10:00 AM EDT Office Visit [facility] ADULT DENTAL [address] [place], [place] [phone] Corrine Neri 11/06/2024 10:00 AM EDT Office Visit [facility] OPTOMETRY [address] [place] [address] Darcie Zuñiga, ARIADNE [address] [place] [address] documented as of this encounter Procedures Procedure [...] documented as of this encounter Care Teams Hospice Fellow Relationship Specialty Start Date End Date Matheus Quijano MD [address] [place] [address] PCP - General Internal Medicine 11/24/18 documented as of this encounter
--- OUTSIDE RECORDS SUMMARY | 2024-08-13 18:16 | XMS_ITS | Encounter Summary ---
Author Organization [employer] Address [address] [facility] [address] [place] [address] Care Team Providers Care Electrical Controls Designer Name Role Phone Matheus Quijano MD Primary Care Provide r Reason for Visit * Reason Onset Date Comments Med Refill 08/07/2023 Encounter Details Date Type Department Care Team ([facility] st Contact Info) Description 08/07/2023 Refill [facility] CHC MED & PEDS [address] [place] [address] Leana Yanez MD [address] [place] [address] Social History Tobacco Use Types Packs/Day Years [...] Description 08/18/2024 10:00 AM EDT Office Visit [facility] MEDICINE [address] [place] [address] Matheus Quijano MD [address] [place] [address] 09/24/2024 10:00 AM EDT Office Visit [facility] ADULT DENTAL [address] [place] [address] Corrine Neri 11/06/2024 10:00 AM EDT Office Visit [facility] OPTOMETRY [address] [place] [address] Yogesh, Darcie, OD [address] [place] [address] documented as of this encounter Visit Diagnoses Not on filedocumented in this encounter Additional Health Concerns Assessment Noted Time PHQ-9 Depression Total Score: 19 024 1:37 PM EST documented as of this encounter Care Teams Electrical Controls Designer Relationship Specialty Start Date End Date Matheus Quijano MD [address] [place] [address] PCP - General Internal Medicine 11/24/18 documented as of this encounter
--- OUTSIDE RECORDS SUMMARY | 2024-08-13 18:16 | XMS_ITS | Encounter Summary ---
Author Organization [employer] Address [address] [facility] [address] [place] [address] Care Team Providers Care Sales Agent Trading Stamps Name Role Phone Matheus Quijano MD Primary Care Provide r Reason for Visit * Reason Onset Date Comments Appointment Request 01/28/2024 Encounter Details Date Type Department Care Team ([facility] Contact Info) Description 01/28/2024 Telephone [facility] MEDICINE [address] [place] [address] Matheus Quijano MD [address] [place] [address] Appointment Request Social History Tobacco Use Types [...] calling to cancel appt for 01/27 and video game script writer did attempt to reschedule appt however there is nothing available at this time documented in this encounter Plan of Treatment Upcoming Encounters Date Type Department Care Team (Late st Contact Info) Description 08/18/2024 10:00 AM EDT Office Visit [facility] MEDICINE [address] [place] [address] Matheus Quijano MD [address] [place] [address] 09/24/2024 10:00 AM EDT Office Visit [facility] ADULT DENTAL [address] [place] [address] Corrine Neri 11/06/2024 10:00 AM EDT Office Visit [facility] OPTOMETRY [address] [place] [address] Darcie Zuñiga OD [address] [place] [address] documented as of this encounter Visit Diagnoses Not on filedocumented in this encounter Additional Health Concerns Assessment Noted Time PHQ-9 Depression Total Score: 19 024 1:37 PM EST documented as of this encounter Care Teams Sales Agent Trading Stamps Relationship Specialty Start Date End Date Matheus Quijano MD [address] [place] [address] PCP - General Internal Medicine 11/24/18 documented as of this encounter
--- OUTSIDE RECORDS SUMMARY | 2024-08-13 18:16 | XMS_ITS | Encounter Summary ---
Author Organization [facility] Address [address] [facility] 7t [place] [address] Care Team Providers Care Construction Site Crossing Guard Name Role Phone Matheus Quijano MD Primary Care Provide r Encounter Details Date Type Department Care Team (Late st Contact Info) Description 10/17/[address] [facility] [address] [place] [phone] Matheus Quijano MD [address] [place] [address] Social History Tobacco Use Types Packs/Day Years [...] 08/18/2024 10:00 AM EDT Office [address] [facility] [address] [place], [place] [phone] Matheus Quijano MD [address] [place] [address] 09/24/2024 10:00 AM EDT Office Visit [facility] ADULT DENTAL [address] [place], [place] [phone] Corrine Neri 11/06/2024 10:00 AM EDT Office Visit [facility] [address] [place], [place] [phone] YogeshKyler izquierdon, OD [address] [place] [address] documented as of this encounter Visit Diagnoses Not on filedocumented in this encounter Additional Health Concerns Assessment Noted Time PHQ-9 Depression Total Score: 16 08/23/ 023 10:18 AM EDT documented as of this encounter Care Teams Construction Site Crossing Guard Relationship Specialty Start Date End Date Matheus Quijano MD [address] [place], [place] [phone] PCP - General Internal Medicine 11/24/18 documented as of this encounter
--- OUTSIDE RECORDS SUMMARY | 2024-08-13 18:16 | XMS_ITS | Clinical Summary ---
Author Organization [employer] Address [address] [facility] 7t [place] [address] Care Team Providers Care Audit Manager Name Role Phone Matheus Quijano MD [...] records requested. Also has an appointment with [facility] End[facility]ology Assessment & Plan (09/24/2023 1:35 PM [...] seen 09/12/2023 Also has an appointment with [facility] End[facility]inology Assessment & Plan (06/21/2023 1:54 PM [...] Rheumatology, last note on record from 10/12/2020, Bench Carpenter work up showed a positive KINGS but further labs were not indicative on any autoimmune inflamatory disorder. Bench Carpenter thought her symptoms are suggestive of Fibromyalgia [...] Rheumatology, last note on record from 10/12/2020, Bench Carpenter work up showed a positive KINGS but further labs were not indicative on any autoimmune inflamatory disorder. Bench Carpenter thought her symptoms are suggestive of Fibromyalgia [...] AM EST): Patient under the care of [facility] Deloris Rabago . She has been assigned a preliminary diagnosis of depression and anxiety Assessment & Plan (06/03/2022 4:51 PM EST): Patient under the care of [facility] Deloris Rabago . She has been assigned [...] Previously she wanted to be referred to [facility] Bariat[facility] surgery program. She is now at [facility] with Dr. Michael She was interested in trying Semaglutide. This was denied by her insurance Assessment & Plan (09/18/2022 9:09 AM EDT): No longer under the care of the Weight management program. Patient has been counseled and educated about diet and exercise by the Weight management Program Patient has comorbidity of: Asthma She would like to be referred to [facility] Bariat[facility] surgery program. Referral placed She is [...] EST): Pt is under the care of [facility] Hx ASCUS HPV + PAP from 01/14/19. [...] with vitamin C Under the care of [facility] CBC ordered today Assessment & Plan (06/05/2022 1:14 PM EST): She has a Hx of anemia due to menometrorrhagia Hgb 9.7 ( 09/15/2020) Pt c/o of Heavy periods likely the cause. She is on iron. Plan: Continue FeSO4 325 mg with vitamin C Under the care of [facility] CBC ordered Cobalamin deficiency 09/27/2017 Assessment & Plan (06/05/2022 1:15 PM EST): IF negative. On vitamin b12 daily Backache 03/08/2017 Encounters Date Type Department Care Team Description 08/13/2024 Orders Only GENERIC EXTERNAL DATA DEPARTMENT Provider, Generic External Data 08/12/2024 Orders Only GENERIC EXTERNAL DATA DEPARTMENT Provider, Generic External Data 08/10/2024 Patient Outreach [facility] [address] [place] [address] Matheus Quijano MD Pre-visit Planning (SDOH unable to reach [facility]) 07/28/2024 Telephone [facility] [address] [place] [address] Aleida Rubin MD 07/28/2024 Telephone [facility] [address] [place] [address] Matheus Quijano MD Chart Prep 07/27/[address] [address] Matheus Quijano MD 07/10/2024 Population Health Risk Score [facility] Department [address] [phone] Provider, Population Health Generic 07/01/2024 Orders Only GENERIC EXTERNAL DATA DEPARTMENT Provider, Generic External Data 06/08/[address] [address] Matheus Quijano MD Nurse Triage from Last [...] Description 08/18/2024 10:00 AM EDT Office Visit [facility] [address] [place] [address] Matheus Quijano MD [address] [place] [address] 09/24/2024 10:00 AM EDT Office Visit [facility] ADULT DENTAL [address] [place] [address] Corrine Neri 11/06/2024 10:00 AM EDT Office Visit [facility] [address] [place], [place] [phone] Darcie Zuñiga, OD [address] [place] [address] Health Maintenance Due Date Last Done Comments [...] Procedure Name Priority Date/Time Associated Diagnosis Comments CT ABDOMEN PELVIS WO CONTRAST Routine 08/13/2024 5:40 PM EDT HCG, TOTAL, QN Routine 08/13/2024 4:05 PM EDT COMPREHENSIVE METABOLIC PANEL Routine 08/13/2024 4:05 PM EDT CBC WITH AUTO DIFFERENTIAL Routine 08/13/2024 4:05 PM EDT URINALYSIS, COMPLETE, WITH REFLEX TO CULTURE Routine 08/13/2024 4:04 PM EDT CREATININE, SERUM Routine 08/12/2024 10: 20 AM EDT UREA NITROGEN (BUN) Routine 08/12/2024 1 0:20 AM EDT US PELVIS TRANSVAGINAL Routine 1:28 PM EDT BACTERIAL VAGINOSIS PANEL Routine [...] (BMI) of 50.0 to 59.9 in adult ([facility]) BI US BREAST LIMITED LEFT Routine 08/09/2023 2:06 PM EDT ZZZ HISTORICAL HPV E6/E7 RFLX HAI 16 18/45 Routine 06/27/2021 9:05 AM EST HM PAP/HPV Routine 06/27/2021 from Last 3 Months or Most Recently Relevant to Health Maintenance Results * CT Abdomen Pelvis w/o Contrast (08/13/2024 5:40 PM EDT) Anatomical Region Laterality Modality Body, Pelvis, Abdomen Computed T omography 08/13/2024 5:40 PM EDT Narrative 08/13/2024 5:42 PM EDT ? [facility] ?[address] ?[place] [address] ? CT Scan Report ? Signed ? Patient: Adames Solomon,Lorrie ?MR#: ?? [id number] ? : 1980 ?Acct:[id number] ? Age/Sex: 43 / F ?ADM Date: 04/17/25 ? Loc: HO.ED ? Attending Dr: ? Ordering Physician: Rebecca Ann ?? Date of Service: 08/13/24 ?? Procedure(s): CT abdomen pelvis wo IV con ?? Accession Number(s): [id number] ? cc: Matheus Breen MD; Rebecca Ann ? Report Number: ?? [id number]: Total DLP = 1162.00 mGy-cm ? CLINICAL HISTORY: right pelvic pain, hematuria ? CT abdomen and pelvis without contrast ? Comparison: None ? Findings: ?? The lung bases are clear. ? Unremarkable abdominal organs. No calculus or hydronephrosis. Multiple ?? gallstones within the gallbladder. ?? No bowel obstruction, pneumoperitoneum, or pneumatosis. ? Pelvic contents unremarkable. Normal appendix. ?? No acute fracture. ? IMPRESSION: ?? 1. Cholelithiasis. ?? 2. No findings to explain the patient's hematuria. ? This document has been electronically signed by: Annel Clements MD on ?? 08/13/2024 17:40:52 ? Dictated By: ?Annel Clements MD ? Signed By: ?<Electronically signed by Annel Clements MD in OV> ? 08/13/24 1742 ? DD/ 1740 ? TD/TT: 08/13/240 ? [employer] Rental Dispatcher: ? Procedure Note Bree Angeles - 08/13/[address] [place] [address] [address] Scan Report Signed Patient: Lorrie BernalMR#: [id number] : 1980Acct:[id number] Age/Sex: 43 / FADM Date: 08/13/24 Loc: HO.ED Attending Dr: Ordering Physician: Rebecca Ann Date of Service: 08/13/24 Procedure(s): CT abdomen pelvis wo IV con Accession Number(s): [id number] cc: Matheus Breen MD; Rebecca Ann Report Number: [id number]: Total DLP = 1162.00 mGy-cm CLINICAL HISTORY: right pelvic pain, hematuria CT abdomen and pelvis without contrast Comparison: None Findings: The lung bases are clear. Unremarkable abdominal organs. No calculus or hydronephrosis. Multiple gallstones within the gallbladder. No bowel obstruction, pneumoperitoneum, or pneumatosis. Pelvic contents unremarkable. Normal appendix. No acute fracture. IMPRESSION: 1. Cholelithiasis. 2. No findings to explain the patient's hematuria. This document has been electronically signed by: Annel Clements MD on 08/13/2024 17:40:52 Dictated By: Annel Clements MD Signed By: <Electronically signed by Annel Clements MD in OV> 08/13/241741 DD/ 39 TD/TT: 08/13/241739 Autom[employer] Or [employer] Rental Dispatcher: [facility] External Provider IMG CT PROCEDURES Final Result * (ABNORMAL) CBC auto differential (08/13/2024 4:05 PM EDT) White Blood Count 10.3 4.8 - 10.8 X10*3/uL [facility] Red Blood Count 4.46 4.20 - 5.50 X10*6/uL [facility] Hemoglobin 12.1 12.0 - 16.0 g/dl [facility] Hematocrit 35.9(L) 37.0 - 47.0 % [facility] Mean Corpuscular Volume 80.5 80.0 - 98.0 fL [facility] Mean Corpuscular Hemoglobin 27.1 27.0 - 33.0 pg [facility] Mean Corpuscular HGB Conc 33.7 31.0 - 35.0 g/dl [facility] Red Cell Distribution Width 14.4 11.0 - 16.0 % [facility] Platelet Count 367 160 - 400 X10*3/uL [facility] Mean Platelet Volume 9.5 9.4 - 12.3 fL [facility] Neutrophils Percent Auto 65.7 45 - 73 % [facility] Imm Gran Pct Auto 0.3 0.0 - 0.4 % [facility] Lymphocytes Percent Auto 27.9 20 - 40 % [facility] Monocytes Percent Auto 4.1 2 - 11 % [facility] Eosinophils Percent Auto 1.2 0 - 4 % [facility] Basophils Percent Auto 0.8 0 - 2 % [facility] NRBC Pct Auto 0.0 0.0 - 0.2 /100WBC [facility] Neutrophils Absolute Auto 6.8 2.0 - 8.3 x10*3/uL [facility] Imm Gran Abs Auto 0.03 0.00 - 0.03 X10*3/uL [facility] Lymphocytes Absolute Auto 2.9 1.2 - 4.9 X10*3/uL [facility] Monocytes Absolute Auto 0.4 0.1 - 1.2 X10*3/uL [facility] Eosinophils Absolute Auto 0.1 0.0 - 0.4 X10*3/uL [facility] Basophils Absolute Auto 0.1 0.0 - 0.2 X10*3/uL [facility] NRBC Abs Auto 0.000 0.0 - 0.012 X10*3/uL [facility] 08/13/2024 4:05 PM EDT 08/13/2024 4:07 PM EDT us Generic External Data Provider LAB BLOOD ORDERAB LES Final Result Performing Organization Address City/State/[facility] Co de Phone Number [facility] [address] [place] [phone] * hCG, Total, Quantitative (08/13/2024 4:05 PM EDT) HCG Quantitative <2 mIU/mL [facility] Comment:Weeks post LMP Appro ximate hCG(Last Menstrual Period) Range (mIU/ml)3 - 4 weeks 9 - 1304 - 5 weeks 75 - 2,6005 - 6 weeks 850 - 20,8006 - 7 weeks 4000 - 100,2007 - 12 weeks 11,500 - 289,11650 - 16 weeks 18,300 - 137,64564 - 29 weeks (2nd trimester) 1,400 - 53,86741 - 41 weeks (3rd trimester) 940 - 60,000The Nugent B- hCG assay is used for the early detection ofpregnancy; it cannot be used to diagnose any conditionunrelated to . If a B-hCG level is not supportedby the clinical evidence, results should be confirmed by analternative method (qualitative urine hCG, for example). 08/13/2024 4:05 PM EDT 08/13/2024 4:07 PM EDT us Generic External Data Provider LAB BLOOD ORDERAB LES Final Result [facility] [address] [place] [address] [phone] * (ABNORMAL) Comprehensive Metabolic Panel (08/13/2024 4:05 PM EDT) Sodium 139 135 - 145 mmol/L [facility] Potassium 4.1 3.3 - 5.1 mmol/L [facility] Chloride 109(H) 96 - 108 mmol/L [facility] Carbon Dioxide 23 22 - 29 mmol/L [facility] Anion Gap 11(L) 12 - 20 [facility] Urea Nitrogen (BUN) 11 9 - 16 mg/dL [facility] Creatinine, Serum 0.71 0.5 - 1.4 mg/dL [facility] Creatinine Clr Calc Pharmacy 152.6 [facility] Comment:Provided height and weight: 175.26 cm,132.5 kg.eGFR (calculated from the MDRD study equation) and eCrCl(calculated from the Cockcroft-Gault equation) are based ondifferent parameters and may not yield comparable results.If eCrCl result is absurd, please check patient'sheight/weight. Estimated Glomerular Filt Rate >60 [facility] Comment:Chronic Kidney Disea se: Estimated GFR < 60 mL/min/1.48w4Bgkxwi Kidney Disease: Estimated GFR < 15 mL/min/1.73m2 Glucose 105 60 - 115 mg/dL [facility] Calcium 9.2 8.4 - 10.2 mg/dL [facility] Bilirubin, Total 0.2 0.0 - 1.0 mg/dL [facility] Aspartate Amino Transferase 14 5 - 31 U/L [facility] Alanine Aminotransferase 6 0 - 31 U/L [facility] Total Protein 7.2 6.5 - 8.0 g/dL [facility] Albumin Level 4.0 3.5 - 5.0 g/dL [facility] Alkaline Phosphatase 63 39 - 117 U/L [facility] 08/13/2024 4:05 PM EDT 08/13/2024 4:07 PM EDT us Generic External Data Provider LAB BLOOD ORDERAB LES Final Result [facility] [address] [place] [address] [phone] * (ABNORMAL) Urinalysis, Complete, with Reflex to Culture (08/13/2024 4:04 PM EDT) Color Urine Dark Yellow [facility] Appearance Urine Clear [facility] PH 5.5 5.0 - 9.0 [facility] Glucose Urine UA Negative Negative mg/dL [facility] Urine Blood Small (1+)(A) Negative [facility] Specific [place] - Urine >=1.030(H) 1.005 - 1.025 [facility] Urine Protein Trace Neg-Trace mg/dL [facility] Urine Ketones Trace Negative mg/dL [facility] Nitrite Urine Negative Negative [facility] Leukocyte Esterase Urine Negative Negative [facility] RBC Urine 11-20(A) 0 - 2 /HPF [facility] Urine WBC 0-5 0 - 5 /HPF [facility] Urine Squamous Epithelial Cell 0-2 0 - 2 /HPF [facility] Urine Bacteria None Seen None Seen [facility] Hyaline Casts, Urine 0-2 0 - 2 /LPF [facility] 08/13/2024 4:04 PM EDT 08/13/2024 4:07 PM EDT Narrative [facility] - 08/13/2024 4:13 PM EDT [id number], Clean Catch Generic External Data Provider LAB URINE ORDERAB LES Final Result Performing Organization Address [facility] de Phone Number [facility] [address] [place] [phone] * Creatinine, Serum (08/12/2024 10:20 AM EDT) Creatinine, Serum 0.68 0.5 - 1.4 mg/dL [facility] Estimated Glomerular Filt Rate >60 [facility] Comment:Chronic Kidney Disea se: Estimated GFR < 60 mL/min/1.94e1Oabfcg Kidney Disease: Estimated GFR < 15 mL/min/1.73m2 08/12/2024 10:2 0 AM EDT 08/12/2024 10:20 AM EDT Generic External Data Provider LAB BLOOD ORDERAB LES Final Result Performing Organization Address [facility] de Phone Number [facility] [address] [place] [phone] * (ABNORMAL) BUN (Blood Urea Nitrogen) (08/12/2024 10:20 AM EDT) Urea Nitrogen (BUN) 7(L) 9 - 16 mg/dL [facility] 08/12/2024 10:2 0 AM EDT 08/12/2024 10:20 AM EDT Generic External Data Provider LAB BLOOD ORDERAB LES Final Result Performing Organization Address [facility] Co de Phone Number [facility] [address] [place] [phone] * US Pelvis Transvaginal (07/23/2024 1:28 PM EDT) Anatomical Region Laterality Modality Pelvis Ultrasound 07/23/2024 1:28 PM EDT Narrative 07/23/2024 2:09 PM EDT ? [facility] ?[address] ?[place] [address] ? Ultrasound Report ? Signed ? Patient: Adames Solomon,Lorrie ?MR#: ?? [id number] ? : 1980 ?Acct:[id number] ? Age/Sex: 43 / F ?ADM Date: 07/23/24 ? Loc: HO.US ? Attending Dr: Azam Connelly MD ? Ordering Physician: Aazm Connelly MD ?? Date of Service: 07/23/24 ?? Procedure(s): US pelvic and transvaginal ?? Accession Number(s): [id number] ? cc: Matheus Breen MD; Azam Connelly [...] DD/ 1328 ? TD/TT: 07/23/24 1345 ? [employer]obile [employer] Truck Rental Dispatcher: ? Procedure Note Donottacointerpreter, Image - 07/23/[address] [address] Ultrasound Report Signed Patient: Lorrie BernalMR#: [id number] : 1980Acct:[id number] Age/Sex: 43 / FADM Date: 07/23/24 Loc: HO.US Attending Dr: Azam Connelly MD Ordering Physician: Azam Connelly MD Date of Service: 07/23/24 Procedure(s): US pelvic and transvaginal Accession Number(s): [id number] cc: Matheus Breen MD; Azam Connelly MD [...] 07/23/24 1406 DD/ 1328 TD/TT: 07/23/24 1345 [employer] Rental Dispatcher: us [facility] External Provider IMG US PROCEDURES Final Result * Bacterial Vaginosis (07/01/2024 10:27 AM EST) TRICHOMONAS VAGINALIS DETECTION BY PCR NOT DETECTED Not Detect [facility] BACTERIAL VAGINOSIS DETECTION BY PCR NEGATIVE Negative [facility] Comment:The BV organism targ ets of [...] DETECTION BY PCR NOT DETECTED Not Detect [facility] Xiomara glab krusei PCR NOT DETECTED Not Detect [facility] 07/01/2024 10:2 7 AM EST 07/01/2024 3:03 PM EST us Generic External Data Provider LAB MICROBIOLOGY - GENERAL ORDERABLES Final Result [facility] [address] [place] [phone] * Chlamydia/N. Gonorrhoeae RNA, TMA, Urogenitial (07/01/2024 10:27 AM EST) CT PCR NOT DETECTED Not Detect. [facility] Comment:A not detected test result does [...] psychologicalconsequences. NG PCR NOT DETECTED Not Detect. [facility] Comment:A not detected test result does [...] AM EST 07/01/2024 3:03 PM EST Narrative [facility] - 07/02/2024 1:44 PM EST Vaginal us Generic External Data Provider LAB MICROBIOLOGY - GENERAL ORDERABLES Final Result [facility] [address] [place] [phone] * Culture, Urine, Routine (07/01/2024 10:27 AM EST) Urine Urine specimen obtained by clean catch procedure / Unknown 07/01/2024 10:27 AM EST 07/01/2024 3:03 PM EST Comment:UACC Narrative [facility] - 07/03/2024 12:08 PM EST Urine Culture No growth. Specimen Source: Urine clean catch Generic External Data Provider LAB MICROBIOLOGY - GENERAL ORDERABLES Final Result [facility] [address] [place] [phone] * (ABNORMAL) Lipid Panel, Standard (02/27/2024 11:22 AM EDT) Triglycerides 85 <150 mg/dL [facility] Comment:Desirable Triglyceri de: less than 150 mg/dLBorderline High Triglyceride 150-199 mg/dLHigh Triglyceride: 200-499 mg/dLVery High Triglyceride: greater than or equal to 5OO mg/dL Cholesterol 179 <200 mg/dL [facility] Comment:Desirable Cholestero l: less than 200 mg/dLBorderline High Cholesterol: 200-239 mg/dLHigh Cholesterol: greater than 239 mg/dL LDL Cholesterol Calculated 122(H) <100 mg/dL [facility] Comment:Desirable LDL: less than 100 mg/dLNear Optimal/Above Optimal LDL: 110- 129 mg/dLBorderline High LDL: 130-159 mg/dLHigh LDL: 160-189 mg/dLVery High LDL: greater than or equal to 190 mg/dL HDL Cholesterol 40(L) >40 mg/dL [facility] Comment:Desirable HDL: great er than 40 mg/dL Note: This HDL assay may give artificially low results in patients with liver disease. Blood Venous blood specimen / Unknown 02/27/2024 11:22 AM EDT 02/27/2024 1:17 PM EDT us Matheus Pressley MD LAB BLOOD ORDERABLES Final Result [facility] [address] [place] [phone] * BI US Breast Limited Left (08/09/2023 2:06 PM EDT) Anatomical Region Laterality Modality Breast Left Ultrasound 08/09/2023 2:06 PM EDT Narrative 08/09/2023 2:16 PM EDT ? [facility] ? [address] ?[place] [address] ? Ultrasound Report ? Signed ? Patient: Lorrie Bernal ?MR#: ?? [id number] ? : 1980 ?Acct:[id number] ? Age/Sex: 42 / F ?ADM Date: 08/09/23 ? Loc: HO.MAMMO ? Attending Dr: Azam Connelly MD ? Ordering Physician: Azam Connelly MD ?? Date of Service: 08/09/23 ?? Procedure(s): US breast LT limited mamm only ?? Accession Number(s): [id number] ? cc: Matheus Breen MD; Azam Connelly [...] 1412 ? DD/ 1406 ? TD/TT: ? [employer] Rental Dispatcher: ? Procedure Note Bree Angeles - 08/09/2023 [facility] [address] [place] [address] Ultrasound Report Signed Patient: Lorrie BernalMR#: [id number] : 1980Acct:[id number] Age/Sex: 42 / FADM Date: 08/09/23 Loc: HO.MAMMO Attending Dr: Azam Connelly MD Ordering Physician: Azam Connelly MD Date of Service: 08/09/23 Procedure(s): US breast LT limited mamm only Accession Number(s): [id number] cc: Matheus Breen MD; Azam Connelly MD [...] in OV> 08/09/23 1412 DD/ 1406 TD/TT: [employer] Rental Dispatcher: [facility] External Provider IMG US PROCEDURES Final Result * HPV E6/E7 RFLX HAI 16 18/45 (06/27/2021 9:05 AM EST) HPV 16 RNA [facility] HPV 18/45 RNA [facility] HPV E6 E7 ADD [facility] HPV mRNA E6/E7 rflx Not Detected Not Detected [facility] Comment: Methodology: Parts Room Associate-Mediated Amplification This assay detects E6/E7 viral messenger RNA (mRNA) from 14 high-risk HPV types (16,18,31,33,35,39,45,51,52,56,58,59,66,68). The analytical performance characteristics of this assay have been determined by [employer]. The modifications have not been cleared or approved by the FDA. This assay has been validated pursuant to the CLIA regulations and is used for clinical purposes. For additional information, please refer to http://education.[employer]Sc[employer]/faq/DLR538z7 (This link if provided for information/ educational purposes only.) THIS TEST WAS PERFORMED AT: [email or web address] [address] [place] [address],[address] [place], [place] ??[phone] GALE WILKINS MD 06/27/2021 9:05 AM EST [place] HISTORICAL/NON ORDERABLE LABS Fi nal Result [facility] [address] * Hm Pap Smear (06/27/2021) Historical Provider HEALTH MAINTENANCE Final Result from Last 3 Months or Most Recently Relevant to Health Maintenance Insurance [facility] STANDARD DENTAL-[facility] MEDICAID STAND ADULT Care Teams Audit Manager Relationship Specialty Start Date End Date Matheus Quijano MD [address] [place] [phone] PCP - General Internal Medicine 11/24/18
--- OUTSIDE RECORDS SUMMARY | 2024-08-13 18:16 | XMS_ITS | Encounter Summary ---
Author Organization [employer] Address [address] [facility] [address] [place] [address] Care Team Providers Care Engineer Intern Name Role Phone Matheus Quijano MD Primary Care Provide r Encounter Details Date Type Department Care Team ([facility] st Contact Info) Description 08/12/2024 Orders [...] t he electric, gas, oil or water [employer] threatened to shut off services in your [...] Description 08/18/2024 10:00 AM EDT Office Visit [facility] MEDICINE [address] [place] [address] Matheus Quijano MD [address] [place] [address] 09/24/2024 10:00 AM EDT Office Visit [facility] ADULT DENTAL [address] [place] [address] Corrine Neri 11/06/2024 10:00 AM EDT Office Visit [facility] OPTOMETRY [address] [place] [address] YogeshDarcie, OD [address] [place] [address] documented as of this encounter Procedures Procedure Name Priority Date/Time Associated Diagnosis Comments CREATININE, SERUM Routine 08/12/2024 10: 20 AM EDT UREA NITROGEN (BUN) Routine 08/12/2024 1 0:20 AM EDT documented in this encounter Results * Creatinine, Serum (08/12/2024 10:20 AM EDT) Creatinine, Serum 0.68 0.5 - 1.4 mg/dL [facility] Estimated Glomerular Filt Rate >60 [facility] Comment:Chronic Kidney Disea se: Estimated GFR < 60 mL/min/1.45s2Ikovle Kidney Disease: Estimated GFR < 15 mL/min/1.73m2 08/12/2024 10:2 0 AM EDT 08/12/2024 10:20 AM EDT us Generic External Data Provider LAB BLOOD ORDERAB LES Final Result Performing Organization Address [facility]/ZIP Co de Phone Number [facility] [address] [place] [phone] * (ABNORMAL) BUN (Blood Urea Nitrogen) (08/12/2024 10:20 AM EDT) Urea Nitrogen (BUN) 7(L) 9 - 16 mg/dL [facility] 08/12/2024 10:2 0 AM EDT 08/12/2024 10:20 AM EDT us Generic External Data Provider LAB BLOOD ORDERAB LES Final Result Performing Organization Address [facility] de Phone Number [facility] [address] [place] [phone] documented in this encounter Visit Diagnoses Not on filedocumented in this encounter Additional Health Concerns Assessment Noted Time PHQ-9 Depression Total Score: 7 04/14/20 24 10:31 AM EST documented as of this encounter Care Teams Engineer Intern Relationship Specialty Start Date End Date Matheus Quijano MD [address] [place] [phone] PCP - General Internal Medicine 11/24/18 documented as of this encounter
--- OUTSIDE RECORDS SUMMARY | 2024-08-13 18:16 | XMS_ITS | Encounter Summary ---
Author Organization [employer] Address [address] [facility] [address] [place] [address] Care Team Providers Care System Development Engineer Name Role Phone Matheus Quijano MD Primary Care Provide r Encounter Details Date Type Department Care Team ([facility] st Contact Info) Description 08/13/2024 Orders Only GENERIC EXTERNAL DATA [...] t he electric, gas, oil or water [employer] threatened to shut off services in your [...] 08/18/2024 10:00 AM EDT Office Visit [facility] MEDICINE [address] [place] [address] Matheus Quijano MD [address] [place] [address] 09/24/2024 10:00 AM EDT Office Visit [facility] ADULT DENTAL [address] [place] [address] Corrine Neri 11/06/2024 10:00 AM EDT Office Visit [facility] OPTOMETRY [address] [place] [address] YogeshDarcie, OD [address] [place] [address] documented as of this encounter Procedures Procedure Name Priority Date/Time Associated Diagnosis Comments CT ABDOMEN PELVIS WO CONTRAST Routine 08/13/2024 5:40 PM EDT CBC WITH AUTO DIFFERENTIAL Routine 08/13/2024 4:05 PM EDT HCG, TOTAL, QN Routine 08/13/2024 4:05 PM EDT COMPREHENSIVE METABOLIC PANEL Routine 08/13/2024 4:05 PM EDT URINALYSIS, COMPLETE, WITH REFLEX TO CULTURE Routine 08/13/2024 4:04 PM EDT documented in this encounter Results * CT Abdomen Pelvis w/o Contrast (08/13/2024 5:40 PM EDT) Anatomical Region Laterality Modality Body, Pelvis, Abdomen Computed T omography 08/13/2024 5:40 PM EDT Narrative 08/13/2024 5:42 PM EDT ? [facility] ?[address] ?[place] [address] ? CT Scan Report ? Signed ? Patient: Rosangela Carbajal,Lorrie ?MR#: ?? [id number] ? : 1980 ?Acct:[id number] ? Age/Sex: 43 / F ?ADM Date: 08/13/24 ? Loc: HO.ED ? Attending Dr: ? Ordering Physician: Rebecca Ann ?? Date of Service: 08/13/24 ?? Procedure(s): CT abdomen pelvis wo IV con ?? Accession Number(s): [id number] ? cc: Matheus Breen MD; Rebecca Ann ? Report Number: ?? [id number]: Total DLP = 1162.00 mGy-cm ? CLINICAL [...] 08/13/24 1742 ? DD/ 1740 ? TD/TT: 08/13/24 1740 ? Hay Stacker: ? Procedure Note Bridgette, Image - 08/13/2024 [address] [place] [address] CT Scan Report Signed Patient: Rosangela Lorrie Carbajal#: [id number] : 1980Acct:[id number] Age/Sex: 43 / FADM Date: 08/13/24 Loc: HO.ED Attending Dr: Ordering Physician: Rebecca Ann Date of Service: 08/13/24 Procedure(s): CT abdomen pelvis wo IV con Accession Number(s): [id number] cc: Matheus Breen MD; Rebecca Ann Report Number: [id number]: Total DLP = 1162.00 mGy-cm CLINICAL HISTORY: [...] in OV> 08/13/241741 DD/ 39 TD/TT: 08/13/241739 Hay Stacker: [facility] External Provider IMG CT PROCEDURES Final Result * hCG, Total, Quantitative (08/13/2024 4:05 PM EDT) HCG Quantitative <2 mIU/mL [facility] Comment:Weeks post LMP Appro ximate hCG(Last Menstrual Period) Range (mIU/ml)3 - 4 weeks 9 - 1304 - 5 weeks 75 - 2,6005 - 6 weeks 850 - 20,8006 - 7 weeks 4000 - 100,2007 - 12 weeks 11,500 - 289,19644 - 16 weeks 18,300 - 137,28762 - 29 weeks (2nd trimester) 1,400 - 53,55845 - 41 weeks (3rd trimester) 940 - [...] Provider LAB BLOOD ORDERAB LES Final Result [facility] [address] [place] [address] [phone] * (ABNORMAL) Comprehensive Metabolic Panel (08/13/2024 4:05 PM EDT) Sodium 139 135 - 145 mmol/L [facility] Potassium 4.1 3.3 - 5.1 mmol/L [facility] Chloride 109(H) 96 - 108 mmol/L [facility] Carbon Dioxide 23 22 - 29 mmol/L [facility] Anion Gap 11(L) 12 - 20 [facility] Urea Nitrogen (BUN) 11 9 - 16 mg/dL [facility] Creatinine, Serum 0.71 0.5 - 1.4 mg/dL [facility] Creatinine Clr Calc Pharmacy 152.6 [facility] Comment:Provided height and weight: 175.26 cm,132.5 kg.eGFR (calculated from the MDRD study equation) and eCrCl(calculated from the Cockcroft-Gault equation) are based ondifferent parameters and may not yield comparable results.If eCrCl result is absurd, please check patient'sheight/weight. Estimated Glomerular Filt Rate >60 [facility] Comment:Chronic Kidney Disea se: Estimated GFR < 60 mL/min/1.19v5Wshauw Kidney Disease: Estimated GFR < 15 mL/min/1.73m2 Glucose 105 60 - 115 mg/dL [facility] Calcium 9.2 8.4 - 10.2 mg/dL [facility] Bilirubin, Total 0.2 0.0 - 1.0 mg/dL [facility] Aspartate Amino Transferase 14 5 - 31 U/L [facility] Alanine Aminotransferase 6 0 - 31 U/L [facility] Total Protein 7.2 6.5 - 8.0 g/dL [facility] Albumin Level 4.0 3.5 - 5.0 g/dL [facility] Alkaline Phosphatase 63 39 - 117 U/L [facility] 08/13/2024 4:05 PM EDT 08/13/2024 4:07 PM EDT us Generic External Data Provider LAB BLOOD ORDERAB LES Final Result [facility] [address] [place] [address] [phone] * (ABNORMAL) CBC auto differential (08/13/2024 4:05 PM EDT) White Blood Count 10.3 4.8 - 10.8 X10*3/uL [facility] Red Blood Count 4.46 4.20 - 5.50 X10*6/uL [facility] Hemoglobin 12.1 12.0 - 16.0 g/dl [facility] Hematocrit 35.9(L) 37.0 - 47.0 % [facility] Mean Corpuscular Volume 80.5 80.0 - 98.0 fL [facility] Mean Corpuscular Hemoglobin 27.1 27.0 - 33.0 pg [facility] Mean Corpuscular HGB Conc 33.7 31.0 - 35.0 g/dl [facility] Red Cell Distribution Width 14.4 11.0 - 16.0 % [facility] Platelet Count 367 160 - 400 X10*3/uL [facility] Mean Platelet Volume 9.5 9.4 - 12.3 fL [facility] Neutrophils Percent Auto 65.7 45 - 73 % [facility] Imm Gran Pct Auto 0.3 0.0 - 0.4 % [facility] Lymphocytes Percent Auto 27.9 20 - 40 % [facility] Monocytes Percent Auto 4.1 2 - 11 % [facility] Eosinophils Percent Auto 1.2 0 - 4 % [facility] Basophils Percent Auto 0.8 0 - 2 % [facility] NRBC Pct Auto 0.0 0.0 - 0.2 /100WBC [facility] Neutrophils Absolute Auto 6.8 2.0 - 8.3 x10*3/uL [facility] Imm Gran Abs Auto 0.03 0.00 - 0.03 X10*3/uL [facility] Lymphocytes Absolute Auto 2.9 1.2 - 4.9 X10*3/uL [facility] Monocytes Absolute Auto 0.4 0.1 - 1.2 X10*3/uL [facility] Eosinophils Absolute Auto 0.1 0.0 - 0.4 X10*3/uL [facility] Basophils Absolute Auto 0.1 0.0 - 0.2 X10*3/uL [facility] NRBC Abs Auto 0.000 0.0 - 0.012 X10*3/uL [facility] 08/13/2024 4:05 PM EDT 08/13/2024 4:07 PM EDT us Generic External Data Provider LAB BLOOD ORDERAB LES Final Result [facility] [address] [place] [phone] * (ABNORMAL) Urinalysis, Complete, with Reflex to Culture (08/13/2024 4:04 PM EDT) Color Urine Dark Yellow [facility] Appearance Urine Clear [facility] PH 5.5 5.0 - 9.0 [facility] Glucose Urine UA Negative Negative mg/dL [facility] Urine Blood Small (1+)(A) Negative [facility] Specific Mio - Urine >=1.030(H) 1.005 - 1.025 [facility] Urine Protein Trace Neg-Trace mg/dL [facility] Urine Ketones Trace Negative mg/dL [facility] Nitrite Urine Negative Negative [facility] Leukocyte Esterase Urine Negative Negative [facility] RBC Urine 11-20(A) 0 - 2 /HPF [facility] Urine WBC 0-5 0 - 5 /HPF [facility] Urine Squamous Epithelial Cell 0-2 0 - 2 /HPF [facility] Urine Bacteria None Seen None Seen [facility] Hyaline Casts, Urine 0-2 0 - 2 /LPF [facility] 08/13/2024 4:04 PM EDT 08/13/2024 4:07 PM EDT Narrative [facility] - 08/13/2024 4:13 PM EDT [id number], [employer] us Generic External Data Provider LAB URINE ORDERAB LES Final Result [facility] [address] [place] [phone] [phone] documented in this encounter Visit Diagnoses Not on filedocumented in this encounter Additional Health Concerns Assessment Noted Time PHQ-9 Depression Total Score: 7 04/14/20 24 10:31 AM EST documented as of this encounter Care Teams System Development Engineer Relationship Specialty Start Date End Date Matheus Quijano MD [address] [place] [address] PCP - General Internal Medicine 11/24/18 documented as of this encounter
== END 2024-08-13 18:09 | disposition home or self-care (01) ==
PROVIDERS: Registered Nurse Emergency; Emergency Provider Emergency Medicine; PCP Internal Medicine
DX: R10.2 Pelvic and perineal pain (principal); F17.210 Nicotine dependence, cigarettes, uncomplicated
CPT/HCPCS: 36415; 74176; 80053; 81001; 84702; 85025; 96372; 99284; J1885

== ENCOUNTER → 2024-08-13 16:20 | Outpatient (BNV) | payer MEDICAID, SELFPAY | PROVIDERS: Emergency Provider Emergency Medicine; PCP Internal Medicine; Visit Provider Radiology Diagnostic Radiology | DX: K80.20 Calculus of gallbladder without cholecystitis without obstruction (principal) | CPT/HCPCS: 74176 ==

== ENCOUNTER 2024-08-26 07:58 | Outpatient (REF) | payer MEDICAID, SELFPAY ==
[2024-08-26 17:20] LABS: Urine Cytology See Pathology rpt
== END 2024-08-26 07:59 | disposition home or self-care (01) ==
LOC: HO.LNP 07:58
PROVIDERS: PCP Internal Medicine; Visit Provider Nurse Practitioner Family
DX: R31.29 Other microscopic hematuria (principal); F17.200 Nicotine dependence, unspecified, uncomplicated; Z13.9 Encounter for screening, unspecified; R32 Unspecified urinary incontinence
CPT/HCPCS: 81003; 88112; 99212

== ENCOUNTER 2024-08-26 07:58 | Outpatient (AMB) | payer MEDICAID, SELFPAY ==
--- OUTSIDE RECORDS SUMMARY | 2024-08-26 08:01 | XMS_ITS | Encounter Summary ---
Author Organization [employer] Address [address] [facility] [address] [place] [address] Care Team Providers Care Scaffold Setter Name Role Phone Matheus Quijano MD Primary Care Provide r Reason for Visit * Reason Onset Date Comments Appointment Request 01/28/2024 Encounter Details Date Type Department Care Team ([facility] Contact Info) Description 01/28/2024 Telephone [facility] MEDICINE [address] [place] [address] Matheus Quijano MD [address] [place] [address] Appointment Request Social History Tobacco Use Types [...] calling to cancel appt for 01/27 and financial writer did attempt to reschedule appt however there is nothing available at this time documented in this encounter Plan of Treatment Upcoming Encounters Date Type Department Care Team (Late st Contact Info) Description 09/24/2024 10:00 AM EDT Office Visit [facility] ADULT DENTAL [address] [place] [address] Corrine Neri 11/06/2024 10:00 AM EDT Office Visit [facility] OPTOMETRY [address] [place] [address] Yogesh, Darcie, OD [address] [place] [address] documented as of this encounter Visit Diagnoses Not on filedocumented in this encounter Additional Health Concerns Assessment Noted Time PHQ-9 Depression Total Score: 19 024 1:37 PM EST documented as of this encounter Care Teams Scaffold Setter Relationship Specialty Start Date End Date Matheus Quijano MD [address] [place] [address] PCP - General Internal Medicine 11/24/18 documented as of this encounter
--- OUTSIDE RECORDS SUMMARY | 2024-08-26 08:01 | XMS_ITS | Encounter Summary ---
Author Organization [employer] Address [address] [facility] 7 [place] [address] Care Team Providers Care Garageman Name Role Phone Matheus Quijano MD Primary Care Provide r Reason for Visit * Reason Onset Date Comments Med Refill 09/24/2023 Encounter Details Date Type Department Care Team ([facility] st Contact Info) Description 09/24/2023 Refill [facility] CHC MED & PEDS [address] [place] [address] Leana Yanez MD [address] [place] [address] Social History Tobacco Use Types Packs/Day Years [...] Description 09/24/2024 10:00 AM EDT Office Visit [facility] ADULT DENTAL [address] [place] [address] Corrine Neri 11/06/2024 10:00 AM EDT Office Visit [facility] OPTOMETRY [address] [place] [address] Yogesh, Darcie, OD [address] [place] [address] documented as of this encounter Visit Diagnoses Not on filedocumented in this encounter Additional Health Concerns Assessment Noted Time PHQ-9 Depression Total Score: 19 024 1:37 PM EST documented as of this encounter Care Teams Garageman Relationship Specialty Start Date End Date Matheus Quijano MD [address] [place] [address] PCP - General Internal Medicine 11/24/18 documented as of this encounter
--- OUTSIDE RECORDS SUMMARY | 2024-08-26 08:01 | XMS_ITS | Encounter Summary ---
Author Organization [employer] Address [address] [facility] 7 [place] [address] Care Team Providers Care Manager Database Name Role Phone Matheus Quijano MD Primary Care Provide r Reason for Visit * Reason Onset Date Comments Med Refill 08/07/2023 Encounter Details Date Type Department Care Team ([facility] st Contact Info) Description 08/07/2023 Refill [facility] CHC MED & PEDS [address] [place] [address] Leana Yanez MD [address] [place] [address] Social History Tobacco Use Types Packs/Day Years [...] Description 09/24/2024 10:00 AM EDT Office Visit [facility] ADULT DENTAL [address] [place] [address] Corrine Neri 11/06/2024 10:00 AM EDT Office Visit [facility] OPTOMETRY [address] [place] [address] Yogesh, Darcie, OD [address] [place] [address] documented as of this encounter Visit Diagnoses Not on filedocumented in this encounter Additional Health Concerns Assessment Noted Time PHQ-9 Depression Total Score: 19 024 1:37 PM EST documented as of this encounter Care Teams Manager Database Relationship Specialty Start Date End Date Matheus Quijano MD [address] [place] [address] PCP - General Internal Medicine 11/24/18 documented as of this encounter
--- OUTSIDE RECORDS SUMMARY | 2024-08-26 08:01 | XMS_ITS | Encounter Summary ---
Author Organization [employer] Address [address] [facility] 7t [place] [address] Care Team Providers Care Receptionist Doctor'S Office Name Role Phone Matheus Quijano MD Primary Care Provide r Encounter Details Date Type Department Care Team (Late Contact Info) Description 01/22/2023 Orders Only [facility] MEDICINE [address] [place] [address] Provider, MD Bimal Social History Tobacco Use Types Packs/Day Years [...] Description 09/24/2024 10:00 AM EDT Office Visit [facility] ADULT DENTAL [address] [place] [address] Corrine Neri 11/06/2024 10:00 AM EDT Office Visit [facility] OPTOMETRY [address] [place] [address] Darcie Zuñiga, OD [address] [place] [address] documented as of this encounter Procedures Procedure Name Priority Date/Time Associated Diagnosis Comments HM PAP/HPV Routine 06/27/2021 HM PAP/HPV Routine 03/09/2020 documented in this encounter Results * Hm Pap Smear (06/27/2021) Historical Provider HEALTH MAINTENANCE Final Result * Pap Smear (03/09/2020) Historical Provider HEALTH MAINTENANCE Final Result documented in this encounter Visit Diagnoses Not on filedocumented in this encounter Additional Health Concerns Assessment Noted Time PHQ-9 Depression Total Score: 16 023 10:18 AM EDT documented as of this encounter Care Teams Receptionist Doctor'S Office Relationship Specialty Start Date End Date Matheus Quijano MD [address] [place] [address] PCP - General Internal Medicine 11/24/18 documented as of this encounter
--- OUTSIDE RECORDS SUMMARY | 2024-08-26 08:01 | XMS_ITS | Encounter Summary ---
Author Organization [employer] Address 75 [facility] [address]t [place] [address] Care Team Providers Care Industrial Economist Name Role Phone Matheus Quijano MD Primary Care Provide r Encounter Details Date Type Department Care Team (Late st Contact Info) Description 10/17/2022 Abstract [facility] MEDICINE [address] [place] [address] Matheus Quijano MD [address] [place] [address] Social History Tobacco Use Types Packs/Day Years [...] Description 09/24/2024 10:00 AM EDT Office Visit [facility] ADULT DENTAL [address] [place] [address] Corrine Neri 11/06/2024 10:00 AM EDT Office Visit [facility] OPTOMETRY [address] [place], [place] [phone] Darcie Zuñiga, OD [address] [place] [address] documented as of this encounter Visit Diagnoses Not on filedocumented in this encounter Additional Health Concerns Assessment Noted Time PHQ-9 Depression Total Score: 16 08/23/ 023 10:18 AM EDT documented as of this encounter Care Teams Industrial Economist Relationship Specialty Start Date End Date Matheus Quijano MD [address] [place] [address] PCP - General Internal Medicine 11/24/18 documented as of this encounter
--- OUTSIDE RECORDS SUMMARY | 2024-08-26 08:01 | XMS_ITS | Encounter Summary ---
Author Organization [employer] Address [address] [facility] [address] [place] [address] Care Team Providers Care Geriatric Personal Care Aide Name Role Phone Matheus Quijano MD Primary Care Provide r Reason for Visit * Reason Onset Date Comments Med Refill 03/15/2023 Encounter Details Date Type Department Care Team ([facility] st Contact Info) Description 03/15/2023 Refill [facility] MEDICINE [address] [place] [address] Krystin Saenz MD [address] [place] [address] Class 3 severe obesity due to excess [...] note were not included. Triage call with [employer] [place] [id number] Pt contacts through Pt portal regarding exposure [...] but, if neg Pt will come to [facility] to be seen for asthma like symptoms, declined to come to [facility] today. Protocol Used: COVID-19 - Diagnosed [...] You become worse Pt portal request: Lorrie Carbajal [facility] Medicine Clinical Support (supporting Matheus Pressley MD) 3 days ago [place] Mi katy?? nella positivo y tenemos contacto diario,me gustar??a que me recete los medicamentos para COVID y me los env??e a la farmacia [facility] por favor para tenerlos en simran de roxanna positivo en el fin de semana documented in this encounter Plan of Treatment Upcoming Encounters Date Type Department Care Team ([facility] st Contact Info) Description 09/24/2024 10:00 AM EDT Office Visit [facility] ADULT DENTAL [address] [place] [address] Telma Nerisa 11/06/2024 10:00 AM EDT Office Visit [facility] OPTOMETRY [address] [place], [place] [phone] Darcie Zuñiga, OD [address] [place] [address] documented as of this encounter Visit Diagnoses Diagnosis Class 3 severe obesity due to excess calories with serious comorbidity and body mass index (BMI) of 50.0 to 59.9 in adult documented in this encounter Additional Health Concerns Assessment Noted Time PHQ-9 Depression Total Score: 16 08/23/ 023 10:18 AM EDT documented as of this encounter Care Teams Geriatric Personal Care Aide Relationship Specialty Start Date End Date Matheus Quijano MD [address] [place] [address] PCP - General Internal Medicine 11/24/18 documented as of this encounter
--- OUTSIDE RECORDS SUMMARY | 2024-08-26 08:01 | XMS_ITS | Clinical Summary ---
Author Organization [employer] Address [address] [place] [address] Care Team Providers Care Work From Home Name Role Phone Matheus Quijano MD Primary Care Provide r Allergies No known active allergies Medications Albuterol Sulfate (ProAir RespiClick) 108 (90 Base) MCG/ACT aerosol powder Inhale 2 puffs. 01/20/20 22 Active ferrous sulfate 325 (65 Fe) MG tablet Take 1 tablet by mouth every 12 (twelve) hours. 06/18/19 20 Active Cyanocobalamin ER 1000 MCG tablet controlled-rele ase Take 1 tablet by mouth in the morning. 06/18/19 20 Active cholecalciferol (Vitamin D-3) 50 MCG (2000 UT) capsule Take 1 capsule by mouth in the morning. 06/18/19 20 Active ascorbic acid (Vitamin C) 250 MG chewable tablet Take with ferrous sulfate tablet 3 times a week 02/21/20 18 Active ketoconazole (Nizoral) 2 % shampooIndicati ons:Seborrheic dermatitis Apply topically 2 (two) times a week. 120 mL 1 10/02/19 23 Active desonide (DesOwen) 0.05 % creamIndication s:Seborrheic dermatitis Apply topically at bedtime. 15 g 2 09/29/19 23 Active cetirizine (ZyrTEC) 10 MG tabletIndicatio ns:Seasonal allergies Take 1 tablet (10 mg) by mouth Once per day. 90 tablet 3 09/24/19 24 Active nabumetone (Relafen) 500 MG tabletIndicatio ns:Fibromyalgia TAKE 1 TABLET BY MOUTH TWICE DAILY 60 tablet 3 12/03/19 24 Active topiramate 50 MG tablet Take 1 tablet by mouth 2 times daily. 11/08/19 24 Active SUMAtriptan (Imitrex) 50 MG tablet TAKE 1 TABLET BY MOUTH ONCE DAILY DIRECTED 04/15/20 23 Active bromocriptine (Parlodel) 2.5 MG tablet Take 2.5 mg by mouth Once per day. 09/12/19 24 Active Sodium Fluoride (PreviDent 5000 Plus) 1.1 % cream Apply 1 mg to teeth 3 times daily. 1 g 3 01/24/20 24 Active Ventolin HFA 108 (90 Base) MCG/ACT inhaler INHALE 2 PUFFS BY MOUTH EVERY 6 HOURS NEEDED FOR WHEEZING 18 g 3 03/09/20 24 Active pregabalin (Lyrica) 150 MG capsuleIndicati ons:Fibromyalgi a TAKE 1 CAPSULE BY MOUTH EVERY TWELVE HOURS 60 capsule 5 04/16/20 24 Active Arnuity Ellipta 100 MCG/ACT inhalerIndicati ons:Mild intermittent asthma without complication INHALE 1 PUFF BY MOUTH EVERY DAY AT THE SAME TIME 30 each 5 04/16/20 24 Active docusate sodium (Colace) 100 MG capsuleIndicati ons:Slow transit constipation Take 1 capsule (100 mg) by mouth every 12 (twelve) hours. 60 capsule 3 08/19/19 25 Active docusate sodium (Colace) 100 MG capsule Take 1 capsule by mouth every 12 (twelve) hours. 04/06/20 19 025 Discontinued(Re order (will not trigger notification to Pharmacy)) Active Problems Problem Noted Date Diagnosed Date Slow transit constipation 08/18/2024 Nasal congestion 08/18/2024 Assessment & Plan (08/18/2024 10:53 AM EDT): Rapid flu and covid Neg Supportive measures, antihistaminics Chest pressure 06/21/2023 Assessment & Plan (04/14/2024 [...] for outpatient stress test and Holter monitor Pituitary adenoma 04/30/2023 Assessment & Plan (08/18/2024 9:37 AM EDT): Pt here for a follow up She is under the care of Neurology, and Endocrinology, last seen by Dr Mahoney 07/2023, has a follow up with him. As part of her work up for headaches she underwent an MRI Brain 01/07/2023 11 mm cystic intrasellar lesion. Repeat MRI of brain with contrast done 01/31/2023 showed a 1.2 x 1.0 x 0.9 cyst in the right pituitary gland. Diferential include a cystic pituitary adenoma or a Rathke? s cleft cyst . Endocrine work up recommended and continued surveillance. Pt was seen 09/12/2023 at [facility] Endocrinology , and most recently 07/17/[address] Deandra Saucedo, acording to her patient had a repeat MRI in July 2023 that demonstrated an interval decrease in size of cystic lesion in the right pituitary gland , measuring 1 cm., without mass effect on the optic chiasm, nerves and tracts. 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 And follow up with them in 6 months Assessment & Plan (04/14/2024 10:44 AM EST): [...] records requested. Also has an appointment with [facility] Endocrinology Assessment & [...] seen 09/12/2023 Also has an appointment with [facility] Endocrinology Assessment & [...] Rheumatology, last note on record from 10/12/2020, Dexigraph Operator work up showed a positive KINGS but further labs were not indicative on any autoimmune inflamatory disorder. Dexigraph Operator thought her symptoms are suggestive of [...] Rheumatology, last note on record from 10/12/2020, Dexigraph Operator work up showed a positive KINGS but further labs were not indicative on any autoimmune inflamatory disorder. Dexigraph Operator thought her symptoms are suggestive of [...] Mild intermittent asthma 06/03/2022 Assessment & Plan (08/18/2024 10:08 AM EDT): Here for a follow up, no recent exacerbations Patient with previous c/o persistent dry cough ever since she had Covid-19 PFTS 07/28/2021 showed Mild obstructive airway disorder with good response with bronchodilator therapy, compared with results from 03/11/2018 the response to bronchodilator therapy was new counseled and educated about tobacco cessation as well She is on Flovent BID and Pro-Air prn Assessment & Plan (06/03/2022 4:47 PM EST): [...] prn Kidney stone 06/03/2022 Assessment & Plan (08/18/2024 9:04 AM EDT): Pt with previous c/o back pain, UA positive for blood Previous CT of abdomen and pelvis indicative of Nephrolithiasis, s/p Lithotripsy, last renal U/S 12/01/2019 showed 5 mm non obstructing calculus Most recently had repeat UA and CT done by INJECTION OPERATOR 08/13/2024 showed UA with hematuria/CT neg Referred back to Urology by Dr. Connelly INJECTION OPERATOR Assessment & Plan (06/03/2022 4:55 PM EST): [...] home Depressive disorder 06/03/2022 Assessment & Plan (08/18/2024 10:19 AM EDT): Patient continues under the care of [facility] . Sees a psychiatrist Dr Woodson She has been assigned a preliminary diagnosis of depression and anxiety Assessment & Plan (04/14/2024 10:38 AM EST): Patient under the care of [facility] . She has been assigned a preliminary diagnosis of depression and anxiety Assessment & Plan (06/03/2022 4:51 PM EST): Patient under the care of [facility] . She has been assigned a preliminary diagnosis of depression and anxiety Obesity due to excess calories with serious toña rbidity 06/03/2022 Assessment & Plan (08/18/2024 10:18 AM EDT): Pt here for a follow up, continues to loose weight ( 12 lbs since last visit ) Patient has been counseled and educated about diet and exercise , no longer under the care of the Weight management Program Patient has comorbidity of: Asthma Previously she wanted to be referred to [facility] Bariatric surgery program. Last minute she decided against it She is no longer seeing Dr. Michael In the past she was interested in trying Semaglutide. This was denied by her insurance Assessment & Plan (06/21/2023 2:06 PM EST): Pt lost 30 lbs Patient has been counseled and educated about diet and exercise by the Weight management Program Patient has comorbidity of: Asthma Previously she wanted to be referred to [facility] Bariatric surgery program. She is now at [facility] with Dr. Michael She was interested in trying Semaglutide. This was denied by her insurance Assessment & Plan (09/18/2022 9:09 AM EDT): No longer under the care of the Weight management program. Patient has been counseled and educated about diet and exercise by the Weight management Program Patient has comorbidity of: Asthma She would like to be referred to [facility] Bariatric surgery program. [...] EST): Pt is under the care of INJECTION OPERATOR Hx ASCUS HPV + PAP from [...] with vitamin C Under the care of INJECTION OPERATOR CBC ordered today Assessment & Plan (06/05/2022 1:14 PM EST): She has a Hx of anemia due to menometrorrhagia Hgb 9.7 ( 09/15/2020) Pt c/o of Heavy periods likely the cause. She is on iron. Plan: Continue FeSO4 325 mg with vitamin C Under the care of INJECTION OPERATOR CBC ordered Cobalamin deficiency 09/27/2017 Assessment & Plan (06/05/2022 1:15 PM EST): IF negative. On vitamin b12 daily Backache 03/08/2017 Encounters Date Type Department Care Team Description 08/18/2024 10:00 AM EDT Office Visit [facility] [address] [place] [phone] Matheus Quijano MD Pituitary adenoma (CMS/HCC) (Primary Dx); Kidney stone; Mild intermittent asthma without complication; Nasal congestion; Class 3 severe obesity due to excess calories with serious comorbidity and body mass index (BMI) of 40.0 to 44.9 in adult; Slow transit constipation; Depressive disorder 08/18/2024 Travel 08/13/2024 Orders Only GENERIC EXTERNAL DATA DEPARTMENT Provider, Generic External Data 08/12/2024 Orders Only GENERIC EXTERNAL DATA DEPARTMENT Provider, Generic External Data 08/10/2024 Patient Outreach [facility] [address] [place] [address] Matheus Quijano MD Pre-visit Planning (SDOH unable to reach LVM) 07/28/2024 Telephone [facility] [address] [place] [address] Aleida Rubin MD 07/28/2024 Telephone [facility] [address] [place] [address] Matheus Quijano MD Chart Prep 07/27/2024 Telephone [facility] [address] [place] [address] Matheus Quijano MD 07/10/2024 Population Health Risk Score [facility] () Department [address] [place] [phone] Provider, Population Health Generic 07/01/2024 Orders Only GENERIC EXTERNAL DATA DEPARTMENT Provider, Generic External Data 06/08/2024 Telephone [facility] [address] [place] [address] Matheus Quijano MD Nurse Triage from Last [...] Answer Date Recorded Patient Health Questionnaire-9 Score 4 08/18/2024 Patient Health Questionnaire-9 Score 4 08/18/2024 Last PHQ-9: Questionnaire Data Not on file 0 08/18/2024 Housing Stability Answer Date Recorded What is [...] Answer Date Recorded Patient Health Questionnaire-2 Score 0 08/18/2024 Comments No Sex and Gender Information Value Date Recorded Sex Assigned at Female 02/26/2022 10:32 AM EDT Legal Sex Female 10:32 AM EDT Gender Identity Female 02/26/2022 10:32 AM EDT Sexual Orientation Straight 05/23/2022 8: 45 AM EST Last Filed Vital Signs Vital Sign Reading Time Taken Comments Blood Pressure 118/80 08/18/2024 10:02 AM EDT Pulse 95 08/18/2024 10:02 AM EDT Temperature 36.3 ??C (97.4 ??F) 08/18/2024 10:02 AM E DT Respiratory Rate 20 08/18/2024 10:02 AM EDT Oxygen Saturation 99% 08/18/2024 10:02 AM EDT Inhaled Oxygen Concentration - - Weight 134 kg (296 lb 6.4 oz) 08/18/2024 10:02 A M EDT Height 175.3 cm (5' 9 ) 08/18/2024 10:02 AM EDT Body Mass Index 43.77 08/18/2024 10:02 AM EDT Plan of Treatment Upcoming Encounters Date Type Department Care Team (Late st Contact Info) Description 09/24/2024 10:00 AM EDT Office Visit [facility] [address] [place] [address] Corrine Neri 11/06/2024 10:00 AM EDT Office Visit [facility] [address] [place] [address] Darcie Zuñiga, OD [address] [place] [address] Health Maintenance Due Date Last Done Comments [...] 24, 01/24/2024 Alcohol/Substance Use Screening 04/14/2025 04/14/2024 Tobacco Screening 04/14/2025 04/14/2024 Mammogram 08/08/2025 08/09/2023 Depression Screening 08/18/2025 08/18/2024, 08/18/2024 HPV/Cotest 06/27/2026 06/27/2021, 06/27/2021, 01/14/2019 Dental X-Ray: [...] Procedure Name Priority Date/Time Associated Diagnosis Comments POCT INFLUENZA B (ID NOW RAPID MOLECULAR) Routine 08/18/2024 10:29 AM EDT Nasal congestion POCT INFLUENZA A (ID NOW RAPID MOLECULAR) Routine 08/18/2024 10:29 AM EDT Nasal congestion POCT RAPID COVID ANTIGEN Routine 08/18/2024 10:27 AM EDT Nasal congestion CT ABDOMEN PELVIS WO CONTRAST Routine 08/13/2024 [...] (BMI) of 50.0 to 59.9 in adult ([facility]) BI US BREAST LIMITED LEFT Routine 08/09/2023 2:06 PM EDT ZZZ HISTORICAL HPV E6/E7 RFLX HAI 16 18/45 Routine 06/27/2021 9:05 AM EST HM PAP/HPV Routine 06/27/2021 from Last 3 Months or Most Recently Relevant to Health Maintenance Results * POCT Rapid Influenza B HAYES ID NOW (08/18/2024 10:29 AM EDT) Influenza B Negative Negative, Indeterminate [facility] QC Media Lot # [id number] [facility] Lot# Expiration Date [id number] [facility] Swab 08/18/2024 10:2 9 AM EDT us Matheus Pressley MD POINT OF CARE TEST EN TER/EDIT ORDERABLES Final Result [facility] [address] [place] [phone] * POCT Rapid Influenza A HAYES ID NOW (08/18/2024 10:29 AM EDT) Influenza A Negative Negative, Indeterminate [facility] QC Media Lot # [id number] [facility] Lot# Expiration Date , [facility] Swab 08/18/2024 10:2 9 AM EDT Matheus Pressley MD POINT OF CARE TEST EN TER/EDIT ORDERABLES Final Result [facility] [address] [place] [address] [phone] * POCT Rapid Covid-19 BinaxNOW (08/18/2024 10:27 AM EDT) Rapid COVID Ag Negative QC Media Lot # [id number] Lot# Expiration Date ,026 Swab 08/18/2024 10:2 7 AM EDT Matheus Pressley MD POINT OF CARE TEST EN TER/EDIT ORDERABLES Final Result * CT Abdomen Pelvis w/o Contrast (08/13/2024 5:40 PM EDT) Anatomical Region Laterality Modality Body, Pelvis, Abdomen Computed T omography 08/13/2024 5:40 PM EDT Narrative 08/13/2024 5:42 PM EDT ? [facility] ?[address] ?[place] [address] ? CT Scan Report ? Signed ? Patient: Adames Solomon,Lorrie ?MR#: ?? [id number] ? : 1980 ?Acct:[id number] ? Age/Sex: 43 / F ?ADM Date: 04/17/25 ? Loc: HO.ED ? Attending Dr: ? Ordering Physician: Renroopaler,Rebecca PA ?? Date of Service: 08/13/24 ?? Procedure(s): CT abdomen pelvis wo IV con ?? Accession Number(s): [id number] ? cc: Matheus Breen MD; Rebecca Ann ? Report Number: ?? [id number]: Total DLP = 1162.00 mGy-cm ? CLINICAL [...] DD/ 1740 ? TD/TT: 08/13/24 1740 ? Information Clerk Brokerage: ? Procedure Note Bridgette, Image - 08/13/[address] [place] [address] [address] Scan Report Signed Patient: Lorrie BernalMR#: [id number] : 1980Acct:[id number] Age/Sex: 43 / FADM Date: 08/13/24 Loc: HO.ED Attending Dr: Ordering Physician: Rebecca Ann Date of Service: 08/13/24 Procedure(s): CT abdomen pelvis wo IV con Accession Number(s): [id number] cc: Matheus Breen MD; Rebecca Ann Report Number: [id number]: Total DLP = 1162.00 mGy-cm CLINICAL HISTORY: [...] in OV> 08/13/241741 DD/ 39 TD/TT: 08/13/241739 Information Clerk Brokerage: [facility] External Provider IMG CT PROCEDURES Final Result * (ABNORMAL) CBC auto differential (08/13/2024 4:05 PM EDT) White Blood Count 10.3 4.8 - 10.8 X10*3/uL [facility] Red Blood Count 4.46 4.20 - 5.50 X10*6/uL [facility] Hemoglobin 12.1 12.0 - 16.0 g/dl [facility] Hematocrit 35.9(L) 37.0 - 47.0 % [facility] Mean Corpuscular Volume 80.5 80.0 - 98.0 fL [facility] Mean Corpuscular Hemoglobin 27.1 27.0 - 33.0 pg [facility] Mean Corpuscular HGB Conc 33.7 31.0 - 35.0 g/dl [facility] Red Cell Distribution Width 14.4 11.0 - 16.0 % [facility] Platelet Count 367 160 - 400 X10*3/uL [facility] Mean Platelet Volume 9.5 9.4 - 12.3 fL [facility] Neutrophils Percent Auto 65.7 45 - 73 % [facility] Imm Gran Pct Auto 0.3 0.0 - 0.4 % [facility] Lymphocytes Percent Auto 27.9 20 - 40 % [facility] Monocytes Percent Auto 4.1 2 - 11 % [facility] Eosinophils Percent Auto 1.2 0 - 4 % [facility] Basophils Percent Auto 0.8 0 - 2 % [facility] NRBC Pct Auto 0.0 0.0 - 0.2 /100WBC [facility] Neutrophils Absolute Auto 6.8 2.0 - 8.3 x10*3/uL [facility] Imm Gran Abs Auto 0.03 0.00 - 0.03 X10*3/uL [facility] Lymphocytes Absolute Auto 2.9 1.2 - 4.9 X10*3/uL [facility] Monocytes Absolute Auto 0.4 0.1 - 1.2 X10*3/uL [facility] Eosinophils Absolute Auto 0.1 0.0 - 0.4 X10*3/uL [facility] Basophils Absolute Auto 0.1 0.0 - 0.2 X10*3/uL [facility] NRBC Abs Auto 0.000 0.0 - 0.012 X10*3/uL [facility] 08/13/2024 4:05 PM EDT 08/13/2024 4:07 PM EDT us Generic External Data Provider LAB BLOOD ORDERAB LES Final Result [facility] [address] [place] [phone] * hCG, Total, Quantitative (08/13/2024 4:05 PM EDT) HCG Quantitative <2 mIU/mL [facility] Comment:Weeks post LMP Appro ximate hCG(Last Menstrual Period) Range (mIU/ml)3 - 4 weeks 9 - 1304 - 5 weeks 75 - 2,6005 - 6 weeks 850 - 20,8006 - 7 weeks 4000 - 100,2007 - 12 weeks 11,500 - 289,69553 - 16 weeks 18,300 - 137,08668 - 29 weeks (2nd trimester) 1,400 - 53,43358 - 41 weeks (3rd trimester) 940 - 60,000The Haeys B- hCG assay is used for the early detection ofpregnancy; it cannot be used to diagnose any conditionunrelated to . If a B-hCG level is not supportedby the clinical evidence, results should be confirmed by analternative method (qualitative urine hCG, for example). 08/13/2024 4:05 PM EDT 08/13/2024 4:07 PM EDT us Generic External Data Provider LAB BLOOD ORDERAB LES Final Result [facility] [address] [place], [place] [phone] * (ABNORMAL) Comprehensive Metabolic Panel (08/13/2024 4:05 PM EDT) Sodium 139 135 - 145 mmol/L [facility] Potassium 4.1 3.3 - 5.1 mmol/L [facility] Chloride 109(H) 96 - 108 mmol/L [facility] Carbon Dioxide 23 22 - 29 mmol/L [facility] Anion Gap 11(L) 12 - 20 [facility] Urea Nitrogen (BUN) 11 9 - 16 mg/dL [facility] Creatinine, Serum 0.71 0.5 - 1.4 mg/dL [facility] Creatinine Clr Calc Pharmacy 152.6 [facility] Comment:Provided height and weight: 175.26 cm,132.5 kg.eGFR (calculated from the MDRD study equation) and eCrCl(calculated from the Cockcroft-Gault equation) are based ondifferent parameters and may not yield comparable results.If eCrCl result is absurd, please check patient'sheight/weight. Estimated Glomerular Filt Rate >60 [facility] Comment:Chronic Kidney Disea se: Estimated GFR < 60 mL/min/1.93q7Ikzmmj Kidney Disease: Estimated GFR < 15 mL/min/1.73m2 Glucose 105 60 - 115 mg/dL [facility] Calcium 9.2 8.4 - 10.2 mg/dL [facility] Bilirubin, Total 0.2 0.0 - 1.0 mg/dL [facility] Aspartate Amino Transferase 14 5 - 31 U/L [facility] Alanine Aminotransferase 6 0 - 31 U/L [facility] Total Protein 7.2 6.5 - 8.0 g/dL [facility] Albumin Level 4.0 3.5 - 5.0 g/dL [facility] Alkaline Phosphatase 63 39 - 117 U/L [facility] 08/13/2024 4:05 PM EDT 08/13/2024 4:07 PM EDT Generic External Data Provider LAB BLOOD ORDERAB LES Final Result Performing Organization Address [facility] Co de Phone Number [facility] [address] [place] [phone] * (ABNORMAL) Urinalysis, Complete, with Reflex to Culture (08/13/2024 4:04 PM EDT) Color Urine Dark Yellow [facility] Appearance Urine Clear [facility] PH 5.5 5.0 - 9.0 [facility] Glucose Urine UA Negative Negative mg/dL [facility] Urine Blood Small (1+)(A) Negative [facility] Specific Roggen - Urine >=1.030(H) 1.005 - 1.025 [facility] Urine Protein Trace Neg-Trace mg/dL [facility] Urine Ketones Trace Negative mg/dL [facility] Nitrite Urine Negative Negative [facility] Leukocyte Esterase Urine Negative Negative [facility] RBC Urine 11-20(A) 0 - 2 /HPF [facility] Urine WBC 0-5 0 - 5 /HPF [facility] Urine Squamous Epithelial Cell 0-2 0 - 2 /HPF [facility] Urine Bacteria None Seen None Seen [facility] Hyaline Casts, Urine 0-2 0 - 2 /LPF [facility] 08/13/2024 4:04 PM EDT 08/13/2024 4:07 PM EDT Narrative [facility] - 08/13/2024 4:13 PM EDT [id number], Clean Catch Generic External Data Provider LAB URINE ORDERAB LES Final Result Performing Organization Address [facility] Co de Phone Number [facility] [address] [place] [phone] * Creatinine, Serum (08/12/2024 10:20 AM EDT) Creatinine, Serum 0.68 0.5 - 1.4 mg/dL [facility] Estimated Glomerular Filt Rate >60 [facility] Comment:Chronic Kidney Disea se: Estimated GFR < 60 mL/min/1.15y6Elbjir Kidney Disease: Estimated GFR < 15 mL/min/1.73m2 08/12/2024 10:2 0 AM EDT 08/12/2024 10:20 AM EDT Generic External Data Provider LAB BLOOD ORDERAB LES Final Result Performing Organization Address [facility] de Phone Number [facility] [address] [place] [phone] * (ABNORMAL) BUN (Blood Urea Nitrogen) (08/12/2024 10:20 AM EDT) Urea Nitrogen (BUN) 7(L) 9 - 16 mg/dL [facility] 08/12/2024 10:2 0 AM EDT 08/12/2024 10:20 AM EDT Generic External Data Provider LAB BLOOD ORDERAB LES Final Result Performing Organization Address [facility] de Phone Number [facility] [address] [place] [phone] * US Pelvis Transvaginal (07/23/2024 1:28 PM EDT) Anatomical Region Laterality Modality Pelvis Ultrasound 07/23/2024 1:28 PM EDT Narrative 07/23/2024 2:09 PM EDT ? [facility] ?[address] ?[place] [address] ? Ultrasound Report ? Signed ? Patient: Adames Solomon,Lorrie ?MR#: ?? [id number] ? : 1980 ?Acct:[id number] ? Age/Sex: 43 / F ?ADM Date: 03/27/25 ? Loc: HO.US ? Attending Dr: Azam Connelly MD ? Ordering Physician: Azam Connelly MD ?? Date of Service: 07/23/24 ?? Procedure(s): US pelvic and transvaginal ?? Accession Number(s): [id number] ? cc: Matheus Breen MD; Azam Connelly [...] DD/ 1328 ? TD/TT: 07/23/24 1345 ? Information Clerk Brokerage: ? Procedure Note Donotuseinterpreter, Image - 07/23/2024 [place] [address] Ultrasound Report Signed Patient: Lorrie BernalMR#: [id number] : 1980Acct:[id number] Age/Sex: 43 / FADM Date: 07/23/24 Loc: HO.US Attending Dr: Azam Connelly MD Ordering Physician: Azam Connelly MD Date of Service: 07/23/24 Procedure(s): US pelvic and transvaginal Accession Number(s): [id number] cc: Matheus Breen MD; Azam Connelly MD [...] Ruiz Dumont MD 07/23/2024 02:06 PM EDT RP Dictated By: Ruiz Dumont MD Signed By: <Electronically signed by Ruiz Dumont MD in OV> 07/23/24 1406 DD/ 1328 TD/TT: 07/23/24 1345 Information Clerk Brokerage: [facility] External Provider IMG US PROCEDURES Final Result * Bacterial Vaginosis (07/01/2024 10:27 AM EST) Pathologist [facility] TRICHOMONAS VAGINALIS DETECTION BY PCR NOT DETECTED Not Detect [facility] BACTERIAL VAGINOSIS DETECTION BY PCR NEGATIVE Negative [facility] [facility] Comment:The BV organism targ ets [...] DETECTION BY PCR NOT DETECTED Not Detect [facility] Xiomara glab krusei PCR NOT DETECTED Not Detect [facility] 07/01/2024 10:2 7 AM EST 07/01/2024 3:03 PM EST Generic External Data Provider LAB MICROBIOLOGY - GENERAL ORDERABLES Final Result [facility] [address] [place] [address] [phone] * Chlamydia/N. Gonorrhoeae RNA, TMA, Urogenitial (07/01/2024 10:27 AM EST) CT PCR NOT DETECTED Not Detect. [facility] Comment:A not detected test result [...] psychologicalconsequences. NG PCR NOT DETECTED Not Detect. [facility] Comment:A not detected test result [...] AM EST 07/01/2024 3:03 PM EST Narrative [facility] - 07/02/2024 1:44 PM EST Vaginal us Generic External Data Provider LAB MICROBIOLOGY - GENERAL ORDERABLES Final Result [facility] [address] [place] [phone] * Culture, Urine, Routine (07/01/2024 10:27 AM EST) Urine Urine specimen obtained by clean catch procedure / Unknown 07/01/2024 10:27 AM EST 07/01/2024 3:03 PM EST Comment:UACC Narrative [facility] - 07/03/2024 12:08 PM EST Urine Culture No growth. Specimen Source: Urine clean catch us Generic External Data Provider LAB MICROBIOLOGY - GENERAL ORDERABLES Final Result Performing Organization Address [facility]/ZIP Co de Phone Number [facility] [address] [place] [address] [phone] * (ABNORMAL) Lipid Panel, Standard (02/27/2024 11:22 AM EDT) Triglycerides 85 <150 mg/dL [facility] Comment:Desirable Triglyceri de: less than 150 mg/dLBorderline High Triglyceride 150-199 mg/dLHigh Triglyceride: 200-499 mg/dLVery High Triglyceride: greater than or equal to 5OO mg/dL Cholesterol 179 <200 mg/dL [facility] Comment:Desirable Cholestero l: less than 200 mg/dLBorderline High Cholesterol: 200-239 mg/dLHigh Cholesterol: greater than 239 mg/dL LDL Cholesterol Calculated 122(H) <100 mg/dL [facility] Comment:Desirable LDL: less than 100 mg/dLNear Optimal/Above Optimal LDL: 110- 129 mg/dLBorderline High LDL: 130-159 mg/dLHigh LDL: 160-189 mg/dLVery High LDL: greater than or equal to 190 mg/dL HDL Cholesterol 40(L) >40 mg/dL [facility] Comment:Desirable HDL: great er than 40 mg/dL Note: This HDL assay may give artificially low results in patients with liver disease. Blood Venous blood specimen / Unknown 02/27/2024 11:22 AM EDT 02/27/2024 1:17 PM EDT us Matheus Pressley MD LAB BLOOD ORDERABLES Final Result Performing Organization Address [facility]/ZIP Co de Phone Number [facility] [address] [place] [address] [phone] * BI US Breast Limited Left (08/09/2023 2:06 PM EDT) Anatomical Region Laterality Modality Breast Left Ultrasound 08/09/2023 2:06 PM EDT Narrative 08/09/2023 2:16 PM EDT ? [facility] ? [address] ?[place] [address] ? Ultrasound Report ? Signed ? Patient: Adames Solomon,Lorrie ?MR#: ?? [id number] ? : 1980 ?Acct:[id number] ? Age/Sex: 42 / F ?ADM Date: 08/09/23 ? Loc: HO.MAMMO ? Attending Dr: Azam Connelly MD ? Ordering Physician: Azam Connelly MD ?? Date of Service: 08/09/23 ?? Procedure(s): US breast LT limited mamm only ?? Accession Number(s): [id number] ? cc: Matheus Breen MD; Azam Connelly [...] 1412 ? DD/ 1406 ? TD/TT: ? Information Clerk Brokerage: ? Procedure Note Bree Angeles - 08/09/2023 [facility] [address] [place] [address] Ultrasound Report Signed Patient: Lorrie BernalMR#: [id number] : 1980Acct:[id number] Age/Sex: 42 / FADM Date: 08/09/23 Loc: HO.MAMMO Attending Dr: Azam Connelly MD Ordering Physician: Azam Connelly MD Date of Service: 08/09/23 Procedure(s): US breast LT limited mamm only Accession Number(s): [id number] cc: Matheus Breen MD; Azam Connelly MD [...] in OV> 08/09/23 1412 DD/ 1406 TD/TT: Information Clerk Brokerage: us [facility] External Provider IMG US PROCEDURES Final Result * HPV E6/E7 RFLX HAI 16 18/45 (06/27/2021 9:05 AM EST) HPV 16 RNA [facility] HPV 18/45 RNA [facility] HPV E6 E7 ADD [facility] HPV mRNA E6/E7 rflx Not Detected Not Detected [facility] Comment: Methodology: Watch Parts Grinder-Mediated Amplification This assay detects E6/E7 viral messenger RNA (mRNA) from 14 high-risk HPV types (16,18,31,33,35,39,45,51,52,56,58,59,66,68). The analytical performance characteristics of this assay have been determined by [employer]. The modifications have not been cleared or approved by the FDA. This assay has been validated pursuant to the CLIA regulations and is used for clinical purposes. For additional information, please refer to http://education.[employer]/faq/IQW481a2 (This link if provided for information/ educational purposes only.) THIS TEST WAS PERFORMED AT: [facility] [address] [facility] [address] [place], [place] ??[phone] GALE WILKINS MD 06/27/2021 9:05 AM EST [place] HISTORICAL/NON ORDERABLE LABS Fi nal Result [facility] [address] * Hm Pap Smear (06/27/2021) Historical Provider HEALTH MAINTENANCE Final Result from Last 3 Months or Most Recently Relevant to Health Maintenance Insurance [facility] [address] [facility] STAND ADULT Care Teams Work From Home Relationship Specialty Start Date End Date Matheus Quijano MD [address] [place] [address] PCP - General Internal Medicine 11/24/18
--- NOTE | 2024-08-26 08:12 | MHC.OFFVIS ---
Intake Visit Reasons: Microscopic Hematuria Intake Note: New patient presents today for initial visit for microscopic hematuria Urology Medication:none Blood Thinner:none Antibiotic Allergies:none Script Developer Services: Script Developer Present Script Developer Name: [id number] Allergies NKA Allergy (Unknown, Uncoded 08/26/24 08:53) NKA Medication List - Last Reconciled 08/26/24 by JANA Rayo acetaminophen (Tylenol Extra Strength) 1,000 mg (2 x 500 mg) PO Q6H PRN albuterol sulfate 90 mcg/actuation 1 inh inhalation Q4-6H PRN cetirizine 10 mg PO DAILY clotrimazole-betamethasone 1-0.05 % 1 appl topical BID 5 days ibuprofen 600 mg PO Q8H PRN ibuprofen (Advil) 400 mg PO Q8H PRN pregabalin (Lyrica) unknown dose orally daily; terconazole 0.8% 1 appful vaginal BEDTIME 3 days topiramate 50 mg PO BEDTIME vitamin A palmitate 20,000 units PO DAILY 30 days HPI Comments Details: Lorrie is a pleasant 43-year-old French-speaking female patient of Dr. Alves who was accompanied by her mom at today's office visit. She has a past medical history of nephrolithiasis, KINGS positive, anxiety, anemia, and obesity. She presents to the office today as a new patient for microscopic hematuria in the setting of nicotine dependence. She discusses a longstanding history of nephrolithiasis in the past and followed up with Dr. Dobbins years ago. She also reports having had previous lithotripsies for nephrolithiasis. She discusses having had an ablation for abnormal menses and has since been experiencing issues with lower abdominal pressure. She reports having followed up with her emergency room specialist at which time she was noted to have microscopic hematuria and recommendations were made for urology referral for further assessment evaluation. In review of patient's chart it does appear CT was completed however noncontrast study. 08/21 CT without IV contrast noted cholelithiasis with no findings to explain patient's hematuria. She reports she has not had a menses and 14 months. When asked she does report a 8-9 year smoking history. She reports smoking approximately half a pack of cigarettes per day. She reports she continues to experience bladder pressure and episodes of stress/urge incontinence. She otherwise denies dysuria, foul smelling urine, changes to urinary stream, flank pain, fever, and or chills. We discussed at length potential causes of lower urinary tract symptoms patient was experiencing as well as potential causes of microscopic hematuria. We discussed further workup in risks and benefits of this workup. I discussed reasons for blood in the urine may include but are not limited to kidney stones, cancer in the urinary tract, kidney stone disease or inflammatory conditions of the urinary tract. I have discussed workup to include cystoscopy evaluation. [facility] Medical History KINGS positive JUDE II (cervical intraepithelial neoplasia II) Morbid obesity with BMI of 45.0-49.9, adult Kidney stones Anxiety Anemia Surgical History History of cystoscopy H/O lithotripsy Hx of tubal ligation Family History Father Medical history unknown Mother Asthma Hypertension Thyroid disease Brother Thyroid disease Sister No problems noted. Sister No problems noted. Son No problems noted. Daughter No problems noted. Social History Household Members: Children Housing: Apartment Alcohol intake: current Alcohol intake frequency: holidays/special occasions only Patient Tobacco Use Status: Current everyday Tobacco user Tobacco use type: Cigarette Cigarettes Per Day: 5 Years Smoked: 7 e-Cigarette/Vaping Use: Never Used Current occupational status: unemployed Sexual orientation: Straight/Heterosexual Gender identity: Female Female Reproductive History Menstrual Age of Menarche: 14 Review of Systems Const All systems reviewed & are unremarkable except as noted in HPI and below Physical Exam Const General: cooperative, healthy appearing, comfortable, no acute distress, well developed, alert and awake Nutritional Appearance: overweight Orientation/consciousness: patient oriented x3 Limitations: no limitations HEENT Head: Yes normal to inspection, Yes normocephalic and Yes atraumatic Ears: hearing grossly normal bilaterally Eyes General: appearance normal, both eyes and all related structures Neck Neck: Yes normal visual inspection and Yes trachea midline Chest Chest palpation & inspection: normal inspection of the chest Resp Effort & Inspection: normal respiratory effort and able to speak in complete sentences Cardio Rate: regular rate GI Inspection: Yes normal to inspection General: Yes no CVA tenderness Back/Spine/Pelvis Back: no CVA tenderness Skin General skin exam: no rashes or lesions noted Neuro General: patient oriented x3 Extrem General: Yes normal to inspection Psych Appearance: grossly normal and well kempt Mental Status: mental status grossly normal Speech and movement: Normal speech and movement present and Clear speech present Affect: normal affect Attitude: cooperative Thought process: Normal thought process present Thought content: Normal thought content present Insight: Fair insight present (Psych) Judgement: Fair judgement present (Psych) Results AMB Urinalysis, Automated UA Leukoctes 0 Huan/uL Last Edit by Damaris Sheridan on 08/26/24 08:53 UA Nitrite Negative Last Edit by Damaris Sheridan on 08/26/24 08:53 UA Urobilinogen 1 mg/dL Last Edit by Damaris Sheridan on 08/26/24 08:53 UA Protein 30 mg/dL Last Edit by Damaris Sheridan on 08/26/24 08:53 UA pH 6.0 Last Edit by Damaris Sheridan on 08/26/24 08:53 UA Blood 80 Redd/uL Last Edit by Damaris Sheridan on 08/26/24 08:53 UA Specific Maxwell 1.030 Last Edit by Damaris Sheridan on 08/26/24 08:53 UA Ketone Positive Last Edit by Damaris Sheridan on 08/26/24 08:53 UA Bilirubin 0 mg/dL Last Edit by Damaris Sheridan on 08/26/24 08:53 UA Glucose 0 mg/dL Last Edit by Damaris Sheridan on 08/26/24 08:53 Results Reviewed Results Reviewed: Laboratory Last Values Urine pH (Auto) 6.0 08/26/24 08:08 Specific Maxwell (Auto) 1.030 08/26/24 08:08 Urine Protein (Auto) 30 mg/dL 08/26/24 08:08 Glucose (UA)(Auto) 0 mg/dL 08/26/24 08:08 Urine Ketones (Auto) Positive 08/26/24 08:08 Urine Blood (Auto) 80 Redd/uL 08/26/24 08:08 Urine Nitrite (Auto) Negative 08/26/24 08:08 Urine Bilirubin (Auto) 0 mg/dL 08/26/24 08:08 Urine Urobilinogen (Auto) 1 mg/dL 08/26/24 08:08 Leukocyte Esterase (Auto) 0 Huan/uL 08/26/24 08:08 Date of Service: 08/13/24 Procedure(s): CT abdomen pelvis wo IV con Findings: The lung bases are clear. Unremarkable abdominal organs. No calculus or hydronephrosis. Multiple gallstones within the gallbladder. No bowel obstruction, pneumoperitoneum, or pneumatosis. Pelvic contents unremarkable. Normal appendix. No acute fracture. IMPRESSION: 1. Cholelithiasis. 2. No findings to explain the patient's hematuria. Assessment & Plan Assessment & Plan (1) Microscopic hematuria: Code(s): R31.29 - Other microscopic hematuria Category: Medical (2) Nicotine dependence: Code(s): F17.200 - Nicotine dependence, unspecified, uncomplicated Category: Medical (3) Urine incontinence: Code(s): R32 - Unspecified urinary incontinence Category: Medical Plan In office urinalysis results reviewed the patient today; as noted above; will send for urine cytology. We discussed at length potential causes of lower urinary tract symptoms patient was experiencing as well as further treatment options and risks and benefits of these treatment options. Will obtain CT urogram for further assessment evaluation. BUN and creatinine ordered for imaging. We discussed importance of limiting/quitting nicotine dependence We discussed bladder triggers/irritants. We discussed importance of weight loss in relation to lower urinary tract symptoms as well as overall health and well-being. Follow-up in office cystoscopy in 1-3 months with imaging and labs to be completed prior; or sooner with any issues, concerns, and or questions. Orders: Orders Urine Cytology Today R31.29 - Other microscopic hematuria AMB Urinalysis Automated Today Z13.9 - Encounter for screening, unspecified Blood Urea Nitrogen Today R31.29 - Other microscopic hematuria Creatinine Today R31.29 - Other microscopic hematuria CT urogram Today F17.200 - Nicotine dependence, unspecified, uncomplicated, R31.29 - Other microscopic hematuria Patient Instructions: The patient had an opportunity to ask questions regarding the treatment plan. All questions were answered. Physical exam, labs, and imaging were discussed and reviewed in detail. As well as risks, benefits, and discussion of treatment choices. No major barriers to understanding were identified. The patient expressed understanding and agreement with the above treatment plan. The patient was made aware they should contact our office by phone for worsening of their current condition, the appearance of new symptoms, or with any questions or concerns. Compliance is encouraged with any medications and follow up testing that is ordered. It is a privilege to be allowed the opportunity to participate in? your urological care.? Again, if you have any questions or concerns If you have any questions or concerns please do not hesitate to contact me. The office is [phone]. This note is constructed using voice recognition software. While every effort has been made to ensure accuracy training and development specialist errors may have been included. Yours sincerely, JANA Rayo Coding Level of Care Code New Pt Level 3 (33969) Diagnoses Microscopic hematuria R31.29 Nicotine dependence F17.200 Urine incontinence R32
== END 2024-08-26 08:45 | disposition home or self-care (01) ==
LOC: HO.HUSH 07:59
PROVIDERS: PCP Internal Medicine; Visit Provider Nurse Practitioner Family
DX: R31.29 Other microscopic hematuria (principal); F17.200 Nicotine dependence, unspecified, uncomplicated; R32 Unspecified urinary incontinence; Z13.9 Encounter for screening, unspecified
CPT/HCPCS: 99203

== ENCOUNTER 2024-09-04 09:20 | Outpatient (AMB) | payer MEDICAID, SELFPAY ==
--- NOTE | 2024-09-04 09:40 | A.OFFVIS_ITS ---
Vital Signs 09/04/24 09:43 Height 5 ft 9 in Weight 298 lb 1.039 oz BMI 44.0 BP 110/70 Blood Pressure Location Lt brachial Position Sitting Pulse 84 Pulse Source Pulse Oximeter Intake Visit Reasons: F/U s/p CTA Intake Note: f/up-cta Captain'S Assistant Required: Yes Captain'S Assistant Language: District Loss Prevention Manager Name: [id number] Accompanied by: Daughter Allergies NKA Allergy (Unknown, Uncoded 08/26/24 08:53) NKA Medication List - Last Reconciled 09/04/24 by Ramona Zavala, OUTSIDE SALES ASSOCIATE-C acetaminophen (Tylenol Extra Strength) 1,000 mg (2 x 500 mg) PO Q6H PRN albuterol sulfate 90 mcg/actuation 1 inh inhalation Q4-6H PRN cetirizine 10 mg PO DAILY clotrimazole-betamethasone 1-0.05 % 1 appl topical BID 5 days ibuprofen 600 mg PO Q8H PRN ibuprofen (Advil) 400 mg PO Q8H PRN pregabalin (Lyrica) unknown dose orally daily; terconazole 0.8% 1 appful vaginal BEDTIME 3 days topiramate 50 mg PO BEDTIME vitamin A palmitate 20,000 units PO DAILY 30 days HPI HPI F/U s/p CTA: Details: Lorrie is a 44-year-old female past medical history of obesity, mild sleep apnea, who has undergone evaluation for chest discomfort. Initial echo showed mild cardiomyopathy with some improvement noted on repeat echocardiogram. She did have a CTA of the coronary arteries which showed no significant CAD. She now presents for follow-up. Today she is reporting she will get an occasional crampy discomfort in her left chest. She is getting heart palpitations that feel like her heart is flipping. She did cut her caffeine intake way down but states that she continues to have heart palpitations. This happens most days and causes her concern. She has not had dizziness, presyncope, syncope. She has some shortness of breath at times which she relates to asthma. No chest discomfort brought on by physical activity. No PND, orthopnea or edema. She says in the past she had a sleep study and they wanted her to go back for a repeat study using a mask and she did not go. Her sister is present. [facility] Medical History KINGS positive JUDE II (cervical intraepithelial neoplasia II) Morbid obesity with BMI of 45.0-49.9, adult Kidney stones Anxiety Anemia Surgical History History of cystoscopy H/O lithotripsy Hx of tubal ligation Family History Father Medical history unknown Mother Asthma Hypertension Thyroid disease Brother Thyroid disease Sister No problems noted. Sister No problems noted. Son No problems noted. Daughter No problems noted. Social History Household Members: Children Housing: Apartment Alcohol intake: current Alcohol intake frequency: holidays/special occasions only Patient Tobacco Use Status: Current everyday Tobacco user Tobacco use type: Cigarette Cigarettes Per Day: 5 Years Smoked: 7 e-Cigarette/Vaping Use: Never Used Current occupational status: unemployed Sexual orientation: Straight/Heterosexual Gender identity: Female Female Reproductive History Menstrual Age of Menarche: 14 Review of Systems Const All systems reviewed & are unremarkable except as noted in HPI and below Denies chills, Denies fatigue, Denies fever(s), Denies frequent falls, Denies weakness, Denies weight gain and Denies weight loss ENT Denies dizziness Card Details: heart palpitations - flipping Denies chest pain, Denies leg edema, Denies lightheadedness, Denies palpitations, Denies dyspnea and Denies dyspnea on exertion Resp Denies cough, Denies dyspnea and Denies dyspnea on exertion GI Denies hematochezia Musc Denies abnormal gait, Denies muscle weakness, Denies numbness, Denies radiating pain into limb and Denies tingling Neuro Denies abnormal gait, Denies dizziness, Denies frequent falls, Denies numbness, Denies tingling and Denies weakness Endo Denies fatigue and Denies palpitations Physical Exam Vital Signs: Last Vital Signs Pulse 84 09/04/24 09:43 BP 110/70 09/04/24 09:43 BMI result Body Mass Index 44.0 Const General: cooperative, healthy appearing, comfortable and no acute distress Orientation/consciousness: patient oriented x3 Neck Neck: Yes normal visual inspection and Yes no JVD Resp Effort & Inspection: normal respiratory effort Auscultation: clear to auscultation bilaterally, no rales, no rhonchi and no wheezes Cardio Rate: regular rate Rhythm: regular rhythm Heart sounds: S1 normal heart sound present, S2 normal heart sound present, no gallops, no murmurs and no rubs Neuro General: patient oriented x3 Extrem General: Yes normal to inspection and No no pedal edema Psych Appearance: grossly normal Mental Status: mental status grossly normal Speech and movement: Normal speech and movement present Results Reviewed Results Reviewed: - Echocardiogram on 02/04/2024: EF 45-50%, normal valves, normal RV systolic pressure - Repeat echocardiogram on 06/19/2024: EF 50-55%, possible inferior septal hypokinesis - CT angiogram of coronary arteries on 08/26/2024: No significant coronary artery disease Assessment & Plan Assessment & Plan (1) Precordial chest pain: Code(s): R07.2 - Precordial pain Category: Medical Plan: Reports of chest discomfort, atypical in nature. Cardiac risks of morbid obesity, smoking. Initial echo did show EF 45-50%. A repeat echocardiogram in May showed EF 50-55%, possible inferior septal hypokinesis. She then had a CTA of the coronary arteries which showed no significant CAD. Test results reviewed with her in detail. Offered reassurance that her chest discomfort is noncardiac. Cardiac risk factor modification discussed. (2) Cardiomyopathy: Code(s): I42.9 - Cardiomyopathy, unspecified Category: Medical Plan: Mild cardiomyopathy, nonischemic. She is reporting heart palpitations so will check Holter monitor to assess for arrhythmia. She has history of mild sleep apnea however did not follow through with further testing or treatment. At this time will reorder in-lab sleep study for further evaluation. Last EF is low normal, no plan for medical management at this time. (3) Sleep apnea: Code(s): G47.30 - Sleep apnea, unspecified Category: Medical Plan: As above (4) Palpitations: Code(s): R00.2 - Palpitations Category: Medical Plan: Reports of heart palpitations which sound like extrasystoles however in the setting of low normal EF will ensure she has no tachyarrhythmias. Holter pending Plan Time spent on chart review, documentation, interview, assessment Patient was informed and verbally consented to the use of an ambient scribe for clinic note documentation during this visit. I discussed with the patient that her symptoms of chest discomfort and palpitations could be related to transient heart dysfunction, which appears to be improving. The echocardiogram results show improvement in her heart's pumping ability. We discussed the benefit of a heart monitor to detect rhythm abnormalities that could be responsible for her palpitations and agreed on the plan to schedule this diagnostic test. We reviewed the potential role of untreated sleep apnea and the importance of a follow-up sleep study, given her past test implications. The patient understands the necessity for ongoing monitoring and the possible benefits of CPAP if sleep apnea is confirmed. I advised her to continue avoiding caffeine and smoking cessation. We have scheduled a follow-up in three months, with prompt contact should the monitor or sleep study yield significant findings. Orders: Orders ECG 3 day holter monitor Today I42.9 - Cardiomyopathy, unspecified, R00.2 - Palpitations RT PSG in-lab sleep study Today G47.30 - Sleep apnea, unspecified, I42.9 - Cardiomyopathy, unspecified Patient Instructions: - Wear the heart monitor as directed for three days. - Avoid caffeine as much as possible. - Await contact for sleep study arrangements. - Attend the follow-up in three months. - Call the office if symptoms worsen. Coding Level of Care Code Est Pt Level 4 (06614) Complex EM visit Add On G2211 Diagnoses Precordial chest pain R07.2 Cardiomyopathy I42.9 Sleep apnea G47.30 Palpitations R00.2 Time Spent (min) 30
[2024-09-04 09:43] VITALS: BP 110/70; PULSE 84; BMI 44.0
== END 2024-09-04 10:13 | disposition home or self-care (01) ==
LOC: HO.HCS 09:21
PROVIDERS: PCP Internal Medicine; Visit Provider Nurse Practitioner Family
DX: R07.2 Precordial pain (principal); I42.9 Cardiomyopathy, unspecified; G47.30 Sleep apnea, unspecified; R00.2 Palpitations
CPT/HCPCS: 99214

== ENCOUNTER → 2024-09-04 09:20 | Outpatient (BNVA) | payer MEDICAID, SELFPAY | PROVIDERS: PCP Internal Medicine; Visit Provider Nurse Practitioner Family | DX: R07.2 Precordial pain (principal); R00.2 Palpitations; I42.9 Cardiomyopathy, unspecified; G47.30 Sleep apnea, unspecified; E66.9 Obesity, unspecified; F17.210 Nicotine dependence, cigarettes, uncomplicated; Z68.41 Body mass index [BMI] 40.0-44.9, adult | CPT/HCPCS: 99212 ==

== ENCOUNTER → 2024-09-17 09:43 | Outpatient (REF) | payer MEDICAID, SELFPAY ==
--- OUTSIDE RECORDS SUMMARY | 2024-09-17 10:04 | XMS_ITS | Encounter Summary ---
Author Organization [employer] Address [address] [place] [address] 7 [place] [address] Care Team Providers Care Psychotherapist Counselor Name Role Phone Matheus Quijano MD Primary Care Provide r Reason for Visit * Reason Onset Date Comments Med Refill 08/07/2023 Encounter Details Date Type Department Care Team ([facility] st Contact Info) Description 08/07/2023 Refill [facility] [address] [place] [address] Leana Yanez MD [address] [place] [address] Social History Tobacco Use Types Packs/Day Years [...] Description 09/24/2024 10:00 AM EDT Office Visit [facility] [address] [place] [address] Corrine Neri 11/06/2024 10:00 AM EDT Office Visit [facility] [address] [place] [address] Yogesh, Darcie, OD [address] [place] [address] 12/03/2024 10:00 AM EDT Office Visit [facility] [address] [place] [address] Matheus Quijano MD [address] [place] [address] documented as of this encounter Visit Diagnoses Not on filedocumented in this encounter Additional Health Concerns Assessment Noted Time PHQ-9 Depression Total Score: 19 024 1:37 PM EST documented as of this encounter Care Teams Psychotherapist Counselor Relationship Specialty Start Date End Date Matheus Quijano MD [address] [place] [address] PCP - General Internal Medicine 11/24/18 documented as of this encounter"
--- OUTSIDE RECORDS SUMMARY | 2024-09-17 10:04 | XMS_ITS | Encounter Summary ---
Author Organization [employer] Address [address] [facility] 7 [place] [address] Care Team Providers Care Applications Processor Name Role Phone Matheus Quijano MD Primary Care Provide r Reason for Visit * Reason Onset Date Comments Appointment Request 01/28/2024 Encounter Details Date Type Department Care Team ([facility] Contact Info) Description 01/28/2024 Telephone [facility] [address] [place] [address] Matheus Quijano MD [address] [place] [address] Appointment Request Social History Tobacco Use Types [...] calling to cancel appt for 01/27 and securities underwriter did attempt to reschedule appt however there is nothing available at this time documented in this encounter Plan of Treatment Upcoming Encounters Date Type Department Care Team (Late st Contact Info) Description 09/24/2024 10:00 AM EDT Office Visit [facility] [address] [place] [address] Corrine Neri 11/06/2024 10:00 AM EDT Office Visit [facility] [address] [place] [address] Darcie Zuñiga, OD [address] [place] [address] 12/03/2024 10:00 AM EDT Office Visit [facility] [address] [place] [address] Matheus Quijano MD [address] [place] [address] documented as of this encounter Visit Diagnoses Not on filedocumented in this encounter Additional Health Concerns Assessment Noted Time PHQ-9 Depression Total Score: 19 024 1:37 PM EST documented as of this encounter Care Teams Applications Processor Relationship Specialty Start Date End Date Matheus Quijano MD [address] [place] [address] PCP - General Internal Medicine 11/24/18 documented as of this encounter
--- OUTSIDE RECORDS SUMMARY | 2024-09-17 10:04 | XMS_ITS | Encounter Summary ---
Author Organization [employer] Address [address] [place] [address] 7 [place] [address] Care Team Providers Care Training Officer Name Role Phone Matheus Quijano MD Primary Care Provide r Reason for Visit * Reason Onset Date Comments Med Refill 09/24/2023 Encounter Details Date Type Department Care Team ([facility] st Contact Info) Description 09/24/2023 Refill [facility] [address] [place] [address] Leana Yanez MD [address] [place] [address] Social History Tobacco Use Types Packs/Day Years [...] Description 09/24/2024 10:00 AM EDT Office Visit [facility] AD[facility] [address] [place] [address] Corrine Neri 11/06/2024 10:00 AM EDT Office Visit [facility] [address] [place] [address] Yogesh, Darcie, OD [address] [place] [address] 12/03/2024 10:00 AM EDT Office Visit [facility] [address] [place] [address] Matheus Quijano MD [address] [place] [address] documented as of this encounter Visit Diagnoses Not on filedocumented in this encounter Additional Health Concerns Assessment Noted Time PHQ-9 Depression Total Score: 19 024 1:37 PM EST documented as of this encounter Care Teams Training Officer Relationship Specialty Start Date End Date Matheus Quijano MD [address] [place] [address] PCP - General Internal Medicine 11/24/18 documented as of this encounter
--- OUTSIDE RECORDS SUMMARY | 2024-09-17 10:04 | XMS_ITS | Encounter Summary ---
Author Organization [employer] Address [address] [facility] [address] [place] [address] Care Team Providers Care Purchase Request Editor Name Role Phone Matheus Quijano MD Primary Care Provide r Reason for Visit * Reason Onset Date Comments Med Refill 03/15/2023 Encounter Details Date Type Department Care Team ([facility] st Contact Info) Description 03/15/2023 Refill [facility] [address] [place] [address] Krystin Saenz MD [address] [place] [address] Class 3 severe obesity due to excess [...] note were not included. Triage call with [employer] ID [id number] Pt contacts through Pt portal regarding exposure [...] but, if neg Pt will come to [facility] to be seen for asthma like symptoms, declined to come to [facility] today. Protocol Used: COVID-19 - Diagnosed [...] become worse Pt portal request: [facility] Clinical Support (supporting Matheus Pressley MD) 3 days ago [place] Mi katy?? nella positivo y tenemos contacto diario,me gustar??a que me recete los medicamentos para COVID y me los env??e a la [facility] por favor para tenerlos en simran de roxanna positivo en el fin de semana documented in this encounter Plan of Treatment Upcoming Encounters Date Type Department Care Team ([facility] st Contact Info) Description 09/24/2024 10:00 AM EDT Office Visit [facility] [address] [place] [address] Corrine Neri 11/06/2024 10:00 AM EDT Office Visit [facility] [address] [place] [address] Darcie Zuñiga, OD [address] [place] [address] 12/03/2024 10:00 AM EDT Office Visit [facility] [address] [place] [address] Matheus Quijano MD [address] [place] [address] documented as of this encounter Visit Diagnoses Diagnosis Class 3 severe obesity due to excess calories with serious comorbidity and body mass index (BMI) of 50.0 to 59.9 in adult documented in this encounter Additional Health Concerns Assessment Noted Time PHQ-9 Depression Total Score: 16 04/2 023 10:18 AM EDT documented as of this encounter Care Teams Purchase Request Editor Relationship Specialty Start Date End Date Matheus Quijano MD [address] [place] [address] PCP - General Internal Medicine 11/24/18 documented as of this encounter
--- OUTSIDE RECORDS SUMMARY | 2024-09-17 10:04 | XMS_ITS | Clinical Summary ---
Author Organization [employer] Address [address] [place] [address] 7[address] [place] [address] Care Team Providers Care Lap Welder Name Role Phone Matheus Quijano MD Primary [...] tablet 3 times a week 8 Active ketoconazole (Nizoral) 2 % shampooIndication s:Seborrheic [...] SAME TIME 30 each 5 4 Active docusate sodium (Colace) 100 MG capsuleIndication s:Slow transit constipation Take 1 capsule (100 mg) by mouth every 12 (twelve) hours. 60 capsule 3 5 Active Active Problems Problem Noted Date Diagnosed [...] continued surveillance. Pt was seen 09/12/2023 at [facility] Endocrinology , and most recently 07/17/[address] Deandra Saucedo, acording to her patient had a repeat MRI in July 2023 that demonstrated an interval decrease in size of cystic lesion in the right pituitary gland , measuring 1 cm., without mass effect on the optic chiasm, nerves and tracts. 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 Director Of Strategic Sales recommended to repeat Prolactin level and MRI, [...] Rheumatology, last note on record from 10/12/2020, Risk Control Product Liability Director work up showed a positive KINGS but further labs were not indicative on any autoimmune inflamatory disorder. Risk Control Product Liability Director thought her symptoms are suggestive of [...] Rheumatology, last note on record from 10/12/2020, Risk Control Product Liability Director work up showed a positive KINGS but further labs were not indicative on any autoimmune inflamatory disorder. Risk Control Product Liability Director thought her symptoms are suggestive of [...] had repeat UA and CT done by BUSINESS ANALYST MANAGER 08/13/2024 showed UA with hematuria/CT neg Referred back to Urology by Dr. Connelly BUSINESS ANALYST MANAGER Assessment & Plan (06/03/2022 4:55 PM EST): [...] EDT): Patient continues under the care of [facility] . Sees a psychiatrist Dr Woodson She has been assigned a preliminary diagnosis of depression and anxiety Assessment & Plan (04/14/2024 10:38 AM EST): Patient under the care of [facility] . She has been assigned a preliminary diagnosis of depression and anxiety Assessment & Plan (06/03/2022 4:51 PM EST): Patient under the care of [facility] . She has been assigned [facility]. Last minute she decided [...] Bariatric surgery program. She is now at [facility] with Dr. Michael She was interested [...] EST): Pt is under the care of BUSINESS ANALYST MANAGER Hx ASCUS HPV + PAP from 01/14/19. 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 She is on iron. Plan: Continue FeSO4 325 mg with vitamin C Under the care of BUSINESS ANALYST MANAGER CBC ordered Cobalamin deficiency 09/27/2017 Assessment & Plan (06/05/2022 1:15 PM EST): IF negative. On vitamin b12 daily Backache 03/08/2017 Encounters Date Type Department Care Team Description 08/26/2024 Orders Only GENERIC EXTERNAL DATA DEPARTMENT Provider, Generic External Data 08/18/2024 10:00 AM EDT Office Visit [facility] MEDICINE [address] [place] [address] Matheus Quijano MD Pituitary adenoma ([facility]) (Primary Dx); Kidney stone; Mild intermittent asthma [...] Provider, Generic External Data 08/10/2024 Patient Outreach [facility] MED & PEDS [address] [place] [address] Matheus Quijano MD Pre-visit Planning (SDOH unable to reach LVM) 07/28/2024 Telephone [facility] MEDICINE [address] [place] [address] Aleida Rubin MD 07/28/2024 Telephone [facility] MEDICINE [address] [place] [address] Matheus Quijano MD Chart Prep 07/27/2024 Telephone [facility] MEDICINE [address] [place] [address] Matheus Quijano MD 07/10/2024 Population Health Risk Score [facility] () Department [address] [place] [phone] Provider, Population Health Generic 07/01/2024 Orders Only GENERIC EXTERNAL DATA DEPARTMENT Provider, Generic External Data from Last 3 Months Immunizations Immunization Administration Dates Next Due Influenza injectable quadriv [...] Description 09/24/2024 10:00 AM EDT Office Visit [facility] ADULT DENTAL [address] [place] [address] Corrine Neri 11/06/2024 10:00 AM EDT Office Visit [facility] OPTOMETRY [address] [place] [address] Darcie Zuñiga, OD [address] [place] [address] 12/03/2024 10:00 AM EDT Office Visit [facility] MEDICINE [address] [place] [address] Matheus Quijano MD [address] [place] [address] Health Maintenance Due Date Last Done Comments [...] 08/08/2025 08/09/2023 Depression Screening 08/18/2025 08/18/2024, 08/18/2024 Disability Screening 08/18/2025 08/18/2024 HPV/Cotest 06/27/2026 06/27/2021, 06/27/2021, 01/14/2019 Dental [...] patient's age to complete this topic Meningococcal B Vaccine Aged Out No l onger eligible based on patient's age to complete [...] Procedure Name Priority Date/Time Associated Diagnosis Comments CYTOPATH-CELL ENHANCED Routine 5:18 PM EDT POCT INFLUENZA B (ID NOW RAPID MOLECULAR) [...] (BMI) of 50.0 to 59.9 in adult ([facility]) BI US BREAST LIMITED LEFT Routine 08/09/2023 2:06 PM EDT ZZZ HISTORICAL HPV E6/E7 RFLX HAI 16 18/45 Routine 06/27/2021 9:05 AM EST HM PAP/HPV Routine 06/27/2021 from Last 3 Months or Most Recently Relevant to Health Maintenance Results * Cytopath-cell enhanced (08/26/2024 5:18 PM EDT) 08/26/2024 5:1 8 PM EDT 08/27/2024 9:20 AM EDT [facility] - 08/29/2024 10:01 AM EDT ----- ------- Name: Lorrie Bernal ?Age/Sex: 43/F ? : 1980 Unit#: [id number] ?? Attend Dr: Belia San ASBESTOS SIDING MECHANIC-BC ?Re08/26/24 ?Status: DEP REF ? Location: HO.LNP ?Disch: ? ----- ------- SPEC : [id number] ? RECD: 08/27/24 ? STATUS: ??SOUT ? REQ NUM: [id number] ? STIVEN: 08/26/24-1885 ? SUBM DR: Belia San ASBESTOS SIDING MECHANIC-BC ? ENTERED: ??08/27/24-2472 ?SP TYPE: Cytology ? OTHR DR: Matheus Breen MD ?? ORDERED: ??Cyto-enhanced ? Diagnosis ?? Urine: ??Negative for high-grade urothelial carcinoma. ??See comment. ? COMMENT: Moderately cellular specimen consisting of few single urothelial cells with ?? degenerative changes, numerous squamous cells, rare red blood cells and few mixed ?? inflammatory cells. ?Clinical History Other microscopic hematuria ? Material Received ?? Urine ? Gross Description Received is 12 cc of cloudy yellow fluid from which a ThinPrep slide is prepared. Copies To: ?? Matheus Breen MD ?? [facility] ?? [address] ?? [place] [address] ?? [phone] ?? Belia San ASBESTOS SIDING MECHANIC-BC ?? [facility] ?? [address] [place] [address] Dr. Alcazar ?? [place] [address] ?? [phone] ?? [email or web address] ----- ------- Signed (signature on file) Antonio Brand MD 08/29/24 1001 ? ----- ------- ? END OF REPORT ? us Generic External Data Provider LAB CYTOLOGY SHONDA GUTIERREZ Final Result Performing Organization Address [facility]/ZIP Co de Phone Number [facility] [address] [place] [address] [phone] * POCT Rapid Influenza B HAYES ID NOW (08/18/2024 10:29 AM EDT) Influenza B Negative Negative, Indeterminate [facility] QC Media Lot # [id number] [facility] Lot# Expiration Date [facility] Swab 08/18/2024 10:2 9 AM EDT us Matheus Pressley MD POINT OF CARE TEST EN TER/EDIT ORDERABLES Final Result Performing Organization Address [facility] Co de Phone Number [facility] [address] [place] [address] [phone] * POCT Rapid Influenza A HAYES ID NOW (08/18/2024 10:29 AM EDT) Influenza A Negative Negative, Indeterminate [facility] QC Media Lot # [id number] [facility] Lot# Expiration Date [facility] Swab 08/18/2024 10:2 9 AM EDT us Matheus Pressley MD POINT OF CARE TEST EN TER/EDIT ORDERABLES Final Result Performing Organization Address [facility]/ZIP Co de Phone Number [facility] [address] [place] [address] [phone] * POCT Rapid Covid-19 BinaxNOW (08/18/2024 10:27 AM EDT) Rapid COVID Ag Negative QC Media Lot # [id number] Lot# Expiration Date ,026 Swab 08/18/2024 10:2 7 AM EDT us Matheus Pressley MD POINT OF CARE TEST EN TER/EDIT ORDERABLES Final Result * CT Abdomen Pelvis w/o Contrast (08/13/2024 5:40 PM EDT) Anatomical Region Laterality Modality Body, Pelvis, Abdomen Computed T omography 08/13/2024 5:40 PM EDT Narrative 08/13/2024 5:42 PM EDT ? [facility] ?[address] ?[place] [address] ? CT Scan Report ? Signed ? Patient: Lorrie Bernal ?MR#: ?? [id number] ? : 1980 ?Acct:[id number] ? Age/Sex: 43 / F ?ADM Date: 08/13/24 ? Loc: HO.ED ? Attending Dr: ? Ordering Physician: Rebecca Ann ?? Date of Service: 08/13/24 ?? Procedure(s): CT abdomen pelvis wo IV con ?? Accession Number(s): [id number] ? cc: Matheus Breen MD; Rebecca Ann ? Report Number: ?? [id number]: Total DLP = 1162.00 mGy-cm ? CLINICAL [...] DD/ 1740 ? TD/TT: 08/13/24 1740 ? Cnc Milling Machinist: ? Procedure Note Bree [place] - 08/13/[address] [address] [address] Scan Report Signed Patient: Lorrie BernalMR#: [id number] : 1980Acct:[id number] Age/Sex: 43 / FADM Date: 08/13/24 Loc: HO.ED Attending Dr: Ordering Physician: Rebecca Ann Date of Service: 08/13/24 Procedure(s): CT abdomen pelvis wo IV con Accession Number(s): [id number] cc: Matheus Breen MD; Rebecca Ann Report Number: [id number]: Total DLP = 1162.00 mGy-cm CLINICAL HISTORY: [...] in OV> 08/13/241741 DD/ 39 TD/TT: 08/13/241739 Cnc Milling Machinist: [facility] External Provider IMG CT PROCEDURES Final Result * (ABNORMAL) CBC auto differential (08/13/2024 4:05 PM EDT) White Blood Count 10.3 4.8 - 10.8 X10*3/uL [facility] Red Blood Count 4.46 4.20 - 5.50 X10*6/uL [facility] Hemoglobin 12.1 12.0 - 16.0 g/dl [facility] Hematocrit 35.9(L) 37.0 - 47.0 % [facility] Mean Corpuscular Volume 80.5 80.0 - 98.0 fL [facility] Mean Corpuscular Hemoglobin 27.1 27.0 - 33.0 pg [facility] Mean Corpuscular HGB Conc 33.7 31.0 - 35.0 g/dl [facility] Red Cell Distribution Width 14.4 11.0 - 16.0 % [facility] Platelet Count 367 160 - 400 X10*3/uL [facility] Mean Platelet Volume 9.5 9.4 - 12.3 fL [facility] Neutrophils Percent Auto 65.7 45 - 73 % [facility] Imm Gran Pct Auto 0.3 0.0 - 0.4 % [facility] Lymphocytes Percent Auto 27.9 20 - 40 % [facility] Monocytes Percent Auto 4.1 2 - 11 % [facility] Eosinophils Percent Auto 1.2 0 - 4 % [facility] Basophils Percent Auto 0.8 0 - 2 % [facility] NRBC Pct Auto 0.0 0.0 - 0.2 /100WBC [facility] Neutrophils Absolute Auto 6.8 2.0 - 8.3 x10*3/uL [facility] Imm Gran Abs Auto 0.03 0.00 - 0.03 X10*3/uL [facility] Lymphocytes Absolute Auto 2.9 1.2 - 4.9 X10*3/uL [facility] Monocytes Absolute Auto 0.4 0.1 - 1.2 X10*3/uL [facility] Eosinophils Absolute Auto 0.1 0.0 - 0.4 X10*3/uL [facility] Basophils Absolute Auto 0.1 0.0 - 0.2 X10*3/uL [facility] NRBC Abs Auto 0.000 0.0 - 0.012 X10*3/uL [facility] 08/13/2024 4:05 PM EDT 08/13/2024 4:07 PM EDT us Generic External Data Provider LAB BLOOD ORDERAB LES Final Result [facility] [address] [place] [address] [phone] * hCG, Total, Quantitative (08/13/2024 4:05 PM EDT) Pathologist [facility] HCG Quantitative <2 mIU/mL [facility] Comment:Weeks post LMP Appro ximate hCG(Last Menstrual Period) Range (mIU/ml)3 - 4 weeks 9 - 1304 - 5 weeks 75 - 2,6005 - 6 weeks 850 - 20,8006 - 7 weeks 4000 - 100,2007 - 12 weeks 11,500 - 289,11806 - 16 weeks 18,300 - 137,27855 - 29 weeks (2nd trimester) 1,400 - 53,68941 - 41 weeks (3rd trimester) 940 - 60,000The Hayes B- hCG assay is used for the early detection ofpregnancy; it cannot be used to diagnose any conditionunrelated to . If a B-hCG level is not supportedby the clinical evidence, results should be confirmed by analternative method (qualitative urine hCG, for example). 08/13/2024 4:05 PM EDT 08/13/2024 4:07 PM EDT us Generic External Data Provider LAB BLOOD ORDERAB LES Final Result [facility] [address] [place] [address] [phone] * (ABNORMAL) Comprehensive Metabolic Panel (08/13/2024 4:05 PM EDT) [facility] Sodium 139 135 - 145 mmol/L [facility] Potassium 4.1 3.3 - 5.1 mmol/L [facility] Chloride 109(H) 96 - 108 mmol/L [facility] Carbon Dioxide 23 22 - 29 mmol/L [facility] Anion Gap 11(L) 12 - 20 [facility] Urea Nitrogen (BUN) 11 9 - 16 mg/dL [facility] Creatinine, Serum 0.71 0.5 - 1.4 mg/dL [facility] Creatinine Clr Calc Pharmacy 152.6 [facility] Comment:Provided height and weight: 175.26 cm,132.5 kg.eGFR (calculated from the MDRD study equation) and eCrCl(calculated from the Cockcroft-Gault equation) are based ondifferent parameters and may not yield comparable results.If eCrCl result is absurd, please check patient'sheight/weight. Estimated Glomerular Filt Rate >60 [facility] Comment:Chronic Kidney Disea se: Estimated GFR < 60 mL/min/1.28z7Zueofb Kidney Disease: Estimated GFR < 15 mL/min/1.73m2 Glucose 105 60 - 115 mg/dL [facility] Calcium 9.2 8.4 - 10.2 mg/dL [facility] Bilirubin, Total 0.2 0.0 - 1.0 mg/dL [facility] Aspartate Amino Transferase 14 5 - 31 U/L [facility] Alanine Aminotransferase 6 0 - 31 U/L [facility] Total Protein 7.2 6.5 - 8.0 g/dL [facility] Albumin Level 4.0 3.5 - 5.0 g/dL [facility] Alkaline Phosphatase 63 39 - 117 U/L [facility] 08/13/2024 4:05 PM EDT 08/13/2024 4:07 PM EDT us Generic External Data Provider LAB BLOOD ORDERAB LES Final Result [facility] [address] [place] [phone] * (ABNORMAL) Urinalysis, Complete, with Reflex to Culture (08/13/2024 4:04 PM EDT) Color Urine Dark Yellow [facility] Appearance Urine Clear [facility] PH 5.5 5.0 - 9.0 [facility] Glucose Urine UA Negative Negative mg/dL [facility] Urine Blood Small (1+)(A) Negative [facility] Specific [place] - Urine >=1.030(H) 1.005 - 1.025 [facility] Urine Protein Trace Neg-Trace mg/dL [facility] Urine Ketones Trace Negative mg/dL [facility] Nitrite Urine Negative Negative [facility] Leukocyte Esterase Urine Negative Negative [facility] RBC Urine 11-20(A) 0 - 2 /HPF [facility] Urine WBC 0-5 0 - 5 /HPF [facility] Urine Squamous Epithelial Cell 0-2 0 - 2 /HPF [facility] Urine Bacteria None Seen None Seen [facility] Hyaline Casts, Urine 0-2 0 - 2 /LPF [facility] 08/13/2024 4:04 PM EDT 08/13/2024 4:07 PM EDT Narrative [facility] - 08/13/2024 4:13 PM EDT [id number], Clean Catch us Generic External Data Provider LAB URINE ORDERAB LES Final Result Performing Organization Address [facility] Co de Phone Number [facility] [address] [place] [phone] * Creatinine, Serum (08/12/2024 10:20 AM EDT) Creatinine, Serum 0.68 0.5 - 1.4 mg/dL [facility] Estimated Glomerular Filt Rate >60 [facility] Comment:Chronic Kidney Disea se: Estimated GFR < 60 mL/min/1.64z4Wxlegv Kidney Disease: Estimated GFR < 15 mL/min/1.73m2 08/12/2024 10:2 0 AM EDT 08/12/2024 10:20 AM EDT us Generic External Data Provider LAB BLOOD ORDERAB LES Final Result Performing Organization Address [facility] Co de Phone Number [facility] [address] [place] [phone] * (ABNORMAL) BUN (Blood Urea Nitrogen) (08/12/2024 10:20 AM EDT) Urea Nitrogen (BUN) 7(L) 9 - 16 mg/dL [facility] 08/12/2024 10:2 0 AM EDT 08/12/2024 10:20 AM EDT us Generic External Data Provider LAB BLOOD ORDERAB LES Final Result [facility] [address] [place] [address] [phone] * US Pelvis Transvaginal (07/23/2024 1:28 PM EDT) Anatomical Region Laterality Modality Pelvis Ultrasound 07/23/2024 1:28 PM EDT Narrative 07/23/2024 2:09 PM EDT ? [facility] ?[address] ?[place] [address] ? Ultrasound Report ? Signed ? Patient: Adames Solomon,Lorrie ?MR#: ?? [id number] ? : 1980 ?Acct:[id number] ? Age/Sex: 43 / F ?ADM Date: 07/23/24 ? Loc: HO.US ? Attending Dr: Azam Connelly MD ? Ordering Physician: Azam Connelly MD ?? Date of Service: 07/23/24 ?? Procedure(s): US pelvic and transvaginal ?? Accession Number(s): [id number] ? cc: Matheus Breen MD; Azam Connelly [...] and echotexture. ? Pelvic fluid: none. ? / pelvic and transvaginal ?? IMPRESSION: ?? 1.1 x 0.9 x 1.6 cm calcified left fundal fibroid. Small amount of fluid ?? in the endometrial canal. ? Electronically signed by: ??Ruiz Dumont MD ??07/23/2024 02:06 PM EDT ? Dictated By: ?Ruiz Dumont MD ? Signed By: ?<Electronically signed by Ruiz Dumont MD in OV> ?07/23/24 1406 ? DD/ 1328 ? TD/TT: 07/23/24 1345 ? Cnc Milling Machinist: ? Procedure Note Donrenanter, Image - 07/23/2024 [place] [address] Ultrasound Report Signed Patient: Lorrie BernalMR#: [id number] : 1980Acct:[id number] Age/Sex: 43 / FADM Date: 07/23/24 Loc: HO.US Attending Dr: Azam Connelly MD Ordering Physician: Azam Connelly MD Date of Service: 07/23/24 Procedure(s): US pelvic and transvaginal Accession Number(s): [id number] cc: Matheus Breen MD; Azam Connelly MD [...] 07/23/24 1406 DD/ 1328 TD/TT: 07/23/24 1345 Cnc Milling Machinist: us [facility] External Provider IMG US PROCEDURES [...] Result [facility] [address] [place] [phone] * Chlamydia/N. Gonorrhoeae RNA, TMA, Urogenitial [...] 7 AM EST 07/01/2024 3:03 PM EST [facility] - 07/02/2024 1:44 PM EST Vaginal Generic External Data Provider LAB MICROBIOLOGY - GENERAL ORDERABLES Final Result Performing Organization Address [facility] Co de Phone Number [facility] [address] [place] [phone] * Culture, Urine, Routine (07/01/2024 10:27 AM EST) Urine Urine specimen obtained by clean catch procedure / Unknown 07/01/2024 10:27 AM EST 07/01/2024 3:03 PM EST Comment:[facility] - 07/03/2024 12:08 PM EST Urine Culture No growth. Specimen Source: Urine clean catch Generic External Data Provider LAB MICROBIOLOGY - GENERAL ORDERABLES Final Result Performing Organization Address [facility] Co nd Phone Number [facility] [address] [place] [phone] * (ABNORMAL) Lipid Panel, Standard (02/27/2024 11:22 AM EDT) Triglycerides 85 <150 mg/dL [facility] Comment:Desirable Triglyceri de: less than 150 mg/dLBorderline High Triglyceride 150-199 mg/dLHigh Triglyceride: 200-499 mg/dLVery High Triglyceride: greater than or equal to 5OO mg/dL Cholesterol 179 <200 mg/dL [facility] Comment:Desirable Cholestero l: less than 200 mg/dLBorderline High Cholesterol: 200-239 mg/dLHigh Cholesterol: greater than 239 mg/dL LDL Cholesterol Calculated 122(H) <100 mg/dL [facility] Comment:Desirable LDL: less than 100 mg/dLNear Optimal/Above Optimal LDL: 110- 129 mg/dLBorderline High LDL: 130-159 mg/dLHigh LDL: 160-189 mg/dLVery High LDL: greater than or equal to 190 mg/dL HDL Cholesterol 40(L) >40 mg/dL [facility] Comment:Desirable HDL: great er than 40 mg/dL Note: This HDL assay may give artificially low results in patients with liver disease. Blood Venous blood specimen / Unknown 02/27/2024 11:22 AM EDT 02/27/2024 1:17 PM EDT Matheus Pressley MD LAB BLOOD ORDERABLES Final Result [facility] [address] [place] [address] [phone] * BI US Breast Limited Left (08/09/2023 2:06 PM EDT) Anatomical Region Laterality Modality Breast Left Ultrasound 08/09/2023 2:06 PM EDT Narrative 08/09/2023 2:16 PM EDT ? [facility] ? [address] ?[place] [address] ? Ultrasound Report ? Signed ? Patient: Adames Solomon,Lorrie ?MR#: ?? [id number] ? : 1980 ?Acct:[id number] ? Age/Sex: 42 / F ?ADM Date: 04/12/24 ? Loc: HO.MAMMO ? Attending Dr: Azam Connelly MD ? Ordering Physician: Azam Connelly MD ?? Date of Service: 04/12/24 ?? Procedure(s): US breast LT limited mamm only ?? Accession Number(s): [id number] ? cc: Matheus Breen MD; Azam Connelly [...] 1412 ? DD/ 1406 ? TD/TT: ? Cnc Milling Machinist: ? Procedure Note Donottacointerpreter, Image - 08/09/2023 [place] [facility] [address] [place] [address] Ultrasound Report Signed Patient: Lorrie BernalMR#: [id number] : 1980Acct:[id number] Age/Sex: 42 / FADM Date: 08/09/23 Loc: HO.MAMMO Attending Dr: Azam Connelly MD Ordering Physician: Azam Connelly MD Date of Service: 08/09/23 Procedure(s): US breast LT limited mamm only Accession Number(s): [id number] cc: Matheus Breen MD; Azam Connelly MD [...] in OV> 08/09/23 1412 DD/ 1406 TD/TT: Cnc Milling Machinist: us [facility] External Provider IMG US PROCEDURES Final Result * HPV E6/E7 RFLX HAI 16 18/45 (06/27/2021 9:05 AM EST) HPV 16 RNA [facility] HPV 18/45 RNA [facility] HPV E6 E7 ADD [facility] HPV mRNA E6/E7 rflx Not Detected Not Detected [facility] Comment: Methodology: Final Finisher Forging Dies-Mediated Amplification This assay detects E6/E7 viral messenger RNA (mRNA) from 14 high-risk HPV types (16,18,31,33,35,39,45,51,52,56,58,59,66,68). The analytical performance characteristics of this assay have been determined by [employer]. The modifications have not been cleared or approved by the FDA. This assay has been validated pursuant to the CLIA regulations and is used for clinical purposes. For additional information, please refer to http://education.Enviable Abode.GetJob/faq/AXE907x9 (This link if provided for information/ educational purposes only.) THIS TEST WAS PERFORMED AT: [facility] [address] [place] [address] [address] [place], [place] ??[phone] GALE WILKINS MD 06/27/2021 9:05 AM EST [place] HISTORICAL/NON ORDERABLE LABS Fi nal Result [facility] [address] * Pap Smear (06/27/2021) Historical Provider HEALTH MAINTENANCE Final Result from Last 3 Months or Most Recently Relevant to Health Maintenance Insurance [facility] AD[facility] Care Teams Lap Welder Relationship Specialty Start Date End Date Matheus Quijano MD [address] [place] [id number] PCP - General Internal Medicine 11/24/18
--- OUTSIDE RECORDS SUMMARY | 2024-09-17 10:04 | XMS_ITS | Encounter Summary ---
Author Organization [employer] Address [address] [place] [address] 7t [place] [address] Care Team Providers Care Electrical Maintenance Engineer Name Role Phone Matheus Quijano MD Primary Care Provide r Encounter Details Date Type Department Care Team (Late Contact Info) Description 01/22/2023 Orders Only [facility] MEDICINE [address] [place] [address] Provider, MD Bimal Social History Tobacco Use [...] Department Care Team (Late Contact Info) Description 09/24/2024 10:00 AM EDT Office Visit [facility] ADULT DENTAL [address] [place] [address] Corrine Neri 11/06/2024 10:00 AM EDT Office Visit [facility] OPTOMETRY [address] [place], [place] [phone] YogeshDarcie izquierdo, OD [address] [place], [place] [phone] 12/03/2024 10:00 AM EDT Office Visit [facility] MEDICINE [address] [place] [address] Matheus Quijano MD [address] [place] [address] documented as of this encounter Procedures Procedure [...] as of this encounter Care Teams Electrical Maintenance Engineer Relationship Specialty Start Date End Date Matheus Quijano MD [address] [place] [address] PCP - General Internal Medicine 11/24/18 documented as of this encounter
--- OUTSIDE RECORDS SUMMARY | 2024-09-17 10:04 | XMS_ITS | Encounter Summary ---
Author Organization [employer] Address [address] [place] [address] 7 [place] [address] Care Team Providers Care Automatic Maintainer Name Role Phone Matheus Quijano MD Primary Care Provide r Encounter Details Date Type Department Care Team (Late st Contact Info) Description 10/17/2022 Abstract [facility] MEDICINE [address] [place] [address] Matheus Quijano MD [address] [place] [address] Social History Tobacco Use Types Packs/Day Years [...] Description 09/24/2024 10:00 AM EDT Office Visit [facility] ADULT DENTAL [address] [place], [place] [phone] Halle Corrine 11/06/2024 10:00 AM EDT Office Visit [facility] OPTOMETRY [address] [place] [address] Darcie Zuñiga, OD [address] [place] [address] 12/03/2024 10:00 AM EDT Office Visit [facility] MEDICINE [address] [place] [address] Matheus Quijano MD [address] [place] [address] documented as of this encounter Visit Diagnoses Not on filedocumented in this encounter Additional Health Concerns Assessment Noted Time PHQ-9 Depression Total Score: 16 08/23/ 023 10:18 AM EDT documented as of this encounter Care Teams Automatic Maintainer Relationship Specialty Start Date End Date Matheus Quijano MD [address] [place] [address] PCP - General Internal Medicine 11/24/18 documented as of this encounter
== END ==
LOC: HO.CARD 09:43
PROVIDERS: PCP Internal Medicine; Visit Provider Nurse Practitioner Family
DX: R00.2 Palpitations (principal); I42.9 Cardiomyopathy, unspecified
CPT/HCPCS: 93242

== ENCOUNTER → 2024-09-17 09:45 | Outpatient (BNV) | payer MEDICAID, SELFPAY | PROVIDERS: PCP Internal Medicine; Visit Provider Internal Medicine | DX: R00.0 Tachycardia, unspecified (principal) | CPT/HCPCS: 93227 ==

== ENCOUNTER 2024-11-19 07:48 | Outpatient (REF) | payer MEDICAID, SELFPAY ==
--- OUTSIDE RECORDS SUMMARY | 2024-11-19 07:51 | XMS_ITS | Encounter Summary ---
Author Organization [employer] Address [address] [place] [address] 7 [place] [address] Care Team Providers Care Planer Hand Name Role Phone Matheus Quijano MD Primary Care Provide r Encounter Details Date Type Department Care Team (Late Contact Info) Description 10/17/2022 Abstract [facility] MEDICINE [address] [place] [address] Matheus Quiajno MD [address] [place] [address] Social History Tobacco Use Types Packs/Day Years [...] Department Care Team (Late Contact Info) Description 12/03/2024 10:00 AM EDT Office Visit [facility] MEDICINE [address] [place], [place] [phone] Matheus Quijano MD [address] [place] [address] 05/04/2025 10:00 AM EST Office Visit [facility] ADULT DENTAL [address] [place], [place] [phone] Sven, Alicia [address] [place], [place] [phone] documented as of this encounter Visit Diagnoses Not on filedocumented in this encounter Additional Health Concerns Assessment Noted Time PHQ-9 Depression Total Score: 16 023 10:18 AM EDT documented as of this encounter Care Teams Planer Hand Relationship Specialty Start Date End Date Matheus Quijano MD [address] [place] [address] PCP - General Internal Medicine 11/24/18 documented as of this encounter
--- OUTSIDE RECORDS SUMMARY | 2024-11-19 07:51 | XMS_ITS | Clinical Summary ---
Author Organization [facility] Address [address] [address] Phone Care Team Providers Care Cloth Measurer Name Role Phone [facility] Provider Unavailable Allergies No known active allergies Medications albuterol sulfate (PROAIR RESPICLICK) 90 mcg/actuation AePB Inhale 2 puffs into the lungs. 2 Active cetirizine (ZYRTEC) 10 MG tablet Take 1 tablet by mouth daily. 3 Active desonide (DESOWEN) 0.05 % cream Apply topically. 3 Active fluticasone propionate (FLOVENT HFA) 110 mcg/actuation inhaler Inhale 1 puff into the lungs every 12 (twelve) hours. 2 Active ketoconazole (NIZORAL) 2 % shampoo Apply 1 application. topically 2 (two) times a week. 3 Active nabumetone (RELAFEN) 500 MG tablet Take 500 mg by mouth. 3 Active pregabalin (LYRICA) 150 MG capsule Take 150 mg by mouth every 12 (twelve) hours. 3 Active Active Problems Problem Noted Date Diagnosed Date Obesity, morbid, BMI 50 or higher 11/12/2022 Assessment & Plan (11/12/2022 10:13 AM EDT): This is a 42 YO patient who is interested in weight loss surgery, specifically the laparoscopic sleeve gastrectomy for weight loss. We have discussed gastric bypass and sleeve gastrectomy surgery in detail including risks, benefits, and alternatives. We have also discussed requirements preop and post op. They understands that they are required to lose about 10 percent of their current weight which is 51.2 lbs. The goal weight at the time of submission to the insurance company will be 350 pounds. In an effort to help the patient to lose weight I have prescribed an eating plan which will consist of a protein shake or a protein bar or Marshallese yogurt or cottage cheese to be consumed at 9 AM and 3 PM daily. The patient will consume 4 ounces of protein with 6 ounces of vegetable or small salad with a noncreamy salad dressing of not more than 2 tablespoons at 12 PM and 6 PM daily. At the 6 PM meal the patient may have 1/2 cup of carbohydrate. We have ordered required labs and testing. The patient will attend 5 nutrition classes, 2 appointments, and dietitian consultation. The patient will need to obtain a medical clearance letter from the primary care doctor prior to submission to the insurance company. The patient will see the dietitian in 2 and 4 weeks and I will follow up with them again in 6 weeks to ensure compliance with the meal plan. The patient will continue current medications as reviewed. They are not stable and are considered morbidly obese. I spent 62 minutes with this patient which also included documentation. Preoperative examination 11/12/2022 Family History Medical History Relation Comments Asthma Mother Hypertension Mother Hyperthyroidism Mother Osteopenia Mother Hypothyroidism Sister 2 Relation Status Comments Brother Alive Father Alive Mother Alive Sister 1 Alive Sister 2 Alive Social History Tobacco Use Types Packs/Day Years Used Date Smoking Tobacco: Every Day Cigarettes 0.5 10 Smokeless Tobacco: Never Tobacco Cessation:Ready to Q uit: Not Asked; Counseling Given: Not Answered Alcohol Use Standard Drinks/Week Comments Never 0 (1 standard drink = 0.6 oz pur e alcohol) Education Answer Date Recorded Are you interested in more education? Not on maegan e 08/25/2022 Are you concerned about learning? Not on file 08/25/2022 No 08/25/2022 No 08/25/2022 Digital Access Answer Date Recorded No 09/21/2022 No 09/21/2022 Reliable internet access at home? Not on file 09/21/2022 Device with a working camera? Not on file Comments Unknown Sex and Gender Information Value Date Recorded Sex Assigned at Not on file Legal Sex Female 10:06 AM EDT Gender Identity Not on file Sexual Orientation Not on file Occupation Industry Job Start Date Job End Date unemployed Not on file Not on file Not on file Last Filed Vital Signs Vital Sign Reading Time Taken Comments Blood Pressure 112/72 12/06/2022 9:00 AM EDT Pulse 106 12/06/2022 9:00 AM EDT Temperature 36.5 C (97.7 F) 12/06/2022 9:00 AM EDT Respiratory Rate - - Oxygen Saturation 96% 12/06/2022 9:00 AM EDT Inhaled Oxygen Concentration - - Weight 180.1 kg (397 lb) 12/18/2022 3:03 PM EDT Height 175.3 cm (5' 9.02 ) 12/06/2022 9:00 AM ED T Body Mass Index 58.6 12/06/2022 9:00 AM EDT Plan of Treatment Health Maintenance Due Date Last Done Comments DEPRESSION SCREENING 1994 SMOKING Hx and SMOKELESS TOB ACCO SCREENING 09/01/1995 HEPATITIS C SCREENING 2000 HIV ONE-TIME SCREENING (18-6 5 YEARS) 2000 PNEUMOCOCCAL VACCINES (0-49 years) (1 of 2 - PCV) 2001 PAP SMEAR 09/01/2003 SCREENING FOR DIABETES 2017 MAMMOGRAM 2022 COVID-19 VACCINE (1 - 2023-2 5 season) 2023 Adult Td,Tdap Booster 03/17/2029 03/17/2019 HEPATITIS A VACCINES Aged Out No long er eligible based on patient's age to complete this topic HIB VACCINES Aged Out No longer eligi ble based on patient's age to complete this topic MENINGOCOCCAL VACCINES (ACWY) Aged Out No longer eligible based on patient's age to complete this topic MENINGOCOCCAL VACCINES (B) Aged Out N o longer eligible based on patient's age to complete this topic Medical Devices Not on file Insurance [facility] C3 ACO C3 ACO C3 [place]CO [place] [place] [address] [place] [address] C3 ACO C3 ACO [facility] [place] [id number] [facility] C3 ACO Care Teams Cloth Measurer Relationship Specialty Start Date End Date Jase Morris MD PCP - General 01/31/22 Additional Source Comments The information contained in this document represents components of the legal health record. It is not the complete legal health record.[facility]
[2024-11-19 08:59] LABS: Blood Urea Nitrogen 15 mg/dL (9-16); Estimated Glomerular Filt Rate > 60
== END 2024-11-19 07:49 | disposition home or self-care (01) ==
LOC: HO.LAB 07:48
PROVIDERS: Absent Provider Nurse Practitioner Family; PCP Internal Medicine; Visit Provider Obstetrics & Gynecology
DX: R31.29 Other microscopic hematuria (principal)
CPT/HCPCS: 36415; 82565; 84520

== ENCOUNTER 2024-12-11 08:06 | Outpatient (REF) | payer MEDICAID, SELFPAY ==
--- NOTE | ~2024-12-11 | CT_ITS ---
EXAMINATION: CT ABDOMEN PELVIS WITHOUT THEN WITH IV CONTRAST HISTORY: R31.29 - Other microscopic hematuria COMPARISON: Comparison is made with the prior examination dated 08/13/2024. TECHNIQUE: CT scan of the abdomen and pelvis was performed before and after the intravenous administration of 85 mL Omnipaque 350. Postcontrast images were obtained using a split bolus technique. Coronal and sagittal reformatted images were generated and reviewed. Oral contrast material was not administered per department protocol. This CT exam was performed with one or more of the following dose reduction techniques: automated exposure control, adjustment of the mA and/or kV according to patient size, use of iterative reconstruction technique. DLP: 1744 mGy-cm ABDOMEN: LOWER CHEST: The visualized lung bases are clear. There is no pleural effusion. CARDIOVASCULATURE: The heart is normal in size. There is no pericardial effusion. LIVER: The liver is normal in size and contour. There is a 1.5 cm hypodensity in the right lobe which is only seen on the unenhanced examination. Findings may represent a hemangioma. The hepatic and portal veins are patent. GALLBLADDER / BILE DUCTS: There is cholelithiasis. There is no intra or extrahepatic biliary ductal dilatation. SPLEEN: The spleen is normal in size. No focal splenic lesion is identified. PANCREAS: The pancreas is unremarkable in appearance. ADRENAL GLANDS: Within normal limits. KIDNEYS/RETROPERITONEUM: No renal or ureteral calculi are identified. There is no hydronephrosis or hydroureter. No renal masses are identified. The intrarenal collecting systems are unremarkable in appearance. The distal right ureter and the proximal left ureter are not opacified, but is normal in caliber. LYMPH NODES: No abdominal or pelvic lymphadenopathy. VASCULATURE: The abdominal aorta is normal in caliber. MESENTERY/PERITONEUM: No free fluid. No masses. There is no free intraperitoneal gas. STOMACH: The stomach is collapsed, limiting evaluation. SMALL BOWEL: The small bowel is normal in caliber. COLON: The colon is unremarkable. APPENDIX: The appendix is not seen, however no inflammatory changes are seen adjacent to the cecum . URINARY BLADDER/PELVIC ORGANS: The urinary bladder is nondistended, limiting evaluation. The uterus is unremarkable. BONES / SOFT TISSUES: No suspicious bony or soft tissue abnormalities. CT/CT abdomen pelvis wo/w IV con IMPRESSION: 1. Unremarkable CT urogram. 2. Cholelithiasis. 3. 1.5 cm hepatic hypodensity which may represent a hemangioma but is difficult to characterize on this examination. Electronically signed by: Ruiz Dumont MD 12/11/2024 09:47 AM EDT
--- OUTSIDE RECORDS SUMMARY | 2024-12-11 08:11 | XMS_ITS | Encounter Summary ---
Author Organization [employer] Address [address] [place] [address] 7 [place] [address] Care Team Providers Care Performance Instructor Name Role Phone Matheus Quijano MD Primary Care Provide r Encounter Details Date Type Department Care Team (Late Contact Info) Description 10/17/[address] [facility] MEDICINE [address] [place] [address] Matheus Quijano MD [address] [place] [address] Social History Tobacco Use Types Packs/Day Years [...] Department Care Team (Late Contact Info) Description 12/14/2024 9:00 AM EDT Office Visit [facility] OPTOMETRY [address] [place], [place] [phone] Darcie Zuñiga, OD [address] [place] [address] 05/04/2025 10:00 AM EST Office Visit [facility] ADULT DENTAL [address] [place], [place] [phone] Sven, Alicia [address] [place] [address] documented as of this encounter Visit Diagnoses Not on filedocumented in this encounter Additional Health Concerns Assessment Noted Time PHQ-9 Depression Total Score: 16 08/23/ 023 10:18 AM EDT documented as of this encounter Care Teams Performance Instructor Relationship Specialty Start Date End Date Matheus Quijano MD [address] [place] [address] PCP - General Internal Medicine 11/24/18 documented as of this encounter
[2024-12-11] MEDS: iohexoL 350 MG/ML 100 ML INFUS..BTL 85 ML IV (09:30)
== END 2024-12-11 08:07 | disposition home or self-care (01) ==
LOC: HO.CT 08:06
PROVIDERS: PCP Internal Medicine; Visit Provider Obstetrics & Gynecology
DX: R31.29 Other microscopic hematuria (principal); I42.9 Cardiomyopathy, unspecified; R07.2 Precordial pain; G47.30 Sleep apnea, unspecified; R00.2 Palpitations
CPT/HCPCS: 74178; 93005; 99212; Q9967

== ENCOUNTER → 2024-12-11 08:08 | Outpatient (BNV) | payer MEDICAID, SELFPAY | PROVIDERS: PCP Internal Medicine; Visit Provider Radiology Diagnostic Radiology | DX: K80.20 Calculus of gallbladder without cholecystitis without obstruction (principal) | CPT/HCPCS: 74178 ==

== ENCOUNTER 2024-12-11 09:09 | Outpatient (AMB) | payer MEDICAID, SELFPAY ==
--- OUTSIDE RECORDS SUMMARY | 2024-12-11 09:24 | XMS_ITS | Clinical Summary ---
Author Organization [facility] Address [address] [address] Phone Care Team Providers Care Manager Embalmer Funeral Director Name Role Phone [facility] Primary Care Provider Unavailable Allergies No known [...] protein shake or a protein bar or Lithuanian yogurt or cottage cheese to be consumed [...] topic Medical Devices Not on file Insurance [facility] C3 ACO C3 ACO C3 ACO [address] [place] [address] [place] [address] C3 ACO C3 ACO [facility] [place] [id number] [facility] C3 ACO Care Teams Manager Embalmer Funeral Director Relationship Specialty Start Date End Date Jase Morris MD PCP - General 01/31/22 Additional Source Comments The information contained in this document represents components of the legal health record. It is not the complete legal health record.[facility]
[2024-12-11 09:41] VITALS: BP 110/72; PULSE 85; BMI 45.2
--- NOTE | 2024-12-11 09:41 | MHC.OFFVIS ---
Vital Signs 12/11/24 09:41 Height 5 ft 9 in Weight 306 lb 7.08 oz BMI 45.2 BP 110/72 Blood Pressure Location Lt brachial Position Sitting Pulse 85 Pulse Source Monitor Intake Visit Reasons: 3m follow up/holter Experience Planning Strategist Required: Yes Experience Planning Strategist Language: Gericare Aide Name: voice rock [id number] Allergies NKA Allergy (Unknown, Uncoded 12/11/24 09:44) NKA Medication List - Last Reconciled 12/11/24 by Ramona Zavala NP-C acetaminophen (Tylenol Extra Strength) 1,000 mg (2 x 500 mg) PO Q6H PRN albuterol sulfate 90 mcg/actuation 1 inh inhalation Q4-6H PRN cetirizine 10 mg PO DAILY clotrimazole-betamethasone 1-0.05 % 1 appl topical BID 5 days ibuprofen 600 mg PO Q8H PRN ibuprofen (Advil) 400 mg PO Q8H PRN pregabalin (Lyrica) unknown dose orally daily; terconazole 0.8% 1 appful vaginal BEDTIME 3 days HPI HPI 3m follow up/holter: Details: Lorrie is a 44-year-old female past medical history of obesity, mild sleep apnea, who has undergone evaluation for chest discomfort. Initial echo showed mild cardiomyopathy with some improvement noted on repeat echocardiogram. She did have a CTA of the coronary arteries which showed no significant CAD. On last visit a sleep study was ordered and she now presents for follow-up. Today she is reporting that she missed the appointment for her sleep study and needs to have it rescheduled. She tells me she will make the call and get it completed. She has not had any concerning symptoms recently. No chest discomfort, shortness of breath. She will still get some heart palpitations at times. She tries to remain physically active. Compliant with meds. Certified toy stuffer used. [facility] Medical History KINGS positive JUDE II (cervical intraepithelial neoplasia II) Morbid obesity with BMI of 45.0-49.9, adult Kidney stones Anxiety Anemia Surgical History History of cystoscopy H/O lithotripsy Hx of tubal ligation Family History Father Medical history unknown Mother Asthma Hypertension Thyroid disease Brother Thyroid disease Sister No problems noted. Sister No problems noted. Son No problems noted. Daughter No problems noted. Social History Household Members: Children Housing: Apartment Alcohol intake: current Alcohol intake frequency: holidays/special occasions only Patient Tobacco Use Status: Current everyday Tobacco user Tobacco use type: Cigarette Cigarettes Per Day: 5 Years Smoked: 7 e-Cigarette/Vaping Use: Never Used Current occupational status: unemployed Sexual orientation: Straight/Heterosexual Gender identity: Female Female Reproductive History Menstrual Age of Menarche: 14 Review of Systems Const All systems reviewed & are unremarkable except as noted in HPI and below Reports fatigue ENT Denies dizziness Card Denies chest pain, Denies chest pain at rest, Denies chest pain with activity, Denies rapid heart rate, Denies pedal edema, Denies edema, Denies leg edema, Denies lightheadedness, Denies palpitations, Denies dyspnea, Denies dyspnea on exertion and Denies orthopnea Resp Denies cough, Denies dyspnea and Denies dyspnea on exertion GI Denies hematochezia and Denies change in stool character Musc Denies abnormal gait, Denies limited range of motion, Denies muscle cramps, Denies muscle weakness, Denies numbness, Denies radiating pain into limb, Denies stiffness and Denies tingling Neuro Denies abnormal gait, Denies dizziness, Denies numbness and Denies tingling Endo Reports fatigue and Denies palpitations Physical Exam Vital Signs: Last Vital Signs Pulse 85 12/11/24 09:41 BP 110/72 12/11/24 09:41 BMI result Body Mass Index 45.2 Const General: cooperative, healthy appearing, comfortable and no acute distress Orientation/consciousness: patient oriented x3 Neck Neck: Yes normal visual inspection and Yes no JVD Resp Effort & Inspection: normal respiratory effort Auscultation: clear to auscultation bilaterally, no rales, no rhonchi and no wheezes Cardio Rate: regular rate Rhythm: regular rhythm Heart sounds: S1 normal heart sound present, S2 normal heart sound present, no gallops, no murmurs and no rubs Neuro General: patient oriented x3 Extrem General: Yes normal to inspection and No no pedal edema Psych Appearance: grossly normal Mental Status: mental status grossly normal Speech and movement: Normal speech and movement present Office Procedures EKG Details: Today, read by me, normal sinus rhythm, can not exclude prior anterior infarct, rate 85, QTC 435 millisecond [id number], Complete Assessment & Plan Assessment & Plan (1) Cardiomyopathy: Code(s): I42.9 - Cardiomyopathy, unspecified Category: Medical Plan: Mild cardiomyopathy, nonischemic. Holter monitor ordered last visit for heart palpitations was done 09/17/2024 for 2 days showing sinus rhythm with average heart rate 87, no significant arrhythmia. Reported history of mild sleep apnea without treatment. Sleep study ordered last visit however not completed by her. She will reschedule. No clear cause at present for her mild cardiomyopathy. Will update echo prior to her next visit in 6 months. (2) Precordial chest pain: Code(s): R07.2 - Precordial pain Category: Medical Plan: Prior reports of atypical chest discomfort. Cardiac risks of morbid obesity, smoking. Initial echo did show EF 45-50%. A repeat echocardiogram in May 2024 showed EF 50-55%, possible inferior septal hypokinesis. She then had a CTA of the coronary arteries which showed no significant CAD. Continue with Cardiac risk factor modification. (3) Sleep apnea: Code(s): G47.30 - Sleep apnea, unspecified Category: Medical Plan: As above (4) Palpitations: Code(s): R00.2 - Palpitations Category: Medical Plan: Intermittent heart palpitations like her heart is fluttering. Holter shows no concerning arrhythmia. Plan I discussed with the patient that her heart palpitations are not concerning based on current findings, and her heart function is slightly low but within normal limits. I recommended rescheduling the sleep study to check for sleep apnea, which could affect her heart function. We will perform a follow-up ultrasound in six months to monitor her heart. Orders: Orders CA echo transthoracic complete 04/02/25 I42.9 - Cardiomyopathy, unspecified Patient Instructions: - Reschedule and complete the sleep study. - Expect a call to schedule a heart ultrasound in 6 mo -Cardiology follow up 6 mo, sooner if needed Patient was informed and verbally consented to the use of an ambient scribe for clinic note documentation during this visit. Visit time spent on chart review, interview, assessment, orders, documentation. Coding Level of Care Code Est Pt Level 3 (13987) Complex EM visit Add On G2211 Diagnoses Cardiomyopathy I42.9 Precordial chest pain R07.2 Sleep apnea G47.30 Palpitations R00.2 CPT Codes EKG - CPT: 48668-[id number], Complete ([id number]) Time Spent (min) 24
== END 2024-12-11 10:13 | disposition home or self-care (01) ==
LOC: HO.HCS 09:10
PROVIDERS: PCP Internal Medicine; Visit Provider Nurse Practitioner Family
DX: I42.9 Cardiomyopathy, unspecified (principal); R07.2 Precordial pain; G47.30 Sleep apnea, unspecified; R00.2 Palpitations
CPT/HCPCS: 93010; 99213

== ENCOUNTER 2024-12-14 07:46 | Outpatient (AMB) | payer MEDICAID, SELFPAY ==
--- NOTE | 2024-12-14 07:46 | A.OFFVIS_ITS ---
Intake Visit Reasons: CT scan results Tower Erector Helper Required: Yes Tower Erector Helper Language: Maintenance And Operations Supervisor Services: Tower Erector Helper Present (in person) Tower Erector Helper Name: Nallely SO Information Interpreted: non-clinical & clinical Allergies NKA Allergy (Unknown, Uncoded 12/14/24 07:47) NKA HPI Comments Details: The patient is schedule telehealth visit for follow-up CT scan done on 12/11/2024 which showed the following: IMPRESSION: 1. Unremarkable CT urogram. 2. Cholelithiasis. 3. 1.5 cm hepatic hypodensity which may represent a hemangioma but is difficult to characterize on this examination. [facility] Medical History KINGS positive JUDE II (cervical intraepithelial neoplasia II) Morbid obesity with BMI of 45.0-49.9, adult Kidney stones Anxiety Anemia Surgical History History of cystoscopy H/O lithotripsy Hx of tubal ligation Family History Father Medical history unknown Mother Asthma Hypertension Thyroid disease Brother Thyroid disease Sister No problems noted. Sister No problems noted. Son No problems noted. Daughter No problems noted. Social History Household Members: Children Housing: Apartment Alcohol intake: current Alcohol intake frequency: holidays/special occasions only Patient Tobacco Use Status: Current everyday Tobacco user Tobacco use type: Cigarette Cigarettes Per Day: 5 Years Smoked: 7 e-Cigarette/Vaping Use: Never Used Current occupational status: unemployed Sexual orientation: Straight/Heterosexual Gender identity: Female Female Reproductive History Menstrual Age of Menarche: 14 Review of Systems Const All systems reviewed & are unremarkable except as noted in HPI and below Reports as per HPI and Reports no additional complaints GI Reports no additional complaints Reports no additional complaints Telehealth Telehealth Telehealth Platform: Telephone Location of provider rendering services: practice address Location of patient: address on file Patient Identification confirmed using: Name, : Yes Telehealth method: video Patient verbally consented to treatment: Yes Patient verbally consented to billing insurance company: Yes Patient informed of any privacy concerns related to visit: Yes Minutes spent on Phone/Video with Pt.: 6 Assessment & Plan Assessment & Plan (1) Cholelithiasis: Code(s): K80.20 - Calculus of gallbladder without cholecystitis without obstruction Category: Medical Plan: Discussed with the patient the finding on CT scan showing cholelithiasis. General surgery referral placed. Instructions given the patient to call or go to emergency room in case of right upper quadrant pain, nausea or vomiting or fever. Instructed the patient to call our office back in case a referral appointment is not scheduled, missed or canceled so that we will assist on rescheduling another appointment, the patient verbalized understanding agreed with the plan. (2) Renal lesion: Code(s): N28.9 - Disorder of kidney and ureter, unspecified Category: Medical Plan: Discussed with the patient the finding on CT scan showing a renal lesion instructions given to patient to call her PCP for further management. The patient has an appointment with Urology on 02/03/2025 for microscopic hematuria. All questions answered, the patient verbalized understanding I spent a total of 20 minutes reviewing the chart, talking to the patient via video and documenting in the medical record. Orders: Referrals General Surgery Referral K80.20 - Calculus of gallbladder without cholecystitis without obstruction Coding Level of Care Code Tele Est Pt Level 3 (06212) Diagnoses Cholelithiasis K80.20 Renal lesion N28.9
== END 2024-12-14 08:14 | disposition home or self-care (01) ==
LOC: HO.HWS 07:46
PROVIDERS: PCP Internal Medicine; Visit Provider Obstetrics & Gynecology
DX: K80.20 Calculus of gallbladder without cholecystitis without obstruction (principal); N28.9 Disorder of kidney and ureter, unspecified
CPT/HCPCS: 99213

== ENCOUNTER 2025-01-20 14:27 | Outpatient (AMB) | payer MEDICAID, SELFPAY ==
[2025-01-20 14:30] VITALS: BMI 46.2
--- NOTE | 2025-01-20 14:30 | A.OFFVIS_ITS ---
Vital Signs 01/20/25 14:30 Height 5 ft 9 in Weight 313 lb BMI 46.2 Intake Visit Reasons: Calculus of gallbladder Intake Note: This patient was referred by Dr. Connelly for cholelithiasis assessment. Pt c/o; RUQ pain radiates towards back, reports she is alternating Tylenol and ibuprofen for the pain no relievve, Neurologist in [facility], reports no postprandial nausea or vomiting, reports constipation. DI: Abd/pelvis CT 12/11/2024 Solar Sales Representative And Assessor Required: Yes Solar Sales Representative And Assessor Language: Medical Coding Manager Services: Solar Sales Representative And Assessor Present Solar Sales Representative And Assessor Name: Fannie Information Interpreted: non-clinical & clinical Accompanied by: Sister Allergies NKA Allergy (Unknown, Uncoded 01/20/25 14:36) NKA Medication List - Last Reconciled 01/20/25 by Irineo Pearson MD acetaminophen (Tylenol Extra Strength) 1,000 mg (2 x 500 mg) PO Q6H PRN albuterol sulfate 90 mcg/actuation 1 inh inhalation Q4-6H PRN cetirizine 10 mg PO DAILY clotrimazole-betamethasone 1-0.05 % 1 appl topical BID 5 days ibuprofen 600 mg PO Q8H PRN ibuprofen (Advil) 400 mg PO Q8H PRN pregabalin (Lyrica) unknown dose orally daily; terconazole 0.8% 1 appful vaginal BEDTIME 3 days HPI HPI Calculus of gallbladder: Details: 44-year-old female with cardiomyopathy, morbid obesity, referred because of gallstones She says she has had right-sided abdominal pain on and off radiating to the back for about over 3-4 months now. She does not describe this has been associated with food intake or fatty food. She says sometimes this can be severe . She denies vomiting. She denies any diarrhea or constipation. She also actually describes abdominal pain on all the other quadrants of her abdomen at times. She has had CAT scans the last 4 months showing gallstones without cholecystitis She had a visit in the ER last July, for pelvic pain. She had hematuria at that time as well. She has anxiety and depression. She has chronic anemia. She describes exertional dyspnea and occasional chest pain as well. She is being followed by Cardiology here at the [facility] for cardiomyopathy. [facility] Medical History (Updated 09/24/25 @ 15:00 by Irineo Pearson MD) Gallstones KINGS positive JUDE II (cervical intraepithelial neoplasia II) Morbid obesity with BMI of 45.0-49.9, adult Kidney stones Anxiety Anemia Surgical History History of cystoscopy H/O lithotripsy Hx of tubal ligation Family History Father Medical history unknown Mother Asthma Hypertension Thyroid disease Brother Thyroid disease Sister No problems noted. Sister No problems noted. Son No problems noted. Daughter No problems noted. Social History Household Members: Children Housing: Apartment Alcohol intake: current Alcohol intake frequency: holidays/special occasions only Patient Tobacco Use Status: Current everyday Tobacco user Tobacco use type: Cigarette Cigarettes Per Day: 5 Years Smoked: 7 e-Cigarette/Vaping Use: Never Used Current occupational status: unemployed Sexual orientation: Straight/Heterosexual Gender identity: Female Female Reproductive History Menstrual Age of Menarche: 14 Review of Systems Const Denies chills and Denies fever(s) Card Reports chest pain, Reports chest pain at rest, Reports dyspnea and Reports dyspnea on exertion Resp Denies cough, Reports dyspnea and Reports dyspnea on exertion GI Denies hematochezia and Denies change in bowel habits Denies hematuria Musc Denies back pain and Denies limited range of motion Neuro Denies focal weakness and Denies convulsions Psych Denies depression and Denies mood swings Physical Exam Vital Signs: BMI result Body Mass Index 46.2 Const Other: Morbidly obese General: comfortable and no acute distress Orientation/consciousness: patient oriented x3 Neck Neck: Yes no lymphadenopathy Resp Auscultation: clear to auscultation bilaterally Cardio Rhythm: regular rhythm GI Palpation (GI): Soft to palpation, nontender and no guarding Neuro General: patient oriented x3 Assessment & Plan Assessment & Plan (1) Gallstones: Code(s): K80.20 - Calculus of gallbladder without cholecystitis without obstruction Category: Medical Plan: She describes frequent abdominal pain and states that this often times this has in the right upper quadrant. She has known gallstones. She was referred to me for this I did explain to her the option of proceeding with laparoscopic cholecystectomy with possible open cholecystectomy. I reviewed the technique of this procedures. I explained the risks including but not limited to bleeding, infections, injury to other organs including bowel, liver and bile ducts, perioperative PA and strokes, inherent risks of anesthesia, as well as the benefits and alternatives. I did explain to her that preoperative risks are much higher in view of her morbid obesity and cardiomyopathy. I also discussed with her that the gallstones may explained the right upper quad rant pain but may be the etiology of her other pain in the rest of her abdomen. She says that she understands this but feels that she wants to go ahead with cholecystectomy I explained to that she will need to be seen by a master scheduler 1st before going for the procedure in view of her cardiomyopathy including excisional dyspnea. She says she understands. She is cleared, we will schedule her for laparoscopic cholecystectomy with possible open. Coding Level of Care Code New Pt Level 3 (72599) Diagnoses Gallstones K80.20
--- OUTSIDE RECORDS SUMMARY | 2025-01-20 17:09 | XMS_ITS | Encounter Summary ---
Author Organization [employer] Address [address] [facility] 7 [place] [address] Care Team Providers Care Social Media Content Specialist Name Role Phone Matheus Quijano MD Primary Care Provide r Reason for Visit * Reason Comments Med Refill Encounter Details Date Type Department Care Team ([facility] Contact Info) Description 11/20/2024 Refill [facility] MEDICINE [address] [place] [address] Matheus Quijano MD [address] [place] [address] Seasonal allergies Social History Tobacco Use Types Packs/Day Years [...] Care Team (Late st Contact Info) Description 05/04/2025 10:00 AM EST Office Visit [facility] ADULT DENTAL [address] [place] [address] Sven, Alicia [address] [place] [address] documented as of this encounter Visit Diagnoses Diagnosis Seasonal allergies Allergic rhinitis, cause unspecified documented in this encounter Additional Health Concerns Assessment Noted Time PHQ-9 Depression Total Score: 4 08/19/19 25 10:07 AM EDT documented as of this encounter Care Teams Social Media Content Specialist Relationship Specialty Start Date End Date Matheus Quijano MD [address] [place] [address] PCP - General Internal Medicine 11/24/18 documented as of this encounter
--- OUTSIDE RECORDS SUMMARY | 2025-01-20 17:09 | XMS_ITS | Encounter Summary ---
Author Organization [employer] Address [address] [facility] 7 [place] [address] Care Team Providers Care Hand Salter Name Role Phone Matheus Quijano MD Primary Care Provide r Reason for Visit * Reason Onset Date Comments Appointment Request 01/28/2024 Encounter Details Date Type Department Care Team ([facility] Contact Info) Description 01/28/2024 Telephone [facility] MEDICINE [address] [place] [address] Matheus Quijano MD [address] [place] [address] Appointment Request Social History Tobacco Use Types [...] to cancel appt for 01/27 and radio script writer did attempt to reschedule appt however there is nothing available at this time documented in this encounter Plan of Treatment Upcoming Encounters Date Type Department Care Team (Late st Contact Info) Description 05/04/2025 10:00 AM EST Office Visit [facility] ADULT DENTAL [address] [place] [address] Sven, Alicia [address] [place] [address] documented as of this encounter Visit Diagnoses Not on filedocumented in this encounter Additional Health Concerns Assessment Noted Time PHQ-9 Depression Total Score: 19 024 1:37 PM EST documented as of this encounter Care Teams Hand Salter Relationship Specialty Start Date End Date Matheus Quijano MD [address] [place] [address] PCP - General Internal Medicine 11/24/18 documented as of this encounter
--- OUTSIDE RECORDS SUMMARY | 2025-01-20 17:09 | XMS_ITS | Encounter Summary ---
Author Organization [employer] Address [address] [place] [address] 7 [place] [address] Care Team Providers Care Oil Tank Car Cleaner Name Role Phone Matheus Quijano MD Primary Care Provide r Reason for Visit * Reason Onset Date Comments Med Refill 08/07/2023 Encounter Details Date Type Department Care Team ([facility] st Contact Info) Description 08/07/2023 Refill [facility] CHC MED & PEDS [address] [place] [address] Leana Yanez MD [address] [place] [address] Social History Tobacco Use Types Packs/Day Years [...] Description 05/04/2025 10:00 AM EST Office Visit [facility] ADULT DENTAL [address] [place] [address] Sven, Alicia [address] [place] [address] documented as of this encounter Visit Diagnoses Not on filedocumented in this encounter Additional Health Concerns Assessment Noted Time PHQ-9 Depression Total Score: 19 024 1:37 PM EST documented as of this encounter Care Teams Oil Tank Car Cleaner Relationship Specialty Start Date End Date Matheus Quijano MD [address] [place] [address] PCP - General Internal Medicine 11/24/18 documented as of this encounter
--- OUTSIDE RECORDS SUMMARY | 2025-01-20 17:09 | XMS_ITS | Encounter Summary ---
Author Organization [employer] Address [address] [place] [address] 7 [place] [address] Care Team Providers Care Factory Assembler Name Role Phone Matheus Quijano MD Primary Care Provide r Reason for Visit * Reason Onset Date Comments Med Refill 09/24/2023 Encounter Details Date Type Department Care Team ([facility] st Contact Info) Description 09/24/2023 Refill [facility] CHC MED & PEDS [address] [place] [address] Leana Yanez MD [address] [place] [address] Social History Tobacco Use Types Packs/Day Years [...] Description 05/04/2025 10:00 AM EST Office Visit [facility] ADULT DENTAL [address] [place] [address] Sven, Alicia [address] [place] [address] documented as of this encounter Visit Diagnoses Not on filedocumented in this encounter Additional Health Concerns Assessment Noted Time PHQ-9 Depression Total Score: 19 024 1:37 PM EST documented as of this encounter Care Teams Factory Assembler Relationship Specialty Start Date End Date Matheus Quijano MD [address] [place] [address] PCP - General Internal Medicine 11/24/18 documented as of this encounter
--- OUTSIDE RECORDS SUMMARY | 2025-01-20 17:09 | XMS_ITS | Encounter Summary ---
Author Organization [employer] Address [address] [facility] [address]t [place] [address] Care Team Providers Care Teaching Music Lessons Name Role Phone Matheus Quijano MD Primary Care Provide r Reason for Visit * Reason Onset Date Comments Med Refill 03/15/2023 Encounter Details Date Type Department Care Team ([facility] st Contact Info) Description 03/15/2023 Refill [facility] MEDICINE [address] [place] [address] Krystin Saenz MD [address] [place] [address] Class 3 severe obesity due to excess [...] note were not included. Triage call with [employer] ID [id number] Pt contacts through Pt portal regarding exposure [...] but, if neg Pt will come to [facility] to be seen for asthma like symptoms, declined to come to [facility] today. Protocol Used: COVID-19 - Diagnosed or [...] You become worse Pt portal request: [facility] (supporting Matheus Pressley MD) [...] Description 05/04/2025 10:00 AM EST Office Visit [facility] ADULT DENTAL [address] [place] [address] Sven, Alicia [address] [place] [address] documented as of this encounter Visit Diagnoses Diagnosis Class 3 severe obesity due to excess calories with serious comorbidity and body mass index (BMI) of 50.0 to 59.9 in adult documented in this encounter Additional Health Concerns Assessment Noted Time PHQ-9 Depression Total Score: 16 08/23/ 023 10:18 AM EDT documented as of this encounter Care Teams Teaching Music Lessons Relationship Specialty Start Date End Date Matheus Quijano MD [address] [place] [address] PCP - General Internal Medicine 11/24/18 documented as of this encounter
--- OUTSIDE RECORDS SUMMARY | 2025-01-20 17:09 | XMS_ITS | Clinical Summary ---
Author Organization [facility] Address [address] [address] Phone Care Team Providers Care Grinding Wheel Operator Name Role Phone [facility] Primary Care Provider Unavailable Allergies No known [...] protein shake or a protein bar or Latvian yogurt or cottage cheese to be consumed [...] 09/01/2003 SCREENING FOR DIABETES 2017 MAMMOGRAM 2022 INFLUENZA VACCINE (#1) 2024 COVID-19 VACCINE (1 - 2023-2 5 season) 2024 Adult Td,Tdap Booster 03/17/2029 03/17/2019 HEPATITIS A [...] topic Medical Devices Not on file Insurance [facility] C3 ACO C3 ACO C3 ACO C3 ACO C3 ACO C[address] [place] [address] [place] [address] C3 ACO [facility] C3 ACO [facility] C3 ACO Care Teams Grinding Wheel Operator Relationship Specialty Start Date End Date [facility] - [facility] 01/31/22 Additional Source Comments The information contained in this document represents components of the legal health record. It is not the complete legal health record.[facility]
--- OUTSIDE RECORDS SUMMARY | 2025-01-20 17:09 | XMS_ITS | Encounter Summary ---
Author Organization [employer] Address [address] [place] [address] 7 [place] [address] Care Team Providers Care Access Rn Name Role Phone Matheus Quijano MD Primary Care Provide r Encounter Details Date Type Department Care Team (Late st Contact Info) Description 10/17/2022 Abstract [facility] MEDICINE [address] [place] [address] Matheus Quijano MD [address] [place] [address] Social History Tobacco Use Types Packs/Day Years [...] Department Care Team (Late Contact Info) Description 05/04/2025 10:00 AM EST Office Visit [facility] ADULT DENTAL [address] [place] [address] Дмитрий Machucaaris [address] [place] [address] documented as of this encounter Visit Diagnoses Not on filedocumented in this encounter Additional Health Concerns Assessment Noted Time PHQ-9 Depression Total Score: 16 023 10:18 AM EDT documented as of this encounter Care Teams Access Rn Relationship Specialty Start Date End Date Matheus Quijano MD [address] [place] [address] PCP - General Internal Medicine 11/24/18 documented as of this encounter
--- OUTSIDE RECORDS SUMMARY | 2025-01-20 17:09 | XMS_ITS | Encounter Summary ---
Author Organization [employer] [facility] Address [address] [place] [address] 7 [place] [address] Care Team Providers Care Tugger Operator Name Role Phone Matheus Quijano MD Primary Care Provide r Encounter Details Date Type Department Care Team (Late Contact Info) Description 01/22/2023 Orders Only [facility] MEDICINE [address] [place], [place] [phone] Provider, MD Bimal Social History Tobacco Use [...] 10:00 AM EST Office Visit [facility] ADULT DENTAL [address] [place], [place] [phone] Sven, Alicia [address] [place], [place] [phone] documented as of this encounter Procedures Procedure Name Priority Date/Time Associated Diagnosis Comments HM PAP/HPV Routine 06/27/2021 HM PAP/HPV Routine 03/09/2020 documented in this encounter Results * Hm Pap Smear (06/27/2021) us Historical Provider HEALTH MAINTENANCE Final Result * Hm Pap Smear (03/09/2020) us Historical Provider HEALTH MAINTENANCE Final Result documented in this encounter Visit Diagnoses Not on filedocumented in this encounter Additional Health Concerns Assessment Noted Time PHQ-9 Depression Total Score: 16 023 10:18 AM EDT documented as of this encounter Care Teams Tugger Operator Relationship Specialty Start Date End Date Matheus Quijano MD [address] [place] [address] PCP - General Internal Medicine 11/24/18 documented as of this encounter
--- OUTSIDE RECORDS SUMMARY | 2025-01-20 17:09 | XMS_ITS | Clinical Summary ---
Author Organization [employer] Address [address] [place] [address] 7[address] [place] [address] Care Team Providers Care Internet Sourcer Name Role Phone Matheus Quijano MD Primary Care Provide r Allergies No known active allergies Medications Albuterol Sulfate (ProAir RespiClick) 108 (90 Base) MCG/ACT aerosol powder Inhale 2 puffs. 2 Active desonide (DesOwen) 0.05 % creamIndications :Seborrheic dermatitis Apply topically at bedtime. 15 g 2 3 Active Additional Information Patient not taking.Reported on 09/24/2024 SUMAtriptan (Imitrex) 50 MG tablet TAKE 1 TABLET BY MOUTH ONCE DAILY DIRECTED 3 Active bromocriptine (Parlodel) 2.5 MG tablet Take 2.5 mg by mouth Once per day. 4 Active Sodium Fluoride (PreviDent 5000 Plus) 1.1 % cream Apply 1 mg to teeth 3 times daily. 1 g 3 4 Active Additional Information Patient not taking.Reported on 09/24/2024 Arnuity Ellipta 100 MCG/ACT inhalerIndicatio ns:Mild intermittent asthma without complication INHALE 1 PUFF BY MOUTH EVERY DAY AT THE SAME TIME 30 each 5 4 Active pregabalin (Lyrica) 150 MG capsuleIndicatio ns:Fibromyalgia Take 1 capsule (150 mg) by mouth 2 times daily. 60 capsule 5 5 Active Ventolin HFA 108 (90 Base) MCG/ACT inhaler INHALE 2 PUFFS BY MOUTH EVERY 6 HOURS NEEDED FOR WHEEZING OR SHORTNESS OF BREATH 18 g 3 5 Active docusate sodium (Colace) 100 MG capsuleIndicatio ns:Slow transit constipation Take 1 capsule (100 mg) by mouth every 12 (twelve) hours. 180 capsule 5 Active ketoconazole (Nizoral) 2 % shampooIndicatio ns:Seborrheic dermatitis Apply topically 2 (two) times a week. 120 mL 1 5 Active Active Problems Problem Noted Date Diagnosed Date Cardiomyopathy 12/03/2024 Assessment & Plan (12/03/2024 10:11 AM EDT): Under the care of cardiology Last seen 09/04/2024 Per their most recent note: Echo show EF 45-50%. A repeat echocardiogram in May showed EF 50-55%, possible inferior septal hypokinesis. CTA of the coronary arteries showed no significant CAD. Theqy gave her a dx of Mild cardiomyopathy, nonischemic. Ordered Holter monitor to assess for arrhythmia. She has history of mild sleep apnea however did not follow through with further testing or treatment. They re-ordered in-lab sleep study for further evaluation. Last EF is low normal, no plan for medical management at this time. Severe episode of recurrent major depressive disorder, without psychotic features 12/03/2024 Assessment & Plan (12/03/2024 10:19 AM EDT): Patient continues under the care of [facility] Deloris Rabago . Sees a psychiatrist Dr Woodson She has been assigned a preliminary diagnosis of depression and anxiety. Pt tells me she is not taking any medications Slow transit constipation 08/18/2024 Nasal congestion 08/18/2024 [...] include a cystic pituitary adenoma or a Rathke s cleft cyst . Endocrine work up recommended and continued surveillance. Pt was seen 09/12/2023 at [facility] , and most recently 07/17/[address] Deandra Saucedo, acording to her patient had a repeat MRI in July 2023 that demonstrated an interval decrease in size of cystic lesion in the right pituitary gland , measuring 1 cm., without mass effect on the optic chiasm, nerves and tracts. 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 Belt Glass Sander recommended to repeat Prolactin level and MRI, [...] include a cystic pituitary adenoma or a Rathke s cleft cyst . endocrine work up recommended and continued surveillance. Pt tells me she was seen 09/12/2023, and once again more recently, records requested. Also has an appointment with [facility] Assessment & Plan (09/24/2023 [...] include a cystic pituitary adenoma or a Rathke s cleft cyst . endocrine work up recommended and continued surveillance. Pt tells me she was seen 09/12/2023 Also has an appointment with [facility] Assessment & Plan (06/21/2023 [...] include a cystic pituitary adenoma or a Rathke s cleft cyst . endocrine work up [...] include a cystic pituitary adenoma or a Rathke s cleft cyst . endocrine work up recommended and continued surveillance. Pt tells me he has a follow up on 05/06/2023 Dermatitis of face 08/23/2022 Assessment & Plan (12/03/2024 10:22 AM EDT): Pt with persistent dermatitis forehead and nasolabial folds Etiology ? Seborrheic dermatosis Plan: Derm clinic Assessment & Plan (08/23/2022 10:29 AM EDT): [...] Rheumatology, last note on record from 10/12/2020, Parent Trainer work up showed a positive KINGS but further labs were not indicative on any autoimmune inflamatory disorder. Parent Trainer thought her symptoms are suggestive of Fibromyalgia [...] Rheumatology, last note on record from 10/12/2020, Parent Trainer work up showed a positive KINGS but further labs were not indicative on any autoimmune inflamatory disorder. Parent Trainer thought her symptoms are suggestive of Fibromyalgia [...] Mild intermittent asthma 06/03/2022 Assessment & Plan (12/03/2024 10:20 AM EDT): No recent exacerbations Patient with previous c/o persistent dry cough ever since she had Covid-19 PFTS 07/28/2021 showed Mild obstructive airway disorder with good response with bronchodilator therapy, compared with results from 03/11/2018 the response to bronchodilator therapy was new counseled and educated about tobacco cessation as well She is on Flovent BID and Pro-Air prn Assessment & Plan (08/18/2024 10:08 AM EDT): [...] prn Kidney stone 06/03/2022 Assessment & Plan (12/03/2024 10:17 AM EDT): Pt with previous c/o back pain, UA positive for blood CT of abdomen and pelvis indicative of Nephrolithiasis, s/p Lithotripsy, last renal U/S 12/01/2019 showed 5 mm non obstructing calculus Most recently had repeat UA and CT done by [facility] 08/13/2024 showed UA with hematuria/CT neg Referred back to Urology seen 08/26/[address] urogram scheduled for 12/11/2024 Assessment & Plan (08/18/2024 9:04 AM EDT): Pt with previous c/o back pain, UA positive for blood Previous CT of abdomen and pelvis indicative of Nephrolithiasis, s/p Lithotripsy, last renal U/S 12/01/2019 showed 5 mm non obstructing calculus Most recently had repeat UA and CT done by M[facility]INE [facility] 08/13/2024 showed UA with hematuria/CT neg Referred back to Urology by Dr. Connelly [facility] Assessment & Plan (06/03/2022 4:55 PM EST): [...] (obstructive sleep apnea) 06/03/2022 Assessment & Plan (12/03/2024 10:18 AM EDT): Pt had sleep study 11/2021 that showed mild AMINTA, recommendation was to have an In facility test since the previous one was at home. Pt missed the appointment again. Assessment & Plan (04/30/2023 9:19 AM EST): [...] since the previous one was at home Obesity due to excess calories with serious [...] Previously she wanted to be referred to [facility]. Last minute [...] Previously she wanted to be referred to [facility]. She is now at [facility] with Dr. Michael She was interested in trying Semaglutide. This was denied by her insurance Assessment & Plan (09/18/2022 9:09 AM EDT): No longer under the care of the Weight management program. Patient has been counseled and educated about diet and exercise by the Weight management Program Patient has comorbidity of: Asthma She would like to be referred to [facility]. Referral placed [...] EST): Pt is under the care of [facility] Hx ASCUS HPV + PAP from 01/14/19. [...] with vitamin C Under the care of [facility] CBC ordered today Assessment & Plan (06/05/2022 1:14 PM EST): She has a Hx of anemia due to menometrorrhagia Hgb 9.7 ( 09/15/2020) Pt c/o of Heavy periods likely the cause. She is on iron. Plan: Continue FeSO4 325 mg with vitamin C Under the care of [facility] CBC ordered Cobalamin deficiency 09/27/2017 Assessment & Plan (06/05/2022 1:15 PM EST): IF negative. On vitamin b12 daily Backache 03/08/2017 Resolved Problems Problem Noted Date Diagnosed Date Resolved Date Depressive disorder 06/03/2022 12/04/19 25 Assessment & Plan (08/18/2024 10:19 AM EDT): [facility] Sees a psychiatrist Dr Woodson She has been assigned a preliminary diagnosis of depression and anxiety Assessment & Plan (04/14/2024 10:38 AM EST): Patient under the care of [facility] . She has been assigned a preliminary diagnosis of depression and anxiety Assessment & Plan (06/03/2022 4:51 PM EST): [facility] . She has been assigned a preliminary diagnosis of depression and anxiety Encounters Date Type Department Care Team Description 12/25/2024 Telephone [facility] MEDICINE [address] [place] [address] Matheus Quijano MD 12/25/2024 Telephone [facility] MED[facility] [address] [place] [address] Matheus Quijano MD 12/11/2024 Results Follow-Up [facility] [address] [place] [address] Abdomen Pelvis w/ and w/o Contrast 12/03/2024 10:00 AM EDT Office Visit [facility] [address] [place] [address] Matheus Quijano MD Kidney stone (Primary Dx); Cardiomyopathy, unspecified type (CMS/HCC); Severe episode of recurrent major depressive disorder, without psychotic features (CMS/HCC); AMINTA (obstructive sleep apnea); Mild intermittent asthma without complication; Dermatitis of face; Seborrheic dermatitis 12/03/2024 Travel 12/02/2024 Telephone [facility] MEDICINE [address] [place] [address] Matheus Quijano MD Chart Prep 11/30/2024 Outside Procedure [facility] OPTOMETRY [address] [place] [place] [address] Kyler Zuñigan, OD Presbyopia (Primary Dx) 11/25/2024 9:45 AM EDT Office Visit [facility] OPTOMETRY [address] [place] [address] Kyler Zuñigan, OD Myopia of both eyes (Primary Dx) 11/25/2024 Travel 11/25/2024 Patient Outreach [facility] [address] [place] [address] Matheus Quijano MD Pre-visit Planning (Pre-visit planning - unable to complete. Needs to be done in office. ) 11/20/2024 Refill [facility] [address] [place] [address] Matheus Quijano MD Slow transit constipation 11/20/2024 Refill [facility] [address] [place] [address] Matheus Quijano MD Seasonal allergies 11/19/2024 Orders Only GENERIC EXTERNAL DATA DEPARTMENT Provider, Generic External Data 11/08/2024 Refill [facility] [address] [place] [address] Matheus Quijano MD 11/06/2024 10:00 AM EDT Office Visit [facility] OPTOMETRY [address] [place] [address] Kyler Zuñigan, OD Amblyopia, right eye (Primary Dx); Lattice degeneration of right retina; Meibomian gland disease of both eyes, unspecified eyelid; Bilateral degenerative progressive high myopia 11/06/2024 Travel 10/22/2024 Refill [facility] [address] [place] [address] Matheus Quijano MD Seasonal allergies; Fibromyalgia from Last 3 Months Immunizations Immunization Administration [...] housing situation today? I have shahnaz garcia 12/03/[address] you li ve. Do you have problems with any of the following? None of the above 12/03/2024 Food Insecurity Answer Date Recorded Within the past 12 months, y ou worried that your food would run out before you got money to buy more: Never True 12/03/2024 Within the past 12 months,th e food you bought just didn't last and you didn't have enough money to get more: Never True 10/2024 Transportation Answer Date Recorded In the past 12 months, has l ack of transportation kept you from medical appts, meetings, work or from getting things needed for daily living? No 12/03/2024 Utilities Answer Date Recorded In the past 12 months, has t he electric, gas, oil or water company threatened to shut off services in your home? No 12/03/2024 Depression Answer Date Recorded Patient Health Questionnaire-2 Score 4 12/03/2024 Internet Access Answer Date Recorded Internet Access Q1 Yes 12/03/2024 Internet Access Q2 Not on file 12/03/2024 Comments No Sex and Gender Information Value Date Recorded Sex Assigned at Female 02/26/2022 10:32 AM EDT Legal Sex Female 10:32 AM EDT Gender Identity Female 02/26/2022 10:32 AM EDT Sexual Orientation Straight 05/23/2022 8: 45 AM EST Last Filed Vital Signs Vital Sign Reading Time Taken Comments Blood Pressure 110/80 12/03/2024 9:56 AM EDT Pulse 105 12/03/2024 9:56 AM EDT Temperature 36.2 C (97.2 F) 12/03/2024 9:56 AM EDT Respiratory Rate 20 12/03/2024 9:56 AM EDT Oxygen Saturation 99% 12/03/2024 9:56 AM EDT Inhaled Oxygen Concentration - - Weight 138 kg (303 lb 9.6 oz) 12/03/2024 9:56 AM EDT Height 175.3 cm (5' 9 ) 12/03/2024 9:56 AM EDT Body Mass Index 44.83 12/03/2024 9:56 AM EDT Plan of Treatment Upcoming Encounters Date Type Department Care Team (Late st Contact Info) Description 05/04/2025 10:00 AM EST Office Visit [facility] ADULT DENTAL [address] [place] [address] Sven, Alicia [address] [place] [address] Health Maintenance Due Date Last Done Comments HIV Screening 1980 Family Planning (PISQ) 1997 HPV Vaccines (1 - 3-dose series) 1997 Hepatitis C Screening 2000 Hepatitis B Vaccines (1 of 3 - 19+ 3-dose series) 2001 Pneumococcal Vaccine: Pediatrics (0 to 5 Years) and At-Risk Patients (6 to 49) Years (1 of 2 - PCV) 2001 Cervical Cancer Screening 12/28/2021 Pap Smear 12/28/2021 06/27/2021, 03/09/2020 COVID-19 Vaccine (3 - 2024-2 6 season) 2024 01/27/2021, 01/06/2021 Influenza Vaccine (#1) 2024 9, 02/20/2018, 02/15/2017 Dental X-Ray: Bitewings 03/25/2025 03/24/20 24, 01/24/2024 Dental Oral Exam 03/28/2025 09/24/2024 Dental Prophylaxis 03/28/2025 09/24/2024, 03/24/2024 Alcohol/Substance Use Screening 04/14/2025 04/14/2024 Mammogram 08/08/2025 08/09/2023 Disability Screening 08/18/2025 08/18/2024 Depression Screening 12/03/2025 12/03/2024, 08/18/2024 SDOH Screening 12/03/2025 12/03/2024 Tobacco Screening 12/03/2025 12/03/2024 HPV/Cotest 06/27/2026 06/27/2021, 06/27/2021, 01/14/2019 Dental X-Ray: [...] Date/Time Associated Diagnosis Comments CT ABDOMEN PELVIS W AND WO CONTRAST Routine 12/11/2024 8:39 AM EDT CREATININE, SERUM Routine 11/19/2024 7:5 7 AM EDT UREA NITROGEN (BUN) Routine 11/19/2024 7 :57 AM EDT FUNDUS PHOTOS - OU - BOTH EYES Routine 11/06/2024 10:00 AM EDT Bilateral degenerative progressive high myopia PROPHYLAXIS - ADULT Routine 09/24/2024 1 0:00 AM EDT Dental plaque Dental calculus PERIODIC ORAL EVALUATION - ESTABLISHED PATIENT Routine 09/24/2024 10:00 AM EDT INTRAORAL - COMPLETE SERIES OF RADIOGRAPHIC IMAGES [...] Health Maintenance Results * CT Abdomen Pelvis w/ and w/o Contrast (12/11/2024 8:39 AM EDT) Anatomical Region Laterality Modality Body, Pelvis, Abdomen Computed T omography 12/11/2024 8:39 AM EDT Narrative 12/11/2024 9:50 AM EDT [place] [address] CT Scan Report Signed Patient: Lorrie Bernal MR#: [id number] : 1980 Acct:[id number] Age/Sex: 44 / F ADM Date: 12/11/24 Loc: .CT Attending Dr: Azam Connelly MD Ordering Physician: Azam Connelly MD Date of Service: 12/11/24 Procedure(s): CT abdomen pelvis wo/w IV con Accession Number(s): [id number] cc: Matheus Breen MD; Azam Connelly MD Report Number: [id number]: Total DLP = 1744.00 mGy-cm EXAMINATION: CT ABDOMEN PELVIS WITHOUT THEN WITH IV CONTRAST HISTORY: R31.29 - Other microscopic hematuria COMPARISON: Comparison is made with the prior examination dated 08/13/2024. TECHNIQUE: CT scan of the abdomen and pelvis was performed before and after the intravenous administration of 85 mL Omnipaque 350. Postcontrast images were obtained using a split bolus technique. Coronal and sagittal reformatted images were generated and reviewed. Oral contrast material was not administered per department protocol. This CT exam was performed with one or more of the following dose reduction techniques: automated exposure control, adjustment of the mA and/or kV according to patient size, use of iterative reconstruction technique. DLP: 1744 mGy-cm ABDOMEN: LOWER CHEST: The visualized lung bases are clear. There is no pleural effusion. CARDIOVASCULATURE: The heart is normal in size. There is no pericardial effusion. LIVER: The liver is normal in size and contour. There is a 1.5 cm hypodensity in the right lobe which is only seen on the unenhanced examination. Findings may represent a hemangioma. The hepatic and portal veins are patent. GALLBLADDER / BILE DUCTS: There is cholelithiasis. There is no intra or extrahepatic biliary ductal dilatation. SPLEEN: The spleen is normal in size. No focal splenic lesion is identified. PANCREAS: The pancreas is unremarkable in appearance. ADRENAL GLANDS: Within normal limits. KIDNEYS/RETROPERITONEUM: No renal or ureteral calculi are identified. There is no hydronephrosis or hydroureter. No renal masses are identified. The intrarenal collecting systems are unremarkable in appearance. The distal right ureter and the proximal left ureter are not opacified, but is normal in caliber. LYMPH NODES: No abdominal or pelvic lymphadenopathy. VASCULATURE: The abdominal aorta is normal in caliber. MESENTERY/PERITONEUM: No free fluid. No masses. There is no free intraperitoneal gas. STOMACH: The stomach is collapsed, limiting evaluation. SMALL BOWEL: The small bowel is normal in caliber. COLON: The colon is unremarkable. APPENDIX: The appendix is not seen, however no inflammatory changes are seen adjacent to the cecum . URINARY BLADDER/PELVIC ORGANS: The urinary bladder is nondistended, limiting evaluation. The uterus is unremarkable. BONES / SOFT TISSUES: No suspicious bony or soft tissue abnormalities. CT/CT abdomen pelvis wo/w IV con IMPRESSION: 1. Unremarkable CT urogram. 2. Cholelithiasis. 3. 1.5 cm hepatic hypodensity which may represent a hemangioma but is difficult to characterize on this examination. Electronically signed by: Ruiz Dumont MD 12/11/2024 09:47 AM EDT RP Dictated By: Ruiz Dumont MD Signed By: <Electronically signed by Ruiz Dumont MD in OV> 12/11/2447 DD/ 8 TD/TT: 12/11/24929 Drafter Landscape: Procedure Note Donotuseinterpreter, Image - 12/11/[address] [address] [address] Scan Report Signed Patient: Lorrie BernalMR#: [id number] : 1980Acct:[id number] Age/Sex: 44 / FADM Date: 12/11/24 Loc: HO.CT Attending Dr: Azam Connelly MD Ordering Physician: Azam Connelly MD Date of Service: 12/11/24 Procedure(s): CT abdomen pelvis wo/w IV con Accession Number(s): [id number] cc: Matheus Breen MD; Azam Connelly MD Report Number: [id number]: Total DLP = 1744.00 mGy-cm EXAMINATION: CT ABDOMEN PELVIS WITHOUT THEN WITH IV CONTRAST HISTORY: R31.29 - Other microscopic hematuria COMPARISON: Comparison is made with the prior examination dated 08/13/2024. TECHNIQUE: CT scan of the abdomen and pelvis was performed before and after the intravenous administration of 85 mL Omnipaque 350. Postcontrast images were obtained using a split bolus technique. Coronal and sagittal reformatted images were generated and reviewed. Oral contrast material was not administered per department protocol. This CT exam was performed with one or more of the following dose reduction techniques: automated exposure control, adjustment of the mA and/or kV according to patient size, use of iterative reconstruction technique. DLP: 1744 mGy-cm ABDOMEN: LOWER CHEST: The visualized lung bases are clear. There is no pleural effusion. CARDIOVASCULATURE: The heart is normal in size. There is no pericardial effusion. LIVER: The liver is normal in size and contour. There is a 1.5 cm hypodensity in the right lobe which is only seen on the unenhanced examination. Findings may represent a hemangioma. The hepatic and portal veins are patent. GALLBLADDER / BILE DUCTS: There is cholelithiasis. There is no intra or extrahepatic biliary ductal dilatation. SPLEEN: The spleen is normal in size. No focal splenic lesion is identified. PANCREAS: The pancreas is unremarkable in appearance. ADRENAL GLANDS: Within normal limits. KIDNEYS/RETROPERITONEUM: No renal or ureteral calculi are identified. There is no hydronephrosis or hydroureter. No renal masses are identified. The intrarenal collecting systems are unremarkable in appearance. The distal right ureter and the proximal left ureter are not opacified, but is normal in caliber. LYMPH NODES: No abdominal or pelvic lymphadenopathy. VASCULATURE: The abdominal aorta is normal in caliber. MESENTERY/PERITONEUM: No free fluid. No masses. There is no free intraperitoneal gas. STOMACH: The stomach is collapsed, limiting evaluation. SMALL BOWEL: The small bowel is normal in caliber. COLON: The colon is unremarkable. APPENDIX: The appendix is not seen, however no inflammatory changes are seen adjacent to the cecum . URINARY BLADDER/PELVIC ORGANS: The urinary bladder is nondistended, limiting evaluation. The uterus is unremarkable. BONES / SOFT TISSUES: No suspicious bony or soft tissue abnormalities. CT/CT abdomen pelvis wo/w IV con IMPRESSION: 1. Unremarkable CT urogram. 2. Cholelithiasis. 3. 1.5 cm hepatic hypodensity which may represent a hemangioma but is difficult to characterize on this examination. Electronically signed by: Ruiz Dumont MD 12/11/2024 09:47 AM EDT Dictated By: Ruiz Dumont MD Signed By: <Electronically signed by Ruiz Dumont MD in OV> 12/11/24 0947 DD/ 0839 TD/TT: 12/11/24 0930 Drafter Landscape: [facility] External Provider IMG CT PROCEDURES Final Result * Creatinine, Serum (11/19/2024 7:57 AM EDT) Creatinine, Serum 0.71 0.5 - 1.4 mg/dL [facility] Estimated Glomerular Filt Rate >60 [facility] Comment:Chronic Kidney Disea se: Estimated GFR < 60 mL/min/[id number] Kidney Disease: Estimated GFR < 15 mL/min/1.73m2 11/19/2024 7:57 AM EDT 11/19/2024 7:57 AM EDT us Generic External Data Provider LAB BLOOD ORDERAB LES Final Result Performing Organization Address City/[facility]/ZIP Co de Phone Number [facility] [address] [place] [phone] * BUN (Blood Urea Nitrogen) (11/19/2024 7:57 AM EDT) Urea Nitrogen (BUN) 15 9 - 16 mg/dL [facility] 11/19/2024 7:57 AM EDT 11/19/2024 7:57 AM EDT Generic External Data Provider LAB BLOOD ORDERAB LES Final Result Performing Organization Address City/[facility] Co de Phone Number [facility] [address] [place] [phone] * Fundus Photos - OU - Both Eyes (11/06/2024 10:00 AM EDT) Narrative Darcie Zuñiga, OD - 11/19/2024 1:44 PM EDT Images from the original result were not included. Right Eye Progression has been stable. Disc findings include (Significant PPA with scleral show from 6-11:00, mild optic nerve pallor). Macula findings include (Posterior staphyloma, patchy atrophy, lamellar hole, no CME, no SRF). Vessel findings include (Vessel attenuation). Periphery findings include (Patches of atrophy scattered throughout all quadrants, Angioid streaks in all quadrants). Left Eye Progression has been stable. Disc findings include (Significant PPA 360 degrees). Macula findings include (Lacquer crack through superior macula, no CME/SRF ). Vessel findings include (Vessel attenuation). Periphery findings include (Small patches of atrophy scattered throughout the retina, Angioid streaks throughout all quadrants). Notes Assessment and Plan: Stable pathological myopia in both eyes, worse in the right eye. Will monitor at her next exam. us Darcie Zuñiga OD OPHTH PHOTOGRAPHY Final Resul t * (ABNORMAL) Lipid Panel, Standard (02/27/2024 11:22 AM EDT) Triglycerides 85 <150 mg/dL [facility] Comment:Desirable Triglyceri de: less than 150 mg/dLBorderline High Triglyceride 150-199 mg/dLHigh Triglyceride: 200-499 mg/dLVery High Triglyceride: greater than or equal to 5OO mg/dL Cholesterol 179 <200 mg/dL [facility] Comment:Desirable Cholestero l: less than 200 mg/dLBorderline High Cholesterol: 200-239 mg/dLHigh Cholesterol: greater than 239 mg/dL LDL Cholesterol Calculated 122(H) <100 mg/dL [facility] Comment:Desirable LDL: less than 100 mg/dLNear Optimal/Above Optimal LDL: 110- 129 mg/dLBorderline High LDL: 130-159 mg/dLHigh LDL: 160-189 mg/dLVery High LDL: greater than or equal to 190 mg/dL HDL Cholesterol 40(L) >40 mg/dL [facility] Comment:Desirable HDL: great er than 40 mg/dL Note: This HDL assay may give artificially low results in patients with liver disease. Blood Venous blood specimen / Unknown 02/27/2024 11:22 AM EDT 02/27/2024 1:17 PM EDT Matheus Pressley MD LAB BLOOD ORDERABLES Final Result [facility] [address] [place] [address] [phone] * BI US Breast Limited Left (08/09/2023 2:06 PM EDT) Anatomical Region Laterality Modality Breast Left Ultrasound 08/09/2023 2:06 PM EDT Narrative 08/09/2023 2:16 PM EDT [facility] [address] [place] [address] Ultrasound Report Signed Patient: Lorrie Bernal MR#: [id number] : 1980 Acct:[id number] Age/Sex: 42 / F ADM Date: 08/09/23 Loc: HO.MAMMO Attending Dr: Azam Connelly MD Ordering Physician: Azam Connelly MD Date of Service: 08/09/23 Procedure(s): US breast LT limited mamm only Accession Number(s): [id number] cc: Matheus Breen MD; Azam Connelly MD [...] in OV> 08/09/23 1412 DD/ 1406 TD/TT: Drafter Landscape: Procedure Note Donotuseinterpreter, Image - 08/09/2023 [facility] [address] [place] [address] Ultrasound Report Signed Patient: Lorrie BernalMR#: [id number] : 1980Acct:[id number] Age/Sex: 42 / FADM Date: 08/09/23 Loc: HO.MAMMO Attending Dr: Azam Connelly MD Ordering Physician: Azam Connelly MD Date of Service: 08/09/23 Procedure(s): US breast LT limited mamm only Accession Number(s): [id number] cc: Matheus Breen MD; Azam Connelly MD [...] in OV> 08/09/23 1412 DD/ 1406 TD/TT: Drafter Landscape: us [facility] External Provider IMG US PROCEDURES Final Result * HPV E6/E7 RFLX HAI 16 18/45 (06/27/2021 9:05 AM EST) HPV 16 RNA [facility] HPV 18/45 RNA [facility] HPV E6 E7 ADD [facility] HPV mRNA E6/E7 rflx Not Detected Not Detected [facility] Comment: Methodology: Electronic Warfare Operator-Mediated Amplification This assay detects E6/E7 viral messenger RNA (mRNA) from 14 high-risk HPV types (16,18,31,33,35,39,45,51,52,56,58,59,66,68). The analytical performance characteristics of this assay have been determined by [employer]ER[employer] assistant. The modifications have not been cleared or approved by the FDA. This assay has been validated pursuant to the CLIA regulations and is used for clinical purposes. For additional information, please refer to http://education.[employer].[address]/faq/ZSZ427z8 (This link if provided for information/ educational purposes only.) THIS TEST WAS PERFORMED AT: [email or web address] [address] [place] [address] [address],[place] [address] GALE WILKINS MD 06/27/2021 9:05 AM EST [facility] HISTORICAL/NON ORDERABLE LABS Fi nal Result [facility] [address] * Pap Smear (06/27/2021) Historical Provider HEALTH MAINTENANCE Final Result from Last 3 Months or Most Recently Relevant to Health Maintenance Insurance [facility] C[facility] MEDICAID STAND ADULT Care Teams Internet Sourcer Relationship Specialty Start Date End Date Matheus Quijano MD [address] [place] [address] PCP - General Internal Medicine 11/24/18
== END 2025-01-20 14:52 | disposition home or self-care (01) ==
LOC: HO.HGS 14:28
PROVIDERS: PCP Internal Medicine; Visit Provider Surgery
DX: K80.20 Calculus of gallbladder without cholecystitis without obstruction (principal)
CPT/HCPCS: 99203

== ENCOUNTER → 2025-01-20 14:27 | Outpatient (BNVA) | payer MEDICAID, SELFPAY | PROVIDERS: PCP Internal Medicine; Visit Provider Surgery | DX: K80.20 Calculus of gallbladder without cholecystitis without obstruction (principal); R76.8 Other specified abnormal immunological findings in serum | CPT/HCPCS: 99202 ==

== ENCOUNTER 2025-02-03 09:37 | Outpatient (AMB) | payer MEDICAID, SELFPAY ==
--- NOTE | 2025-02-03 09:41 | A.OFFVIS_ITS ---
Intake Visit Reasons: Cysto/ CT / Labs Intake Note: Patient is present for Cystoscopy/CT/LABS Urology Medication:NONE Antibiotic Allergy:NONE Blood Thinner:NONE Lot:[id number] Exp:10/06/27 Molded Candles Wicker Required: No Molded Candles Wicker Services: Molded Candles Wicker Present Molded Candles Wicker Name: Alfonzo [id number] Allergies NKA Allergy (Unknown, Uncoded 02/03/25 10:48) NKA Medication List - Last Reconciled 02/03/25 by JANA Rayo acetaminophen (Tylenol Extra Strength) 1,000 mg (2 x 500 mg) PO Q6H PRN albuterol sulfate 90 mcg/actuation 1 inh inhalation Q4-6H PRN cetirizine 10 mg PO DAILY clotrimazole-betamethasone 1-0.05 % 1 appl topical BID 5 days ibuprofen 600 mg PO Q8H PRN ibuprofen (Advil) 400 mg PO Q8H PRN pregabalin (Lyrica) unknown dose orally daily; tamsulosin 0.4 mg PO BEDTIME 30 days terconazole 0.8% 1 appful vaginal BEDTIME 3 days HPI Comments Details: Lorrie is a pleasant 44-year-old Dominican-speaking female patient of Dr. Alves. She has a past medical history of nephrolithiasis, KINGS positive, anxiety, anemia, and obesity. She presents to the office today for follow-up of her microscopic hematuria in the setting of nicotine dependence. In discussion with the patient today she reports to be doing and feeling well. Recent CT urogram 12/21 imaging results were reviewed with the patient today. No renal calculi, hydronephrosis, or renal masses noted bilaterally. The urinary bladder is nondistended limiting evaluation. Urine cytology 08/21 Negative for high-grade urothelial carcinoma. She does discuss her longstanding history of nephrolithiasis in the past with Dr. Dobbins with previous lithotripsies. She also discusses having had an ablation for abnormal menses and has since been experiencing issues with lower abdominal pressure. In office cystoscopy was performed grade 1 bladder trabeculations noted otherwise NAD. She does continue to report a smoking history. She reports smoking approximately half a pack of cigarettes per day. She reports she continues to experience bladder pressure and episodes of stress/urge incontinence. She otherwise denies dysuria, foul smelling urine, changes to urinary stream, flank pain, fever, and or chills. We discussed at length potential causes of lower urinary tract symptoms patient was experiencing as well as potential causes of microscopic hematuria. We discussed further workup in risks and benefits of these interventions. All questions were answered. She otherwise offers no other issues or concerns at this time. [facility] Medical History Gallstones KINGS positive JUDE II (cervical intraepithelial neoplasia II) Morbid obesity with BMI of 45.0-49.9, adult Kidney stones Anxiety Anemia Surgical History History of cystoscopy H/O lithotripsy Hx of tubal ligation Family History Father Medical history unknown Mother Asthma Hypertension Thyroid disease Brother Thyroid disease Sister No problems noted. Sister No problems noted. Son No problems noted. Daughter No problems noted. Social History Household Members: Children Housing: Apartment Alcohol intake: current Alcohol intake frequency: holidays/special occasions only Patient Tobacco Use Status: Current everyday Tobacco user Tobacco use type: Cigarette Cigarettes Per Day: 5 Years Smoked: 7 e-Cigarette/Vaping Use: Never Used Current occupational status: unemployed Sexual orientation: Straight/Heterosexual Gender identity: Female Female Reproductive History Menstrual Age of Menarche: 14 Review of Systems Const All systems reviewed & are unremarkable except as noted in HPI and below Physical Exam Const General: cooperative, healthy appearing, comfortable, no acute distress, well developed, alert and awake Nutritional Appearance: overweight Orientation/consciousness: patient oriented x3 Limitations: no limitations HEENT Head: Yes normal to inspection, Yes normocephalic and Yes atraumatic Ears: hearing grossly normal bilaterally Eyes General: appearance normal, both eyes and all related structures Neck Neck: Yes normal visual inspection and Yes trachea midline Chest Chest palpation & inspection: normal inspection of the chest Resp Effort & Inspection: normal respiratory effort and able to speak in complete sentences Cardio Rate: regular rate GI Inspection: Yes normal to inspection General: Yes no CVA tenderness Back/Spine/Pelvis Back: no CVA tenderness Skin General skin exam: no rashes or lesions noted Neuro General: patient oriented x3 Extrem General: Yes normal to inspection Psych Appearance: grossly normal and well kempt Mental Status: mental status grossly normal Speech and movement: Normal speech and movement present and Clear speech present Affect: normal affect Attitude: cooperative Thought process: Normal thought process present Thought content: Normal thought content present Insight: Fair insight present (Psych) Judgement: Fair judgement present (Psych) Office Procedures Cystoscopy Consent Discussed risk and benefit or proposed procedure with the patient. Information consent for procedure given to the patient. Discussed technical aspects, risks, benefits and alternatives in full. Addressed all of the patient's questions and concerns regarding the procedure. The patient demonstrated knowledge and understanding. They wish to proceed with this procedure. Preparation The patient was prepped in the usual manner. A hospital liaison was present and in the room. Genitalia was prepped with betadine solution in a sterile manner. Lidocaine Jelly 2% was placed into the urethra and 16Fr flexible Olympus cystoscope was inserted into the meatus after adequate lubrication. Procedure Meatus normal position Urethra normal Bladder examination with retroflexion of cystoscope Bladder Orifices normal shape and position Trigone normal Bladder Capacity moderate Trabeculations mild/grade 1 Cellule Formation mild Diverticulum Formation none Mucosal Erythema none Bladder Tumor none Patient tolerated procedure well [id number] DISPOSABLE SCOPE URO-G FLEXIBLE SCOPE Procedure code (CPT) selection complete Office Meds lidocaine HCl 2 % mucosal jelly in applicator Performing Provider: JANA Rayo [facility] Administered by: Maddison Mann RN on 02/03/25 10:04 Dose Route Admin Location Dispensed Lot Number Expiration Date [facility] Quality Control Inspector 10 mL intra-urethral 10 mL nitrofurantoin monohydrate/macrocrystals 100 mg capsule Performing Provider: JANA Rayo [facility]forming [facility] Administered by: Maddison Mann RN on 02/03/25 10:04 Dose Route Admin Location Dispensed Lot Number Expiration Date [place] Quality Control Inspector 100 mg PO 1 cap Results AMB Urinalysis, Automated UA Leukoctes 0 Huan/uL Last Edit by YESSICA Eric on 02/03/25 10:03 UA Nitrite Negative Last Edit by YESSICA Eric on 02/03/25 10:03 UA Urobilinogen 0.2 mg/dL Last Edit by YESSICA Eric on 02/03/25 10:0 3 UA Protein 15 mg/dL Last Edit by YESSICA Eric on 02/03/25 10:03 UA pH 6.0 Last Edit by YESSICA Eric on 02/03/25 10:03 UA Blood 80 Redd/uL Last Edit by YESSICA Eric on 02/03/25 10:03 UA Specific [place] 1.025 Last Edit by YESSICA Eric on 02/03/25 10: 03 UA Ketone Negative Last Edit by YESSICA Eric on 02/03/25 10:03 UA Bilirubin 0 mg/dL Last Edit by YESSICA Eric on 02/03/25 10:03 UA Glucose 0 mg/dL Last Edit by YESSICA Eric on 02/03/25 10:03 Results Reviewed Results Reviewed: Laboratory Last Values Urine pH (Auto) 6.0 02/03/25 10:02 Specific [place] (Auto) 1.025 02/03/25 10:02 Urine Protein (Auto) 15 mg/dL 02/03/25 10:02 Glucose (UA)(Auto) 0 mg/dL 02/03/25 10:02 Urine Ketones (Auto) Negative 02/03/25 10:02 Urine Blood (Auto) 80 Redd/uL 02/03/25 10:02 Urine Nitrite (Auto) Negative 02/03/25 10:02 Urine Bilirubin (Auto) 0 mg/dL 02/03/25 10:02 Urine Urobilinogen (Auto) 0.2 mg/dL 02/03/25 10:02 Leukocyte Esterase (Auto) 0 Huan/uL 02/03/25 10:02 Date of Service: 12/11/24 Procedure(s): CT abdomen pelvis wo/w IV con ABDOMEN: LOWER CHEST: The visualized lung bases are clear. There is no pleural effusion. CARDIOVASCULATURE: The heart is normal in size. There is no pericardial effusion. LIVER: The liver is normal in size and contour. There is a 1.5 cm hypodensity in the right lobe which is only seen on the unenhanced examination. Findings may represent a hemangioma. The hepatic and portal veins are patent. GALLBLADDER / BILE DUCTS: There is cholelithiasis. There is no intra or extrahepatic biliary ductal dilatation. SPLEEN: The spleen is normal in size. No focal splenic lesion is identified. PANCREAS: The pancreas is unremarkable in appearance. ADRENAL GLANDS: Within normal limits. KIDNEYS/RETROPERITONEUM: No renal or ureteral calculi are identified. There is no hydronephrosis or hydroureter. No renal masses are identified. The intrarenal collecting systems are unremarkable in appearance. The distal right ureter and the proximal left ureter are not opacified, but is normal in caliber. LYMPH NODES: No abdominal or pelvic lymphadenopathy. VASCULATURE: The abdominal aorta is normal in caliber. MESENTERY/PERITONEUM: No free fluid. No masses. There is no free intraperitoneal gas. STOMACH: The stomach is collapsed, limiting evaluation. SMALL BOWEL: The small bowel is normal in caliber. COLON: The colon is unremarkable. APPENDIX: The appendix is not seen, however no inflammatory changes are seen adjacent to the cecum . URINARY BLADDER/PELVIC ORGANS: The urinary bladder is nondistended, limiting evaluation. The uterus is unremarkable. BONES / SOFT TISSUES: No suspicious bony or soft tissue abnormalities. IMPRESSION: 1. Unremarkable CT urogram. 2. Cholelithiasis. 3. 1.5 cm hepatic hypodensity which may represent a hemangioma but is difficult to characterize on this examination. Assessment & Plan Assessment & Plan (1) Microscopic hematuria: Code(s): R31.29 - Other microscopic hematuria Category: Medical (2) Urine incontinence: Code(s): R32 - Unspecified urinary incontinence Category: Medical Plan In office urinalysis results reviewed with the patient today; as noted above; will send for urine cytology. Recent CT urogram results reviewed with the patient today; as noted above. Previous urine cytology results reviewed with the patient today; as noted above. In office cystoscopies performed; as noted above. We did discussed at length potential causes of microscopic hematuria as well as lower abdominal cramping. Start Flomax as discussed and prescribed. We did discuss trial of low-dose Cialis or VESIcare to assist with potential bladder spasm. We discussed importance of adequate hydration We discussed bladder triggers and irritants All questions were answered. Follow-up in 3 months with [facility]; or sooner with any issues, concerns, and or questions Orders: Orders AMB Urinalysis Automated Today Z13.9 - Encounter for screening, unspecified AMB Cystoscopy Today R31.29 - Other microscopic hematuria Urine Cytology Today R31.29 - Other microscopic hematuria Medications: New tamsulosin 0.4 mg PO BEDTIME 30 caps 3RF 30 days N40.1 - Benign prostatic hyperplasia with lower urinary tract symptoms, R35.1 - Nocturia Patient Instructions: The patient had an opportunity to ask questions regarding the treatment plan. All questions were answered. Physical exam, labs, and imaging were discussed and reviewed in detail. As well as risks, benefits, and discussion of treatment choices. No major barriers to understanding were identified. The patient expressed understanding and agreement with the above treatment plan. The patient was made aware they should contact our office by phone for worsening of their current condition, the appearance of new symptoms, or with any questions or concerns. Compliance is encouraged with any medications and follow up testing that is ordered. It is a privilege to be allowed the opportunity to participate in? your urological care.? Again, if you have any questions or concerns If you have any questions or concerns please do not hesitate to contact me. The office is [phone]. This note is constructed using voice recognition software. While every effort has been made to ensure accuracy digital circuit designer errors may have been included. Yours sincerely, JANA Rayo Coding Level of Care Code Est Pt Level 4 (09884) Diagnoses Microscopic hematuria R31.29 Urine incontinence R32 CPT Codes Cystoscopy - CPT: 04029-[id number] ([id number])
== END 2025-02-03 11:00 | disposition home or self-care (01) ==
LOC: HO.HUSH 09:38
PROVIDERS: PCP Internal Medicine; Visit Provider Nurse Practitioner Family
DX: R31.29 Other microscopic hematuria (principal); R32 Unspecified urinary incontinence
CPT/HCPCS: 52000; 99214

== ENCOUNTER 2025-02-03 09:37 | Outpatient (REF) | payer MEDICAID, SELFPAY | END 2025-02-03 09:38 | disposition home or self-care (01) | LOC: HO.LAB 09:37 | PROVIDERS: PCP Internal Medicine; Visit Provider Nurse Practitioner Family | DX: R31.29 Other microscopic hematuria (principal); R32 Unspecified urinary incontinence; Z13.89 Encounter for screening for other disorder; Z98.51 Tubal ligation status | CPT/HCPCS: 52000; 81003; 88112; 99212 ==

== ENCOUNTER → 2025-02-17 13:48 | Outpatient (REF) | payer MEDICAID, SELFPAY ==
--- OUTSIDE RECORDS SUMMARY | 2025-02-17 19:48 | XMS_ITS | Encounter Summary ---
Author Organization [employer] Address [address] [place] [address] [address] [place] [address] Care Team Providers Care Abe Teacher Name Role Phone Matheus Quijano MD Primary Care Provide r Encounter Details Date Type Department Care Team (Late st Contact Info) Description 10/17/2022 Abstract [facility] MEDICINE [address] [place] [address] Matheus Quijano MD [address] [place] [address] Social History Tobacco Use Types Packs/Day Years [...] 05/04/2025 10:00 AM EST Office Visit [facility] ADULT DENTAL [address] [place] [address] Alicia Machuca [address] [place] [address] documented as of this encounter Visit Diagnoses Not on filedocumented in this encounter Additional Health Concerns Assessment Noted Time PHQ-9 Depression Total Score: 16 023 10:18 AM EDT documented as of this encounter Care Teams Abe Teacher Relationship Specialty Start Date End Date Matheus Quijano MD [address] [place] [address] PCP - General Internal Medicine 11/24/18 documented as of this encounter
--- OUTSIDE RECORDS SUMMARY | 2025-02-17 19:48 | XMS_ITS | Clinical Summary ---
Author Organization [facility] Address [address] [address] Phone Care Team Providers Care Prescription Clerk Name Role Phone [facility] Primary Care Provider Unavailable Allergies No [...] protein shake or a protein bar or Yoruba yogurt or cottage cheese to be consumed [...] VACCINE (#1) 2024 COVID-19 VACCINE (1 - 2024-2 6 season) 2024 Adult Td,Tdap Booster 03/17/2029 03/17/2019 [...] topic Medical Devices Not on file Insurance [facility] C3 ACO C3 ACO C3 [facility]CO [employer]3 [employer]CO [employer]3 [place] [place] [address] [place] [address] C3 [facility] [facility]CO Care Teams Prescription Clerk Relationship Specialty Start Date End Date [facility], [facility] - [facility] 01/31/22 Additional Source Comments The information contained in this document represents components of the legal health record. It is not the complete legal health record.[facility]
--- OUTSIDE RECORDS SUMMARY | 2025-02-17 19:48 | XMS_ITS | Encounter Summary ---
Author Organization [employer] Address [address] [place] [address] [place] [address] Care Team Providers Care Bodily Injury Adjuster Name Role Phone Matheus Quijano MD Primary Care Provide r Reason for Visit * Reason Onset Date Comments Med Refill 09/24/2023 Encounter Details Date Type Department Care Team ([facility] st Contact Info) Description 09/24/2023 Refill [facility]EDS [address] [place] [address] Leana Yanez MD [address] [place] [address] Social History Tobacco Use Types Packs/Day Years [...] Description 05/04/2025 10:00 AM EST Office Visit [facility] ADULT DENTAL [address] [place] [address] Sven, Alicia [address] [place] [address] documented as of this encounter Visit Diagnoses Not on filedocumented in this encounter Additional Health Concerns Assessment Noted Time PHQ-9 Depression Total Score: 19 024 1:37 PM EST documented as of this encounter Care Teams Bodily Injury Adjuster Relationship Specialty Start Date End Date Matheus Quijano MD [address] [place] [address] PCP - General Internal Medicine 11/24/18 documented as of this encounter
--- OUTSIDE RECORDS SUMMARY | 2025-02-17 19:48 | XMS_ITS | Encounter Summary ---
Author Organization [facility] [facility] Address [address] [place] [address] [place] [address] Care Team Providers Care Slimer Name Role Phone Matheus Quijano MD Primary Care Provide r Reason for Visit * Reason Onset Date Comments Med Refill 08/07/2023 Encounter Details Date Type Department Care Team ([facility] st Contact Info) Description 08/07/2023 Refill [facility] MED [facility] PEDS [address] [place] [address] Leana Yanez MD [address] [place] [address] Social History Tobacco Use Types Packs/Day Years [...] Description 05/04/2025 10:00 AM EST Office Visit [facility] ADULT DENTAL [address] [place] [address] Sven, Alicia [address] [place] [address] documented as of this encounter Visit Diagnoses Not on filedocumented in this encounter Additional Health Concerns Assessment Noted Time PHQ-9 Depression Total Score: 19 024 1:37 PM EST documented as of this encounter Care Teams Slimer Relationship Specialty Start Date End Date Matheus Quijano MD [address] [place] [address] PCP - General Internal Medicine 11/24/18 documented as of this encounter
--- OUTSIDE RECORDS SUMMARY | 2025-02-17 19:49 | XMS_ITS | Encounter Summary ---
Author Organization [employer] [facility] Address [address] [place] [address] [address] [place] [address] Care Team Providers Care It Compliance Manager Name Role Phone Matheus Quijano MD Primary Care Provide r Encounter Details Date Type Department Care Team ([facility] Contact Info) Description 01/22/2023 Orders Only [facility] MEDICINE [address] [place], [place] [phone] Provider, MD Bimal Social History Tobacco Use [...] 05/04/2025 10:00 AM EST Office Visit [facility] ADULT DENTAL [address] [place], [place] [phone] Sven, Alicia [address] [place], [place] [phone] documented as of this encounter Procedures Procedure [...] documented as of this encounter Care Teams It Compliance Manager Relationship Specialty Start Date End Date Matheus Quijnao MD [address] [place] [address] PCP - General Internal Medicine 11/24/18 documented as of this encounter
--- OUTSIDE RECORDS SUMMARY | 2025-02-17 19:49 | XMS_ITS | Encounter Summary ---
Author Organization [employer] Address [address] [place] [address] [address] [place] [address] Care Team Providers Care Dog Behaviorist Name Role Phone Matheus Quijano MD Primary Care Provide r Reason for Visit * Reason Onset Date Comments Med Refill 03/15/2023 Encounter Details Date Type Department Care Team ([facility] st Contact Info) Description 03/15/2023 Refill [facility] MEDICINE [address] [place] [address] Krsytin Saenz MD [address] [place] [address] Class 3 severe obesity due to excess [...] note were not included. Triage call with [employer] [place] [id number] Pt contacts through Pt portal regarding exposure [...] but, if neg Pt will come to [facility] to be seen for asthma like symptoms, declined to come to [facility] today. Protocol Used: COVID-19 - [...] become worse Pt portal request: [facility] [place] [facility] Clinical Support (supporting Matheus Pressley MD) [...] Description 05/04/2025 10:00 AM EST Office Visit [facility] ADULT DENTAL [address] [place] [address] Sven, Alicia [address] [place] [address] documented as of this encounter Visit Diagnoses Diagnosis Class 3 severe obesity due to excess calories with serious comorbidity and body mass index (BMI) of 50.0 to 59.9 in adult (HCC) documented in this encounter Additional Health Concerns Assessment Noted Time PHQ-9 Depression Total Score: 16 08/23/ 023 10:18 AM EDT documented as of this encounter Care Teams Dog Behaviorist Relationship Specialty Start Date End Date Matheus Quijano MD [address] [place] [address] PCP - General Internal Medicine 11/24/18 documented as of this encounter
--- OUTSIDE RECORDS SUMMARY | 2025-02-17 19:49 | XMS_ITS | Encounter Summary ---
Author Organization [employer] Address [address] [place] [address] 7 [place] [address] Care Team Providers Care Tax Advisor Name Role Phone Matheus Quijano MD Primary Care Provide r Reason for Visit * Reason Onset Date Comments Appointment Request 01/28/2024 Encounter Details Date Type Department Care Team ([facility] Contact Info) Description 01/28/2024 Telephone [facility] MEDICINE [address] [place] [address] Matheus Quijano MD [address] [place] [address] Appointment Request Social History Tobacco Use Types [...] calling to cancel appt for 01/27 and junior copywriter did attempt to reschedule appt however there is nothing available at this time documented in this encounter Plan of Treatment Upcoming Encounters Date Type Department Care Team (Late st Contact Info) Description 05/04/2025 10:00 AM EST Office Visit [facility] ADULT DENTAL [address] [place] [address] Sven, Alicia [address] [place] [address] documented as of this encounter Visit Diagnoses Not on filedocumented in this encounter Additional Health Concerns Assessment Noted Time PHQ-9 Depression Total Score: 19 024 1:37 PM EST documented as of this encounter Care Teams Tax Advisor Relationship Specialty Start Date End Date Matheus Quijano MD [address] [place] [address] PCP - General Internal Medicine 11/24/18 documented as of this encounter
--- OUTSIDE RECORDS SUMMARY | 2025-02-17 19:49 | XMS_ITS | Encounter Summary ---
Author Organization [employer] Address [address] [place] [address] Care Team Providers Care Mold Dresser Name Role Phone Matheus Quijano MD Primary Care Provide r Encounter Details Date Type Department Care Team ([facility] Contact Info) Description 02/01/2025 Telephone C OPTOMETRY [address] [place] [address] Yogesh, Darcie, OD [address] [place] [address] Social History Tobacco Use Types Packs/Day Years [...] lenses. Give us a called back at [phone]. Have a nice day! documented in this encounter Plan of Treatment Upcoming Encounters Date Type Department Care Team (Late st Contact Info) Description 05/04/2025 10:00 AM EST Office Visit [facility] ADULT DENTAL [address] [place] [address] Sven, Alicia [address] [place] [address] documented as of this encounter Visit Diagnoses Not on filedocumented in this encounter Additional Health Concerns Assessment Noted Time PHQ-9 Depression Total Score: 4 08/19/19 25 10:07 AM EDT documented as of this encounter Care Teams Mold Dresser Relationship Specialty Start Date End Date Matheus Quijano MD [address] [place] [address] PCP - General Internal Medicine 11/24/18 documented as of this encounter
--- OUTSIDE RECORDS SUMMARY | 2025-02-17 19:49 | XMS_ITS | Encounter Summary ---
Author Organization [facility] [employer] Address [address] [place] [address] 7 [place] [address] Care Team Providers Care Materials Associate Name Role Phone Matheus Quijano MD Primary Care Provide r Reason for Visit * Reason Comments Med Refill Encounter Details Date Type Department Care Team ([facility] st Contact Info) Description 11/20/2024 Refill [facility] MEDICINE [address] [place] [address] Matheus Quijano MD [address] [place] [address] Seasonal allergies Social History Tobacco Use Types [...] 10:00 AM EST Office Visit [facility] ADULT DENTAL [address] [place] [address] Sven, Alicia [address] [place] [address] documented as of this encounter Visit Diagnoses Diagnosis Seasonal allergies Allergic rhinitis, cause unspecified documented in this encounter Additional Health Concerns Assessment Noted Time PHQ-9 Depression Total Score: 4 08/19/19 25 10:07 AM EDT documented as of this encounter Care Teams Materials Associate Relationship Specialty Start Date End Date Matheus Quijano MD [address] [place] [address] PCP - General Internal Medicine 11/24/18 documented as of this encounter
--- OUTSIDE RECORDS SUMMARY | 2025-02-17 19:49 | XMS_ITS | Clinical Summary ---
Author Organization [employer] Address [address] [place] [address] 7 [place] [address] Care Team Providers Care Foreign Language Teacher Name Role Phone Matheus Quijano MD [...] recurrent major depressive disorder, without psychotic features ([facility]) 12/03/2024 Assessment & Plan (12/03/2024 10:19 AM EDT): Patient continues under the care of Latta Gustavo Rabago . Sees a psychiatrist Dr [...] stress test and Holter monitor Pituitary adenoma ([facility]/HCC) 04/30/2023 Assessment & Plan (08/18/2024 9:37 AM [...] continued surveillance. Pt was seen 09/12/2023 at [facility] Endocrinology , and most recently 07/17/[address] Deandra Saucedo, acording to her patient had a repeat MRI in July 2023 that demonstrated an interval decrease in size of cystic lesion in the right pituitary gland , measuring 1 cm., without mass effect on the optic chiasm, nerves and tracts. 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 Associate Data Scientist recommended to repeat Prolactin level and MRI, [...] records requested. Also has an appointment with [facility] Endocrinology Assessment & Plan (09/24/2023 1:35 PM [...] seen 09/12/2023 Also has an appointment with [facility] Endocrinology Assessment & Plan (06/21/2023 1:54 PM [...] Rheumatology, last note on record from 10/12/2020, Stonemason Supervisor work up showed a positive KINGS but further labs were not indicative on any autoimmune inflamatory disorder. Stonemason Supervisor thought her symptoms are suggestive of Fibromyalgia [...] Rheumatology, last note on record from 10/12/2020, Stonemason Supervisor work up showed a positive KINGS but further labs were not indicative on any autoimmune inflamatory disorder. Stonemason Supervisor thought her symptoms are suggestive of Fibromyalgia [...] had repeat UA and CT done by POULTRY DRESSING WORKER 08/13/2024 showed UA with hematuria/CT neg Referred [...] had repeat UA and CT done by POULTRY DRESSING WORKER 08/13/2024 showed UA with hematuria/CT neg Referred back to Urology by Dr. Connelly POULTRY DRESSING WORKER Assessment & Plan (06/03/2022 4:55 PM EST): [...] Previously she wanted to be referred to [facility] Bariatric surgery program. Last minute she decided [...] Previously she wanted to be referred to [facility] Bariatric surgery program. She is now at [facility] with Dr. Michael She was interested in trying Semaglutide. This was denied by her insurance Assessment & Plan (09/18/2022 9:09 AM EDT): No longer under the care of the Weight management program. Patient has been counseled and educated about diet and exercise by the Weight management Program Patient has comorbidity of: Asthma She would like to be referred to [facility] Bariatric surgery program. Referral placed She is [...] EST): Pt is under the care of POULTRY DRESSING WORKER Hx ASCUS HPV + PAP from 01/14/19. [...] with vitamin C Under the care of POULTRY DRESSING WORKER CBC ordered today Assessment & Plan (06/05/2022 1:14 PM EST): She has a Hx of anemia due to menometrorrhagia Hgb 9.7 ( 09/15/2020) Pt c/o of Heavy periods likely the cause. She is on iron. Plan: Continue FeSO4 325 mg with vitamin C Under the care of POULTRY DRESSING WORKER CBC ordered Cobalamin deficiency 09/27/2017 Assessment & [...] Encounters Date Type Department Care Team Description 02/03/2025 Orders Only GENERIC EXTERNAL DATA DEPARTMENT Provider, Generic External Data 02/01/2025 Telephone [facility] OPTOMETRY [address] [place] [address] Yogesh, Darcie, OD 01/29/2025 Refill [facility] MEDICINE [address] [place] [address] Matheus Quijano MD Seborrheic dermatitis 01/22/2025 Telephone [facility] MEDICINE [address] [place] [address] Matheus Quijano MD charleen 12/25/2024 Telephone [facility] MEDICINE [address] [place] [address] Matheus Quijano MD 12/25/2024 Telephone [facility] [address] [facility] [place] [address] Matheus Quijano MD 12/11/2024 Results Follow-Up [facility] MED[facility] [address] [facility] [place] [address] Abdomen Pelvis w/ and w/o Contrast 12/03/2024 10:00 AM EDT Office Visit [facility] [place] [address] Matheus Quijano MD Kidney stone (Primary Dx); Cardiomyopathy, unspecified type (CMS/HCC); Severe episode of recurrent major depressive disorder, without psychotic features (CMS/HCC); AMINTA (obstructive sleep apnea); Mild intermittent asthma without complication; Dermatitis of face; Seborrheic dermatitis 12/03/2024 Travel 12/02/2024 Telephone [facility] [place] [address] Matheus Quijano MD Chart Prep 11/30/2024 Outside Procedure [facility] OPTOMETRY [address] [place] [address] Yogesh, Darcie, OD Presbyopia (Primary Dx) 11/25/2024 9:45 AM EDT Office Visit [facility] OPTOMETRY [address] [facility] [place] [address] YogeshKylern, OD Myopia of both eyes (Primary Dx) 11/25/2024 Travel 11/25/2024 Patient Outreach [facility] [place] [address] Matheus Quijano MD Pre-visit Planning (Pre-visit planning - unable to complete. Needs to be done in office. ) 11/20/2024 Refill [facility] [place] [address] Matheus Quijano MD Slow transit constipation 11/20/2024 Refill [facility] [place] [address] Matheus Quijano MD Seasonal allergies 11/19/2024 Orders [...] 10:00 AM EST Office Visit [facility] ADULT DENTAL [address] [place] [address] Sven, Alicia [address] [place] [address] Health Maintenance Due Date Last Done Comments [...] Date/Time Associated Diagnosis Comments CYTOPATH-CELL ENHANCED Routine 02/03/2025 9:[address] ABDOMEN PELVIS W AND WO CONTRAST Routine 12/11/2024 8:39 AM EDT CREATININE, SERUM Routine 11/19/2024 7:5 7 AM EDT UREA NITROGEN (BUN) Routine 11/19/2024 7 :57 AM EDT PROPHYLAXIS - ADULT Routine 09/24/2024 1 0:00 [...] (BMI) of 50.0 to 59.9 in adult ([facility]) BI US BREAST LIMITED LEFT Routine 08/09/2023 2:06 PM EDT ZZZ HISTORICAL HPV E6/E7 RFLX HAI 16 18/45 Routine 06/27/2021 9:05 AM EST HM PAP/HPV Routine 06/27/2021 from Last 3 Months or Most Recently Relevant to Health Maintenance Results * Cytopath-cell enhanced (02/03/2025 9:45 AM EDT) 02/03/2025 9:45 AM EDT 02/04/2025 9:06 AM EDT [facility] - 02/05/2025 8:23 AM EDT ----- ------- Name: Lorrie Bernal Age/Sex: 44/F : 1980 Unit#: [id number] Attend Dr: Belia San [facility] Re02/03/25 Status: DEP REF Location: [facility] Disch: ----- ------- SPEC : [id number] RECD: 02/04/25 STATUS: EMA PEACOCK NUM: [id number] STIVEN: 02/03/[address] [facility] [address]: Belia San [facility] ENTERED: 02/04/25 SP TYPE: Cytology OT DR: Matheus Breen MD ORDERED: Cyto-enhanced Diagnosis Urine: Negative for high-grade urothelial carcinoma. See comment. COMMENT: Cellular specimen consisting of single urothelial cells, squamous cells, red blood cells and few lymphocytes. Clinical History Other microscopic hematuria Material Received Urine Gross Description Received is 10 cc of cloudy orange fluid from which a ThinPrep slide is prepared. IHC S/NG Disclaimer NOTE: Unless otherwise stated, all tissue is formalin-fixed and paraffin-embedded. Some or all of the immunohistochemical tests reported herein may have been developed and their performance characteristics determined by [facility]. They have not been cleared or approved by the U.S. Food and Drug Administration (FDA). However, the FDA has determined that such clearance or approval is not necessary. This laboratory is certified under the Clinical Laboratory Improvement Amendments of 1988 (CLIA) as qualified to perform high complexity clinical laboratory testing. Copies To: Matheus Breen MD [address] [address] Belia San [facility] [address] [place] [address] [address] [place] [address] [email or web address] CONTINUED ON NEXT PAGE ----- ------- Name: Lorrie Bernal Age/Sex: 44/F : 1980 Unit#: [id number] Attend Dr: Belia San [facility] Re02/03/25 Status: [place] Location: [facility] Disch: ----- ------- SPEC : [id number] RECD: 02/04/25 STATUS: EMA MADONNA NUM: [id number] STIVEN: 02/03/[address]: Belia San [facility] ENTERED: 02/04/25-1025 SP TYPE: Cytology OTHR DR: Matheus Breen MD ORDERED: Cyto-enhanced ----- ------- Signed (signature on file) Antonio Brand MD 02/05/25 0823 ----- ------- END OF REPORT us Generic External Data Provider LAB CYTOLOGY SHONDA GUTIERREZ Final Result [facility] [address] [place] [phone] * CT Abdomen Pelvis w/ and w/o Contrast (12/11/2024 8:39 AM EDT) Anatomical Region Laterality Modality Body, Pelvis, Abdomen Computed T omography 12/11/2024 8:39 AM EDT Narrative 12/11/2024 9:50 AM EDT [address] [address] [address] Scan Report Signed Patient: Lorrie Bernal MR#: [id number] : 1980 Acct:[id number] Age/Sex: 44 / F ADM Date: 12/11/24 Loc: HO.CT Attending Dr: Azam Connelly MD Ordering Physician: Azam Connelly MD Date of Service: 12/11/24 Procedure(s): CT abdomen pelvis wo/w IV con Accession Number(s): [id number] cc: Matheus Breen MD; Azam Connelly MD Report Number: [id number]: Total DLP = 1744.00 mGy-cm EXAMINATION: CT [...] OV> 12/11/24 0947 DD/ 0839 TD/TT: 12/11/24 09 Rfid Specialist: Procedure Note Donotuseinterpreter, Image - 12/11/[address] [address] [address] Scan Report Signed Patient: Lorrie Bernal#: [id number] : 1980Acct:[id number] Age/Sex: 44 / FADM Date: 12/11/24 Loc: HO.CT Attending Dr: Azam Connelly MD Ordering Physician: Azam Connelly MD Date of Service: 12/11/24 Procedure(s): CT abdomen pelvis wo/w IV con Accession Number(s): [id number] cc: Matheus Breen MD; Azam Connelly MD Report Number: [id number]: Total DLP = 1744.00 mGy-cm EXAMINATION: CT [...] 12/11/24 0947 DD/ 0839 TD/TT: 12/11/24 0930 Rfid Specialist: [facility] External Provider IMG CT PROCEDURES Final Result * Creatinine, Serum (11/19/2024 7:57 AM EDT) Creatinine, Serum 0.71 0.5 - 1.4 mg/dL [facility] Estimated Glomerular Filt Rate >60 [facility] Comment:Chronic Kidney Disea se: Estimated GFR < 60 mL/min/1.65p8Yhxkyw Kidney Disease: Estimated GFR < 15 mL/min/1.73m2 11/19/2024 7:57 AM EDT 11/19/2024 7:57 AM EDT Generic External Data Provider LAB BLOOD ORDERAB LES Final Result [facility] [address] [place] [phone] * BUN (Blood Urea Nitrogen) (11/19/2024 7:57 AM EDT) Urea Nitrogen (BUN) 15 9 - 16 mg/dL [facility] 11/19/2024 7:57 AM EDT 11/19/2024 7:57 AM EDT us Generic External Data Provider LAB BLOOD ORDERAB LES Final Result Performing Organization Address [facility] Co de Phone Number [facility] [address] [place] [phone] * (ABNORMAL) Lipid Panel, Standard (02/27/2024 11:22 AM EDT) Triglycerides 85 <150 mg/dL [facility] Comment:Desirable Triglyceri de: less than 150 mg/dLBorderline High Triglyceride 150-199 mg/dLHigh Triglyceride: 200-499 mg/dLVery High Triglyceride: greater than or equal to 5OO mg/dL Cholesterol 179 <200 mg/dL [facility] Comment:Desirable Cholestero l: less than 200 mg/dLBorderline High Cholesterol: 200-239 mg/dLHigh Cholesterol: greater than 239 mg/dL LDL Cholesterol Calculated 122(H) <100 mg/dL [facility] Comment:Desirable LDL: less than 100 mg/dLNear Optimal/Above Optimal LDL: 110- 129 mg/dLBorderline High LDL: 130-159 mg/dLHigh LDL: 160-189 mg/dLVery High LDL: greater than or equal to 190 mg/dL HDL Cholesterol 40(L) >40 mg/dL [facility] Comment:Desirable HDL: great er than 40 mg/dL Note: This HDL assay may give artificially low results in patients with liver disease. Blood Venous blood specimen / Unknown 02/27/2024 11:22 AM EDT 02/27/2024 1:17 PM EDT us Matheus Pressley MD LAB BLOOD ORDERABLES Final Result Performing Organization Address [facility]/ZIP Co de Phone Number [facility] [address] [place] [phone] * BI US Breast Limited Left (08/09/2023 2:06 PM EDT) Anatomical Region Laterality Modality Breast Left Ultrasound 08/09/2023 2:06 PM EDT Narrative 08/09/2023 2:16 PM EDT [facility] [address] [place] [address] Ultrasound Report Signed Patient: Lorrie Bernal MR#: [id number] : 1980 Acct:[id number] Age/Sex: 42 / F ADM Date: 08/09/23 Loc: HO.MAMMO Attending Dr: Azam Connelly MD Ordering Physician: Azam Connelly MD Date of Service: 08/09/23 Procedure(s): US breast LT limited mamm only Accession Number(s): [id number] cc: Matheus Breen MD; Azam Connelly MD [...] in OV> 08/09/23 1412 DD/ 1406 TD/TT: Rfid Specialist: Procedure Note Donotuseinterpreter, Image - 08/09/2023 [place] [facility] [address] [place] [address] Ultrasound Report Signed Patient: Lorrie BernalMR#: [id number] : 1980Acct:[id number] Age/Sex: 42 / FADM Date: 08/09/23 Loc: HO.MAMMO Attending Dr: Azam Connelly MD Ordering Physician: Azam Connelly MD Date of Service: 08/09/23 Procedure(s): US breast LT limited mamm only Accession Number(s): [id number] cc: Matheus Breen MD; Azam Connelly MD [...] in OV> 08/09/23 1412 DD/ 1406 TD/TT: Rfid Specialist: us [facility] External Provider IMG US PROCEDURES Final Result * HPV E6/E7 RFLX HAI 16 18/45 (06/27/2021 9:05 AM EST) HPV 16 RNA [facility] HPV 18/45 RNA [facility] HPV E6 E7 ADD [facility] HPV mRNA E6/E7 rflx Not Detected Not Detected [facility] Comment: Methodology: Bevel Mill Operator-Mediated Amplification This assay detects E6/E7 viral messenger RNA (mRNA) from 14 high-risk HPV types (16,18,31,33,35,39,45,51,52,56,58,59,66,68). The analytical performance characteristics of this assay have been determined by [employer]. The modifications have not been cleared or approved by the FDA. This assay has been validated pursuant to the CLIA regulations and is used for clinical purposes. For additional information, please refer to http://education.WeTag/faq/YZT300o4 (This link if provided for information/ educational purposes only.) THIS TEST WAS PERFORMED AT: [employer] [address] [place] [address] [address] [phone] GALE WILKINS MD 06/27/2021 9:05 AM EST [place] HISTORICAL/NON ORDERABLE LABS Fi nal Result [facility] Anywhere [address] * Pap Smear (06/27/2021) Historical Provider HEALTH MAINTENANCE Final Result from Last 3 Months or Most Recently Relevant to Health Maintenance Insurance [facility] C[place] AD[place] Care Teams Foreign Language Teacher Relationship Specialty Start Date End Date Matheus Quijano MD [address] [place] [phone] PCP - General Internal Medicine 11/24/18
== END ==
LOC: HO.SL 13:48
PROVIDERS: PCP Internal Medicine; Visit Provider Nurse Practitioner Family
DX: G47.30 Sleep apnea, unspecified (principal); I42.9 Cardiomyopathy, unspecified
CPT/HCPCS: 95806

== ENCOUNTER → 2025-02-17 13:59 | Outpatient (BNV) | payer MEDICAID, SELFPAY | PROVIDERS: PCP Internal Medicine; Visit Provider Internal Medicine | DX: G47.10 Hypersomnia, unspecified (principal) | CPT/HCPCS: 95806 ==

== ENCOUNTER 2025-02-19 09:28 | Day surgery (SDC) | payer MEDICAID, SELFPAY ==
--- OUTSIDE RECORDS SUMMARY | 2025-02-02 11:42 | XMS_ITS | Encounter Summary ---
Author Organization [employer] Address [address] [place] [address] Care Team Providers Care Senior Mechanical Engineer Name Role Phone Matheus Quijano MD Primary Care Provide r Encounter Details Date Type Department Care Team ([facility] Contact Info) Description 02/01/2025 Telephone C OPTOMETRY [address] [place] [address] Yogesh, Darcie, OD [address] [place] [address] Social History Tobacco Use Types Packs/Day Years [...] encounter Miscellaneous Notes * Telephone Encounter - Sudha Billings - 02/01/2025 10:35 AM EDT Trying contacting patient for appointment for contact lenses. Pt have done 2 no shows already. Unable to leave voice message due to new number don't have mail box set up yet. Need to know if still wants the appointment for contact lenses. Give us a called back at [phone]. Have a nice day! documented in this encounter Plan of Treatment Upcoming Encounters Date Type Department Care Team (Late st Contact Info) Description 05/04/2025 10:00 AM EST Office Visit [facility] ADULT DENTAL [address] [place] [address] Sven, Alicia [address] [place] [address] documented as of this encounter Visit Diagnoses Not on filedocumented in this encounter Additional Health Concerns Assessment Noted Time PHQ-9 Depression Total Score: 4 08/19/19 25 10:07 AM EDT documented as of this encounter Care Teams Senior Mechanical Engineer Relationship Specialty Start Date End Date Matheus Quijano MD [address] [place] [address] PCP - General Internal Medicine 11/24/18 documented as of this encounter
--- OUTSIDE RECORDS SUMMARY | 2025-02-02 11:42 | XMS_ITS | Encounter Summary ---
Author Organization [employer] Address [address] [place] [address] [address] [place] [address] Care Team Providers Care Bobcat Operator Name Role Phone Matheus Quijano MD Primary Care Provide r Encounter Details Date Type Department Care Team (Late st Contact Info) Description 10/17/2022 Abstract [facility] MEDICINE [address] [place] [address] Matheus Quijano MD [address] [place] [address] Social History Tobacco Use Types Packs/Day Years [...] Description 05/04/2025 10:00 AM EST Office Visit [facility] ADULT DENTAL [address] [place] [address] Alicia Machuca [address] [place] [address] documented as of this encounter Visit Diagnoses Not on filedocumented in this encounter Additional Health Concerns Assessment Noted Time PHQ-9 Depression Total Score: 16 023 10:18 AM EDT documented as of this encounter Care Teams Bobcat Operator Relationship Specialty Start Date End Date Matheus Quijano MD [address] [place] [address] PCP - General Internal Medicine 11/24/18 documented as of this encounter
--- OUTSIDE RECORDS SUMMARY | 2025-02-02 11:42 | XMS_ITS | Encounter Summary ---
Author Organization [employer] Address [address] [place] [address] [place] [address] Care Team Providers Care Income Auditor Name Role Phone Matheus Quijano MD Primary Care Provide r Reason for Visit * Reason Onset Date Comments Med Refill 09/24/2023 Encounter Details Date Type Department Care Team ([facility] st Contact Info) Description 09/24/2023 Refill [facility] CH[facility] MED & PEDS [address] [place] [address] Leana Yanez MD [address] [place] [address] Social History Tobacco Use Types Packs/Day Years [...] 10:00 AM EST Office Visit [facility] ADULT DENTAL [address] [place] [address] Sven, Alicia [address] [place] [address] documented as of this encounter Visit Diagnoses Not on filedocumented in this encounter Additional Health Concerns Assessment Noted Time PHQ-9 Depression Total Score: 19 024 1:37 PM EST documented as of this encounter Care Teams Income Auditor Relationship Specialty Start Date End Date Matheus Quijano MD [address] [place] [address] PCP - General Internal Medicine 11/24/18 documented as of this encounter
--- OUTSIDE RECORDS SUMMARY | 2025-02-02 11:42 | XMS_ITS | Encounter Summary ---
Author Organization [employer] Address [address] [place] [address] 7 [place] [address] Care Team Providers Care Poultry Veterinarian Name Role Phone Matheus Quijano MD Primary Care Provide r Reason for Visit * Reason Comments Med Refill Encounter Details Date Type Department Care Team ([facility] st Contact Info) Description 01/29/2025 Refill [facility] MEDICINE [address] [place] [address] Matheus Quijano MD [address] [place] [address] Seborrheic dermatitis Social History Tobacco Use Types Packs/Day Years [...] is your housing situation today? I have shahnazmaximino garcia 12/03/[address] you [...] Description 05/04/2025 10:00 AM EST Office Visit [facility] ADULT DENTAL [address] [place] [address] Sven, Alicia [address] [place] [address] documented as of this encounter Visit Diagnoses Diagnosis Seborrheic dermatitis Unspecified seborrheic dermatitis documented in this encounter Additional Health Concerns Assessment Noted Time PHQ-9 Depression Total Score: 4 08/19/19 25 10:07 AM EDT documented as of this encounter Care Teams Poultry Veterinarian Relationship Specialty Start Date End Date Matheus Quijano MD [address] [place] [address] PCP - General Internal Medicine 11/24/18 documented as of this encounter
--- OUTSIDE RECORDS SUMMARY | 2025-02-02 11:42 | XMS_ITS | Encounter Summary ---
Author Organization [employer] Address [address] [place] [address] 7 [place] [address] Care Team Providers Care Christmas Tree Farm Crew Boss Name Role Phone Matheus Quijano MD Primary Care Provide r Reason for Visit * Reason Comments Med Refill Encounter Details Date Type Department Care Team ([facility] st Contact Info) Description 11/20/2024 Refill [facility] [address] [place] [address] Matheus Quijano MD [address] [place] [address] Seasonal allergies Social History Tobacco Use Types [...] Description 05/04/2025 10:00 AM EST Office Visit [facility] ADULT DENTAL [address] [place] [address] Sven, Alicia [address] [place] [address] documented as of this encounter Visit Diagnoses Diagnosis Seasonal allergies Allergic rhinitis, cause unspecified documented in this encounter Additional Health Concerns Assessment Noted Time PHQ-9 Depression Total Score: 4 08/19/19 25 10:07 AM EDT documented as of this encounter Care Teams Christmas Tree Farm Crew Boss Relationship Specialty Start Date End Date Matheus Quijano MD [address] [place] [address] PCP - General Internal Medicine 11/24/18 documented as of this encounter
--- OUTSIDE RECORDS SUMMARY | 2025-02-02 11:42 | XMS_ITS | Encounter Summary ---
Author Organization [facility] Address [address] [place] [address] [address] [place] [address] Care Team Providers Care Emergency Telecommunications Dispatcher Name Role Phone Matheus Quijano MD Primary Care Provide r Encounter Details Date Type Department Care Team ([facility] Contact Info) Description 01/22/2023 Orders Only [facility] MEDICINE [address] [place], [place] [id number] Provider, MD Bimal Social History Tobacco Use [...] Description 05/04/2025 10:00 AM EST Office Visit [facility] ADULT DENTAL [address] [place], [place] [phone] Sven, Alicia [address] [place], [place] [phone] documented as of this encounter Procedures Procedure [...] documented as of this encounter Care Teams Emergency Telecommunications Dispatcher Relationship Specialty Start Date End Date Matheus Quijano MD [address] [place] [address] PCP - General Internal Medicine 11/24/18 documented as of this encounter
--- OUTSIDE RECORDS SUMMARY | 2025-02-02 11:42 | XMS_ITS | Encounter Summary ---
Author Organization [employer] Address [address] [place] [address] [place] [address] Care Team Providers Care Air And Water Filler Name Role Phone Matheus Quijano MD Primary Care Provide r Reason for Visit * Reason Onset Date Comments Med Refill 08/07/2023 Encounter Details Date Type Department Care Team ([facility] st Contact Info) Description 08/07/2023 Refill [facility] CHC MED & PEDS [address] [place] [address] Leana Yanez MD [address] [place] [address] Social History Tobacco Use Types Packs/Day Years [...] Description 05/04/2025 10:00 AM EST Office Visit [facility] ADULT DENTAL [address] [place] [address] Sven, Alicia [address] [place] [address] documented as of this encounter Visit Diagnoses Not on filedocumented in this encounter Additional Health Concerns Assessment Noted Time PHQ-9 Depression Total Score: 19 024 1:37 PM EST documented as of this encounter Care Teams Air And Water Filler Relationship Specialty Start Date End Date Matheus Quijano MD [address] [place] [address] PCP - General Internal Medicine 11/24/18 documented as of this encounter
--- OUTSIDE RECORDS SUMMARY | 2025-02-02 11:42 | XMS_ITS | Encounter Summary ---
Author Organization [employer] Address [address] [place] [address] 7 [place] [address] Care Team Providers Care Doorkeeper Name Role Phone Matheus Quijano MD Primary Care Provide r Reason for Visit * Reason Onset Date Comments Appointment Request 01/28/2024 Encounter Details Date Type Department Care Team ([facility] Contact Info) Description 01/28/2024 Telephone [facility] MEDICINE [address] [place] [address] Matheus Quijano MD [address] [place] [address] Appointment Request Social History Tobacco Use Types [...] to cancel appt for 01/27 and underwriter did attempt to reschedule appt however there is nothing available at this time documented in this encounter Plan of Treatment Upcoming Encounters Date Type Department Care Team (Late st Contact Info) Description 05/04/2025 10:00 AM EST Office Visit [facility] ADULT DENTAL [address] [place] [address] Sven, Alicia [address] [place] [address] documented as of this encounter Visit Diagnoses Not on filedocumented in this encounter Additional Health Concerns Assessment Noted Time PHQ-9 Depression Total Score: 19 024 1:37 PM EST documented as of this encounter Care Teams Doorkeeper Relationship Specialty Start Date End Date Matheus Quijano MD [address] [place] [address] PCP - General Internal Medicine 11/24/18 documented as of this encounter
--- OUTSIDE RECORDS SUMMARY | 2025-02-02 11:42 | XMS_ITS | Encounter Summary ---
Author Organization [employer] Address [address] [place] [address] [address] [place] [address] Care Team Providers Care Systems Mechanic Name Role Phone Matheus Quijano MD Primary Care Provide r Reason for Visit * Reason Onset Date Comments Med Refill 03/15/2023 Encounter Details Date Type Department Care Team ([facility] st Contact Info) Description 03/15/2023 Refill [facility] MEDICINE [address] [place] [address] Krystin Saenz MD [address] [place] [address] Class 3 severe obesity due to excess [...] note were not included. Triage call with [employer] [place] [id number] Pt contacts through Pt portal regarding exposure [...] but, if neg Pt will come to [facility] to be seen for asthma like symptoms, declined to come to [facility] today. Protocol Used: COVID-19 - Diagnosed [...] become worse Pt portal request: [facility] Clinical Support (supporting Matheus Pressley MD) [...] Description 05/04/2025 10:00 AM EST Office Visit [facility] ADULT DENTAL [address] [place] [address] Sven, Alicia [address] [place] [address] documented as of this encounter Visit Diagnoses Diagnosis Class 3 severe obesity due to excess calories with serious comorbidity and body mass index (BMI) of 50.0 to 59.9 in adult (HCC) documented in this encounter Additional Health Concerns Assessment Noted Time PHQ-9 Depression Total Score: 16 08/23/ 023 10:18 AM EDT documented as of this encounter Care Teams Systems Mechanic Relationship Specialty Start Date End Date Matheus Quijano MD [address] [place] [address] PCP - General Internal Medicine 11/24/18 documented as of this encounter
--- OUTSIDE RECORDS SUMMARY | 2025-02-02 11:42 | XMS_ITS | Clinical Summary ---
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 01/20/20 22 Active desonide (DesOwen) 0.05 % creamIndication s:Seborrheic dermatitis Apply topically at bedtime. 15 g 2 09/29/19 23 Active Additional Information Patient not taking.Reported on 09/24/2024 SUMAtriptan (Imitrex) 50 MG tablet TAKE 1 TABLET BY MOUTH ONCE DAILY DIRECTED 04/15/20 23 Active bromocriptine (Parlodel) 2.5 MG tablet Take 2.5 mg by mouth Once per day. 09/12/19 24 Active Sodium Fluoride (PreviDent 5000 Plus) 1.1 % cream Apply 1 mg to teeth 3 times daily. 1 g 3 01/24/20 24 Active Additional Information Patient not taking.Reported on 09/24/2024 Arnuity Ellipta 100 MCG/ACT inhalerIndicati ons:Mild intermittent asthma without complication INHALE 1 PUFF BY MOUTH EVERY DAY AT THE SAME TIME 30 each 5 04/16/20 24 Active pregabalin (Lyrica) 150 MG capsuleIndicati ons:Fibromyalgi a Take 1 capsule (150 mg) by mouth 2 times daily. 60 capsule 5 10/23/19 25 Active Ventolin HFA 108 (90 Base) MCG/ACT inhaler INHALE 2 PUFFS BY MOUTH EVERY 6 HOURS NEEDED FOR WHEEZING OR SHORTNESS OF BREATH 18 g 3 11/10/19 25 Active docusate sodium (Colace) 100 MG capsuleIndicati ons:Slow transit constipation Take 1 capsule (100 mg) by mouth every 12 (twelve) hours. 180 capsule 11/25/19 25 Active ketoconazole (NIZOral) 2 % shampooIndicati ons:Seborrheic dermatitis APPLY TOPICALLY TO THE AFFECTED AREA(S) TWICE A WEEK 120 mL 1 02/02/20 25 Active ketoconazole (Nizoral) 2 % shampooIndicati ons:Seborrheic dermatitis Apply topically 2 (two) times a week. 120 mL 1 12/04/19 25 025 Discontinued Active Problems Problem Noted Date Diagnosed Date [...] recurrent major depressive disorder, without psychotic features ([facility]) 12/03/2024 Assessment & Plan (12/03/2024 10:19 AM EDT): Patient continues under the care of Alfred Gustavo Rabago . Sees a psychiatrist Dr Woodson [...] stress test and Holter monitor Pituitary adenoma ([facility]/HCC) 04/30/2023 Assessment & Plan (08/18/2024 9:37 AM [...] continued surveillance. Pt was seen 09/12/2023 at [facility] Endocrinology , and most recently 07/17/[address] Deandra Saucedo, acording to her patient had a repeat MRI in July 2023 that demonstrated an interval decrease in size of cystic lesion in the right pituitary gland , measuring 1 cm., without mass effect on the optic chiasm, nerves and tracts. 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 Tester Vibrator Equipment recommended to repeat Prolactin level and MRI, [...] requested. Also has an appointment with [facility] Endocrinology Assessment & Plan (09/24/2023 1:35 PM [...] 09/12/2023 Also has an appointment with [facility] Endocrinology Assessment & Plan (06/21/2023 1:54 PM [...] Rheumatology, last note on record from 10/12/2020, Jerker work up showed a positive KNIGS but further labs were not indicative on any autoimmune inflamatory disorder. Jerker thought her symptoms are suggestive of Fibromyalgia [...] Rheumatology, last note on record from 10/12/2020, Jerker work up showed a positive KINGS but further labs were not indicative on any autoimmune inflamatory disorder. Jerker thought her symptoms are suggestive of Fibromyalgia [...] had repeat UA and CT done by PAROLE DIRECTOR 08/13/2024 showed UA with hematuria/CT neg Referred [...] had repeat UA and CT done by PAROLE DIRECTOR 08/13/2024 showed UA with hematuria/CT neg Referred back to Urology by Dr. Connelly PAROLE DIRECTOR Assessment & Plan (06/03/2022 4:55 PM EST): [...] she wanted to be referred to [facility] Bariatric surgery program. Last minute she decided [...] she wanted to be referred to [facility] Bariatric surgery program. She is now at [facility] with Dr. Michael She was interested in trying Semaglutide. This was denied by her insurance Assessment & Plan (09/18/2022 9:09 AM EDT): No longer under the care of the Weight management program. Patient has been counseled and educated about diet and exercise by the Weight management Program Patient has comorbidity of: Asthma She would like to be referred to [facility] Bariatric surgery program. Referral placed She is [...] EST): Pt is under the care of PAROLE DIRECTOR Hx ASCUS HPV + PAP from 01/14/19. 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 She is on iron. Plan: Continue FeSO4 325 mg with vitamin C Under the care of PAROLE DIRECTOR CBC ordered Cobalamin deficiency 09/27/2017 Assessment & [...] Encounters Date Type Department Care Team Description 02/01/2025 Telephone [facility] [address] [place] [address] Darcie Zuñiga, OD 01/29/2025 Refill [facility] [address] [place] [address] Matheus Quijano MD Seborrheic dermatitis 01/22/2025 Telephone [facility] [address] [place] [address] Matheus Quijano MD march12/25/2024 Telephone [facility] [address] [place] [address] Matheus Quijano MD 12/25/2024 Telephone [facility] [address] [place] [address] Matheus Quijano MD 12/11/2024 Results Follow-Up [facility] [address] [place] [address] Abdomen Pelvis w/ and w/o Contrast 12/03/2024 10:00 AM EDT Office Visit [facility] [address] [place] [address] Matheus Quijano MD Kidney stone (Primary Dx); Cardiomyopathy, unspecified type (CMS/HCC); Severe episode of recurrent major depressive disorder, without psychotic features (CMS/HCC); AMINTA (obstructive sleep apnea); Mild intermittent asthma without complication; Dermatitis of face; Seborrheic dermatitis 12/03/2024 Travel 12/02/2024 Telephone [facility] [address] [place] [address] Matheus Quijano MD Chart Prep 11/30/2024 Outside Procedure [facility] [address] [place] [address] Darcie Zuñiga, OD Presbyopia (Primary Dx) 11/25/2024 9:45 AM EDT Office Visit [facility] [address] [place] [address] Kyler Zuñigan, OD Myopia of both eyes (Primary Dx) 11/25/2024 Travel 11/25/2024 Patient Outreach [facility] [address] [place] [phone] Matheus Quijano MD Pre-visit Planning (Pre-visit planning - unable to complete. Needs to be done in office. ) 11/20/2024 Refill [facility] [place] [address] Matheus Quijano MD Slow transit constipation 11/20/2024 Refill [facility] [address] [place] [address] Matheus Quijano MD Seasonal allergies 11/19/2024 Orders Only GENERIC EXTERNAL DATA DEPARTMENT Provider, Generic External Data 11/08/2024 Refill [facility] [address] [place] [address] Matheus Quijano MD 11/06/2024 10:00 AM EDT Office Visit [facility] [address] [place] [address] Yogesh, Darcie, OD Amblyopia, right eye (Primary Dx); Lattice degeneration of right retina; Meibomian gland disease of both eyes, unspecified eyelid; Bilateral degenerative progressive high myopia 11/06/2024 Travel from Last 3 Months Immunizations Immunization Administration [...] kg (303 lb 9.6 oz) 12/03/2024 9:56 A M EDT Height 175.3 cm (5' 9 ) 12/03/2024 9:56 AM EDT Body Mass Index 44.83 12/03/2024 9:56 AM EDT Plan of Treatment Upcoming Encounters Date Type Department Care Team (Late st Contact Info) Description 05/04/2025 10:00 AM EST Office Visit [facility] [address] [place] [address] Sven, Alicia [address] [place] [address] Health Maintenance Due Date Last Done Comments [...] 12/28/2021 06/27/2021, 03/09/2020 COVID-19 Vaccine ( - 2024-2 6 season) 2024 01/27/2021, 01/06/2021 [...] AM EDT Narrative 12/11/2024 9:50 AM EDT [address] [address] [address] Scan Report Signed Patient: Lorrie Bernal MR#: [id number] : 1980 Acct:[id number] Age/Sex: 44 / F ADM Date: 12/11/24 Loc: HO.CT Attending Dr: Azam Connelly MD Ordering Physician: Azam Connelly MD Date of Service: 12/11/24 Procedure(s): CT abdomen pelvis wo/w IV con Accession Number(s): [id number] cc: Matheus Breen MD; Azam Connelly MD Report Number: [id number]: Total DLP = 1744.00 mGy-cm EXAMINATION: CT [...] in OV> 12/11/2447 DD/ 8 TD/TT: 12/11/24929 Wildlife Control Agent: Procedure Note Donotuseinterpreter, Image - 12/11/[address] [place] [address] [address] Scan Report Signed Patient: Lorrie BernalMR#: [id number] : 1980Acct:[id number] Age/Sex: 44 / FADM Date: 12/11/24 Loc: .CT Attending Dr: Azam Connelly MD Ordering Physician: Azam Connelly MD Date of Service: 12/11/24 Procedure(s): CT abdomen pelvis wo/w IV con Accession Number(s): [id number] cc: Matheus Breen MD; Azam Connelly MD Report Number: [id number]: Total DLP = 1744.00 mGy-cm EXAMINATION: CT [...] MD in OV> 12/11/2447 DD/ 8 TD/TT: 12/11/24 09 Wildlife Control Agent: [facility] External Provider IMG CT PROCEDURES Final Result * Creatinine, Serum (11/19/2024 7:57 AM EDT) Creatinine, Serum 0.71 0.5 - 1.4 mg/dL [facility] Estimated Glomerular Filt Rate >60 [facility] Comment:Chronic Kidney Disea se: Estimated GFR < 60 mL/min/1.52f9Guugtp Kidney Disease: Estimated GFR < 15 mL/min/1.73m2 11/19/2024 7:57 AM EDT 11/19/2024 7:57 AM EDT Generic External Data Provider LAB BLOOD ORDERAB LES Final Result Performing Organization Address City/[facility]/ZIP Co de Phone Number [facility] [address] [place] [phone] * BUN (Blood Urea Nitrogen) (11/19/2024 7:57 AM EDT) Urea Nitrogen (BUN) 15 9 - 16 mg/dL [facility] 11/19/2024 7:57 AM EDT 11/19/2024 7:57 AM EDT Generic External Data Provider LAB BLOOD ORDERAB LES Final Result Performing Organization Address City/[facility]/ZIP Co de Phone Number [facility] [address] [place] [phone] * Fundus Photos - OU - [...] eye. Will monitor at her next exam. Darcie Zuñiga OD OPHTH PHOTOGRAPHY Final Resul t * (ABNORMAL) Lipid Panel, Standard (02/27/2024 11:22 AM EDT) Triglycerides 85 <150 mg/dL [facility] Comment:Desirable Triglyceri de: less than 150 mg/dLBorderline High Triglyceride 150-199 mg/dLHigh Triglyceride: 200-499 mg/dLVery High Triglyceride: greater than or equal to 5OO mg/dL Cholesterol 179 <200 mg/dL [facility] Comment:Desirable Cholestero l: less than 200 mg/dLBorderline High Cholesterol: 200-239 mg/dLHigh Cholesterol: greater than 239 mg/dL LDL Cholesterol Calculated 122(H) <100 mg/dL [facility] Comment:Desirable LDL: less than 100 mg/dLNear Optimal/Above Optimal LDL: 110- 129 mg/dLBorderline High LDL: 130-159 mg/dLHigh LDL: 160-189 mg/dLVery High LDL: greater than or equal to 190 mg/dL HDL Cholesterol 40(L) >40 mg/dL [facility] Comment:Desirable HDL: great er than 40 mg/dL Note: This HDL assay may give artificially low results in patients with liver disease. Blood Venous blood specimen / Unknown 02/27/2024 11:22 AM EDT 02/27/2024 1:17 PM EDT Matheus Pressley MD LAB BLOOD ORDERABLES Final Result [facility] [address] [place] [address] [phone] * BI US Breast Limited Left (08/09/2023 2:06 PM EDT) Anatomical Region Laterality Modality Breast Left Ultrasound 08/09/2023 2:06 PM EDT Narrative 08/09/2023 2:16 PM EDT [facility] [address] [place] [address] Ultrasound Report Signed Patient: Lorrie Bernal MR#: [id number] : 1980 Acct:[id number] Age/Sex: 42 / F ADM Date: 08/09/23 Loc: HO.MAMMO Attending Dr: Azam Connelly MD Ordering Physician: Azam Connelly MD Date of Service: 08/09/23 Procedure(s): US breast LT limited mamm only Accession Number(s): [id number] cc: Matheus Breen MD; Azam Connelly MD [...] in OV> 08/09/23 1412 DD/ 1406 TD/TT: Wildlife Control Agent: Procedure Note Donotuseinterpreter, Image - 08/09/2023 [facility] [address] [place] [address] Ultrasound Report Signed Patient: Lorrie BernalMR#: [id number] : 1980Acct:[id number] Age/Sex: 42 / FADM Date: 08/09/23 Loc: BONY Attending Dr: Azam Connelly MD Ordering Physician: Azam Connelly MD Date of Service: 08/09/23 Procedure(s): US breast LT limited mamm only Accession Number(s): [id number] cc: Matheus Breen MD; Azam Connelly MD [...] in OV> 08/09/23 1412 DD/ 1406 TD/TT: Wildlife Control Agent: [facility] External Provider IMG US PROCEDURES Final Result * HPV E6/E7 RFLX HAI 16 18/45 (06/27/2021 9:05 AM EST) HPV 16 RNA [facility] HPV 18/45 RNA [facility] HPV E6 E7 ADD [facility] HPV mRNA E6/E7 rflx Not Detected Not Detected [facility] Comment: Methodology: Qc Manager-Mediated Amplification This assay detects E6/E7 viral messenger RNA (mRNA) from 14 high-risk HPV types (16,18,31,33,35,39,45,51,52,56,58,59,66,68). The analytical performance characteristics of this assay have been determined by [employer]. The modifications have not been cleared or approved by the FDA. This assay has been validated pursuant to the CLIA regulations and is used for clinical purposes. For additional information, please refer to http://education.Buy buy tea/faq/VQA230u9 (This link if provided for information/ educational purposes only.) THIS TEST WAS PERFORMED AT: [employer] [address] [place] [address],[place] [phone] GALE WILKINS MD 06/27/2021 9:05 AM EST [place] HISTORICAL/NON ORDERABLE LABS Fi nal Result [facility] [address] * Hm Pap Smear (06/27/2021) Historical Provider HEALTH MAINTENANCE Final Result from Last 3 Months or Most Recently Relevant to Health Maintenance Insurance [facility] C3 DENTAL-[facility] MEDICAID STAND ADULT Care Teams Clay Dry Press Helper Relationship Specialty Start Date End Date Matheus Quijano MD [address] [place] [phone] PCP - General Internal Medicine 11/24/18
[2025-02-17 09:31] VITALS: BMI 46.2
--- NOTE | 2025-02-17 10:07 | HO.ANESPROP2 ---
HPI - Anesthesia Eval Consult details Narrative: 44yo F for Cholecystectomy Laparoscopic,possible open Cardiac optimized. Follow[facility] for chest pain, mild cardiomyopathy. PMFSH Active Problems Active Problems: All Active Problems Renal lesion (Acute) Cholelithiasis (Acute) Palpitations (Acute) Sleep apnea (Acute) Cardiomyopathy (Acute) Nicotine dependence (Acute) Microscopic hematuria (Acute) Vulvovaginitis (Acute) Urine incontinence (Acute) Pelvic pain (Acute) Precordial chest pain (Acute) Elevated prolactin level (Acute) Uterine myoma (Acute) Endometrial polyp (Acute) Abnormal uterine bleeding (Acute) Menorrhagia with regular cycle (Acute) Obesity, morbid, BMI 50 or higher (Acute) Well woman exam with routine gynecological exam (Acute) Potential exposure to STD (Acute) Binge eating disorder (Acute) CHEN (generalized anxiety disorder) (Acute) Severe episode of recurrent major depressive disorder (Acute) Microcytic anemia (Acute) Polyarthralgia (Acute) Skin candidiasis (Acute) Body mass index (BMI) of 45.0-49.9 in adult (Acute) Vitamin D deficiency (Acute) Vitamin A deficiency (Acute) Morbid obesity (Acute) Gallstones (Acute) KINGS positive (Acute) Anemia (Acute) JUDE II (cervical intraepithelial neoplasia II) (Acute) Morbid obesity with BMI of 45.0-49.9, adult (Acute) Past Medical History Medical History (Updated 02/17/25 @ 09:37 by Maddison Adams RN) Cardiomyopathy Palpitations AMINTA (obstructive sleep apnea) Gallstones KINGS positive JUDE II (cervical intraepithelial neoplasia II) Morbid obesity with BMI of 45.0-49.9, adult Kidney stones Anxiety Anemia Family History Family History Father Medical history unknown Mother Asthma Hypertension Thyroid disease Brother Thyroid disease Sister No problems noted. Sister No problems noted. Son No problems noted. Daughter No problems noted. Family history of problems with anesthesia: No Surgical History Surgical History History of cystoscopy H/O lithotripsy Hx of tubal ligation History of Problems with Anesthesia: No Social History Social History Household Members: Children Housing: Apartment Alcohol intake: current Alcohol intake frequency: holidays/special occasions only Patient Tobacco Use Status: Current everyday Tobacco user Tobacco use type: Cigarette Cigarettes Per Day: 5 Years Smoked: 7 e-Cigarette/Vaping Use: Never Used Current occupational status: unemployed Sexual orientation: Straight/Heterosexual Gender identity: Female Meds Allergies Allergy/AdvReac Type Severity Reaction Status Date / Time No Known Allergies Allergy Verified 02/17/25 09:26 Home Medications ?Medication ?Instructions ?Recorded ?Confirmed ?Last Taken ?Type pregabalin 300 mg capsule (Lyrica) See Rx Instructions PO DAILY 01/09/24 02/17/25 Unknown History cetirizine 10 mg tablet 10 mg PO DAILY 08/26/24 02/17/25 Unknown History Exam Height,Weight and Vital Signs: Height 5 ft 9 in Weight 141.974 kg Pertinent Lab Results Pertinent Lab Results: Laboratory Tests 08/13/24 11/19/24 16:05 07:57 WBC 10.3 Hgb 12.1 Hct 35.9 L Plt Count 367 Sodium 139 Potassium 4.1 Chloride 109 H Carbon Dioxide 23 BUN 15 Creatinine 0.71 Narrative Narrative: EKG 11/2024 Details: normal sinus rhythm, can not exclude prior anterior infarct, rate 85, QTC 435 millisecond ECHO 05/2024 Conclusions: - The left ventricular systolic function is low normal. The visually estimated ejection fraction is between 50-55%. - In some views, possible inferior septal hypokinesis. Holter 08/2024 Total monitoring time 2 days. Underlying rhythm is sinus with an average rate of 87/Min. No significant ectopy, arrhythmias, pauses or heart blocks. Palpitations in patient diary correlates with sinus rhythm. 07/2024 CTA of the coronary arteries which showed no significant CAD Assessment and Plan Assessment Anesthesia Assessment: Chart Reviewed Final Anesthetic Review Family History of Problems with Anesthesia: No History of Problems with Anesthesia: No
[2025-02-19] VITALS (9 sets, daily range): BP systolic 104–128; BP diastolic 56–76; PULSE 59–89; RESP 0–19; TEMP 36.1–37.1; O2SAT 97–100; BMI 48.0
[2025-02-19] MEDS: Lactated Ringers 1,000 ML 100 ML IVCONT (10:07)
--- NOTE | 2025-02-19 12:12 | MHC.SHP ---
Pre-Procedural Eval Section A - 24 Hr Update-Section A only Date of Service: 02/19/25 Section B - Complete if H&P > 30 days Chief Complaint: Calculus of gallbladder without cholecystitis Details of Present Illness: Had periodic upper abdominal pain /quadrant pain, with gallstones Relevant Social History: None Present Medications: see Short Stay Collaborative assessment Medical History: Significant History (Obese, cardiomyopathy, anxiety depression, nicotine use, sleep apnea) Allergies: Allergies Allergy/AdvReac Type Severity Reaction Status Date / Time No Known Allergies Allergy Verified 02/17/25 09:26 Review of Systems Sugical H&P ROS: Negative: Cardiovascular, Respiratory and Genitourinary and Yes, Specify: Constitution (Obese) Exam Surgical H&P Exam: Normal: Heart, Normal: Lungs and Normal: Abdomen Plan Diagnosis/Plan: Unchanged I have reviewed the history and physical and performed a pertinent physical examination on my patient. No changes have occurred unless specified. Time Spent With Patient Time: Total time managing care of this patient today ____ minutes.
--- NOTE | 2025-02-19 13:29 | W.PM.OPN ---
Operative Note Operative Note Date of Service: 02/19/25 Narrative: Preop diagnosis: Symptomatic gallstones Postop diagnosis: The same Procedure: Laparoscopic cholecystectomy Surgeon: Irineo Pearson MD assistant sales center manager: JOSE ARMANDO Penny The patient is a 44-year-old female, morbidly obese, with gallstones with periodic right upper quadrant pain. She therefore wanted to proceed with cholecystectomy. She understood the technique of the planned procedure as well as the risks, benefits, and alternatives. She was brought to the operating room and placed supine under general anesthesia via endotracheal tube. The abdomen was prepped and draped in the usual sterile fashion. A surgical time-out was done. The patient was on scheduled IV antibiotics . I made a short incision on the supraumbilical area using a blade 15. This was carried down through the full-thickness of the skin and thick subcutaneous fat to the fascia. It was noted that in view of the patient's habitus, she had a very thick subcutaneous layer. The fascia was incised. The peritoneum was entered. Through this incision a Clay port was introduced pneumoperitoneum was introduced to a pressure of 15 mm Hg. From here on the rest of procedure was done under vision with the 10 mm flat laparoscope. With laparoscopic visualization inserted a 5/12 mm port in the epigastric area. Two 5 mm ports introduced a small incision below the subcostal margin along the anterior axillary line and the midclavicular line. Graspers were placed through these working ports. The patient was placed in a head up and [id number] position The gallbladder was seen. This was supple and nondistended without any signs of inflammation acutely. I was able to apply a grasper at the fundus to retract this cephalad. I proceeded to apply another grasper towards the pouch of the gallbladder to retract this laterally. At this point the gallbladder was being retracted in the cephalad and lateral fashion to put the area of the cystic duct on stretch. I carefully dissected the neck of the gallbladder using the [place] dissector to tease off the peritoneal lining and by doing so I was able to visualize the cystic duct. With continued dissection using the [place] dissector, I was able to visualize the cystic duct and its confluence with the neck of the gallbladder. The cystic artery was also seen running alongside this. We had achieved a critical view of the hepatocystic triangle at this point. I therefore applied clips on the cystic duct with 2 clips being applied distally. The cystic duct was transected between clips with Endo scissors. I applied clips on the cystic artery with 2 clips applied distally. The cystic artery was transected with the clips with Endo scissors as well. With traction on the gallbladder away from the liver bed I proceeded to then carefully divide the hilum with the electrocautery spatula. I incised the peritoneum of the gallbladder to create a plane of dissection between the gallbladder wall and the liver bed. I developed this plane of dissection with a combination of blunt dissection with the tip of the spatula as well as electrocautery until the entire gallbladder was completely from the liver bed. There was some bile leak from the gallbladder view of the tear from the retraction. The gallbladder was retrieved through an endobag through the umbilical incision. I reinserted all ports and re-insufflated. I copiously irrigated and suctioned out the irrigant fluid. There was note of good hemostasis on the surgical site including the liver bed. In view of the bile leak from the tear on the wall, I did ligation copiously. I suctioned out the irrigant fluid. I observed all 4 quadrants and there was no other pathology . There was no evidence of any bowel injury or bile leak. With hemostasis confirmed, we desufflated through the port sites. The ports were removed, with the umbilical port removed last. The fascia of the umbilical incision was closed with a [id number] Polysorb 0 stitch. Skin closure was achieved on all incisions using Polysorb 4-0 subcuticular running sutures. All incisions were infiltrated with Marcaine 0.5% for postop analgesia. Steri-Strips and dressings were applied and the procedure was completed The patient tolerated the procedure well. There were no immediate complications. Initial and final counts of sponges and instruments were correct. Estimated blood loss was about 25 cc. The patient was extubated without difficulty and transferred to the recovery room with stable vital signs.
[2025-02-19] MEDS: oxyCODONE HCl Immed Release 5 MG TABLET PO (13:52)
== END 2025-02-19 15:14 | disposition home or self-care (01) ==
PROVIDERS: PCP Internal Medicine; Visit Provider Surgery
PROC: 0FT44ZZ Resection of Gallbladder, Percutaneous Endoscopic Approach (ICD-10-PCS; CPT 47562; principal; 2025-02-19 13:30)
DX: K80.10 Calculus of gallbladder with chronic cholecystitis without obstruction (principal); E66.01 Morbid (severe) obesity due to excess calories; Z68.42 Body mass index [BMI] 45.0-49.9, adult; I42.8 Other cardiomyopathies; D64.9 Anemia, unspecified; R76.0 Raised antibody titer; N87.1 Moderate cervical dysplasia; N20.0 Calculus of kidney; F41.8 Other specified anxiety disorders; Z79.1 Long term (current) use of non-steroidal anti-inflammatories (NSAID); Z79.899 Other long term (current) drug therapy; Z98.51 Tubal ligation status; Z98.890 Other specified postprocedural states; F17.210 Nicotine dependence, cigarettes, uncomplicated; Z56.0 Unemployment, unspecified
CPT/HCPCS: 47562; 88304; J0131; J0525; J1100; J1885; J2003; J2250; J2405; J2704; J2795; J3010

== ENCOUNTER → 2025-02-19 09:28 | Outpatient (BNV) | payer MEDICAID, SELFPAY | PROVIDERS: PCP Internal Medicine; Visit Provider Surgery | DX: K80.20 Calculus of gallbladder without cholecystitis without obstruction (principal) | CPT/HCPCS: 47562 ==

== ENCOUNTER 2025-02-24 08:47 | Emergency (ER) | payer MEDICAID, SELFPAY ==
--- NOTE | ~2025-02-24 | CT_ITS ---
EXAMINATION: CT ABDOMEN AND PELVIS WITHOUT CONTRAST CLINICAL INFORMATION: Left flank pain. COMPARISON: December 11, 2024. TECHNIQUE: Multidetector volumetric imaging was performed from the superior aspect of the liver through the pubic symphysis. Sagittal and coronal reformatted images were obtained on the technologist's workstation. This CT examination was performed using dose optimization techniques as appropriate, variously including the following: *Automated exposure control *Adjustment of mA and/or kV according to patient size (this includes techniques or standardized protocols for targeted exams where dose is matched to indication/reason for exam; i.e. extremities or head) *Use of iterative reconstruction technique DLP: 1566 mGy-cm FINDINGS: Inadequate evaluation of the intra-abdominal organs and vascular structures due to lack of IV contrast. LUNG BASES: No acute airspace disease. LIVER, GALLBLADDER, AND BILIARY TREE: Liver measures 20 cm. Less than 1 cm hypodensity, right hepatic lobe. Cholecystectomy. No intrahepatic or extrahepatic biliary ductal dilatation. PANCREAS: No peripancreatic fluid collections. No main pancreatic ductal dilatation. SPLEEN: 12 cm. ADRENAL GLANDS: No nodular lesions. KIDNEYS AND URETERS: No hydronephrosis. No nephrolithiasis. No dilatation of the ureters. BLADDER: Fluid-filled nearly collapsed. GASTROINTESTINAL TRACT: Fatty intestinal wall, large intestine and jejunal/ileal loops. Appendix is normal. No intestinal obstruction pattern. No pneumatosis intestinalis. Small volume of ascites/pelvic peritoneal cavity. No fluid collections. No pneumoperitoneum. Small hiatal hernia. ABDOMINAL WALL: Small fat-containing and supraumbilical hernias. LYMPH NODES: Nonspecific mildly prominent mesenteric and retroperitoneum and inguinal. VASCULAR: No aneurysm, abdominal aorta. No gross calcified plaques. PELVIC VISCERA: Inadequate evaluation demonstrated no gross masses. OSSEOUS STRUCTURES: Sclerosis and the sacroiliac joints bilaterally. Multilevel thoracolumbar spondylosis. No acute fracture or listhesis. Spina bifida occulta, S1, congenital. CT/CT abdomen pelvis wo IV con IMPRESSION: No hydronephrosis or nephrolithiasis. Hepatosplenomegaly. Intestinal wall fat deposition. Nonspecific. Fleischner guidelines were followed. Electronically signed by: Presley Sexton MD 02/24/2025 10:00 AM EDT
[2025-02-24 08:49] VITALS: BP 122/58; PULSE 96; RESP 18; TEMP 36.6; O2SAT 97; BMI 46.0
--- NOTE | 2025-02-24 08:54 | ED.ABDPAIN ---
HPI - Abdominal Pain General Chief Complaint: Abdominal Pain Stated Complaint: gallbladder sug, kidney stone pain? Time Seen by Provider: 02/24/25 08:53 Source: patient, RN notes reviewed and [place] Mode of arrival: ambulatory Limitations: language barrier History of Present Illness ED Provider: Brooke Sanchez PA-C HPI narrative: This is a 44-year-old this is speaking female, with a past medical history of asthma, fibromyalgia, uterine fibroids, and kidney stones, as well as recent cholecystectomy performed on 03/22, who presents emergency department with concerns of left-sided flank pain which started this morning. Patient reports that this morning she developed left-sided flank pain, nausea, and hot flashes. She denies any dysuria, she does report urinary frequency and urgency. She reports that the procedure went well several days ago, states that she does have some soreness on the right side of her abdomen however this is feeling much better. She denies any known fevers,. She denies any chest pain, shortness of breath, vomiting, diarrhea or constipation. No abnormal vaginal discharge or bleeding. No other complaints or concerns at this time. MD elicited complaint: flank pain Pertinent past history: kidney stones Exacerbating factors: nothing Relieving factors: nothing Associated symptoms: nausea Related Data Home Medications ?Medication ?Instructions ?Recorded ?Confirmed pregabalin 300 mg capsule (Lyrica) See Rx Instructions PO DAILY 01/09/24 02/17/25 cetirizine 10 mg tablet 10 mg PO DAILY 08/26/24 02/17/25 Previous Rx's ?Medication ?Instructions ?Recorded albuterol sulfate 90 mcg/actuation 1 inh inhalation Q4-6H PRN 05/07/20 breath activated powder inhaler shortness of breath or wheezing #1 ea clotrimazole-betamethasone 1 1 appl topical BID 5 days #45 grams 07/01/24 %-0.05 % topical cream terconazole 0.8 % vaginal cream 1 appful vaginal BEDTIME 3 days 07/01/24 #20 grams acetaminophen 500 mg tablet 1,000 mg (2 x 500 mg) PO Q6H PRN 08/13/24 (Tylenol Extra Strength) pain #20 tabs ibuprofen 600 mg tablet 600 mg PO Q8H PRN pain #14 tabs 08/13/24 tamsulosin 0.4 mg capsule 0.4 mg PO BEDTIME 30 days #30 caps 02/03/25 ibuprofen 600 mg tablet 600 mg PO Q6H PRN pain #30 tabs 02/19/25 oxycodone-acetaminophen 5 mg-325 1 tab PO Q6H PRN pain #20 tabs 02/19/25 mg tablet morphine 15 mg immediate release 15 mg PO Q6H PRN pain #5 tabs 02/24/25 tablet ondansetron 4 mg disintegrating 4 mg PO Q6H PRN nausea and 02/24/25 tablet vomiting #10 tabs Allergies Allergy/AdvReac Type Severity Reaction Status Date / Time No Known Allergies Allergy Verified 02/24/25 08:53 Review of Systems Review of Systems Constitutional : No Fever, No Chills ENT/Mouth : No sore throat, No Rhinorrhea Eyes: No Eye Pain, No Swelling, No Redness Cardiovascular : No Chest Pain, No SOB Respiratory : No Cough, No Sputum Gastrointestinal : No Nausea, No Vomiting, No Diarrhea, No abdominal Pain Genitourinary : No Dysuria, No Hematuria Musculoskeletal : No joint pain, No Myalgias, No Joint Swelling Skin : No Skin Lesions Neuro : No Weakness, No Numbness, No Headache All other systems reviewed and are negative Yes all other systems are reviewed and are negative Constitutional: Reports as per [facility] Past Medical History Attestation statement: The following information was validated with the patient. Medical History Cardiomyopathy Palpitations AMINTA (obstructive sleep apnea) Gallstones KINGS positive JUDE II (cervical intraepithelial neoplasia II) Morbid obesity with BMI of 45.0-49.9, adult Kidney stones Anxiety Anemia Surgical History History of cystoscopy H/O lithotripsy Hx of tubal ligation Family History Family History Father Medical history unknown Mother Asthma Hypertension Thyroid disease Brother Thyroid disease Sister No problems noted. Sister No problems noted. Son No problems noted. Daughter No problems noted. Social History Social History Household Members: Children Housing: Apartment Alcohol intake: current Alcohol intake frequency: does not drink Patient Tobacco Use Status: Current everyday Tobacco user Tobacco use type: Cigarette Cigarettes Per Day: 5 Years Smoked: 7 e-Cigarette/Vaping Use: Never Used Current occupational status: unemployed Sexual orientation: Straight/Heterosexual Gender identity: Female Physical Exam ED Vital Signs: Vital Signs - 24 hr 02/24/25 08:49 02/24/25 10:27 02/24/25 13:56 Temperature 97.8 F 98.0 F 98.0 F Pulse Rate 96 79 79 Respiratory Rate 18 16 16 Blood Pressure 122/58 L 103/63 103/63 Pulse Oximetry 97 100 100 Oxygen Delivery Method Room Air Room Air BMI result Body Mass Index 46.0 Const General: cooperative, comfortable and no acute distress Orientation/consciousness: patient oriented x3 Limitations: no limitations HENMT Head: Yes normal to inspection, Yes normocephalic and Yes atraumatic Ears: hearing grossly normal bilaterally General nose exam: Normal external nose present Face and sinus: Yes normal facial exam Mouth: Normal oral and palatal mucosa present, oropharynx normal and moist mucous membranes Throat: Yes posterior oropharynx normal Eyes General: appearance normal, both eyes and all related structures Eyelids: Yes eyelids normal Conjunctivae: conjunctivae normal Sclerae: sclerae normal Pupils: Equal, round and reactive pupils present EOM: EOMs intact bilaterally Neck Neck: Yes normal visual inspection, Yes full ROM and Yes no lymphadenopathy Lymphatic: no lymphadenopathy noted Chest Chest palpation & inspection: normal inspection of the chest Resp Effort & Inspection: normal respiratory effort and able to speak in complete sentences Auscultation: clear to auscultation bilaterally, no crackles, no rales, no rhonchi and no wheezes Cardio Rate: regular rate Rhythm: regular rhythm Heart sounds: S1 normal heart sound present and S2 normal heart sound present GI Other: Abdomen is soft, with mild tenderness palpation in the left flank, no suprapubic tenderness on examination. Patient with well healing laparoscopic surgical incisions noted. No tenderness overlying this area. No rebound or guarding. Inspection: Yes normal to inspection Skin General skin exam: no rashes or lesions noted Trauma: no lacerations or abrasions Wounds: no wounds Neuro General: patient oriented x3 and moves all extremities Cranial nerves: Yes Equal, round and reactive pupils present Extrem General: Yes normal to inspection Right upper extremity: normal to inspection Left upper extremity: normal to inspection Right lower extremity: normal to inspection Left lower extremity: normal to inspection Medical Decision Making Medical Decision Making MDM Narrative: This is a 44-year-old female who presents emergency department with concerns of left flank pain, and pelvic pain which started this morning. On arrival, blood pressure 122/58, all other vital signs within normal limits. Patient has mild tenderness palpation in the left CVA region as well as the suprapubic region, no pelvic pressure pain. Patient also endorsing nausea. Differential diagnoses include renal colic, nephrolithiasis, UTI, muscle strain. She did have a cholecystectomy last week however states that her symptoms have improved. She is not having any chest pain or shortness for breath. She reports some nausea, no vomiting. Discussed with patient that we can medicate her with pain medication, she declines this at this time, and would only like to be treated for nausea. Will obtain labs, UA, and CT abdomen and pelvis for further evaluation. >> CT revealing no nephrolithiasis, or any other significant acute findings. Urine does have moderate blood and rbc's, she has a history of hematuria however discussed with patient that this could be indicative of a stone that she passed this morning. She has no evidence of infection at this time. Blood work is all reassuring, she has no leukocytosis, stable H&H, chemistry revealing no acute findings. Vital signs remained stable. Patient would like to be medicated with some pain medication prior to her departure. Patient given Tylenol as well as 2nd dose of Zofran. I encouraged patient to follow-up with your urologist. She was also given strict return precautions. Throughout her emergency department stay she was requesting for food, beverage, and patient has been well-appearing throughout her stay. Patient understands overall workup, and he will return with any new or worsening symptoms. Patient stable for discharge Differential Diagnosis Differential Diagnoses: The differential diagnosis associated with the presentation includes See above Admission/Observation Consideration of admission/observation: Escalation of care including admission/observation considered Lab Data [facility] Lab Attestation statement: I reviewed the patient's lab results. See MDM and course 02/24/25 09:33 02/24/25 09:33 Labs: Lab Results 02/24/25 02/24/25 Range/Units 09:33 10:35 WBC 7.6 (4.8-10.8) X10*3/uL RBC 4.46 (4.20-5.50) X10*6/uL Hgb 11.9 L (12.0-16.0) g/dl Hct 36.5 L (37.0-47.0) % MCV 81.8 (80.0-98.0) fL MCH 26.7 L (27.0-33.0) pg MCHC 32.6 (31.0-35.0) g/dl RDW 13.8 (11.0-16.0) % Plt Count 315 (160-400) X10*3/uL MPV 9.5 (9.4-12.3) fL Immature Gran % (Auto) 0.4 (0.0-0.4) % Neut % (Auto) 79.7 H (45-73) % Lymph % (Auto) 14.3 L (20-40) % [place] % (Auto) 3.3 (2-11) % Eos % (Auto) 1.6 (0-4) % Baso % (Auto) 0.7 (0-2) % Lymph # (Auto) 1.1 L (1.2-4.9) X10*3/uL [place] # (Auto) 0.3 (0.1-1.2) X10*3/uL Eos # (Auto) 0.1 (0.0-0.4) X10*3/uL Baso # (Auto) 0.1 (0.0-0.2) X10*3/uL Abs Immat Gran (auto) 0.03 (0.00-0.03) X10*3/uL Absolute Neuts (auto) 6.1 (2.0-8.3) x10*3/uL Absolute Nucleated RBC 0.000 (0.0-0.012) X10*3/uL Nucleated RBC % (auto) 0.0 (0.0-0.2) /100WBC Sodium 141 (135-145) mmol/L Potassium 4.1 (3.3-5.1) mmol/L Chloride 112 H (96-108) mmol/L Carbon Dioxide 25 (22-29) mmol/L Anion Gap 8 L (12-20) BUN 7 L (9-16) mg/dL Creatinine 0.67 (0.5-1.4) mg/dL Estim Creat Clear Calc 166.2 Estimated GFR > 60 Random Glucose 103 (60-115) mg/dL Calcium 9.1 (8.4-10.2) mg/dL Magnesium 2.0 (1.6-2.6) mg/dL Total Bilirubin 0.2 (0.0-1.0) mg/dL Direct Bilirubin < 0.2 (0.0-0.5) mg/dL AST 18 (5-31) U/L ALT 20 (0-31) U/L Alkaline Phosphatase 61 (39-117) U/L Total Protein 7.0 (6.5-8.0) g/dL Albumin 4.1 (3.5-5.0) g/dL Lipase 14 (8-78) U/L Urine Color Yellow Urine Appearance Clear Urine pH 5.5 (5.0-9.0) Ur Specific [place] 1.025 (1.005-1.025) Urine Protein Negative (Neg-Trace) mg/dL Urine Glucose (UA) Negative (Negative) mg/dL Urine Ketones Negative (Negative) mg/dL Urine Blood Moderate (2+) H (Negative) Urine Nitrite Negative (Negative) Ur Leukocyte Esterase Negative (Negative) Urine RBC 11-20 H (0-2) /HPF Urine WBC 0-5 (0-5) /HPF Ur Squamous Epith Cells 0-2 (0-2) /HPF Urine Bacteria None Seen (None Seen) Hyaline Casts 0-2 (0-2) /LPF Radiology Impression Discussion of test interpretation with radiology: I have reviewed the radiologist's reading. Radiologist Impression: FINDINGS: Inadequate evaluation of the intra-abdominal organs and vascular structures due to lack of IV contrast. LUNG BASES: No acute airspace disease. LIVER, GALLBLADDER, AND BILIARY TREE: Liver measures 20 cm. Less than 1 cm hypodensity, right hepatic lobe. Cholecystectomy. No intrahepatic or extrahepatic biliary ductal dilatation. PANCREAS: No peripancreatic fluid collections. No main pancreatic ductal dilatation. SPLEEN: 12 cm. ADRENAL GLANDS: No nodular lesions. KIDNEYS AND URETERS: No hydronephrosis. No nephrolithiasis. No dilatation of the ureters. BLADDER: Fluid-filled nearly collapsed. GASTROINTESTINAL TRACT: Fatty intestinal wall, large intestine and jejunal/ileal loops. Appendix is normal. No intestinal obstruction pattern. No pneumatosis intestinalis. Small volume of ascites/pelvic peritoneal cavity. No fluid collections. No pneumoperitoneum. Small hiatal hernia. ABDOMINAL WALL: Small fat-containing and supraumbilical hernias. LYMPH NODES: Nonspecific mildly prominent mesenteric and retroperitoneum and inguinal. VASCULAR: No aneurysm, abdominal aorta. No gross calcified plaques. PELVIC VISCERA: Inadequate evaluation demonstrated no gross masses. OSSEOUS STRUCTURES: Sclerosis and the sacroiliac joints bilaterally. Multilevel thoracolumbar spondylosis. No acute fracture or listhesis. Spina bifida occulta, S1, congenital. CT/CT abdomen pelvis wo IV con IMPRESSION: No hydronephrosis or nephrolithiasis. Hepatosplenomegaly. Intestinal wall fat deposition. Nonspecific. Fleischner guidelines were followed. Electronically signed by: Presley Sexton MD 02/24/2025 10:00 AM EDT RP Dictated By: Presley Mckeon MD Medications Administered Discontinued Medications Generic Name Dose Route Start Last Admin Trade Name Freq PRN Reason Stop Dose Admin Acetaminophen 1,000 mg in 100 mls @ 400 mls/hr 02/24/25 12:54 02/24/25 13:32 Ofirmev IV 02/24/25 13:08 400 mls/hr ONCE ONE Administration Ondansetron HCl 4 mg 02/24/25 09:14 02/24/25 09:47 Ondansetron Hcl 4 Mg/2 Ml Vial IVPUSH 02/24/25 09:15 4 mg ONCE ONE Administration Ondansetron HCl 4 mg 02/24/25 12:27 02/24/25 12:48 Ondansetron Hcl 4 Mg/2 Ml Vial IVPUSH 02/24/25 12:28 4 mg ONCE ONE Administration Discharge Plan Discharge Clinical Impression: Acute flank pain, Hematuria Patient Disposition: Home, Self-Care Instructions: Hematuria (ED) Additional Instructions: You were seen in the ER for flank pain. Your CT scan does show an enlarged spleen and liver, this can be a normal finding. There is no evidence of a kidney stone on your CAT scan. However you do have blood in your urine which could be indicative of a recently passed stone. This could be causing you to have this pain. Please continue taking Tylenol and you may take Zofran as needed for nausea and vomiting. Morphine as a strong pain medication, only use this as needed for severe pain only. Please follow-up with the urologist. If any new or worsening symptoms occur including but not limited to severe chest pain, shortness of breath, please seek emergent care. Prescriptions: New morphine 15 mg tablet 15 mg PO Q6H PRN (Reason: pain) Qty: 5 0RF Rx Instructions: Partial Fill upon patient request. ondansetron 4 mg tablet,disintegrating 4 mg PO Q6H PRN (Reason: nausea and vomiting) Qty: 10 0RF No Action albuterol sulfate 90 mcg/actuation aerosol powdr breath activated 1 inh inhalation Q4-6H PRN (Reason: shortness of breath or wheezing) Qty: 1 0RF ibuprofen 600 mg tablet 600 mg PO Q8H PRN (Reason: pain) Qty: 14 0RF acetaminophen [Tylenol Extra Strength] 500 mg tablet 1,000 mg PO Q6H PRN (Reason: pain) Qty: 20 0RF oxycodone-acetaminophen 5-325 mg tablet 1 tab PO Q6H PRN (Reason: pain) Qty: 20 0RF Rx Instructions: Partial Fill upon patient request. ibuprofen 600 mg tablet 600 mg PO Q6H PRN (Reason: pain) Qty: 30 0RF pregabalin [Lyrica] 300 mg capsule See Rx Instructions PO DAILY Rx Instructions: unknown dose orally daily; terconazole 0.8 % cream 1 appful vaginal BEDTIME 3 Days Qty: 20 0RF clotrimazole-betamethasone 1-0.05 % cream 1 appl topical BID 5 Days Qty: 45 0RF cetirizine 10 mg tablet 10 mg PO DAILY tamsulosin 0.4 mg capsule 0.4 mg PO BEDTIME 30 Days Qty: 30 3RF Interventions: ED Discharge Assessment Last Done: 02/24/25 13:56 Discharge Date/Time: 02/24/25 13:57 Print Language: Welsh
[2025-02-24 09:36] LABS: MANUAL DIFF FLAG NO
[2025-02-24 09:37] LABS: Hematocrit 36.5 % (37.0-47.0); Hemoglobin 11.9 g/dl (12.0-16.0); Imm Gran Abs Auto 0.03 X10*3/uL (0.00-0.03); Imm Gran Pct Auto 0.4 % (0.0-0.4); Lymphocytes Absolute Auto 1.1 X10*3/uL (1.2-4.9); Mean Corpuscular HGB Conc 32.6 g/dl (31.0-35.0); Mean Corpuscular Hemoglobin 26.7 pg (27.0-33.0); Mean Corpuscular Volume 81.8 fL (80.0-98.0); NRBC Abs Auto 0.000 X10*3/uL (0.0-0.012); NRBC Pct Auto 0.0 /100WBC (0.0-0.2); Platelet Count 315 X10*3/uL (160-400); Red Blood Count 4.46 X10*6/uL (4.20-5.50); White Blood Count 7.6 X10*3/uL (4.8-10.8)
[2025-02-24 09:52] LABS: Alanine Aminotransferase 20 U/L (0-31); Albumin Level 4.1 g/dL (3.5-5.0); Alkaline Phosphatase 61 U/L (39-117); Anion Gap 8 (12-20); Aspartate Amino Transferase 18 U/L (5-31); Blood Urea Nitrogen 7 mg/dL (9-16); Calcium 9.1 mg/dL (8.4-10.2); Carbon Dioxide 25 mmol/L (22-29); Chloride 112 mmol/L (96-108); Creatinine Clr Calc Pharmacy 166.2; Estimated Glomerular Filt Rate > 60; Lipase 14 U/L (8-78); Magnesium 2.0 mg/dL (1.6-2.6); Potassium 4.1 mmol/L (3.3-5.1); Sodium 141 mmol/L (135-145); Total Protein 7.0 g/dL (6.5-8.0)
--- OUTSIDE RECORDS SUMMARY | 2025-02-24 10:15 | XMS_ITS | Encounter Summary ---
Author Organization [employer] Address [address] [facility] 7t [place] [address] Care Team Providers Care Retail Key Holder Name Role Phone Matheus Quijano MD Primary Care Provide r Encounter Details Date Type Department Care Team ([facility] Contact Info) Description 02/24/2025 Orders Only GENERIC EXTERNAL DATA DEPARTMENT Provider, [...] housing situation today? I have shahnaz radha 12/03/[address] you li [...] Care Team (Late st Contact Info) Description 04/05/2025 11:30 AM EST Office Visit [facility] OPTOMETRY [address] [place] [address] YogeshKylern, OD [address] [place] [address] 04/13/2025 9:15 AM EST Office Visit [facility] CHC MED & PEDS [address] [place] [address] Juju Montanez MD 505 [place] [address] 05/04/2025 10:00 AM EST Office Visit [facility] ADULT DENTAL [address] [place] [address] Sven, Alicia [address] [place] [address] documented as of this encounter Procedures Procedure Name Priority Date/Time Associated Diagnosis Comments CBC WITH AUTO DIFFERENTIAL Routine 02/24/2025 9:[address] ABDOMEN PELVIS WO CONTRAST Routine 02/24/2025 9:33 AM EDT MAGNESIUM Routine 02/24/2025 9:33 AM EDT LIPASE Routine 02/24/2025 9:33 AM EDT HEPATIC FUNCTION PANEL Routine 02/24/2025 9:33 AM EDT BASIC METABOLIC PANEL Routine 02/24/2025 9:33 AM EDT documented in this encounter Results * Lipase (02/24/2025 9:33 AM EDT) Pathologist [facility] [place] Lipase 14 8 - 78 U/L [facility] 02/24/2025 9:33 AM EDT 02/24/2025 9:35 AM EDT Generic External Data Provider LAB BLOOD ORDERAB LES Final Result Performing Organization Address City/[facility]/ZIP Co de Phone Number [facility] [address] [place] [phone] * Magnesium (02/24/2025 9:33 AM EDT) [facility] Magnesium 2.0 1.6 - 2.6 mg/dL [facility] 02/24/2025 9:33 AM EDT 02/24/2025 9:35 AM EDT Generic External Data Provider LAB BLOOD ORDERAB LES Final Result Performing Organization Address [facility] Co de Phone Number [facility] [address] [place] [phone] * (ABNORMAL) Basic Metabolic Panel (02/24/2025 9:33 AM EDT) Pathologist [facility] [place] Sodium 141 135 - 145 mmol/L [facility] Potassium 4.1 3.3 - 5.1 mmol/L [facility] Chloride 112(H) 96 - 108 mmol/L [facility] Carbon Dioxide 25 22 - 29 mmol/L [facility] Anion Gap 8(L) 12 - 20 [facility] Urea Nitrogen (BUN) 7(L) 9 - 16 mg/dL [facility] Creatinine, Serum 0.67 0.5 - 1.4 mg/dL [facility] Creatinine Clr Calc Pharmacy 166.2 [facility] Comment:Provided height and weight: 175.26 cm,141.3 kg.eGFR (calculated from the MDRD study equation) and eCrCl(calculated from the Cockcroft-Gault equation) are based ondifferent parameters and may not yield comparable results.If eCrCl result is absurd, please check patient'sheight/weight. Estimated Glomerular Filt Rate >60 [facility] Comment:Chronic Kidney Disea se: Estimated GFR < 60 mL/min/1.54m9Umjxhf Kidney Disease: Estimated GFR < 15 mL/min/1.73m2 Glucose 103 60 - 115 mg/dL [facility] Calcium 9.1 8.4 - 10.2 mg/dL [facility] 02/24/2025 9:33 AM EDT 02/24/2025 9:35 AM EDT us Generic External Data Provider LAB BLOOD ORDERAB LES Final Result Performing Organization Address [facility] Co de Phone Number [facility] [address] [place] [phone] * Hepatic Function Panel (02/24/2025 9:33 AM EDT) Bilirubin, Total 0.2 0.0 - 1.0 mg/dL [facility] Bilirubin, Direct <0.2 0.0 - 0.5 mg/dL [facility] Aspartate Amino Transferase 18 5 - 31 U/L [facility] Alanine Aminotransferase 20 0 - 31 U/L [facility] Total Protein 7.0 6.5 - 8.0 g/dL [facility] Albumin Level 4.1 3.5 - 5.0 g/dL [facility] Alkaline Phosphatase 61 39 - 117 U/L [facility] 02/24/2025 9:3 3 AM EDT 02/24/2025 9:35 AM EDT us Generic External Data Provider LAB BLOOD ORDERAB LES Final Result Performing Organization Address City/[facility] Co de Phone Number [facility] [address] [place] [phone] [phone] * (ABNORMAL) CBC auto differential (02/24/2025 9:33 AM EDT) White Blood Count 7.6 4.8 - 10.8 X10*3/uL [facility] Red Blood Count 4.46 4.20 - 5.50 X10*6/uL [facility] Hemoglobin 11.9(L) 12.0 - 16.0 g/dl [facility] Hematocrit 36.5(L) 37.0 - 47.0 % [facility] Mean Corpuscular Volume 81.8 80.0 - 98.0 fL [facility] Mean Corpuscular Hemoglobin 26.7(L) 27.0 - 33.0 pg [facility] Mean Corpuscular HGB Conc 32.6 31.0 - 35.0 g/dl [facility] Red Cell Distribution Width 13.8 11.0 - 16.0 % [facility] Platelet Count 315 160 - 400 X10*3/uL [facility] Mean Platelet Volume 9.5 9.4 - 12.3 fL [facility] Neutrophils Percent Auto 79.7(H) 45 - 73 % [facility] Imm Gran Pct Auto 0.4 0.0 - 0.4 % [facility] Lymphocytes Percent Auto 14.3(L) 20 - 40 % [facility] Monocytes Percent Auto 3.3 2 - 11 % [facility] Eosinophils Percent Auto 1.6 0 - 4 % [facility] Basophils Percent Auto 0.7 0 - 2 % [facility] NRBC Pct Auto 0.0 0.0 - 0.2 /100WBC [facility] Neutrophils Absolute Auto 6.1 2.0 - 8.3 x10*3/uL [facility] Imm Gran Abs Auto 0.03 0.00 - 0.03 X10*3/uL [facility] Lymphocytes Absolute Auto 1.1(L) 1.2 - 4.9 X10*3/uL [facility] Monocytes Absolute Auto 0.3 0.1 - 1.2 X10*3/uL [facility] Eosinophils Absolute Auto 0.1 0.0 - 0.4 X10*3/uL [facility] Basophils Absolute Auto 0.1 0.0 - 0.2 X10*3/uL [facility] NRBC Abs Auto 0.000 0.0 - 0.012 X10*3/uL [facility] 02/24/2025 9:33 AM EDT 02/24/2025 9:35 AM EDT us Generic External Data Provider LAB BLOOD ORDERAB LES Final Result Performing Organization Address City/State/[facility] Co de Phone Number [facility] [address] [place] [phone] [phone] * CT Abdomen Pelvis w/o Contrast (02/24/2025 9:33 AM EDT) Anatomical Region Laterality Modality Body, Pelvis, Abdomen Computed T omography 02/24/2025 9:33 AM EDT Narrative 02/24/2025 10:03 AM EDT [place] [address] CT Scan Report Signed Patient: Lorrie Bernal MR#: [id number] : 1980 Acct:[id number] Age/Sex: 44 / F ADM Date: 02/24/25 Loc: .ED Attending Dr: Ordering Physician: Brooke Sanchez Date of Service: 02/24/25 Procedure(s): CT abdomen pelvis wo IV con Accession Number(s): [id number] cc: Matheus Breen MD; Brooke Sanchez Report Number: [id number]: Total DLP = 1566.00 mGy-cm Reason for Exam: L flank pain, hx of stones EXAMINATION: CT ABDOMEN AND PELVIS WITHOUT CONTRAST CLINICAL INFORMATION: Left flank pain. COMPARISON: December 11, 2024. TECHNIQUE: Multidetector volumetric imaging was performed from the superior aspect of the liver through the pubic symphysis. Sagittal and coronal reformatted images were obtained on the technologist's workstation. This CT examination was performed using dose optimization techniques as appropriate, variously including the following: *Automated exposure control *Adjustment of mA and/or kV according to patient size (this includes techniques or standardized protocols for targeted exams where dose is matched to indication/reason for exam; i.e. extremities or head) *Use of iterative reconstruction technique DLP: 1566 mGy-cm FINDINGS: Inadequate evaluation of the intra-abdominal organs and vascular structures due to lack of IV contrast. LUNG BASES: No acute airspace disease. LIVER, GALLBLADDER, AND BILIARY TREE: Liver measures 20 cm. Less than 1 cm hypodensity, right hepatic lobe. Cholecystectomy. No intrahepatic or extrahepatic biliary ductal dilatation. PANCREAS: No peripancreatic fluid collections. No main pancreatic ductal dilatation. SPLEEN: 12 cm. ADRENAL GLANDS: No nodular lesions. KIDNEYS AND URETERS: No hydronephrosis. No nephrolithiasis. No dilatation of the ureters. BLADDER: Fluid-filled nearly collapsed. GASTROINTESTINAL TRACT: Fatty intestinal wall, large intestine and jejunal/ileal loops. Appendix is normal. No intestinal obstruction pattern. No pneumatosis intestinalis. Small volume of ascites/pelvic peritoneal cavity. No fluid collections. No pneumoperitoneum. Small hiatal hernia. ABDOMINAL WALL: Small fat-containing and supraumbilical hernias. LYMPH NODES: Nonspecific mildly prominent mesenteric and retroperitoneum and inguinal. VASCULAR: No aneurysm, abdominal aorta. No gross calcified plaques. PELVIC VISCERA: Inadequate evaluation demonstrated no gross masses. OSSEOUS STRUCTURES: Sclerosis and the sacroiliac joints bilaterally. Multilevel thoracolumbar spondylosis. No acute fracture or listhesis. Spina bifida occulta, S1, congenital. CT/CT abdomen pelvis wo IV con IMPRESSION: No hydronephrosis or nephrolithiasis. Hepatosplenomegaly. Intestinal wall fat deposition. Nonspecific. Fleischner guidelines were followed. Electronically signed by: Presley Sexton MD 02/24/2025 10:00 AM EDT Dictated By: Presley Mckeon MD Signed By: <Electronically signed by Presley Rangel MD in OV> 02/24/25 1000 DD/ 0933 TD/TT: 02/24/25 0951 Rope Coiling Machine Operator: Procedure Note Donotuseinterpreter, Image - 02/24/[address] [address] [address] Scan Report Signed Patient: Lorrie BernalMR#: [id number] : 1980Acct:[id number] Age/Sex: 44 / FADM Date: 02/24/25 Loc: HO.ED Attending Dr: Ordering Physician: Brooke Sanchez Date of Service: 02/24/25 Procedure(s): CT abdomen pelvis wo IV con Accession Number(s): [id number] cc: Matheus Breen MD; Brooke Sanchez Report Number: [id number]: Total DLP = 1566.00 mGy-cm Reason for Exam: L flank pain, hx of stones EXAMINATION: CT ABDOMEN AND PELVIS WITHOUT CONTRAST CLINICAL INFORMATION: Left flank pain. COMPARISON: December 11, 2024. TECHNIQUE: Multidetector volumetric imaging was performed from the superior aspect of the liver through the pubic symphysis. Sagittal and coronal reformatted images were obtained on the technologist's workstation. This CT examination was performed using dose optimization techniques as appropriate, variously including the following: *Automated exposure control *Adjustment of mA and/or kV according to patient size (this includes techniques or standardized protocols for targeted exams where dose is matched to indication/reason for exam; i.e. extremities or head) *Use of iterative reconstruction technique DLP: 1566 mGy-cm FINDINGS: Inadequate evaluation of the intra-abdominal organs and vascular structures due to lack of IV contrast. LUNG BASES: No acute airspace disease. LIVER, GALLBLADDER, AND BILIARY TREE: Liver measures 20 cm. Less than 1 cm hypodensity, right hepatic lobe. Cholecystectomy. No intrahepatic or extrahepatic biliary ductal dilatation. PANCREAS: No peripancreatic fluid collections. No main pancreatic ductal dilatation. SPLEEN: 12 cm. ADRENAL GLANDS: No nodular lesions. KIDNEYS AND URETERS: No hydronephrosis. No nephrolithiasis. No dilatation of the ureters. BLADDER: Fluid-filled nearly collapsed. GASTROINTESTINAL TRACT: Fatty intestinal wall, large intestine and jejunal/ileal loops. Appendix is normal. No intestinal obstruction pattern. No pneumatosis intestinalis. Small volume of ascites/pelvic peritoneal cavity. No fluid collections. No pneumoperitoneum. Small hiatal hernia. ABDOMINAL WALL: Small fat-containing and supraumbilical hernias. LYMPH NODES: Nonspecific mildly prominent mesenteric and retroperitoneum and inguinal. VASCULAR: No aneurysm, abdominal aorta. No gross calcified plaques. PELVIC VISCERA: Inadequate evaluation demonstrated no gross masses. OSSEOUS STRUCTURES: Sclerosis and the sacroiliac joints bilaterally. Multilevel thoracolumbar spondylosis. No acute fracture or listhesis. Spina bifida occulta, S1, congenital. CT/CT abdomen pelvis wo IV con IMPRESSION: No hydronephrosis or nephrolithiasis. Hepatosplenomegaly. Intestinal wall fat deposition. Nonspecific. Fleischner guidelines were followed. Electronically signed by: Presley Sexton MD 02/24/2025 10:00 AM EDT RP Dictated By: Presley Mckeon MD Signed By: <Electronically signed by Presley Rangel MDin OV> 02/24/25 1000 DD/ TD/TT: 02/24/25 0951 Rope Coiling Machine Operator: [facility] External Provider IMG CT PROCEDURES Final Result documented in this encounter Visit Diagnoses Not on filedocumented in this encounter Additional Health Concerns Assessment Noted Time PHQ-9 Depression Total Score: 4 08/19/19 25 10:07 AM EDT documented as of this encounter Care Teams Retail Key Holder Relationship Specialty Start Date End Date Matheus Quijano MD [address] [place] [phone] PCP - General Internal Medicine 11/24/18 documented as of this encounter
--- OUTSIDE RECORDS SUMMARY | 2025-02-24 10:15 | XMS_ITS | Encounter Summary ---
Author Organization [employer] Address [address] [place] [address] 7 [place] [address] Care Team Providers Care Tax Services Professional Name Role Phone Matheus Quijano MD Primary Care Provide r Encounter Details Date Type Department Care Team (Late Contact Info) Description 10/17/[address] [facility] MEDICINE [address] [place] [address] Matheus Quijano MD [address] [place] [address] Social History Tobacco Use Types Packs/Day Years [...] Department Care Team (Late Contact Info) Description 04/05/2025 11:30 AM EST Office Visit [facility] OPTOMETRY [address] [place] [address] Darcie Zuñiga, OD [address] [place] [address] 04/13/2025 9:15 AM EST Office Visit [facility] CHC MED & PEDS [address] [place] [address] Juju Montanez MD [address] [place] [address] 05/04/2025 10:00 AM EST Office Visit [facility] ADULT DENTAL [address] [place] [address] Sven, Alicia [address] [place] [address] documented as of this encounter Visit Diagnoses Not on filedocumented in this encounter Additional Health Concerns Assessment Noted Time PHQ-9 Depression Total Score: 16 08/23/ 023 10:18 AM EDT documented as of this encounter Care Teams Tax Services Professional Relationship Specialty Start Date End Date Matheus Quijano MD [address] [place] [address] PCP - General Internal Medicine 11/24/18 documented as of this encounter
--- OUTSIDE RECORDS SUMMARY | 2025-02-24 10:15 | XMS_ITS | Encounter Summary ---
Author Organization [employer] Address [address] [place] [address] [place] [address] Care Team Providers Care Motorized Squad Captain Name Role Phone Matheus Quijano MD Primary Care Provide r Reason for Visit * Reason Onset Date Comments Med Refill 09/24/2023 Encounter Details Date Type Department Care Team ([facility] st Contact Info) Description 09/24/2023 Refill [facility] CHC MED & PEDS [address] [place] [address] Leana Yanez MD [address] [place] [address] Social History Tobacco Use Types Packs/Day Years [...] Description 04/05/2025 11:30 AM EST Office Visit [facility] OPTOMETRY [address] [place] [address] YogeshDarcie izquierdo, OD [address] [place] [address] 04/13/2025 9:15 AM EST Office Visit [facility] CHC MED & PEDS [address] [place] [address] Juju Montanez MD [address] [place] [address] 05/04/2025 10:00 AM EST Office Visit [facility] ADULT DENTAL [address] [place] [address] Sven, Alicia [address] [place] [address] documented as of this encounter Visit Diagnoses Not on filedocumented in this encounter Additional Health Concerns Assessment Noted Time PHQ-9 Depression Total Score: 19 024 1:37 PM EST documented as of this encounter Care Teams Motorized Squad Captain Relationship Specialty Start Date End Date Matheus Quijano MD [address] [place] [address] PCP - General Internal Medicine 11/24/18 documented as of this encounter
--- OUTSIDE RECORDS SUMMARY | 2025-02-24 10:15 | XMS_ITS | Clinical Summary ---
Author Organization [facility] Address [address] [address] Phone Care Team Providers Care Operations Support Representative Name Role Phone [facility] Provider Unavailable Allergies No known [...] protein shake or a protein bar or Lao yogurt or cottage cheese to be consumed [...] topic Medical Devices Not on file Insurance [facility] C3 ACO C3 ACO C3 ACO C3 ACO C3 ACO [address] [place] [address] [place] [address] C3 ACO [facility] C3 ACO [facility] C3 ACO Care Teams Operations Support Representative Relationship Specialty Start Date End Date [facility] - [facility] 01/31/22 Additional Source Comments The information contained in this document represents components of the legal health record. It is not the complete legal health record.[facility]
--- OUTSIDE RECORDS SUMMARY | 2025-02-24 10:15 | XMS_ITS | Clinical Summary ---
Author Organization [employer] Address [address] [place] [address] 7 [place] [address] Care Team Providers Care Wire Rigger Name Role Phone Matheus Quijano MD Primary [...] recurrent major depressive disorder, without psychotic features ([facility]) 12/03/2024 Assessment & Plan (12/03/2024 10:19 AM EDT): Patient continues under the care of [facility] Gustavo Rabago . Sees a psychiatrist Dr [...] stress test and Holter monitor Pituitary adenoma ([facility]/HCC) 04/30/2023 Assessment & Plan (08/18/2024 9:37 AM [...] continued surveillance. Pt was seen 09/12/2023 at [facility] , and most recently 07/17/[address] Deandra Saucedo, acording to her patient had a repeat MRI in July 2023 that demonstrated an interval decrease in size of cystic lesion in the right pituitary gland , measuring 1 cm., without mass effect on the optic chiasm, nerves and tracts. 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 Blocker Automatic recommended to repeat Prolactin level and MRI, [...] Also has an appointment with [facility] Assessment & Plan (09/24/2023 1:35 PM [...] Also has an appointment with [facility] Assessment & Plan (06/21/2023 1:54 PM [...] Rheumatology, last note on record from 10/12/2020, Manager Balance work up showed a positive KINGS but further labs were not indicative on any autoimmune inflamatory disorder. Manager Balance thought her symptoms are suggestive of Fibromyalgia [...] Rheumatology, last note on record from 10/12/2020, Manager Balance work up showed a positive KINGS but further labs were not indicative on any autoimmune inflamatory disorder. Manager Balance thought her symptoms are suggestive of Fibromyalgia [...] had repeat UA and CT done by [facility] 08/13/2024 showed UA with hematuria/CT neg Referred [...] had repeat UA and CT done by [facility] 08/13/2024 showed UA with hematuria/CT neg Referred back to Urology by Dr. Connelly [facility] Assessment & Plan (06/03/2022 4:55 PM EST): [...] wanted to be referred to [facility]. Last minute she decided [...] wanted to be referred to [facility]. She is now at [facility] with Dr. Michael She was interested in trying Semaglutide. This was denied by her insurance Assessment & Plan (09/18/2022 9:09 AM EDT): No longer under the care of the Weight management program. Patient has been counseled and educated about diet and exercise by the Weight management Program Patient has comorbidity of: Asthma She would like to be referred to [facility]. Referral placed She is [...] EST): Pt is under the care of [facility] Hx ASCUS HPV + PAP from 01/14/19. 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 She is on iron. Plan: Continue FeSO4 325 mg with vitamin C Under the care of [facility] CBC ordered Cobalamin deficiency 09/27/2017 Assessment & [...] Encounters Date Type Department Care Team Description 02/24/2025 Orders Only GENERIC EXTERNAL DATA DEPARTMENT Provider, Generic External Data 02/19/2025 Orders Only GENERIC EXTERNAL DATA DEPARTMENT Provider, Generic External Data 02/03/2025 Orders Only GENERIC EXTERNAL DATA DEPARTMENT Provider, Generic External Data 02/01/2025 Telephone [facility] [address] [place], [place] [phone] Darcie Zuñiga, OD 01/29/2025 Refill [facility] [address] [place], [place] [phone] Matheus Quijano MD Seborrheic dermatitis 01/22/2025 Telephone [facility] [address] [place] [address] Matheus Quijano MD march12/25/2024 Telephone [facility] [address] [facility] [place] [address] Matheus Quijano MD 12/25/2024 Telephone [facility] [address] [facility] [place] [address] Matheus Quijano MD 12/11/2024 Results Follow-Up [facility] [address] [place] [address] Abdomen Pelvis w/ and w/o Contrast 12/03/2024 10:00 AM EDT Office Visit [facility] [address] [place] [address] Matheus Quijano MD Kidney stone (Primary Dx); Cardiomyopathy, unspecified type (CMS/HCC); Severe episode of recurrent major depressive disorder, without psychotic features (CMS/HCC); AMINTA (obstructive sleep apnea); Mild intermittent asthma without complication; Dermatitis of face; Seborrheic dermatitis 12/03/2024 Travel 12/02/2024 Telephone [facility] [address] [place] [address] Matheus Quijano MD Chart Prep 11/30/2024 Outside Procedure [facility] [address] [place] [address] Kyler Zuñigan, OD Presbyopia (Primary Dx) 11/25/2024 9:45 AM EDT Office Visit [facility] [address] [place] [address] Kyler Zuñigan, OD Myopia of both eyes (Primary Dx) 11/25/2024 Travel 11/25/2024 Patient Outreach [facility] [address] [place] [address] Matheus Quijano MD Pre-visit Planning (Pre-visit planning - unable to complete. Needs to be done in office. ) from Last 3 Months Immunizations Immunization Administration [...] Description 04/05/2025 11:30 AM EST Office Visit [facility] [address] [place] [address] YogeshKyler izquierdon, OD [address] [place] [address] 04/13/2025 9:15 AM EST Office Visit [facility] [address] [place] [address] Juju Montanez MD [address] [place] [address] 05/04/2025 10:00 AM EST Office Visit [facility] [address] [place] [address] Sven, Alicia [address] [place] [address] Health Maintenance Due Date Last Done Comments [...] Procedure Name Priority Date/Time Associated Diagnosis Comments LIPASE Routine 02/24/2025 9:33 AM EDT MAGNESIUM Routine 02/24/2025 9:33 AM EDT BASIC METABOLIC PANEL Routine 02/24/2025 9:33 AM EDT HEPATIC FUNCTION PANEL Routine 02/24/2025 9:33 AM EDT CBC WITH AUTO DIFFERENTIAL Routine 02/24/2025 9:[address] ABDOMEN PELVIS WO CONTRAST Routine 02/24/2025 9:33 AM EDT GROSS AND MICROSCOPIC LEVEL 3 Routine 02/19/2025 1:05 PM EDT CYTOPATH-CELL ENHANCED Routine 02/03/2025 9:[address] ABDOMEN PELVIS W AND WO CONTRAST Routine 12/11/2024 8:39 AM EDT PROPHYLAXIS - ADULT Routine 09/24/2024 [...] Maintenance Results * (ABNORMAL) CBC auto differential (02/24/2025 9:33 AM EDT) White Blood Count 7.6 4.8 - 10.8 X10*3/uL [facility] Red Blood Count 4.46 4.20 - 5.50 X10*6/uL [facility] Hemoglobin 11.9(L) 12.0 - 16.0 g/dl [facility] Hematocrit 36.5(L) 37.0 - 47.0 % [facility] Mean Corpuscular Volume 81.8 80.0 - 98.0 fL [facility] Mean Corpuscular Hemoglobin 26.7(L) 27.0 - 33.0 pg [facility] Mean Corpuscular HGB Conc 32.6 31.0 - 35.0 g/dl [facility] Red Cell Distribution Width 13.8 11.0 - 16.0 % [facility] Platelet Count 315 160 - 400 X10*3/uL [facility] Mean Platelet Volume 9.5 9.4 - 12.3 fL [facility] Neutrophils Percent Auto 79.7(H) 45 - 73 % [facility] Imm Gran Pct Auto 0.4 0.0 - 0.4 % [facility] Lymphocytes Percent Auto 14.3(L) 20 - 40 % [facility] Monocytes Percent Auto 3.3 2 - 11 % [facility] Eosinophils Percent Auto 1.6 0 - 4 % [facility] Basophils Percent Auto 0.7 0 - 2 % [facility] NRBC Pct Auto 0.0 0.0 - 0.2 /100WBC [facility] Neutrophils Absolute Auto 6.1 2.0 - 8.3 x10*3/uL [facility] Imm Gran Abs Auto 0.03 0.00 - 0.03 X10*3/uL [facility] Lymphocytes Absolute Auto 1.1(L) 1.2 - 4.9 X10*3/uL [facility] Monocytes Absolute Auto 0.3 0.1 - 1.2 X10*3/uL [facility] Eosinophils Absolute Auto 0.1 0.0 - 0.4 X10*3/uL [facility] Basophils Absolute Auto 0.1 0.0 - 0.2 X10*3/uL [facility] NRBC Abs Auto 0.000 0.0 - 0.012 X10*3/uL [facility] 02/24/2025 9:33 AM EDT 02/24/2025 9:35 AM EDT us Generic External Data Provider LAB BLOOD ORDERAB LES Final Result Performing Organization Address City/State/[facility] Co de Phone Number [facility] [address] [place] [phone] * CT Abdomen Pelvis w/o Contrast (02/24/2025 9:33 AM EDT) Anatomical Region Laterality Modality Body, Pelvis, Abdomen Computed T omography 02/24/2025 9:33 AM EDT Narrative 02/24/2025 10:03 AM EDT [address] [address] [address] Scan Report Signed Patient: Lorrie Bernal MR#: [id number] : 1980 Acct:[id number] Age/Sex: 44 / F ADM Date: 02/24/25 Loc: HO.ED Attending Dr: Ordering Physician: Brooke Sanchez Date of Service: 02/24/25 Procedure(s): CT abdomen pelvis wo IV con Accession Number(s): [id number] cc: Matheus Breen MD; Brooke Sanchez Report Number: [id number]: Total DLP = 1566.00 mGy-cm Reason for [...] 02/24/25 1000 DD/ 0933 TD/TT: 02/24/25 0951 Internal Communications Manager: Procedure Note Donotuseinterpreter, Image - 02/24/[address] [address] [address] Scan Report Signed Patient: Lorrie BernalMR#: [id number] : 1980Acct:[id number] Age/Sex: 44 / FADM Date: 02/24/25 Loc: HO.ED Attending Dr: Ordering Physician: Brooke Sanchez Date of Service: 02/24/25 Procedure(s): CT abdomen pelvis wo IV con Accession Number(s): [id number] cc: Matheus Breen MD; Brooke Sanchez Report Number: [id number]: Total DLP = 1566.00 mGy-cm Reason for [...] Presley Rangel MDin OV> 02/24/25 1000 DD/ 2 TD/TT: 02/24/25 0951 Internal Communications Manager: [facility] External Provider IMG CT PROCEDURES Final Result * Magnesium (02/24/2025 9:33 AM EDT) Magnesium 2.0 1.6 - 2.6 mg/dL [facility] 02/24/2025 9:33 AM EDT 02/24/2025 9:35 AM EDT Generic External Data Provider LAB BLOOD ORDERAB LES Final Result Performing Organization Address [facility] Co de Phone Number [facility] [address] [place] [phone] * Lipase (02/24/2025 9:33 AM EDT) Lipase 14 8 - 78 U/L [facility] 02/24/2025 9:33 AM EDT 02/24/2025 9:35 AM EDT Generic External Data Provider LAB BLOOD ORDERAB LES Final Result Performing Organization Address [facility] Co de Phone Number [facility] [address] [place] [phone] * Hepatic Function Panel (02/24/2025 9:33 AM EDT) Bilirubin, Total 0.2 0.0 - 1.0 mg/dL [facility] Bilirubin, Direct <0.2 0.0 - 0.5 mg/dL [facility] Aspartate Amino Transferase 18 5 - 31 U/L [facility] Alanine Aminotransferase 20 0 - 31 U/L [facility] Total Protein 7.0 6.5 - 8.0 g/dL [facility] Albumin Level 4.1 3.5 - 5.0 g/dL [facility] Alkaline Phosphatase 61 39 - 117 U/L [facility] 02/24/2025 9:33 AM EDT 02/24/2025 9:35 AM EDT us Generic External Data Provider LAB BLOOD ORDERAB LES Final Result [facility] [address] [place] [address] [phone] * (ABNORMAL) Basic Metabolic Panel (02/24/2025 9:33 AM EDT) Sodium 141 135 - 145 mmol/L [facility] Potassium 4.1 3.3 - 5.1 mmol/L [facility] Chloride 112(H) 96 - 108 mmol/L [facility] Carbon Dioxide 25 22 - 29 mmol/L [facility] Anion Gap 8(L) 12 - 20 [facility] Urea Nitrogen (BUN) 7(L) 9 - 16 mg/dL [facility] Creatinine, Serum 0.67 0.5 - 1.4 mg/dL [facility] Creatinine Clr Calc Pharmacy 166.2 [facility] Comment:Provided height and weight: 175.26 cm,141.3 kg.eGFR (calculated from the MDRD study equation) and eCrCl(calculated from the Cockcroft-Gault equation) are based ondifferent parameters and may not yield comparable results.If eCrCl result is absurd, please check patient'sheight/weight. Estimated Glomerular Filt Rate >60 [facility] Comment:Chronic Kidney Disea se: Estimated GFR < 60 mL/min/1.51o1Nkgnez Kidney Disease: Estimated GFR < 15 mL/min/1.73m2 Glucose 103 60 - 115 mg/dL [facility] Calcium 9.1 8.4 - 10.2 mg/dL [facility] 02/24/2025 9:33 AM EDT 02/24/2025 9:35 AM EDT us Generic External Data Provider LAB BLOOD ORDERAB LES Final Result [facility] [address] [place] [phone] * Gross and Microscopic Level 3 (02/19/2025 1:05 PM EDT) 02/19/2025 1:05 PM EDT 02/19/2025 1:58 PM EDT Narrative [facility] - 02/22/2025 1:39 PM EDT ----- ------- Name: Rosangela CarbajalLorrie Age/Sex: 44/F : 1980 Unit#: [id number] Attend Dr: Irineo Pearson MD Re02/19/25 Status: [facility] Location: [place] Disch: ----- ------- SPEC : [id number] RECD: 02/19/25-8917 STATUS: EMA PEACOCK NUM: [id number] STIVEN: 02/19/[address] [facility] [address]: Irineo Pearson MD ENTERED: 02/19/25 TYPE: Surgical OTHR DR: Matheus Breen MD ORDERED: Gross Micro L3 Diagnosis Gallbladder, cholecystectomy: Chronic cholecystitis with cholesterolosis and cholelithiasis. Clinical History Calculus of gallbladder without cholecystitis Microscopic Description Microscopic sections reviewed. Material Received Gallbladder Gross Description Received in formalin is a 10.0 x 3.6 x 3.0 cm intact gallbladder with a 0.4 cm attached cystic duct. The serosa is pink-yellow, smooth and free of adhesions. The lumen contains a minimal amount of vanegas green viscous bile containing multiple green multifaceted firm calculi ranging in size from 1.0 cm to 2.2 cm in greatest dimension. The mucosa is pink-red, glistening and unremarkable with an average wall thickness of 0.4 cm. Wood Heel Flap Inserter sections are submitted to include cystic duct margin (inked blue), body and fundus in cassette A1. (LALA) IHC S/NG Disclaimer NOTE: Unless otherwise stated, all tissue is formalin-fixed and paraffin-embedded. Some or all of the immunohistochemical tests reported herein may have been developed and their performance characteristics determined by [facility]. They have not been cleared or approved by the U.S. Food and Drug Administration (FDA). However, the FDA has determined that such clearance or approval is not necessary. This laboratory is certified under the Clinical Laboratory Improvement Amendments of 1988 (CLIA) as qualified to perform high complexity clinical laboratory testing. Copies To: Matheus Breen MD [address] [address] CONTINUED ON NEXT PAGE ----- ------- Name: Lorrie Bernal Age/Sex: 44/F : 1980 Unit#: [id number] Attend Dr: Irineo Pearson MD Re02/19/25 Status: [facility] Location: [place] Disch: ----- ------- SPEC : [id number] RECD: 02/19/25 STATUS: EMA PEACOCK NUM: [id number] STVIEN: 02/19/[address] [facility] [address]: Irineo Pearson MD ENTERED: 02/19/25 SP TYPE: Surgical OTHR DR: Matheus Breen MD ORDERED: Gross Micro L3 Copies To: (Continued) Irineo Pearson MD [facility] [address] [place] [phone] ----- ------- Signed (signature on file) Anna Marie Pengilly 02/22/25 1339 ----- ------- END OF REPORT Generic External Data Provider LAB CYTOLOGY SHONDA GUTIERREZ Final Result [facility] [address] [place] [address] [phone] * Cytopath-cell enhanced (02/03/2025 9:45 AM EDT) 02/03/2025 9:45 AM EDT 02/04/2025 9:06 AM EDT Narrative [facility] - 02/05/2025 8:23 AM EDT ----- ------- Name: Rosangela SolomonLorrie garcia Age/Sex: 44/F : 1980 Unit#: [id number] Attend Dr: Belia San [facility] Re02/03/25 Status: DEP REF Location: .LAB Disch: ----- ------- SPEC : [id number] RECD: 02/04/25 STATUS: EMA PEACOCK NUM: [id number] STIVEN: 02/03/[address] [facility] [address]: Belia San [facility] ENTERED: 02/04/25 SP TYPE: Cytology OT DR: [...] developed and their performance characteristics determined by [facility]. They have not been cleared or approved by the U.S. Food and Drug Administration (FDA). However, the FDA has determined that such clearance or approval is not necessary. This laboratory is certified under the Clinical Laboratory Improvement Amendments of 1988 (CLIA) as qualified to perform high complexity clinical laboratory testing. Copies To: Matheus Breen MD [address] [phone] Belia San [facility] [address] [place] [address] [address] [place] [address] [email or web address] CONTINUED ON NEXT PAGE ----- ------- Name: Lorrie Bernal Age/Sex: 44/F : 1980 Unit#: [id number] Attend Dr: Belia San [facility] Re02/03/25 Status: DEP REF Location: .LAB Disch: ----- ------- SPEC : [id number] RECD: 02/04/25 STATUS: EMA PEACOCK NUM: [id number] STIVEN: 02/03/[address] [facility] [address]: Belia San [facility]- ENTERED: 02/04/25 SP TYPE: Cytology OTHR DR: Matheus Breen MD ORDERED: Cyto-enhanced ----- ------- Signed (signature on file) Antonio Brand MD 02/05/25822 ----- ------- END OF REPORT us Generic External Data Provider LAB CYTOLOGY SHONDA GUTIERREZ Final Result [facility] [address] [place] [address] [phone] * CT Abdomen Pelvis w/ and w/o Contrast (12/11/2024 8:39 AM EDT) Anatomical Region Laterality Modality Body, Pelvis, Abdomen Computed T omography 12/11/2024 8:39 AM EDT Narrative 12/11/2024 9:50 AM EDT [place] [address] CT Scan Report Signed Patient: Lorrie Bernal MR#: [id number] : 1980 Acct:[id number] Age/Sex: 44 / F ADM Date: 12/11/24 Loc: HO.CT Attending Dr: Azam Connelly MD Ordering Physician: Azam Connelly MD Date of Service: 12/11/24 Procedure(s): CT abdomen pelvis wo/w IV con Accession Number(s): [id number] cc: Matheus Breen MD; Azam Connelly MD Report Number: [id number]: Total DLP = 1744.00 mGy-cm EXAMINATION: CT [...] in OV> 12/11/2447 DD/ 8 TD/TT: 12/11/24929 Internal Communications Manager: Procedure Note Donotuseinterpreter, Image - 12/11/[address] [place] [address] [address] Scan Report Signed Patient: Lorrie BernalMR#: [id number] : 1980Acct:[id number] Age/Sex: 44 / FADM Date: 12/11/24 Loc: HO.CT Attending Dr: Azam Connelly MD Ordering Physician: Azam Connelly MD Date of Service: 12/11/24 Procedure(s): CT abdomen pelvis wo/w IV con Accession Number(s): [id number] cc: Matheus Breen MD; Azam Connelly MD Report Number: [id number]: Total DLP = 1744.00 mGy-cm EXAMINATION: CT [...] in OV> 12/11/2447 DD/ 8 TD/TT: 12/11/24929 Internal Communications Manager: [facility] External Provider IMG CT PROCEDURES Final Result * (ABNORMAL) Lipid Panel, Standard (02/27/2024 11:22 AM EDT) Triglycerides 85 <150 mg/dL [facility] Comment:Desirable Triglyceri de: less than 150 mg/dLBorderline High Triglyceride 150-199 mg/dLHigh Triglyceride: 200-499 mg/dLVery High Triglyceride: greater than or equal to 5OO mg/dL Cholesterol 179 <200 mg/dL [facility] Comment:Desirable Cholestero l: less than 200 mg/dLBorderline High Cholesterol: 200-239 mg/dLHigh Cholesterol: greater than 239 mg/dL LDL Cholesterol Calculated 122(H) <100 mg/dL [facility] Comment:Desirable LDL: less than 100 mg/dLNear Optimal/Above Optimal LDL: 110- 129 mg/dLBorderline High LDL: 130-159 mg/dLHigh LDL: 160-189 mg/dLVery High LDL: greater than or equal to 190 mg/dL HDL Cholesterol 40(L) >40 mg/dL [facility] Comment:Desirable HDL: great er than 40 mg/dL Note: This HDL assay may give artificially low results in patients with liver disease. Blood Venous blood specimen / Unknown 02/27/2024 11:22 AM EDT 02/27/2024 1:17 PM EDT Matheus Pressley MD LAB BLOOD ORDERABLES Final Result [facility] [address] [place] [address] [phone] * BI US Breast Limited Left (08/09/2023 2:06 PM EDT) Anatomical Region Laterality Modality Breast Left Ultrasound 08/09/2023 2:06 PM EDT Narrative 08/09/2023 2:16 PM EDT [facility] [address] [place] [address] Ultrasound Report Signed Patient: Lorrie Bernal MR#: [id number] : 1980 Acct:[id number] Age/Sex: 42 / F ADM Date: 08/09/23 Loc: HO.MAMMO Attending Dr: Azam Connelly MD Ordering Physician: Azam Connelly MD Date of Service: 08/09/23 Procedure(s): US breast LT limited mamm only Accession Number(s): [id number] cc: Matheus Breen MD; Azam Connelly MD [...] in OV> 08/09/23 1412 DD/ 1406 TD/TT: Internal Communications Manager: Procedure Note Donotuseinterpreter, Image - 08/09/2023 [facility] [address] [place] [address] Ultrasound Report Signed Patient: Lorrie BernalMR#: [id number] : 1980Acct:[id number] Age/Sex: 42 / FADM Date: 08/09/23 Loc: HO.MAMMO Attending Dr: Azam Connelly MD Ordering Physician: Azam Connelly MD Date of Service: 08/09/23 Procedure(s): US breast LT limited mamm only Accession Number(s): [id number] cc: Matheus Breen MD; Azam Connelly MD [...] in OV> 08/09/23 1412 DD/ 1406 TD/TT: Internal Communications Manager: [facility] External Provider IMG US PROCEDURES Final Result * HPV E6/E7 RFLX HAI 16 18/45 (06/27/2021 9:05 AM EST) HPV 16 RNA [facility] HPV 18/45 RNA [facility] HPV E6 E7 ADD [facility] HPV mRNA E6/E7 rflx Not Detected Not Detected [facility] Comment: Methodology: Rubber Goods Supervisor-Mediated Amplification This assay detects E6/E7 viral messenger RNA (mRNA) from 14 high-risk HPV types (16,18,31,33,35,39,45,51,52,56,58,59,66,68). The analytical performance characteristics of this assay have been determined by [employer]. The modifications have not been cleared or approved by the FDA. This assay has been validated pursuant to the CLIA regulations and is used for clinical purposes. For additional information, please refer to http://education.[employer]ere[employer]/faq/LDU989p2 (This link if provided for information/ educational purposes only.) THIS TEST WAS PERFORMED AT: [facility] [address] [place] [address] [address],[place] [address] GALE WILKINS MD 06/27/2021 9:05 AM EST Neena Sargent HISTORICAL/NON ORDERABLE LABS Fi nal Result Performing Organization Address City/State/[facility] Co de Phone Number [facility]where [address] * Pap Smear (06/27/2021) Historical Provider HEALTH MAINTENANCE Final Result from Last 3 Months or Most Recently Relevant to Health Maintenance Insurance [facility] [place] AD[place] Care Teams Wire Rigger Relationship Specialty Start Date End Date Matheus Quijano MD [address] [place] [phone] PCP - General Internal Medicine 11/24/18
--- OUTSIDE RECORDS SUMMARY | 2025-02-24 10:15 | XMS_ITS | Encounter Summary ---
Author Organization [employer] Address [address] [place] [address] 7 [place] [address] Care Team Providers Care Balloon Sander Name Role Phone Matheus Quijano MD Primary Care Provide r Reason for Visit * Reason Onset Date Comments Med Refill 03/15/2023 Encounter Details Date Type Department Care Team ([facility] st Contact Info) Description 03/15/2023 Refill [facility] MEDICINE [address] [place] [address] Krystin Saenz MD 230 [place] [address] Class 3 severe obesity due to excess [...] note were not included. Triage call with [employer] [id number] Pt contacts through Pt portal regarding exposure [...] Pt will come to [facility] to be seen for asthma like symptoms, declined to come to [facility] today. Protocol Used: COVID-19 - Diagnosed [...] become worse Pt portal request: [facility] Clinical Support (supporting Matheus Pressley MD) [...] Description 04/05/2025 11:30 AM EST Office Visit [facility] OPTOMETRY [address] [place] [address] Darcie Zuñiga, OD 230 [place] [address] 04/13/2025 9:15 AM EST Office Visit [facility] MED & PEDS 505 [place], [place] [phone] Juju Montanez MD 505 [place], [place] [phone] 05/04/2025 10:00 AM EST Office Visit [facility] ADULT DENTAL 230 [place] [address] Дмитрий Machucaaris 230 [place] [address] documented as of this encounter Visit Diagnoses Diagnosis Class 3 severe obesity due to excess calories with serious comorbidity and body mass index (BMI) of 50.0 to 59.9 in adult (HCC) documented in this encounter Additional Health Concerns Assessment Noted Time PHQ-9 Depression Total Score: 16 023 10:18 AM EDT documented as of this encounter Care Teams Balloon Sander Relationship Specialty Start Date End Date Matheus Quijano MD [address] [place] [address] PCP - General Internal Medicine 11/24/18 documented as of this encounter
--- OUTSIDE RECORDS SUMMARY | 2025-02-24 10:15 | XMS_ITS | Encounter Summary ---
Author Organization [employer] Address [address] [place] [address] [place] [address] Care Team Providers Care Oral Surgery Physician Name Role Phone Matheus Quijano MD Primary Care Provide r Reason for Visit * Reason Onset Date Comments Med Refill 08/07/2023 Encounter Details Date Type Department Care Team ([facility] st Contact Info) Description 08/07/2023 Refill [facility] CHC MED & PEDS [address] [place] [address] Leana Yanez MD 230 [place] [address] Social History Tobacco Use Types Packs/Day Years [...] Description 04/05/2025 11:30 AM EST Office Visit [facility] OPTOMETRY [address] [place] [address] YogeshDarcie izquierdo, OD 230 [place] [address] 04/13/2025 9:15 AM EST Office Visit [facility] MED [facility] PEDS 505 [place] [address] Juju Montanez MD 505 [place] [address] 05/04/2025 10:00 AM EST Office Visit [facility] ADULT DENTAL 230 [place] [address] Sven, Alicia 230 [place] [address] documented as of this encounter Visit Diagnoses Not on filedocumented in this encounter Additional Health Concerns Assessment Noted Time PHQ-9 Depression Total Score: 19 024 1:37 PM EST documented as of this encounter Care Teams Oral Surgery Physician Relationship Specialty Start Date End Date Matheus Quijano MD 230 [place] [address] PCP - General Internal Medicine 11/24/18 documented as of this encounter
--- OUTSIDE RECORDS SUMMARY | 2025-02-24 10:15 | XMS_ITS | Encounter Summary ---
Author Organization [employer] Address [address] 7[address] [place] [address] Care Team Providers Care Incident Response Coordinator Name Role Phone Matheus Quijano MD Primary Care Provide r Encounter Details Date Type Department Care Team ([facility] Contact Info) Description 02/01/2025 Telephone [facility] OPTOMETRY [address] [place] [address] Yogesh, Darcie, OD [address] [place] [address] Social History Tobacco Use Types Packs/Day Years [...] lenses. Give us a called back at [phone]. Have a nice day! documented in this encounter Plan of Treatment Upcoming Encounters Date Type Department Care Team ([facility] st Contact Info) Description 04/05/2025 11:30 AM EST Office Visit [facility] OPTOMETRY [address] [place] [address] Darcie Zuñiga, OD 230 [place] [address] 04/13/2025 9:15 AM EST Office Visit [facility] CHC MED & PEDS 505 [place] [address] Juju Montanez MD 505 [place] [address] 05/04/2025 10:00 AM EST Office Visit [facility] ADULT DENTAL 230 [place] [address] Alicia Machuca 230 [place], [place] [phone] documented as of this encounter Visit Diagnoses Not on filedocumented in this encounter Additional Health Concerns Assessment Noted Time PHQ-9 Depression Total Score: 4 08/19/19 25 10:07 AM EDT documented as of this encounter Care Teams Incident Response Coordinator Relationship Specialty Start Date End Date Matheus Quijano MD 230 [place] [address] PCP - General Internal Medicine 11/24/18 documented as of this encounter
--- OUTSIDE RECORDS SUMMARY | 2025-02-24 10:15 | XMS_ITS | Encounter Summary ---
Author Organization [employer] Address [address] [place] [address] 7 [place] [address] Care Team Providers Care Solution Designer Name Role Phone Matheus Quijano MD Primary Care Provide r Reason for Visit * Reason Onset Date Comments Appointment Request 01/28/2024 Encounter Details Date Type Department Care Team ([facility] Contact Info) Description 01/28/2024 Telephone [facility] MEDICINE 230 [place] [address] Matheus Quijano MD 230 [place] [address] Appointment Request Social History Tobacco Use Types [...] calling to cancel appt for 01/27 and racebook writer did attempt to reschedule appt however there is nothing available at this time documented in this encounter Plan of Treatment Upcoming Encounters Date Type Department Care Team (Late st Contact Info) Description 04/05/2025 11:30 AM EST Office Visit [facility] OPTOMETRY [address] [place] [address] Yogesh, Darcie, OD 230 [place] [address] 04/13/2025 9:15 AM EST Office Visit [facility] CHC MED & PEDS 505 [place] [address] Juju Montanez MD 505 [place] [address] 05/04/2025 10:00 AM EST Office Visit [facility] ADULT DENTAL 230 [place] [address] Alicia Machuca 230 [place] [address] documented as of this encounter Visit Diagnoses Not on filedocumented in this encounter Additional Health Concerns Assessment Noted Time PHQ-9 Depression Total Score: 19 024 1:37 PM EST documented as of this encounter Care Teams Solution Designer Relationship Specialty Start Date End Date Matheus Quijano MD 230 [place] [address] PCP - General Internal Medicine 11/24/18 documented as of this encounter
--- OUTSIDE RECORDS SUMMARY | 2025-02-24 10:15 | XMS_ITS | Encounter Summary ---
Author Organization [employer] Address [address] [place] [address] 7 [place] [address] Care Team Providers Care Steaming Cabinet Tender Name Role Phone Matheus Quijano MD Primary Care Provide r Reason for Visit * Reason Comments Med Refill Encounter Details Date Type Department Care Team ([facility] st Contact Info) Description 11/20/2024 Refill [facility] MEDICINE [address] [place] [address] Matheus Quijano MD [address] [place] [address] Seasonal allergies Social History Tobacco Use Types [...] Description 04/05/2025 11:30 AM EST Office Visit [facility] OPTOMETRY [address] [place] [address] Darcie Zuñiga, OD 230 [place] [address] 04/13/2025 9:15 AM EST Office Visit [facility] CHC MED & PEDS 505 [place] [address] Juju Montanez MD 505 [place] [address] 05/04/2025 10:00 AM EST Office Visit [facility] ADULT DENTAL 230 [place] [address] Sven, Alicia [address] [place] [address] documented as of this encounter Visit Diagnoses Diagnosis Seasonal allergies Allergic rhinitis, cause unspecified documented in this encounter Additional Health Concerns Assessment Noted Time PHQ-9 Depression Total Score: 4 08/19/19 25 10:07 AM EDT documented as of this encounter Care Teams Steaming Cabinet Tender Relationship Specialty Start Date End Date Mathues Quijano MD 230 [place] [address] PCP - General Internal Medicine 11/24/18 documented as of this encounter
--- OUTSIDE RECORDS SUMMARY | 2025-02-24 10:15 | XMS_ITS | Encounter Summary ---
Author Organization [employer] Address [address] [facility] 7t [place] [address] Care Team Providers Care Sba Underwriter Name Role Phone Matheus Quijano MD Primary Care Provide r Encounter Details Date Type Department Care Team ([facility] Contact Info) Description 02/19/2025 Orders Only GENERIC EXTERNAL DATA DEPARTMENT [...] Description 04/05/2025 11:30 AM EST Office Visit [facility] OPTOMETRY [address] [place] [address] YogeshKylern, OD 230 [place] [address] 04/13/2025 9:15 AM EST Office Visit [facility] CHC MED & PEDS 505 [place] [address] Juju Montanez MD 505 [place] [address] 05/04/2025 10:00 AM EST Office Visit [facility] ADULT DENTAL 230 [place] [address] Sven, Alicia 230 [place] [address] documented as of this encounter Procedures Procedure Name Priority Date/Time Associated Diagnosis Comments GROSS AND MICROSCOPIC LEVEL 3 Routine 02/19/2025 1:05 PM EDT documented in this encounter Results * Gross and Microscopic Level 3 (02/19/2025 1:05 PM EDT) 02/19/2025 1:05 PM EDT 02/19/2025 1:58 PM EDT [facility] - 02/22/2025 1:39 PM EDT ----- ------- Name: Lorrie Bernal Age/Sex: 44/F : 1980 Unit#: [id number] Attend Dr: Irineo Pearson MD Re02/19/25 Status: [facility] Location: [facility] Disch: ----- ------- SPEC : [id number] RECD: 02/19/254327 STATUS: [facility] NUM: [id number] STIVEN: 02/19/25 [facility] DR: Irineo Pearson MD ENTERED: 02/19/253903 SP TYPE: Surgical OTHR DR: Matheus Breen [...] an average wall thickness of 0.4 cm. Education Dean sections are submitted to include cystic duct margin (inked blue), body and fundus in cassette A1. (LALA) IHC S/NG Disclaimer NOTE: Unless otherwise stated, all tissue is formalin-fixed and paraffin-embedded. Some or all of the immunohistochemical tests reported herein may have been developed and their performance characteristics determined by [facility]. They have not been cleared or approved by the U.S. Food and Drug Administration (FDA). However, the FDA has determined that such clearance or approval is not necessary. This laboratory is certified under the Clinical Laboratory Improvement Amendments of 1988 (CLIA) as qualified to perform high complexity clinical laboratory testing. Copies To: Matheus Breen MD [address] [id number] CONTINUED ON NEXT PAGE ----- ------- Name: Lorrie Bernal Age/Sex: 44/F : 1980 Unit#: [id number] Attend Dr: Irineo Pearson MD Re02/19/25 Status: [facility] Location: [facility] Disch: ----- ------- SPEC : [id number] RECD: 02/19/259825 STATUS: [facility] [place] NUM: [id number] STIVEN: 02/19/25029 [facility] DR: Irineo Pearson MD ENTERED: 02/19/252699 SP TYPE: Surgical OTHR DR: Matheus Breen MD ORDERED: Gross Micro L3 Copies To: (Continued) Irineo Pearson MD [facility] [address] [place] [address] ----- ------- Signed (signature on file) Anna Marie Nash 02/22/25 1339 ----- ------- END OF REPORT us Generic External Data Provider LAB CYTOLOGY SHONDA GUTIERREZ Final Result [facility] [address] [place] [address] [phone] documented in this encounter Visit Diagnoses Not on filedocumented in this encounter Additional Health Concerns Assessment Noted Time PHQ-9 Depression Total Score: 4 08/19/19 25 10:07 AM EDT documented as of this encounter Care Teams Sba Underwriter Relationship Specialty Start Date End Date Matheus Quijano MD [address] [place] [address] PCP - General Internal Medicine 11/24/18 documented as of this encounter
--- OUTSIDE RECORDS SUMMARY | 2025-02-24 10:15 | XMS_ITS | Encounter Summary ---
Author Organization [employer] Address [address] [place] [address] [address] [address] Care Team Providers Care Art Consultant Name Role Phone Matheus Quijano MD Primary Care Provide r Encounter Details Date Type Department Care Team ([facility] Contact Info) Description 01/22/2023 Orders Only [facility] MEDICINE [address] [place] [address] ProviderBimal MD Social History Tobacco Use Types [...] Description 04/05/2025 11:30 AM EST Office Visit [facility] OPTOMETRY [address] [place] [address] Darcie Zuñiga, OD 230 [place] [address] 04/13/2025 9:15 AM EST Office Visit [facility] CHC MED & PEDS [address] [place] [address] Juju Montanez MD 505 [facility] [address] 05/04/2025 10:00 AM EST Office Visit [facility] ADULT DENTAL [address] [place] [address] Alicia Machuca [address] [place] [address] documented as of this encounter Procedures Procedure Name Priority Date/Time Associated Diagnosis Comments HM PAP/HPV Routine 06/27/2021 HM PAP/HPV Routine 03/09/2020 documented in this encounter Results * Hm Pap Smear (06/27/2021) Historical Provider HEALTH MAINTENANCE Final Result * Pap Smear (03/09/2020) us Historical Provider HEALTH MAINTENANCE Final Result documented in this encounter Visit Diagnoses Not on filedocumented in this encounter Additional Health Concerns Assessment Noted Time PHQ-9 Depression Total Score: 16 023 10:18 AM EDT documented as of this encounter Care Teams Art Consultant Relationship Specialty Start Date End Date Matheus Quijano MD 230 [place] [address] PCP - General Internal Medicine 11/24/18 documented as of this encounter
[2025-02-24 10:27] VITALS: BP 103/63; PULSE 79; RESP 16; TEMP 36.7; O2SAT 100
[2025-02-24 10:47] LABS: Appearance Urine Clear; Glucose Urine UA Negative (Negative); PH 5.5 (5.0-9.0); Specific Gravity - Urine 1.025 (1.005-1.025); UMIC TRIGGER UACC YES
[2025-02-24 13:56] VITALS: BP 103/63; PULSE 79; RESP 16; TEMP 36.7; O2SAT 100
== END 2025-02-24 13:57 | disposition home or self-care (01) ==
PROVIDERS: Physician Assistant Medical; Emergency Provider Emergency Medicine; PCP Internal Medicine
DX: R10.A2 Flank pain, left side (principal); R31.9 Hematuria, unspecified; R11.0 Nausea; R10.20 Pelvic and perineal pain unspecified side; R35.0 Frequency of micturition; R39.15 Urgency of urination; Z79.899 Other long term (current) drug therapy
CPT/HCPCS: 36415; 74176; 80048; 80076; 81001; 83690; 83735; 85025; 96374; 96375; 96376; 99285; J0131; J2405

== ENCOUNTER → 2025-02-24 09:14 | Outpatient (BNV) | payer MEDICAID, SELFPAY | PROVIDERS: Emergency Provider Emergency Medicine; PCP Internal Medicine; Visit Provider Radiology Diagnostic Radiology | DX: R16.2 Hepatomegaly with splenomegaly, not elsewhere classified (principal) | CPT/HCPCS: 74176 ==

== ENCOUNTER 2025-03-01 10:39 | Outpatient (AMB) | payer MEDICAID, SELFPAY ==
--- NOTE | 2025-03-01 10:44 | A.OFFVIS_ITS ---
Intake Visit Reasons: s/p lap angely Intake Note: Patient here s/p Laparoscopic cholecystectomy. Patient c/o: feels lump underneath umbilical and rt abdominal incisions. Reports incisions healing well. Denies oozing, bleeding. No longer taking rx pain meds. Surgery (): 02-19-2025 Mannequin Decorator Required: Yes Information Interpreted: clinical only (Sudha AragonRosalina SO) Accompanied by: sister Den Allergies No Known Allergies Allergy (Verified 03/01/25 10:52) HPI HPI s/p lap angely: Details: Overall doing well, only concern being superior right upper quadrant trocar site and umbilical trocar site. Denies significant pain. Denies fevers or chills. No oozing from incision sites. She does report she feels some increased gas and bloating. Otherwise eating well, bowel function at baseline. Has been avoiding heavy lifting [facility] Medical History (Updated 02/25/25 @ 00:01 by Hannah Rae) Cardiomyopathy Palpitations AMINTA (obstructive sleep apnea) Gallstones KINGS positive JUDE II (cervical intraepithelial neoplasia II) Morbid obesity with BMI of 45.0-49.9, adult Kidney stones Anxiety Anemia Surgical History (Updated 03/01/25 @ 11:30 by Shant Penny PA-C) S/P laparoscopic cholecystectomy (02/19/25) History of cystoscopy H/O lithotripsy Hx of tubal ligation Family History Father Medical history unknown Mother Asthma Hypertension Thyroid disease Brother Thyroid disease Sister No problems noted. Sister No problems noted. Son No problems noted. Daughter No problems noted. Social History Household Members: Children Housing: Apartment Alcohol intake: current Alcohol intake frequency: does not drink Patient Tobacco Use Status: Current everyday Tobacco user Tobacco use type: Cigarette Cigarettes Per Day: 5 Years Smoked: 7 e-Cigarette/Vaping Use: Never Used Current occupational status: unemployed Sexual orientation: Straight/Heterosexual Gender identity: Female Female Reproductive History Menstrual Age of Menarche: 14 Physical Exam Const General: comfortable and no acute distress Nutritional Appearance: obese Orientation/consciousness: patient oriented x3 Resp Effort & Inspection: normal respiratory effort and able to speak in complete se ntences GI Other: Incision sites well healed, intact. No fluctuance, no erythema, no drainage. Some very mild induration deep to the incisions likely scar tissue from surgery. Inspection: No distended Palpation (GI): Soft to palpation and nontender Neuro General: patient oriented x3 Assessment & Plan Assessment & Plan (1) S/P laparoscopic cholecystectomy: Onset Date: 02/19/25 Comment: Laparoscopic cholecystectomy Irineo Burden Code(s): Z90.49 - Acquired absence of other specified parts of digestive tract Category: Medical Plan 44-year-old female s/p laparoscopic cholecystectomy on 02/19/[address] Pearson returning to the office for routine follow up. Overall patient doing well, only concern is some small lumps at the incision sites. Otherwise she is doing well, diet and bowel function at baseline. She does note some increased gas production, feels bloated. Reassured her that this is is likely her body dressing after surgery, expect this to resolve in a few weeks to months. If not resolving we will further work this up. On exam abdomen is soft and benign. Nondistended. Incision sites appear well healed, no fluctuance, tenderness, drainage from the incision sites no other surrounding cellulitic changes. There was some deep induration which I reassured her this is likely postsurgical changes. Recommended she could try warm compresses 2 to 3 times a day to help soften this area. Would avoid putting creams on this for at least a month postoperatively. Additionally we will keep activity restrictions for one-month postop, okay to resume activity on March 22. No heavy lifting greater than 15-20 lb until then. At this point does not need to follow up with us in the office unless she has any concerns in the future. She can reach out as needed. Coding Level of Care Code Global (16005) Diagnoses S/P laparoscopic cholecystectomy Z90.49
--- OUTSIDE RECORDS SUMMARY | 2025-03-01 13:02 | XMS_ITS | Clinical Summary ---
Author Organization [facility] Address [address] [address] Phone Care Team Providers Care Yoghurt Maker Name Role Phone [facility] Primary Care Provider Unavailable Allergies [...] protein shake or a protein bar or Armenian yogurt or cottage cheese to be consumed [...] topic Medical Devices Not on file Insurance [facility] C3 ACO C3 ACO C3 ACO C3 ACO C3 ACO [place] [place] [address] [place] [address] [facility] [address] [facility] C3 ACO Care Teams Yoghurt Maker Relationship Specialty Start Date End Date [facility] - [facility] 01/31/22 Additional Source Comments The information contained in this document represents components of the legal health record. It is not the complete legal health record.[facility]
== END 2025-03-01 10:57 | disposition home or self-care (01) ==
LOC: HO.HGS 10:40
PROVIDERS: PCP Internal Medicine
DX: Z90.49 Acquired absence of other specified parts of digestive tract (principal)
CPT/HCPCS: 99024

== ENCOUNTER → 2025-03-01 10:39 | Outpatient (BNVA) | payer MEDICAID, SELFPAY | PROVIDERS: PCP Internal Medicine | DX: Z90.49 Acquired absence of other specified parts of digestive tract (principal) | CPT/HCPCS: 99212 ==

== ENCOUNTER 2025-03-15 09:08 | Outpatient (REF) | payer MEDICAID, SELFPAY ==
[2025-03-15 12:41] LABS: Reticulocytes Absolute 0.080 X10*6/uL (0.026-0.095)
[2025-03-15 13:06] LABS: Iron 39 mcg/dL (30-160); Percent Iron Saturation 15 % (15-50); Total Iron Binding Capacity 263 mcg/dL (228-428); Unsaturated Iron Binding 224 ug/dL
[2025-03-15 13:17] LABS: Ferritin 26 ng/mL (10-250)
[2025-03-16 04:54] LABS: Transferrin 233 mg/dL (188-341)
== END 2025-03-15 09:09 | disposition home or self-care (01) ==
LOC: HO.HHCL 09:08
PROVIDERS: Obstetrics & Gynecology; PCP Internal Medicine; Visit Provider Internal Medicine
DX: D50.0 Iron deficiency anemia secondary to blood loss (chronic) (principal); N93.9 Abnormal uterine and vaginal bleeding, unspecified
CPT/HCPCS: 36415; 82728; 83010; 83540; 83615; 84146; 84466; 85045

== ENCOUNTER 2025-04-28 10:29 | Outpatient (REF) | payer MEDICAID, SELFPAY ==
--- NOTE | ~2025-04-28 | MR_ITS ---
EXAMINATION: MR ABDOMEN WITHOUT THEN WITH IV CONTRAST HISTORY: LIVER LESION COMPARISON: Correlation is made with an unenhanced CT of the abdomen dated 02/24/2025. TECHNIQUE: Axial in and out of phase T1-weighted gradient echo, axial diffusion weighted, and axial and coronal HASTE T2 with fat saturation images were obtained through the abdomen. Subsequently, fat suppressed axial and coronal T1-weighted images were obtained after the intravenous administration of 10 mL Gadavist. FINDINGS: Liver: There is no loss of signal intensity in the liver on opposed phase imaging to suggest steatosis. There is a 10 mm cyst in the right lobe. There is no enhancing liver mass. The hepatic and portal veins are patent. There is no intrahepatic biliary dilatation. Gallbladder/biliary tree: The gallbladder is surgically absent. The common bile duct is normal in caliber. No intraluminal filling defects are identified to suggest choledocholithiasis. Spleen: The spleen is unremarkable. Pancreas: The pancreas is unremarkable. There is no enhancing pancreatic mass. The pancreatic duct is normal in caliber. Adrenals: The adrenal glands are unremarkable. Kidneys: The kidneys are unremarkable. There is no hydronephrosis. Lymph nodes: There is no retroperitoneal lymphadenopathy in the upper abdomen. Fluid: There is no ascites in the upper abdomen. Visualized bowel: The visualized small and large bowel loops are unremarkable in appearance. Visualized bones: The visualized bones demonstrate normal marrow signal intensity. MR/MR abdomen wo/w con IMPRESSION: 10 mm cyst in the right lobe of the liver. Electronically signed by: Ruiz Dumont MD 04/28/2025 11:52 AM EST
--- OUTSIDE RECORDS SUMMARY | 2025-04-28 12:03 | XMS_ITS | Encounter Summary ---
Author Organization [employer] Address [address] [place] [address] 7 [place] [address] Care Team Providers Care Meat Lugger Name Role Phone Matheus Quijano MD Primary Care Provide r Reason for Visit * Reason Onset Date Comments Med Refill 03/15/2023 Encounter Details Date Type Department Care Team ([facility] st Contact Info) Description 03/15/2023 Refill [facility] MEDICINE [address] [place] [address] Krystin Saenz MD [address] [place] [address] Class 3 severe obesity due to excess [...] your housing situation today? I have shahnaz garcai 02/15/[address] you li [...] note were not included. Triage call with [employer] Operator [place] [id number] Pt contacts through Pt portal regarding exposure [...] but, if neg Pt will come to [facility] to be seen for asthma like symptoms, declined to come to [facility] today. Protocol Used: COVID-19 - Diagnosed [...] become worse Pt portal request: [facility] [place] [facility] Clinical Support (supporting Matheus Pressley MD) 3 days ago [place] Mi katy?? nella positivo y tenemos contacto diario,me gustar??a que me recete los medicamentos para COVID y me los env??e a la farmacia [facility] por favor para tenerlos en simran de roxanna positivo en el fin de semana documented in this encounter Plan of Treatment Upcoming Encounters Date Type Department Care Team ([facility] st Contact Info) Description 05/18/2025 10:00 AM EST Office Visit [facility] MED & PEDS [address] [place] [address] Juju Montanez MD 505 [place] [address] 06/17/2025 9:15 AM EST Office Visit [facility] MEDICINE [address] [place] [address] Matheus Quijano MD [address] [place] [address] documented as of this encounter Visit Diagnoses Diagnosis Class 3 severe obesity due to excess calories with serious comorbidity and body mass index (BMI) of 50.0 to 59.9 in adult (HCC) documented in this encounter Additional Health Concerns Assessment Noted Time PHQ-9 Depression Total Score: 16 023 10:18 AM EDT documented as of this encounter Care Teams Meat Lugger Relationship Specialty Start Date End Date Matheus Quijano MD [address] [place] [address] PCP - General Internal Medicine 11/24/18 documented as of this encounter
--- OUTSIDE RECORDS SUMMARY | 2025-04-28 12:03 | XMS_ITS | Encounter Summary ---
Author Organization [employer] Address [address] [place] [id number] Care Team Providers Care Polystyrene Bead Molder Name Role Phone Matheus Quijano MD Primary Care Provide r Encounter Details Date Type Department Care Team ([facility] Contact Info) Description 01/22/2023 Orders Only [facility] [address] [place] [id number] Provider, MD Bimal Social History Tobacco Use [...] Department Care Team (Late Contact Info) Description 05/18/2025 10:00 AM EST Office Visit [facility] [address] [place] [address] Juju Montanez MD [address] [place] [address] 06/17/2025 9:15 AM EST Office Visit [facility] [address] [place] [id number] Matheus Quijano MD [address] [place] [address] documented as of this encounter Procedures Procedure Name Priority Date/Time Associated Diagnosis Comments HM PAP/HPV Routine 06/27/2021 PAP/HPV Routine 03/09/2020 documented [...] documented as of this encounter Care Teams Polystyrene Bead Molder Relationship Specialty Start Date End Date Matheus Quijano MD [address] [place] [address] PCP - General Internal Medicine 11/24/18 documented as of this encounter
--- OUTSIDE RECORDS SUMMARY | 2025-04-28 12:03 | XMS_ITS | Encounter Summary ---
Author Organization [employer] Address [address] [place] [address] [place] [address] Care Team Providers Care Audio Recording Engineer Name Role Phone Matheus Quijano MD Primary Care Provide r Reason for Visit * Reason Onset Date Comments Med Refill 08/07/2023 Encounter Details Date Type Department Care Team ([facility] st Contact Info) Description 08/07/2023 Refill [facility] [address] [place] [address] Leana Yanez MD [address] [place] [phone] Social History Tobacco Use Types Packs/Day Years [...] Care Team (Late st Contact Info) Description 05/18/2025 10:00 AM EST Office Visit [facility] [address] [place] [address] Juju Montanez MD [address] [place] [address] 06/17/2025 9:15 AM EST Office Visit [facility] MED[facility] [address] [place] [address] Matheus Quijano MD [address] [place] [id number] documented as of this encounter Visit Diagnoses Not on filedocumented in this encounter Additional Health Concerns Assessment Noted Time PHQ-9 Depression Total Score: 19 024 1:37 PM EST documented as of this encounter Care Teams Audio Recording Engineer Relationship Specialty Start Date End Date Matheus Quijano MD [address] [place] [address] [phone] PCP - General Internal Medicine 11/24/18 documented as of this encounter
--- OUTSIDE RECORDS SUMMARY | 2025-04-28 12:03 | XMS_ITS | Clinical Summary ---
Author Organization [employer] Address [address] [place] [address] 7 [place] [address] Care Team Providers Care Finance Consultant Name Role Phone Matheus Quijano MD Primary Care Provide r Allergies No known active allergies Medications Albuterol Sulfate (ProAir RespiClick) 108 (90 Base) MCG/ACT aerosol powder Inhale 2 puffs. 2 Active Arnuity Ellipta 100 MCG/ACT inhalerIndication s:Mild intermittent asthma without complication INHALE 1 PUFF BY MOUTH EVERY DAY AT THE SAME TIME 30 each 5 04/16/2025 9:20 AM EST 4 Active pregabalin (Lyrica) 150 MG capsuleIndication s:Fibromyalgia Take 1 capsule (150 mg) by mouth 2 times daily. 60 capsule 5 04/16/2025 9:20 AM EST 5 Active Ventolin HFA 108 (90 Base) MCG/ACT inhaler INHALE 2 PUFFS BY MOUTH EVERY 6 HOURS NEEDED FOR WHEEZING OR SHORTNESS OF BREATH 18 g 3 04/16/2025 9:20 AM EST 5 Active docusate sodium (Colace) 100 MG capsuleIndication s:Slow transit constipation Take 1 capsule (100 mg) by mouth every 12 (twelve) hours. 180 capsule 5 Active ketoconazole (NIZOral) 2 % shampooIndication s:Seborrheic dermatitis APPLY TOPICALLY TO THE AFFECTED AREA(S) TWICE A WEEK 120 mL 1 04/16/2025 9:20 AM EST 5 Active triamcinolone (Kenalog) 0.025 % ointmentIndicatio ns:Dermatitis Apply topically 2 times daily. 15 g 03/18/2025 12:09 PM EST Active Fluocinolone Acetonide Scalp (Carolina-Smoothe/FS Scalp) 0.01 % oilIndications:Se borrheic dermatitis To apply to the scalp 2 times a week. Leave overnight. Wash hair in the following morning. 118 mL 1 04/14/2025 11:27 AM EST 5 Active Active Problems Problem Noted Date Diagnosed Date Hepatosplenomegaly 03/16/2025 Assessment & Plan (03/16/2025 10:47 AM EST): Incidental findings on recent Cts Hepatosplenomegaly. Intestinal wall fat deposition. Nonspecific 1.5 cm hepatic hypodensity which may represent a hemangioma but is difficult to characterize on this examination. Liver lesion 03/16/2025 Assessment & Plan (03/16/2025 10:50 AM EST): Incidental finding on CT question of hemangioma Will order MRI liver Cardiomyopathy 12/03/2024 Assessment & Plan (12/03/2024 10:11 [...] recurrent major depressive disorder, without psychotic features (CMS/HCC) 12/03/2024 Assessment & Plan (12/03/2024 10:19 AM EDT): Patient continues under the care of Chuck Rabago . Sees a psychiatrist Dr Woodson [...] stress test and Holter monitor Pituitary adenoma ([facility]/HCC) 04/30/2023 Assessment & Plan (08/18/2024 9:37 [...] continued surveillance. Pt was seen 09/12/2023 at [facility] Endocrinology , and most recently 07/17/[address] Deandra Saucedo, acording to her patient had a repeat MRI in July 2023 that demonstrated an interval decrease in size of cystic lesion in the right pituitary gland , measuring 1 cm., without mass effect on the optic chiasm, nerves and tracts. 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 Atomic Physics Professor recommended to repeat Prolactin level and MRI, [...] records requested. Also has an appointment with [facility] Endocrinology Assessment & Plan (09/24/2023 1:35 PM [...] seen 09/12/2023 Also has an appointment with [facility] Endocrinology Assessment & Plan (06/21/2023 1:54 PM [...] Rheumatology, last note on record from 10/12/2020, Guest Services Director work up showed a positive KINGS but further labs were not indicative on any autoimmune inflamatory disorder. Guest Services Director thought her symptoms are suggestive of [...] Rheumatology, last note on record from 10/12/2020, Guest Services Director work up showed a positive KINGS but further labs were not indicative on any autoimmune inflamatory disorder. Guest Services Director thought her symptoms are suggestive of [...] prn Kidney stone 06/03/2022 Assessment & Plan (03/16/2025 10:43 AM EST): Pt with previous c/o back pain, UA positive for blood CT of abdomen and pelvis indicative of Nephrolithiasis, s/p Lithotripsy, last renal U/S 12/01/2019 showed 5 mm non obstructing calculus Most recently had repeat UA and CT done by [facility] 08/13/2024 showed UA with hematuria/CT neg Referred back to Urology seen 08/26/[address] urogram 12/11/2024 unremarkable Last seen 02/03/2025 Assessment & Plan (12/03/2024 10:17 AM EDT): Pt with previous c/o back pain, UA positive for blood CT of abdomen and pelvis indicative of Nephrolithiasis, s/p Lithotripsy, last renal U/S 12/01/2019 showed 5 mm non obstructing calculus Most recently had repeat UA and CT done by [facility] 08/13/2024 showed UA with hematuria/CT neg Referred [...] had repeat UA and CT done by [facility] 08/13/2024 showed UA with hematuria/CT neg Referred back to Urology by Dr. Connelly [facility] Assessment & Plan (06/03/2022 4:55 PM EST): [...] Previously she wanted to be referred to [facility] Bariatric surgery program. Last minute she decided [...] Previously she wanted to be referred to [facility] Bariatric surgery program. She is now at [facility] with Dr. Michael She was interested in trying Semaglutide. This was denied by her insurance Assessment & Plan (09/18/2022 9:09 AM EDT): No longer under the care of the Weight management program. Patient has been counseled and educated about diet and exercise by the Weight management Program Patient has comorbidity of: Asthma She would like to be referred to [facility] Bariatric surgery program. Referral placed She is [...] EST): Pt is under the care of [facility] Hx ASCUS HPV + PAP from 01/14/19. [...] PM EST): Very low level On supplementation Other specified anemias 09/27/2017 Assessment & Plan (03/16/2025 10:49 AM EST): She has a Hx of anemia due to menometrorrhagia Hgb 7.6 back in in the ER Down from 9.7 ( 09/15/2020) Pt c/o of Heavy periods likely the cause. She is on Iron FeSO4 325 mg with vitamin C Under the care of [facility] Lab Results Component Value Date WBC 7.6 02/24/2025 HGB 11.9 (L) 02/24/2025 HCT 36.5 (L) 02/24/2025 MCV 81.8 02/24/2025 PLT 315 02/24/2025 Assessment & Plan (04/30/2023 9:22 AM EST): She has a Hx of anemia due to menometrorrhagia Hgb 7.6 in the ER Down from 9.7 ( 09/15/2020) Pt c/o of Heavy periods likely the cause. She is on Iron FeSO4 325 mg with vitamin C Under the care of [facility] CBC ordered today Assessment & Plan (06/05/2022 1:14 PM EST): She has a Hx of anemia due to menometrorrhagia Hgb 9.7 ( 09/15/2020) Pt c/o of Heavy periods likely the cause. She is on iron. Plan: Continue FeSO4 325 mg with vitamin C Under the care of [facility] CBC ordered Cobalamin deficiency 09/27/2017 Assessment & Plan (06/05/2022 1:15 PM EST): IF negative. On vitamin b12 daily Backache 03/08/2017 Resolved Problems Problem Noted Date Diagnosed Date Resolved Date Depressive disorder 06/03/2022 12/04/19 25 Assessment & Plan (08/18/2024 10:19 AM EDT): Patient continues under the care of [place] Gustavo Rabago . Sees a psychiatrist Dr Woodson She has been assigned a preliminary diagnosis of depression and anxiety Assessment & Plan (04/14/2024 10:38 AM EST): Patient under the care of [facility] Deloris Rabago . She has been assigned a preliminary diagnosis of depression and anxiety Assessment & Plan (06/03/2022 4:51 PM EST): Patient under the care of [facility] Deloris Rabago . She has been assigned a preliminary diagnosis of depression and anxiety Encounters Date Type Department Care Team Description 04/28/2025 Orders Only [address] [address] Matheus Quijano MD 04/13/2025 9:15 AM EST Office Visit [facility] [address] [place] [address] Juju Montanez MD Seborrheic dermatitis (Primary Dx); Allergic contact dermatitis due to other agents; Other eczema 04/13/2025 Travel 03/16/2025 11:00 AM EST Office Visit [address] [address] Matheus Quijano MD Kidney stone (Primary Dx); Hepatosplenomegaly; Liver lesion; Anemia due to other cause, not classified; Dermatitis; Encounter for immunization 03/16/2025 Travel 03/15/2025 Orders Only GENERIC EXTERNAL DATA DEPARTMENT Provider, Generic External Data 03/15/[address] [address] Matheus Quijano MD chart prep 03/09/2025 Orders Only [address] [address] Matheus Quijano MD Iron deficiency anemia due to chronic blood loss (Primary Dx) 03/02/2025 Telephone [facility] [address] [place] [address] Matheus Quijano MD Results 02/24/2025 Orders Only GENERIC EXTERNAL DATA DEPARTMENT Provider, Generic External Data 02/19/2025 Orders Only GENERIC EXTERNAL DATA DEPARTMENT Provider, Generic External Data 02/03/2025 Orders Only GENERIC EXTERNAL DATA DEPARTMENT Provider, Generic External Data 02/01/2025 Telephone [facility] [address] [place] [address] YogeshDarcie, OD 01/29/2025 Refill [facility] [address] [place] [address] Matheus Quijano MD Seborrheic dermatitis from Last 3 Months Immunizations Immunization Administration Dates Next Due Influenza injectable quadriv alent IIV4 with preservative 02/20/2018 Influenza injectable quadrivalent preservative f ree 03/17/2019,02/15/2017 Influenza, seasonal, injectable, preservative fr ee 03/16/2025 Tdap 03/17/2019 Social History Tobacco Use Types Packs/Day Years Used Date Smoking Tobacco: Some Days Cigarettes Passive Smoke Exposure: Current Smokeless Tobacco: Never Tobacco Cessation:Ready to Q uit: Not Asked; Counseling Given: Not Answered Alcohol Use Standard Drinks/Week Comments Never 0 (1 standard drink = 0.6 oz pur e alcohol) Alcohol Answer Date Recorded How often do you have a drink containing alcohol ? 0 03/16/2025 How many drinks containing a lcohol do you have on a typical day when you are drinking? 0 03/16/2025 How often do you have six or more drinks on one occasion? 0 03/16/2025 Depression Answer Date Recorded Patient Health Questionnaire-9 [...] Sign Reading Time Taken Comments Blood Pressure 132/86 04/13/2025 9:15 AM EST Pulse 99 04/13/2025 9:15 AM EST Temperature 36.8 C (98.2 F) 04/13/2025 9:15 AM EST Respiratory Rate 21 04/13/2025 9:15 AM EST Oxygen Saturation 98% 04/13/2025 9:15 AM EST Inhaled Oxygen Concentration - - Weight 143 kg (315 lb) 04/13/2025 9:15 AM EST Height 175.3 cm (5' 9 ) 04/13/2025 9:15 AM EST Body Mass Index 46.52 04/13/2025 9:15 AM EST Plan of Treatment Upcoming Encounters Date Type Department Care Team (Late st Contact Info) Description 05/18/2025 10:00 AM EST Office Visit [facility] [address] [place] [address] Juju Montanez MD [address] [place] [address] 06/17/2025 9:15 AM EST Office Visit [facility] [address] [place] [address] Matheus Quijano MD [address] [place] [address] Health Maintenance Due Date Last Done Comments HIV Screening 1980 Family Planning (PISQ) 1997 HPV Vaccines (1 - 3-dose series) 1997 Hepatitis C Screening 2000 Hepatitis A Vaccines (1 of 2 - Risk 2-dose series) 2001 Hepatitis B Vaccines (1 of 3 - 19+ 3-dose series) 2001 Pneumococcal Vaccine: Pediatrics (0 to 5 Years) and At-Risk Patients (6 to 49) Years (1 of 2 - PCV) 2001 Cervical Cancer Screening 12/28/2021 Pap Smear 12/28/2021 06/27/2021, 03/09/2020 COVID-19 Vaccine ( season) 2024 01/27/2021, 01/06/2021 Dental X-Ray: Bitewings 03/25/2025 03/24/2024, 01/23 Dental Oral Exam 03/28/2025 09/24/2024 Dental Prophylaxis 03/28/2025 09/24/2024, 03/24/2024 Mammogram 08/08/2025 08/09/2023, 08/09/2023 Disability Screening 08/18/2025 08/18/2024 Depression Screening 12/03/2025 12/03/2024, 08/19/19 25 SDOH Screening 12/03/2025 12/03/2024 Alcohol/Substance Use Screening 03/16/2026 03/16/2025 Tobacco Screening 03/16/2026 03/16/2025 HPV/Cotest 06/27/2026 06/27/2021, 03/04/2021, 01/14/2019 Dental X-Ray: Full Mouth 03/25/2027 03/24/2024 Lipid Panel 02/26/2029 02/27/2024 DTaP/Tdap/Td Vaccines (2 - Td or Tdap) 03/17/2029 03/17/2019 Zoster Vaccines (1 of 2) 2032 RSV Patients and Patients Aged 60 years or older (1 - 1-dose 75+ series) 2057 Influenza Vaccine Completed 03/16/2025, , 02/20/2018, Additional history exists HIB Vaccines Aged Out No longer eligi [...] Procedure Name Priority Date/Time Associated Diagnosis Comments MR ABDOMEN W AND WO CONTRAST Routine 04/28/2025 10:54 AM EST PROLACTIN Routine 03/15/2025 9:26 AM EST HAPTOGLOBIN Routine 03/15/2025 9:26 AM EST Iron deficiency anemia due to chronic blood loss LD Routine 03/15/2025 9:26 AM EST Iron deficiency anemia due to chronic blood loss RETICULOCYTE COUNT Routine 03/15/2025 9: 26 AM EST Iron deficiency anemia due to chronic blood loss TRANSFERRIN Routine 03/15/2025 9:26 AM EST Iron deficiency anemia due to chronic blood loss IRON AND TOTAL IRON BINDING CAPACITY Routine 03/15/2025 9:26 AM EST Iron deficiency anemia due to chronic blood loss FERRITIN Routine 03/15/2025 9:26 AM EST Iron deficiency anemia due to chronic blood loss URINALYSIS, COMPLETE, WITH REFLEX TO CULTURE Routine 02/24/2025 10:35 AM EDT LIPASE Routine 02/24/2025 9:33 AM EDT MAGNESIUM [...] CYTOPATH-CELL ENHANCED Routine 02/03/2025 9:45 AM EDT PROPHYLAXIS - ADULT Routine 09/24/2024 [...] Recently Relevant to Health Maintenance Results * MR Abdomen w/ and w/o Contrast (04/28/2025 10:54 AM EST) Anatomical Region Laterality Modality Abdomen Magnetic Resonan ce 04/28/2025 10:5 4 AM EST Narrative 04/28/2025 11:[address] [address] Magnetic Resonance Report Signed Patient: Lorrie Bernal MR#: [id number] : 1980 Acct:[id number] Age/Sex: 44 / F ADM Date: 04/28/25 Loc: HO.MRI Attending Dr: Matheus Breen MD Ordering Physician: Matheus Breen MD Date of Service: 04/28/25 Procedure(s): MR abdomen wo/w con Accession Number(s): [id number] cc: Matheus Breen MD Reason for Exam: LIVER LESION EXAMINATION: MR ABDOMEN WITHOUT THEN WITH IV CONTRAST HISTORY: LIVER LESION COMPARISON: Correlation is made with an unenhanced CT of the abdomen dated 02/24/2025. TECHNIQUE: Axial in and out of phase T1-weighted gradient echo, axial diffusion weighted, and axial and coronal HASTE T2 with fat saturation images were obtained through the abdomen. Subsequently, fat suppressed axial and coronal T1-weighted images were obtained after the intravenous administration of 10 mL Gadavist. FINDINGS: Liver: There is no loss of signal intensity in the liver on opposed phase imaging to suggest steatosis. There is a 10 mm cyst in the right lobe. There is no enhancing liver mass. The hepatic and portal veins are patent. There is no intrahepatic biliary dilatation. Gallbladder/biliary tree: The gallbladder is surgically absent. The common bile duct is normal in caliber. No intraluminal filling defects are identified to suggest choledocholithiasis. Spleen: The spleen is unremarkable. Pancreas: The pancreas is unremarkable. There is no enhancing pancreatic mass. The pancreatic duct is normal in caliber. Adrenals: The adrenal glands are unremarkable. Kidneys: The kidneys are unremarkable. There is no hydronephrosis. Lymph nodes: There is no retroperitoneal lymphadenopathy in the upper abdomen. Fluid: There is no ascites in the upper abdomen. Visualized bowel: The visualized small and large bowel loops are unremarkable in appearance. Visualized bones: The visualized bones demonstrate normal marrow signal intensity. MR/MR abdomen wo/w con IMPRESSION: 10 mm cyst in the right lobe of the liver. Electronically signed by: Ruiz Dumont MD 04/28/2025 11:52 AM EST Dictated By: Ruiz Dumont MD Signed By: <Electronically signed by Ruiz Dumont MD in OV> 04/28/25 1152 DD/ 1054 TD/TT: 04/28/25 1116 Sales Support Coordinator: Procedure Note Donotuseinterpreter, Image - 04/28/[address] [address] Magnetic Resonance Report Signed Patient: Lorrie BernalMR#: [id number] : 1980Acct:[id number] Age/Sex: 44 / FADM Date: 04/28/25 Loc: HO.MRI Attending Dr: Matheus Breen MD Ordering Physician: Matheus Breen MD Date of Service: 04/28/25 Procedure(s): MR abdomen wo/w con Accession Number(s): [id number] cc: Matheus Breen MD Reason for Exam: LIVER LESION EXAMINATION: MR ABDOMEN WITHOUT THEN WITH IV CONTRAST HISTORY: LIVER LESION COMPARISON: Correlation is made with an unenhanced CT of the abdomen dated 02/24/2025. TECHNIQUE: Axial in and out of phase T1-weighted gradient echo, axial diffusion weighted, and axial and coronal HASTE T2 with fat saturation images were obtained through the abdomen. Subsequently, fat suppressed axial and coronal T1-weighted images were obtained after the intravenous administration of 10 mL Gadavist. FINDINGS: Liver: There is no loss of signal intensity in the liver on opposed phase imaging to suggest steatosis. There is a 10 mm cyst in the right lobe. There is no enhancing liver mass. The hepatic and portal veins are patent. There is no intrahepatic biliary dilatation. Gallbladder/biliary tree: The gallbladder is surgically absent. The common bile duct is normal in caliber. No intraluminal filling defects are identified to suggest choledocholithiasis. Spleen: The spleen is unremarkable. Pancreas: The pancreas is unremarkable. There is no enhancing pancreatic mass. The pancreatic duct is normal in caliber. Adrenals: The adrenal glands are unremarkable. Kidneys: The kidneys are unremarkable. There is no hydronephrosis. Lymph nodes: There is no retroperitoneal lymphadenopathy in the upper abdomen. Fluid: There is no ascites in the upper abdomen. Visualized bowel: The visualized small and large bowel loops are unremarkable in appearance. Visualized bones: The visualized bones demonstrate normal marrow signal intensity. MR/MR abdomen wo/w con IMPRESSION: 10 mm cyst in the right lobe of the liver. Electronically signed by: Ruiz Dumont MD 04/28/2025 11:52 AM EST Dictated By: Ruiz Dumont MD Signed By: <Electronically signed by Ruiz Dumont MD in OV> 04/28/25 1152 DD/ 1054 TD/TT: 04/28/25 1116 Sales Support Coordinator: Matheus Pressley MD IMG MRI PROCEDURES Fi nal Result * Iron And Total Iron Binding Capacity (03/15/2025 9:26 AM EST) Iron 39 30 - 160 mcg/dL [facility] Total Iron Binding Capacity 263 228 - 428 mcg/dL [facility] Percent Iron Saturation 15 15 - 50 % [facility] Unsaturated Iron Binding 224 ug/dL [facility] Blood Venous blood specimen / Unknown 03/15/2025 9:26 AM EST 03/15/2025 12:31 PM EST Matheus Pressley MD LAB BLOOD ORDERABLES Final Result [facility] [address] [place] [address] [phone] * Prolactin (03/15/2025 9:26 AM EST) Prolactin 25.2 ng/mL [facility] Comment:Reference Range Fema les Non- 3.0-30.0 10.0-209.0 Postmenopausal 2.0-20.0THIS TEST WAS PERFORMED AT:[employer] [place] [phone] WILKINS MD 03/15/2025 9:26 AM EST 03/15/2025 12:31 PM EST Generic External Data Provider LAB BLOOD ORDERAB LES Final Result Performing Organization Address [facility]/ZIP Co de Phone Number [facility] [address] [place] [phone] * Reticulocyte Count (03/15/2025 9:26 AM EST) Reticulocytes Absolute 0.080 0.026 - 0.095 X10*6/uL [facility] Immature Retic Fraction 10.1 3.0 - 15.9 % [facility] Retic HGB Equivalent 30.0 30.0 - 35.0 pg [facility] Reticulocyte Percent 1.7 0.5 - 1.8 % [facility] Blood Venous blood specimen / Unknown 03/15/2025 9:26 AM EST 03/15/2025 12:31 PM EST Mtaheus Pressley MD LAB BLOOD ORDERABLES Final Result Performing Organization Address [facility] Co de Phone Number [facility] [address] [place] [phone] * Transferrin (03/15/2025 9:26 AM EST) Transferrin 233 188 - 341 mg/dL [facility] Comment:THIS TEST WAS PERFOR MED AT:[employer] [employer] [place] [phone] WILKINS MD Blood Venous blood specimen / Unknown 03/15/2025 9:26 AM EST 03/15/2025 12:31 PM EST Matheus Pressley MD LAB BLOOD ORDERABLES Final Result Performing Organization Address City/[facility]/ZIP Co de Phone Number [facility] [address] [place] [phone] * Lactate Dehydrogenase (LD) (03/15/2025 9:26 AM EST) Lactate Dehydrogenase 197 122 - 220 U/L [facility] Blood Venous blood specimen / Unknown 03/15/2025 9:26 AM EST 03/15/2025 12:31 PM EST Matheus Pressley MD LAB BLOOD ORDERABLES Final Result Performing Organization Address [facility] Co de Phone Number [facility] [address] [place] [phone] * Haptoglobin (03/15/2025 9:26 AM EST) Haptoglobin 197 35 - 250 mg/dL [facility] Blood Venous blood specimen / Unknown 03/15/2025 9:26 AM EST 03/15/2025 12:31 PM EST Matheus Pressley MD LAB BLOOD ORDERABLES Final Result Performing Organization Address [facility] Co de Phone Number [facility] [address] [place] [phone] * Ferritin (03/15/2025 9:26 AM EST) Ferritin 26 10 - 250 ng/mL [facility] Blood Venous blood specimen / Unknown 03/15/2025 9:26 AM EST 03/15/2025 12:31 PM EST us Matheus Pressley MD LAB BLOOD ORDERABLES Final Result Performing Organization Address City/[facility]/ZIP Co de Phone Number [facility] [address] [place] [phone] * (ABNORMAL) Urinalysis, Complete, with Reflex to Culture (02/24/2025 10:35 AM EDT) Color Urine Yellow [facility] Appearance Urine Clear [facility] PH 5.5 5.0 - 9.0 [facility] Glucose Urine UA Negative Negative mg/dL [facility] Urine Blood Moderate (2+)(A) Negative [facility] Specific [place] - Urine 1.025 1.005 - 1.025 [facility] Urine Protein Negative Neg-Trace mg/dL [facility] Urine Ketones Negative Negative mg/dL [facility] Nitrite Urine Negative Negative [facility] Leukocyte Esterase Urine Negative Negative [facility] RBC Urine 11-20(A) 0 - 2 /HPF [facility] Urine WBC 0-5 0 - 5 /HPF [facility] Urine Squamous Epithelial Cell 0-2 0 - 2 /HPF [facility] Urine Bacteria None Seen None Seen [facility] Hyaline Casts, Urine 0-2 0 - 2 /LPF [facility] 02/24/2025 10:3 5 AM EDT 02/24/2025 10:40 AM EDT Narrative [facility] - 02/24/2025 10:54 AM EDT [id number], Clean Catch us Generic External Data Provider LAB URINE ORDERAB LES Final Result [facility] [address] [place] [phone] * (ABNORMAL) CBC auto differential (02/24/2025 9:33 AM EDT) White Blood Count 7.6 4.8 - 10.8 X10*3/uL [facility] Red Blood Count 4.46 4.20 - 5.50 X10*6/uL [facility] Hemoglobin 11.9(L) 12.0 - 16.0 g/dl [facility] Hematocrit 36.5(L) 37.0 - 47.0 % [facility] Mean Corpuscular Volume 81.8 80.0 - 98.0 fL [facility] Mean Corpuscular Hemoglobin 26.7(L) 27.0 - 33.0 pg [facility] Mean Corpuscular HGB Conc 32.6 31.0 - 35.0 g/dl [facility] Red Cell Distribution Width 13.8 11.0 - 16.0 % [facility] Platelet Count 315 160 - 400 X10*3/uL [facility] Mean Platelet Volume 9.5 9.4 - 12.3 fL [facility] Neutrophils Percent Auto 79.7(H) 45 - 73 % [facility] Imm Gran Pct Auto 0.4 0.0 - 0.4 % [facility] Lymphocytes Percent Auto 14.3(L) 20 - 40 % [facility] Monocytes Percent Auto 3.3 2 - 11 % [facility] Eosinophils Percent Auto 1.6 0 - 4 % [facility] Basophils Percent Auto 0.7 0 - 2 % [facility] NRBC Pct Auto 0.0 0.0 - 0.2 /100WBC [facility] [facility] Neutrophils Absolute Auto 6.1 2.0 - 8.3 x10*3/uL [facility] Imm Gran Abs Auto 0.03 0.00 - 0.03 X10*3/uL [facility] Lymphocytes Absolute Auto 1.1(L) 1.2 - 4.9 X10*3/uL [facility] Monocytes Absolute Auto 0.3 0.1 - 1.2 X10*3/uL [facility] Eosinophils Absolute Auto 0.1 0.0 - 0.4 X10*3/uL [facility] Basophils Absolute Auto 0.1 0.0 - 0.2 X10*3/uL [facility] NRBC Abs Auto 0.000 0.0 - 0.012 X10*3/uL [facility] 02/24/2025 9:33 AM EDT 02/24/2025 9:35 AM EDT us Generic External Data Provider LAB BLOOD ORDERAB LES Final Result [facility] [address] [place] [phone] * CT Abdomen Pelvis w/o Contrast (02/24/2025 9:33 AM EDT) Anatomical Region Laterality Modality Body, Pelvis, Abdomen Computed T omography 02/24/2025 9:33 AM EDT Narrative 02/24/2025 10:03 AM EDT [address] [address] [address] Scan Report Signed Patient: Lrorie Bernal MR#: [id number] : 1980 Acct:[id number] Age/Sex: 44 / F ADM Date: 02/24/25 Loc: HO.ED Attending Dr: Ordering Physician: Brooke Sanchez Date of Service: 02/24/25 Procedure(s): CT abdomen pelvis wo IV con Accession Number(s): [id number] cc: Matheus Breen MD; Brooke Sanchez Report Number: [id number]: Total DLP = 1566.00 mGy-cm Reason for [...] Rangel MD in OV> 02/24/25 1000 DD/ TD/TT: 02/24/25 0951 Sales Support Coordinator: Procedure Note Donotuseinterpreter, Image - 02/24/[address] [address] [address] Scan Report Signed Patient: Lorrie BernalMR#: [id number] : 1980Acct:[id number] Age/Sex: 44 / FADM Date: 02/24/25 Loc: HO.ED Attending Dr: Ordering Physician: Brooke Sanchez Date of Service: 02/24/25 Procedure(s): CT abdomen pelvis wo IV con Accession Number(s): [id number] cc: Matheus Breen MD; Brooke Sanchez Report Number: [id number]: Total DLP = 1566.00 mGy-cm Reason for [...] MDin OV> 02/24/25 1000 DD/ 2 TD/TT: 02/24/25950 Sales Support Coordinator: [facility] External Provider IMG CT PROCEDURES Final Result * Magnesium (02/24/2025 9:33 AM EDT) [facility] Magnesium 2.0 1.6 - 2.6 mg/dL [facility] 02/24/2025 9:33 AM EDT 02/24/2025 9:35 AM EDT Generic External Data Provider LAB BLOOD ORDERAB LES Final Result Performing Organization Address [facility] Co de Phone Number [facility] [address] [place] [phone] * Lipase (02/24/2025 9:33 AM EDT) [facility] Lipase 14 8 - 78 U/L [facility] 02/24/2025 9:33 AM EDT 02/24/2025 9:35 AM EDT Generic External Data Provider LAB BLOOD ORDERAB LES Final Result Performing Organization Address [facility] Co de Phone Number [facility] [address] [place] [phone] * Hepatic Function Panel (02/24/2025 9:33 AM EDT) Bilirubin, Total 0.2 0.0 - 1.0 mg/dL [facility] Bilirubin, Direct <0.2 0.0 - 0.5 mg/dL [facility] Aspartate Amino Transferase 18 5 - 31 U/L [facility] Alanine Aminotransferase 20 0 - 31 U/L [facility] Total Protein 7.0 6.5 - 8.0 g/dL [facility] Albumin Level 4.1 3.5 - 5.0 g/dL [facility] Alkaline Phosphatase 61 39 - 117 U/L [facility] 02/24/2025 9:33 AM EDT 02/24/2025 9:35 AM EDT us Generic External Data Provider LAB BLOOD ORDERAB LES Final Result [facility] [address] [place] [phone] * (ABNORMAL) Basic Metabolic Panel (02/24/2025 9:33 AM EDT) Sodium 141 135 - 145 mmol/L [facility] Potassium 4.1 3.3 - 5.1 mmol/L [facility] Chloride 112(H) 96 - 108 mmol/L [facility] Carbon Dioxide 25 22 - 29 mmol/L [facility] Anion Gap 8(L) 12 - 20 [facility] Urea Nitrogen (BUN) 7(L) 9 - 16 mg/dL [facility] Creatinine, Serum 0.67 0.5 - 1.4 mg/dL [facility] Creatinine Clr Calc Pharmacy 166.2 [facility] Comment:Provided height and weight: 175.26 cm,141.3 kg.eGFR (calculated from the MDRD study equation) and eCrCl(calculated from the Cockcroft-Gault equation) are based ondifferent parameters and may not yield comparable results.If eCrCl result is absurd, please check patient'sheight/weight. Estimated Glomerular Filt Rate >60 [facility] Comment:Chronic Kidney Disea se: Estimated GFR < 60 mL/min/1.93p1Xpcoev Kidney Disease: Estimated GFR < 15 mL/min/1.73m2 Glucose 103 60 - 115 mg/dL [facility] Calcium 9.1 8.4 - 10.2 mg/dL [facility] 02/24/2025 9:33 AM EDT 02/24/2025 9:35 AM EDT us Generic External Data Provider LAB BLOOD ORDERAB LES Final Result [facility] [address] [place] [phone] * Gross and Microscopic Level 3 (02/19/2025 1:05 PM EDT) 02/19/2025 1:05 PM EDT 02/19/2025 1:58 PM EDT Narrative [facility] - 02/22/2025 1:39 PM EDT ----- ------- Name: Rosangela CarbajalLorrie Age/Sex: 44/F : 1980 Unit#: [id number] Attend Dr: Irineo Pearson MD Re02/19/25 Status: [facility] Disch: ----- ------- SPEC : [id number] RECD: 02/19/251883 STATUS: EMA PEACOCK NUM: [id number] STIVEN: 02/19/251381 [facility] DR: Irineo Pearson MD ENTERED: 02/19/251140 SP TYPE: Surgical OTHR DR: Matheus Breen [...] an average wall thickness of 0.4 cm. Medical Billing Assistant sections are submitted to include cystic duct margin (inked blue), body and fundus in cassette A1. (LALA) IHC S/NG Disclaimer NOTE: Unless otherwise stated, all tissue is formalin-fixed and paraffin-embedded. Some or all of the immunohistochemical tests reported herein may have been developed and their performance characteristics determined by [facility]. They have not been cleared or approved by the U.S. Food and Drug Administration (FDA). However, the FDA has determined that such clearance or approval is not necessary. This laboratory is certified under the Clinical Laboratory Improvement Amendments of 1988 (CLIA) as qualified to perform high complexity clinical laboratory testing. Copies To: Matheus Breen MD [address] [address] CONTINUED ON NEXT PAGE ----- ------- Name: Rosangela CarbajalLorrie Age/Sex: 44/F : 1980 Unit#: [id number] Attend Dr: Irineo Pearson MD Re02/19/25 Status: [facility] [place] Location: [facility] Disch: ----- ------- SPEC : [id number] RECD: 02/19/25 STATUS: EMA PEACOCK NUM: [id number] STIVEN: 02/19/[address] [facility] [address]: Irineo Pearson MD ENTERED: 02/19/25 SP TYPE: Surgical OTHR DR: Matheus Breen MD ORDERED: Gross Micro L3 Copies To: (Continued) Irineo Pearson MD [facility] [address] [place] [address] ----- ------- Signed (signature on file) Anna Marie Nash 02/22/25 1339 ----- ------- END OF REPORT us Generic External Data Provider LAB CYTOLOGY SHONDA GUTIERREZ Final Result [facility] [address] [place] [phone] * Cytopath-cell enhanced (02/03/2025 9:45 AM EDT) 02/03/2025 9:45 AM EDT 02/04/2025 9:06 AM EDT [facility] - 02/05/2025 8:23 AM EDT ----- ------- Name: Rosangela CarbajalLorrie Age/Sex: 44/F : 1980 Unit#: [id number] Attend Dr: Belia San [facility] Re02/03/25 Status: DEP REF Location: .LAB Disch: ----- ------- SPEC : [id number] RECD: 02/04/25 STATUS: EMA PEACOCK NUM: [id number] STIVEN: 02/03/[address] [facility] [address]: Belia San [facility]- ENTERED: 02/04/25 SP TYPE: Cytology OT DR: [...] developed and their performance characteristics determined by [facility]. They have not been cleared or approved by the U.S. Food and Drug Administration (FDA). However, the FDA has determined that such clearance or approval is not necessary. This laboratory is certified under the Clinical Laboratory Improvement Amendments of 1988 (CLIA) as qualified to perform high complexity clinical laboratory testing. Copies To: Matheus Breen MD [address] [address] Belia San [facility] [address] [place] [address] Dr. Alcazar [address] [place] [address] [email or web address] CONTINUED ON NEXT PAGE ----- ------- Name: Lorrie Bernal Age/Sex: 44/F : 1980 Unit#: [id number] Attend Dr: Belia San [facility] Re02/03/25 Status: [facility] Disch: ----- ------- SPEC : [id number] RECD: 02/04/25 STATUS: EMA PEACOCK NUM: [id number] STIVEN: 02/03/[address] [facility] [address]: Belia San [facility]- ENTERED: 02/04/25 SP TYPE: Cytology OTHR DR: Matheus Breen MD ORDERED: Cyto-enhanced ----- ------- Signed (signature on file) Antonio Brand MD 02/05/25822 ----- ------- END OF REPORT us Generic External Data Provider LAB CYTOLOGY SHONDA GUTIERREZ Final Result [facility] [address] [place] [phone] * (ABNORMAL) Lipid Panel, Standard (02/27/2024 11:22 AM EDT) Triglycerides 85 <150 mg/dL [facility] Comment:Desirable Triglyceri de: less than 150 mg/dLBorderline High Triglyceride 150-199 mg/dLHigh Triglyceride: 200-499 mg/dLVery High Triglyceride: greater than or equal to 5OO mg/dL Cholesterol 179 <200 mg/dL [facility] Comment:Desirable Cholestero l: less than 200 mg/dLBorderline High Cholesterol: 200-239 mg/dLHigh Cholesterol: greater than 239 mg/dL LDL Cholesterol Calculated 122(H) <100 mg/dL [facility] Comment:Desirable LDL: less than 100 mg/dLNear Optimal/Above Optimal LDL: 110- 129 mg/dLBorderline High LDL: 130-159 mg/dLHigh LDL: 160-189 mg/dLVery High LDL: greater than or equal to 190 mg/dL HDL Cholesterol 40(L) >40 mg/dL [facility] Comment:Desirable HDL: great er than 40 mg/dL Note: This HDL assay may give artificially low results in patients with liver disease. Blood Venous blood specimen / Unknown 02/27/2024 11:22 AM EDT 02/27/2024 1:17 PM EDT us Matheus Pressley MD LAB BLOOD ORDERABLES Final Result [facility] [address] [place] [phone] * BI US Breast Limited Left (08/09/2023 2:06 PM EDT) Anatomical Region Laterality Modality Breast Left Ultrasound 08/09/2023 2:06 PM EDT Narrative 08/09/2023 2:16 PM EDT [address] [place] [address] Ultrasound Report Signed Patient: Lorrie Bernal MR#: [id number] : 1980 Acct:[id number] Age/Sex: 42 / F ADM Date: 08/09/23 Loc: HO.MAMMO Attending Dr: Azam Connelly MD Ordering Physician: Azam Connelly MD Date of Service: 08/09/23 Procedure(s): US breast LT limited mamm only Accession Number(s): [id number] cc: Matheus Breen MD; Azam Connelly MD [...] in OV> 08/09/23 1412 DD/ 1406 TD/TT: Sales Support Coordinator: Procedure Note Donotuseinterpreter, Image - 08/09/2023 [facility] [address] [place] [address] Ultrasound Report Signed Patient: Lorrie BernalMR#: [id number] : 1980Acct:[id number] Age/Sex: 42 / FADM Date: 08/09/23 Loc: HO.MAMMO Attending Dr: Azam Connelly MD Ordering Physician: Azam Connelly MD Date of Service: 08/09/23 Procedure(s): US breast LT limited mamm only Accession Number(s): [id number] cc: Matheus Breen MD; Azam Connelly MD [...] in OV> 08/09/23 1412 DD/ 1406 TD/TT: Sales Support Coordinator: [facility] External Provider IMG US PROCEDURES Final Result * HPV E6/E7 RFLX HAI 16 18/45 (06/27/2021 9:05 AM EST) HPV 16 RNA [facility] HPV 18/45 RNA [facility] HPV E6 E7 ADD [facility] HPV mRNA E6/E7 rflx Not Detected Not Detected [facility] Comment: Methodology: Test Worker-Mediated Amplification This assay detects E6/E7 viral messenger RNA (mRNA) from 14 high-risk HPV types (16,18,31,33,35,39,45,51,52,56,58,59,66,68). The analytical performance characteristics of this assay have been determined by [employer]. The modifications have not been cleared or approved by the FDA. This assay has been validated pursuant to the CLIA regulations and is used for clinical purposes. For additional information, please refer to http://education.Movigo/faq/PXV878k4 (This link if provided for information/ educational purposes only.) THIS TEST WAS PERFORMED AT: [employer] [address] [place] [address],[place] [address] GALE WILKINS MD 06/27/2021 9:05 AM EST us [place]ena [place] HISTORICAL/NON ORDERABLE LABS Fi nal Result [facility] [address] * Hm Pap Smear (06/27/2021) Historical Provider HEALTH MAINTENANCE Final Result from Last 3 Months or Most Recently Relevant to Health Maintenance Insurance [place] [facility] MEDICA[facility] STAND ADULT Care Teams Finance Consultant Relationship Specialty Start Date End Date Matheus Quijano MD [address] [place] [address] PCP - General Internal Medicine 11/24/18
--- OUTSIDE RECORDS SUMMARY | 2025-04-28 12:03 | XMS_ITS | Encounter Summary ---
Author Organization [employer] Address [address] [place] [address] 7 [place] [address] Care Team Providers Care Director Education Name Role Phone Matheus Quijano MD Primary Care Provide r Encounter Details Date Type Department Care Team (Late Contact Info) Description 10/17/2022 Abstract [facility] MEDICINE [address] [place] [address] Matheus Quijano MD [address] [place] [address] Social History Tobacco Use Types Packs/Day Years [...] Description 05/18/2025 10:00 AM EST Office Visit [facility] CHC MED & PEDS [address] [place] [address] Juju Montanez MD [address] [place] [address] 06/17/2025 9:15 AM EST Office Visit [facility] MEDICINE [address] [place] [address] Matheus Quijano MD [address] [place] [address] documented as of this encounter Visit Diagnoses Not on filedocumented in this encounter Additional Health Concerns Assessment Noted Time PHQ-9 Depression Total Score: 16 08/23/ 023 10:18 AM EDT documented as of this encounter Care Teams Director Education Relationship Specialty Start Date End Date Matheus Quijano MD [address] [place] [address] [phone] PCP - General Internal Medicine 11/24/18 documented as of this encounter
--- OUTSIDE RECORDS SUMMARY | 2025-04-28 12:03 | XMS_ITS | Encounter Summary ---
Author Organization [employer] Address [address] 7[address] [place] [address] Care Team Providers Care Fixed Capital Clerk Name Role Phone Matheus Qiujano MD Primary Care Provide r Encounter Details Date Type Department Care Team ([facility] Contact Info) Description 02/01/2025 Telephone C OPTOMETRY [address] [place] [address] Yogesh, Darcie, OD [address] [place] [address] Social History Tobacco Use Types Packs/Day Years [...] lenses. Give us a called back at [phone]. Have a nice day! documented in this encounter Plan of Treatment Upcoming Encounters Date Type Department Care Team ([facility] Contact Info) Description 05/18/2025 10:00 AM EST Office Visit [facility] CHC MED & PEDS [address] [place] [address] Juju Montanez MD [address] [place] [address] 06/17/2025 9:15 AM EST Office Visit [facility] MEDICINE [address] [place] [address] Matheus Quijano MD [address] [place] [address] documented as of this encounter Visit Diagnoses Not on filedocumented in this encounter Additional Health Concerns Assessment Noted Time PHQ-9 Depression Total Score: 4 08/19/19 25 10:07 AM EDT documented as of this encounter Care Teams Fixed Capital Clerk Relationship Specialty Start Date End Date Matheus Quijano MD [address] [place] [address] PCP - General Internal Medicine 11/24/18 documented as of this encounter
--- OUTSIDE RECORDS SUMMARY | 2025-04-28 12:03 | XMS_ITS | Encounter Summary ---
Author Organization [employer] Address [address] [place] [address] [place] [address] Care Team Providers Care Information Assurance Engineer Name Role Phone Matheus Quijano MD Primary Care Provide r Reason for Visit * Reason Onset Date Comments Med Refill 09/24/2023 Encounter Details Date Type Department Care Team ([facility] st Contact Info) Description 09/24/2023 Refill [facility] CHC MED & PEDS [address] [place] [address] Leana Yanez MD [address] [place] [address] Social History Tobacco Use Types Packs/Day Years [...] Description 05/18/2025 10:00 AM EST Office Visit [facility] CHC MED & PEDS [address] [place] [address] Juju Montanez MD [address] [place] [address] 06/17/2025 9:15 AM EST Office Visit [facility] MEDICINE [address] [place] [address] Matheus Quijano MD [address] [place] [address] documented as of this encounter Visit Diagnoses Not on filedocumented in this encounter Additional Health Concerns Assessment Noted Time PHQ-9 Depression Total Score: 19 024 1:37 PM EST documented as of this encounter Care Teams Information Assurance Engineer Relationship Specialty Start Date End Date Matheus Quijano MD [address] [place] [address] [phone] PCP - General Internal Medicine 11/24/18 documented as of this encounter
--- OUTSIDE RECORDS SUMMARY | 2025-04-28 12:03 | XMS_ITS | Encounter Summary ---
Author Organization [employer] Address [address] [place] [address] 7 [place] [address] Care Team Providers Care Heater Operator Name Role Phone Matheus Quijano MD Primary Care Provide r Reason for Visit * Reason Comments Med Refill Encounter Details Date Type Department Care Team ([facility] st Contact Info) Description 11/20/2024 Refill [facility] MEDICINE [address] [place] [address] Matheus Quijano MD [address] [place] [address] Seasonal allergies Social History Tobacco Use Types [...] Description 05/18/2025 10:00 AM EST Office Visit [facility] CHC MED & PEDS [address] [place] [address] Juju Montanez MD [address] [place] [address] 06/17/2025 9:15 AM EST Office Visit [facility] MEDICINE [address] [place] [address] Matheus Quijano MD [address] [place] [address] documented as of this encounter Visit Diagnoses Diagnosis Seasonal allergies Allergic rhinitis, cause unspecified documented in this encounter Additional Health Concerns Assessment Noted Time PHQ-9 Depression Total Score: 4 08/19/19 10:07 AM EDT documented as of this encounter Care Teams Heater Operator Relationship Specialty Start Date End Date Matheus Quijano MD [address] [place] [address] PCP - General Internal Medicine 11/24/18 documented as of this encounter
--- OUTSIDE RECORDS SUMMARY | 2025-04-28 12:03 | XMS_ITS | Clinical Summary ---
Author Organization [facility] Address [address] [address] Phone Care Team Providers Care Patients Transporter Name Role Phone [facility] Primary Care Provider Unavailable Allergies No known [...] protein shake or a protein bar or Hungarian yogurt or cottage cheese to be consumed [...] topic Medical Devices Not on file Insurance [facility] C3 ACO C3 ACO C3 ACO C3 ACO C3 ACO C[address] [place] [address] [address] [place] [address] C3 ACO [facility] C3 ACO [facility] C3 ACO Care Teams Patients Transporter Relationship Specialty Start Date End Date [facility] - [facility] 01/31/22 Additional Source Comments The information contained in this document represents components of the legal health record. It is not the complete legal health record.[facility]
--- OUTSIDE RECORDS SUMMARY | 2025-04-28 12:04 | XMS_ITS | Encounter Summary ---
Author Organization [employer] Address [address] [place] [address] 7 [place] [address] Care Team Providers Care Sales Training Manager Name Role Phone Matheus Quijano MD Primary Care Provide r Reason for Visit * Reason Onset Date Comments Appointment Request 01/28/2024 Encounter Details Date Type Department Care Team ([facility] Contact Info) Description 01/28/2024 Telephone [facility] MEDICINE [address] [place] [address] Matheus Quijano MD [address] [place] [address] Appointment Request Social History Tobacco Use Types [...] calling to cancel appt for 01/27 and policy writer did attempt to reschedule appt however there is nothing available at this time documented in this encounter Plan of Treatment Upcoming Encounters Date Type Department Care Team (Late st Contact Info) Description 05/18/2025 10:00 AM EST Office Visit [facility] CHC MED & PEDS [address] [place] [address] Juju Montanez MD [address] [place] [address] 06/17/2025 9:15 AM EST Office Visit [facility] MEDICINE [address] [place] [address] Matheus Quijano MD [address] [place] [address] documented as of this encounter Visit Diagnoses Not on filedocumented in this encounter Additional Health Concerns Assessment Noted Time PHQ-9 Depression Total Score: 19 024 1:37 PM EST documented as of this encounter Care Teams Sales Training Manager Relationship Specialty Start Date End Date Matheus Quijano MD [address] [place] [address], [place] [address] PCP - General Internal Medicine 11/24/18 documented as of this encounter
== END 2025-04-28 10:30 | disposition home or self-care (01) ==
LOC: HO.MRI 10:29
PROVIDERS: PCP Internal Medicine; Visit Provider Internal Medicine
DX: K76.9 Liver disease, unspecified (principal)
CPT/HCPCS: 74183; A9585

== ENCOUNTER → 2025-04-28 10:54 | Outpatient (BNV) | payer MEDICAID, SELFPAY | PROVIDERS: PCP Internal Medicine; Visit Provider Radiology Diagnostic Radiology | DX: K76.89 Other specified diseases of liver (principal) | CPT/HCPCS: 74183 ==